=== PATIENT | female | born 1945 | race Caucasian/White ===

== ENCOUNTER 2016-07-14 06:44 | Inpatient (IN) ==
[2016-07-14] MEDS ORDERED: methylPREDNISolone 125 MG/2 ML VIAL IVP ONE (07:05)
[2016-07-14] MEDS ORDERED: Ipratropium/Albuterol Neb 3 ML IH ONE (07:05)
--- NOTE | 2016-07-14 07:09 | Emergency Department Note ---
Disposition Clinical Impression: COPD exacerbation, Non-ST elevation (NSTEMI) myocardial infarction Disposition: Admitted As Inpatient Condition: Fair General Adult HPI - General Stated complaint: brigitte Time Seen by Provider: 07/14/16 06:55 Source: patient, family, EMS Limitations: no limitations Nursing Notes Reviewed: Yes Vital Signs Reviewed: Yes - History of Present Illness HPI Narrative: Patient with a history of COPD and obesity brought in by for evaluation of shortness of breath. Patient has had worsening decline in overall status will last couple months. Not on home oxygen. Extensive smoking history. Patient became acutely short of breath with exertion this a.m. Patient complains of feeling shortness of breath and fatigue. Patient's was recently discharged from her [facility] provider secondary to lack of follow-up and noncompliance. Patient denies chest pain. Pain Scale: 0 - Related Data Home Medications Medication Instructions Recorded Confirmed Acetaminophen [Tylenol] 1,000 mg PO Q6HR PRN 07/14/16 07/14/16 Previous Rx's Medication Instructions Recorded Furosemide [Lasix] 40 mg PO TID 30 Days 02/16/15 Gabapentin [Neurontin] 300 mg PO TID capsule 02/16/15 Allergies Allergy/AdvReac Type Severity Reaction Status Date / Time No Known Allergies Allergy Verified 01/03/15 19:02 All systems ED: reviewed and negative except as stated. Constitutional: Denies: fever ENT ED: Reports: congestion Cardiovascular: Reports: dyspnea on exertion. Denies: chest pain Respiratory: Reports: cough, dyspnea, wheezes Gastrointestinal: Denies: abdominal pain, nausea, vomiting Genitourinary: Denies: urgency, dysuria Integumentary: Denies: rash Neurological: Denies: headache, weakness Endocrine: Reports: fatigue Past Medical History - Past Medical History Medical history: Reports: COPD, other Surgical history: Reports: appendectomy, Psychiatric history: Reports: no psych history - Social History Smoking Status: Current every day smoker Smokeless Tobacco Status: No Alcohol use: Reports: none Drug use: Reports: none Physical Exam General appearance: Pt obese, concern for not having been taken care of to greatest extent at home, conversant but limited insight into disease process Eyes: anicteric sclerae, moist conjunctivae; no lid-lag; PERRL; right periorbital area with slight swelling and erythema HENT: Atraumatic; oropharynx clear with moist mucous membranes and no mucosal ulcerations; normal hard and soft palate Neck: Trachea midline; FROM, supple, no thyromegaly or lymphadenopathy Lungs: diffuse wheezing with scattered rhonchi CV: RRR, no MRGs Abdomen: Soft, non-tender; obese with slight color change but no overt cellulitis. Extremities: +2 peripheral edema Skin: multiple areas of excoriation and mild erythema; chronic vascular changes of the lower extremitis. Psych: alert and oriented to person, place and time; flat affect; - General Limitations: no limitations General appearance: alert Course - Reevaluation(s) Reevaluation #1: Elevated BNP - lasix elevated troponin - aspirin and heparin continued wheezing - overall improved - continued smoking - concern for COPD exacerbation Reevaluation #2: Patient continues to be in no significant distress. Patient conversational and responding properly. We will discuss the hospitalist. - Consultations Consultation #1: Discussed with Hospitalist. Pt accepted for admission. Asks to discuss with cardiology regarding anticoagulation. Consultation #2: Discussed with Dr. Enamorado. Pt will be evaluated by their team. As long as no anti- coagulatin, start Heparin. Vital Signs Temperature 97.6 F 07/14/16 06:56 Pulse Rate 66 07/14/16 06:56 Respiratory Rate 24 07/14/16 06:56 Blood Pressure 144/87 07/14/16 06:56 O2 Sat by Pulse Oximetry 95 07/14/16 06:56 Temperature 97.0 F L 07/14/16 15:09 Pulse Rate 60 07/14/16 15:09 Respiratory Rate 22 07/14/16 15:09 Blood Pressure 129/73 07/14/16 15:09 O2 Sat by Pulse Oximetry 95 07/14/16 15:09 Oxygen Delivery Oxygen Delivery Simple Mask Medical Decision Making - Medical Records Medical records reviewed: Yes I reviewed the patient's medical records. - Lab Data Lab results reviewed: Yes I reviewed the patient's lab results. Result diagrams: 07/14/16 07:00 07/14/16 07:00 Lab Results 07/14/16 07/14/16 07/14/16 Range/Units 07:00 07:00 07:00 WBC 6.9 (4.3-11.1) K/mcL RBC 5.22 H (3.82-4.97) M/mcL Hgb 17.0 H (11.5-15.4) g/dL Hct 54.1 H (35.3-44.9) % MCV 103.6 H (83.0-100.0) fL MCH 32.6 (28.0-33.3) pg MCHC 31.4 L (31.6-35.5) g/dL RDW 17.4 H (11.5-14.5) % Plt Count 189 (140-400) K/mcL MPV 10.5 (9.4-12.4) fL Immature Gran % 1.2 (0-4) % Seg Neutrophils % 70.1 % Lymphocytes % 18.8 % Monocytes % 7.9 % Eosinophils % 1.6 % Basophils % 0.4 % Neutrophils # 4.9 (1.6-8.9) K/mcL Lymphocytes # 1.3 (0.6-4.6) K/mcL Monocytes # 0.6 (0.0-1.3) K/mcL Eosinophils # 0.1 (0.0-0.6) K/mcL Basophils # 0.0 (0.0-0.2) K/mcL Nucleated RBCs/100 WBC 0.7 H (0) /100 WBC PT (9.4-12.1) Seconds INR APTT (26.0-36.0) Seconds Sodium 141 (136-145) mEq/L Potassium 4.2 (3.5-4.5) mEq/L Chloride 98 (98-109) mEq/L Carbon Dioxide 34 H (19-29) mEq/L BUN 16 (7-20) mg/dL Creatinine 0.84 (0.57-1.11) mg/dL Est GFR ( Amer) > 60 (> 60) Est GFR (Non-Af Amer) > 60 (> 60) BUN/Creatinine Ratio 19 (6-26) Glucose 105 H (70-99) mg/dL Calculated Osmolality 294 (280-300) Calcium 9.1 (8.6-10.8) mg/dL Total Bilirubin 0.9 (0.2-1.2) mg/dL Direct Bilirubin 0.5 (0.0-0.5) mg/dL Indirect Bilirubin 0.4 (0.0-1.2) mg/dL AST 19 (5-34) Units/L ALT 15 (0-55) Units/L Alkaline Phosphatase 123 (38-126) Units/L Troponin I 0.60 H* (0-0.03) ng/mL B-Natriuretic Peptide (0-100) pg/mL Serum Total Protein 7.0 (6.0-8.3) g/dL Albumin 2.8 L (3.5-5.0) g/dL Globulin 4.2 H (2.4-3.5) g/dL Albumin/Globulin Ratio 0.7 L (1.1-2.2) Vitamin B12 (213-816) pg/mL Folate (7.0-31.4) ng/mL 07/14/16 07/14/16 07/14/16 Range/Units 07:00 08:06 10:28 WBC (4.3-11.1) K/mcL RBC (3.82-4.97) M/mcL Hgb (11.5-15.4) g/dL Hct (35.3-44.9) % MCV (83.0-100.0) fL MCH (28.0-33.3) pg MCHC (31.6-35.5) g/dL RDW (11.5-14.5) % Plt Count (140-400) K/mcL MPV (9.4-12.4) fL Immature Gran % (0-4) % Seg Neutrophils % % Lymphocytes % % Monocytes % % Eosinophils % % Basophils % % Neutrophils # (1.6-8.9) K/mcL Lymphocytes # (0.6-4.6) K/mcL Monocytes # (0.0-1.3) K/mcL Eosinophils # (0.0-0.6) K/mcL Basophils # (0.0-0.2) K/mcL Nucleated RBCs/100 WBC (0) /100 WBC PT 12.0 (9.4-12.1) Seconds INR 1.1 APTT 28.4 (26.0-36.0) Seconds Sodium (136-145) mEq/L Potassium (3.5-4.5) mEq/L Chloride (98-109) mEq/L Carbon Dioxide (19-29) mEq/L BUN (7-20) mg/dL Creatinine (0.57-1.11) mg/dL Est GFR ( Amer) (> 60) Est GFR (Non-Af Amer) (> 60) BUN/Creatinine Ratio (6-26) Glucose (70-99) mg/dL Calculated Osmolality (280-300) Calcium (8.6-10.8) mg/dL Total Bilirubin (0.2-1.2) mg/dL Direct Bilirubin (0.0-0.5) mg/dL Indirect Bilirubin (0.0-1.2) mg/dL AST (5-34) Units/L ALT (0-55) Units/L Alkaline Phosphatase (38-126) Units/L Troponin I 0.63 H* (0-0.03) ng/mL B-Natriuretic Peptide 861 H (0-100) pg/mL Serum Total Protein (6.0-8.3) g/dL Albumin (3.5-5.0) g/dL Globulin (2.4-3.5) g/dL Albumin/Globulin Ratio (1.1-2.2) Vitamin B12 (213-816) pg/mL Folate (7.0-31.4) ng/mL 07/14/16 Range/Units 10:28 WBC (4.3-11.1) K/mcL RBC (3.82-4.97) M/mcL Hgb (11.5-15.4) g/dL Hct (35.3-44.9) % MCV (83.0-100.0) fL MCH (28.0-33.3) pg MCHC (31.6-35.5) g/dL RDW (11.5-14.5) % Plt Count (140-400) K/mcL MPV (9.4-12.4) fL Immature Gran % (0-4) % Seg Neutrophils % % Lymphocytes % % Monocytes % % Eosinophils % % Basophils % % Neutrophils # (1.6-8.9) K/mcL Lymphocytes # (0.6-4.6) K/mcL Monocytes # (0.0-1.3) K/mcL Eosinophils # (0.0-0.6) K/mcL Basophils # (0.0-0.2) K/mcL Nucleated RBCs/100 WBC (0) /100 WBC PT (9.4-12.1) Seconds INR APTT (26.0-36.0) Seconds Sodium (136-145) mEq/L Potassium (3.5-4.5) mEq/L Chloride (98-109) mEq/L Carbon Dioxide (19-29) mEq/L BUN (7-20) mg/dL Creatinine (0.57-1.11) mg/dL Est GFR ( Amer) (> 60) Est GFR (Non-Af Amer) (> 60) BUN/Creatinine Ratio (6-26) Glucose (70-99) mg/dL Calculated Osmolality (280-300) Calcium (8.6-10.8) mg/dL Total Bilirubin (0.2-1.2) mg/dL Direct Bilirubin (0.0-0.5) mg/dL Indirect Bilirubin (0.0-1.2) mg/dL AST (5-34) Units/L ALT (0-55) Units/L Alkaline Phosphatase (38-126) Units/L Troponin I (0-0.03) ng/mL B-Natriuretic Peptide (0-100) pg/mL Serum Total Protein (6.0-8.3) g/dL Albumin (3.5-5.0) g/dL Globulin (2.4-3.5) g/dL Albumin/Globulin Ratio (1.1-2.2) Vitamin B12 740 (213-816) pg/mL Folate 8.2 (7.0-31.4) ng/mL - Radiology Data Radiology results reviewed: Yes I reviewed the patient's radiology results. - EKG Data EKG #1 EKG attestation: Yes I reviewed and interpreted this EKG. EKG results narrative: EKG shows sinus rhythm with ventricular rate of 66 bpm. DC interval 163. QRS 115. QTC 429. Patient has no significant ST elevations or depressions. Nonspecific T-wave changes. No previous EKG for comparison. Attestation Statement - Attestation Attestation: I examined this patient and my medical decision-making was reviewed with the Resident Physician. I agree with the documented findings, disposition and treatment plan as described except to the extent set forth below. Deconditioned patient who per her "just sits around and smokes" with gradual deterioration over the course of months, brought in today bc is going out of town and doesn't think she is well enough to stay at home alone. Pt unkepmpt, SOB, hypoxic, responsive to oxygen, improved further with nebs. Diminished BS b/l with audible wheezes and rhonchi throughout, minimal tachypnea , no respiratory distress. No fever, no chest pain. Worked up for cardiac disease while treating her COPD, BNP and troponin both elevated. EKG not acutely ischemic. Aspirin, anticoagulants ordered. Admitted to hospitalist with cardio consult.
[2016-07-14 07:17] LABS: Basophils % 0.4 %; Eosinophils # 0.1 K/mcL (0.0-0.6); Eosinophils % 1.6 %; Hematocrit 54.1 % (35.3-44.9); Immature Granulocytes % 1.2 % (0-4); Lymphocytes # 1.3 K/mcL (0.6-4.6); Lymphocytes % 18.8 %; Mean Corpuscular HGB Conc 31.4 g/dL (31.6-35.5); Mean Corpuscular Hemoglobin 32.6 pg (28.0-33.3); Mean Corpuscular Volume 103.6 fL (83.0-100.0); Mean Platelet Volume 10.5 fL (9.4-12.4); Monocytes # 0.6 K/mcL (0.0-1.3); Monocytes % 7.9 %; Neutrophils # 4.9 K/mcL (1.6-8.9); Nucleated Red Blood Cells 0.7 /100 WBC (0); Platelet Count 189 K/mcL (140-400); Red Blood Count 5.22 M/mcL (3.82-4.97); Red Cell Distribution Width 17.4 % (11.5-14.5); Segmented Neutrophils % 70.1 %
[2016-07-14 07:34] LABS: BUN/Creatinine Ratio 19 (6-26); Blood Urea Nitrogen 16 mg/dL (7-20); Calcium 9.1 mg/dL (8.6-10.8); Carbon Dioxide 34 mEq/L (19-29); Chloride 98 mEq/L (98-109); Glucose 105 mg/dL (70-99); Osmolality,Calculated 294 (280-300); Potassium 4.2 mEq/L (3.5-4.5); Sodium 141 mEq/L (136-145); eGFR For African Americans > 60 (> 60); eGFR For Non-African Americans > 60 (> 60)
[2016-07-14] MEDS ORDERED: Aspirin 81 MG TAB.CHEW PO STA (07:54)
[2016-07-14] MEDS ORDERED: *HR* Heparin 5,000 UNIT/ML VIAL IVP PRN ×2 (07:55)
[2016-07-14] MEDS ORDERED: *HR* Heparin 5,000 UNIT/ML VIAL IVP ONE (07:55)
[2016-07-14 08:17] LABS: INR 1.1
[2016-07-14 08:19] LABS: Activated Partial Thrombo Time 28.4 Seconds (26.0-36.0)
[2016-07-14] MEDS: Heparin 25,000 UNIT/500 ML D5W 25,000 UNIT/500 ML MLS IVC SCH (08:23)
[2016-07-14] MEDS ORDERED: Naloxone 0.4 MG/ML INJ IVP PRN ×2 (08:29→15:39)
[2016-07-14] MEDS ORDERED: Ondansetron 4 MG/2 ML VIAL IVP PRN (08:29)
[2016-07-14] MEDS ORDERED: Acetaminophen 325 MG TABLET PO PRN (08:29)
[2016-07-14] MEDS ORDERED: Nitroglycerin 1 INCH/GM PACKET TP ONE (08:41)
--- NOTE | 2016-07-14 09:17 | Internal Med History&Physical ---
Date of Encounter: 07/14/16 Time of Encounter: 09:15 Assessment and Plan (1) NSTEMI (non-ST elevated myocardial infarction) Current visit: Yes Status: Suspected Patient has an extensive history of tobacco abuse of one pack per day She has sudden onset shortness of breath that has been worsening over the past 2 weeks associated with orthopnea EKG with nonspecific ST-T wave changes Chest x-ray with cardiology and pulmonary vascular congestion findings Troponin elevation of 0.6 Patient will be admitted to the hospital due to suspected non-STEMI causing acute hypoxic respiratory failure likely due to pulmonary edema High risk due to risk of lethal arrhythmias Expect the patient to be hospitalized for at least 2 midnights Expected discharge disposition is to rehabilitation facility versus home with home health Cardiology consult-case discussed with cardiology by the ER physician. Will follow recommendations Echocardiogram will be obtained Cyclic cardiac enzymes Continue heparin drip. Aspirin, Plavix and statin. Hold beta raphael as the patient's heart rate is in the 60s. (2) Acute respiratory failure Current visit: Yes Status: Acute Patient's saturation was found to be 60% on room air when she arrived to the emergency department and is currently requiring a nonrebreather. Likely related to fluid overload due to CHF exacerbation that may be related to non-STEMI Patient has a history of being sedentary and bedbound for at least the last 2-3 months according to the . Although the patient does not have tachycardia, given her profound hypoxia, suspicion for pulmonary embolus. Will obtain CT angiogram to evaluate for PE Patient is on heparin drip for suspected non-STEMI. Will follow-up results of the CT angiogram Will obtain a blood gas to evaluate for hypercapnia Qualifiers: Respiratory failure complication: hypoxia Qualified Code(s): J96.01 - Acute respiratory failure with hypoxia (3) COPD exacerbation Current visit: Yes Status: Acute Patient has bilateral diffuse wheezing, worsening shortness of breath, sputum production and cough She has a history of extensive tobacco abuse We will place the patient on Solu-Medrol and breathing treatments (4) CHF (congestive heart failure) Current visit: Yes Status: Chronic Echocardiogram in January 2015 revealed diastolic dysfunction and concentric hypertrophy. Current presentation consistent with pulmonary edema causing acute hypercapnic respiratory failure Patient likely has acute on chronic CHF Will obtain echocardiogram Patient received a dose of Lasix in the emergency room. Hold further doses of Lasix until patient has CTA performed Will follow up cardiology recommendations. Strict input and output, daily weights. Schreiber catheter will be inserted. Qualifiers: Congestive heart failure type: diastolic Congestive heart failure chronicity: acute on chronic Qualified Code(s): I50.33 - Acute on chronic diastolic (congestive) heart failure (5) Cutaneous candidiasis Current visit: Yes Status: Acute Nystatin powder topically Suspicion for candidiasis causing cellulitis and possible superinfection with bacteria causing an abscess Will obtain CT abdomen/pelvis to evaluate for any abscess formation Wound care consult Depending on the results of the CT scan, may require surgery consult (6) Tobacco abuse Current visit: Yes Status: Chronic Counseled regarding cessation. Nicotine patch will not be ordered as the patient likely has non-STEMI (7) Morbid obesity with BMI of 50.0-59.9, adult Current visit: Yes Status: Chronic Internal Medicine - H&P: HPI Chief complaint: Weakness and shortness of breath Admitted From: Emergency Dept Plans for Post Hospital Care: Transfer Inp Rehab Fac History of present illness: Ms. Plata is a 71 year old female with a past medical history of COPD who continues to smoke at home was brought to the hospital by her due to worsening shortness of breath over the past 2 weeks. The patient is a poor historian and part of the history was obtained by review of medical records and from her . Her is an oral surgeon. He states that the patient is mostly sedentary at home and bed bound. She performs minimal activity. He states that she has been getting short of breath with minimal activity over the past 2 weeks that is probably just to shortness of breath even at rest. The patient endorses orthopnea. She also reports that she has noticed increased swelling in her legs. The patient does not check her weight and hence, no information is available regarding weight changes. The patient reports having a cough that is white in color. She denies any chest pain, palpitations. She does report lightheadedness over the past 2 weeks. She denies any fever, chills , abdominal pain, nausea, vomiting or urinary symptoms. The patient does not have any home health care. The patient was admitted to the hospital in January 2015 after a fall. After her discharge from that admission, she was in inpatient rehabilitation according to her . The states that the patient was doing well after she returned home from rehabilitation. However, over the past 8 months, her activity gradually reduced and she became bedbound again. As her symptoms have been getting worse over the past 2 weeks, the patient and her decided to present to the emergency department today. The patient had apparently seen a primary care physician about one year ago after her discharge from the hospital. However, the patient did not follow up with her primary care physician. According to the , the patient has been discharged by her primary care physician and she is in the process of finding a new primary care physician. The states that the patient takes care of herself mostly while lying in the bed and cleans herself up. When he returns from work in the evening, he states that he cleans her up in the evening. The states that he is going to be out of town starting 07/15/2016 and will not be back for a week. In the emergency department, her saturation was found to be 60% on room air and she was placed on a nonrebreather. Her troponin was found to be elevated. Cardiology was consulted. Patient has been started on a heparin drip in the emergency department. Past Med Surg Social Fam HX - Past Medical History Attestation: Yes The following information was validated with the patient. Source: patient, old records reviewed, obtained from family Medical history: CHF, COPD Psychiatric history: no psych history - Past Surgical History Surgical History: appendectomy, , other (wrist surgery) - Social History Smoking Status: Current every day smoker Smokeless Tobacco Status: No Alcohol use: none Drug use: none Current living situation: Home, With Family Activity Level: Bed bound, Mostly sedentary Recent Out of Country Travel Within the Last 8 Weeks: No Exposure or Possible Exposure to Illness During Travel: No - Additional Family History Additional family history: reviewed; Not pertinent Internal Medicine - H&P: Meds Furosemide [Lasix] 40 mg PO TID 30 Days 02/16/15 [Rx] Gabapentin [Neurontin] 300 mg PO TID capsule 02/16/15 [Rx] Acetaminophen [Tylenol] 1,000 mg PO Q6HR PRN 07/14/16 [History] Allergies No Known Allergies Allergy (Verified 01/03/15 19:02) All Systems PM: A 10-system review of systems was performed and is negative for pertinent findings except as documented above in the HPI. Review of systems: 10 systems have been reviewed and are negative except as mentioned in the history of present illness - Constitutional Vitals: Temp Pulse Resp BP Pulse Ox 97.6 F 65 18 137/78 96 07/14/16 06:56 07/14/16 09:00 07/14/16 09:00 07/14/16 09:00 07/14/16 09:00 Exam: Gen.: Lying in bed with head and of bed elevated. Moderate to severe distress. Eyes: Pupils equal, round and reactive to light. Extraocular muscles intact. No scleral icterus present. ENT: Dry mucous membranes. No oropharyngeal erythema or discharge. Chest: Bilateral diffuse wheezing present. CVS: First and second heart sounds present. No murmurs, rubs or gallops. Abdomen: Soft, obese, nontender. Bowel sounds present. Skin: Erythema present below bilateral breasts that is more on the right side. Induration on palpation of breasts bilaterally. LOSS CONTROL ENGINEER: Reduced power of 4/5 in all 4 extremities Psychiatric: Alert, awake and oriented to time Lymphatic system: No lymphadenopathy appreciated Internal Med - H&P Results - Labs CBC & Chem 7: 07/14/16 07:00 07/14/16 07:00 - EKG Data -: EKG Interpreted by Myself EKG shows normal: sinus rhythm, ST-T waves (Nonspecific ST-T changes) Rate: normal - EKG Data Prior EKG available for review: yes When compared to previous EKG: there are significant changes Interpretation IM: suggestive of ischemia - Diagnostic Studies Chest x-ray Status: image reviewed by me (Cardiomegaly. Mild pulmonary vascular congestion. ) Other Images Additional comments: Echocardiogram from January 2015 reveals an ejection fraction of 60-65% with concentric left ventricular hypertrophy and diastolic dysfunction. Dilated left atrium and right ventricle are seen.
[2016-07-14] MEDS ORDERED: Ipratropium/Albuterol Neb 3 ML IH SCH (10:00)
[2016-07-14 11:57] LABS: ABG Base Excess 4.7 mEq/L (-2.0 to 3.0); ABG HCO3 39.9 mEQ/L (21-27); ABG Oxygen Saturation 82 % (95-98); ABG PO2 60 mmHg (85-104); ABG TCO2 43.3 mEq/L (20-26)
[2016-07-14 12:02] LABS: ABG PCO2 112 mmHg (35-45); ABG PH 7.16 pH Units (7.32-7.45)
[2016-07-14] MEDS: Nystatin POWDER 30 GM BOTTLE TP SCH ×3 (12:14→20:27)
[2016-07-14 12:30] LABS: Alanine Aminotransferase 15 Units/L (0-55); Albumin 2.8 g/dL (3.5-5.0); Albumin/Globulin Ratio 0.7 (1.1-2.2); Alkaline Phosphatase 123 Units/L (38-126); Aspartate Amino Transferase 19 Units/L (5-34); Bilirubin,Direct 0.5 mg/dL (0.0-0.5); Bilirubin,Indirect 0.4 mg/dL (0.0-1.2); Bilirubin,Total 0.9 mg/dL (0.2-1.2); Globulin 4.2 g/dL (2.4-3.5)
[2016-07-14 13:10] LABS: Folate 8.2 ng/mL (7.0-31.4)
[2016-07-14] MEDS ORDERED: Perflutren Lipid Microsphere 1.3 ML in 0.9 % Sodium Chloride 8.7 ML IVP ONE (13:26)
--- NOTE | 2016-07-14 13:26 | Cardiology Consult Note ---
Date of Encounter: 07/14/16 Time of Encounter: 13:00 Assessment and Plan (1) Acute respiratory failure Current Visit: Yes Status: Acute Per cardiology: -Patient's saturation was found to be 60% on room air when she arrived to the emergency department and is currently requiring Bipap. -Ph 7.16, PCO2 112, pO2 60. -Pulmonary consulted. On nebs. -Management per primary and pulmonary services. Qualifiers: Respiratory failure complication: hypoxia and hypercapnia Qualified Code(s) : J96.01 - Acute respiratory failure with hypoxia; J96.02 - Acute respiratory failure with hypercapnia (2) Diastolic congestive heart failure, NYHA class 3 Current Visit: Yes Status: Acute Per cardiology: -Echo 2014 LVEF 60-65%, mild left ventricular diastolic dysfunction. -Chest x-ray with prominence of pulmonary vasculature. -BNP 861. -1+ bialteral lower extremity pitting edema. -Echo pending. -Will start lasix 40mg IV BID. -Will continue to monitor. (3) NSTEMI (non-ST elevated myocardial infarction) Current Visit: Yes Status: Suspected Per cardiology: -Suspected NSTEMI with troponin 0.6, 0.63. -No previous cardiac history. -ECG with no ischemic changes. -Denies chest pain. -On asa, plavix, heparin drip. -Echo pending. -Suspect NSTEMI. Patient is not a good candidate for LHC today due to respiratory status. Will plan for LHC once respiratory status improves. -Third troponin pending. Will not start beta raphael due to acute respiratory failure. Can consider addition of beta raphael once respiratory status improves. -Will add statin. -Will check lipids in am. (4) Cellulitis Current Visit: No Status: Acute Per cardiology: -Red rash noted to chest, abdomen, and bilateral lower extremities. -ON nystain and ATB. -Managemet per primary service. (5) Tobacco abuse Current Visit: Yes Status: Chronic Per cardiology: -Patient admits to smoking 1 pack per day for greater than 50 years. -I spent 3-5 minutes reviewing smoking cessation education with patient. -Patient states no desire to quit smoking. Discussion w patient/family: The assessment and plan as outlined above was discussed with the patient who expressed understanding and agreement. All questions were answered. Thank you for involving us in the care of your patient. Please call with any questions. Discussed and reviewed with . History of Present Illness Consult date: 07/14/16 Requesting physician: Deejay Ambrocio Consult reason: possible NSTEMI Chief complaint: Shortness of breath History of present illness: Ms. Plata is a 71 year old female with a relevant past medical history of COPD , smoking 1pack per day for greater than 50 years, HTN. Patient was brought in by family today due to shortness of breath. No family available at bedside, but per review of ER records, family state patient has been bed bound for the past several months. It appears that patient has been discharged by per PCP due to lack of compliance and follow up. Patient denies chest pain. Admits to shortness of breath. Patient admits to fatigue, however states it is about baseline. Past Med Surg Social Fam HX - Past Medical History Attestation: Yes The following information was validated with the patient. Source: patient, old records reviewed Medical history: CHF, COPD Psychiatric history: no psych history - Past Surgical History Surgical History: appendectomy, , other - Social History Smoking Status: Current every day smoker Packs per day: 1 Smokeless Tobacco Status: No Alcohol use: none Drug use: none - Family History Father Adopted: (PATIENT WAS UNABLE TO RECALL FAMILY HISTORY.) Medications and Allergies Furosemide [Lasix] 40 mg PO TID 30 Days 02/16/15 [Rx] Gabapentin [Neurontin] 300 mg PO TID capsule 02/16/15 [Rx] Acetaminophen [Tylenol] 1,000 mg PO Q6HR PRN 07/14/16 [History] Allergies No Known Allergies Allergy (Verified 01/03/15 19:02) All Systems Review: A 10-system review of systems was performed and is negative for pertinent findings except as documented above in the HPI. - Cardiovascular Cardiovascular: as per HPI, dyspnea on exertion Physical Examination Vital Signs, Last 4 Hours Vital Signs Temperature 97.6 F 07/14/16 06:56 Pulse Rate 66 07/14/16 06:56 Respiratory Rate 24 07/14/16 06:56 Blood Pressure 144/87 07/14/16 06:56 O2 Sat by Pulse Oximetry 95 07/14/16 06:56 Temperature 97.5 F L 07/14/16 10:10 Pulse Rate 58 07/14/16 12:30 Respiratory Rate 15 07/14/16 12:30 Blood Pressure 125/79 07/14/16 12:30 O2 Sat by Pulse Oximetry 96 07/14/16 12:30 Oxygen Delivery Oxygen Delivery Simple Mask General: Conversant (Conversational dyspnea noted. ) HEENT: Atraumatic, Normocephaly, Mucus Membranes Moist Neck: No JVD, Normal carotid pulses Cardiac: Reg Rate and Rhythm, Normal S1 and S2, No Murmur Lungs: Other (Lung sounds diminished throughout. On Bipap with FiO2 45%. ) Neuro: Alert and responsive, No focal deficits noted Abdomen: Soft, Non-Tender Skin: Other (Red rash noted to chest, abdomen, and legs. ) Musculoskeletal: No Chest Wall Tenderness Extremities: No Clubbing, No Cyanosis, Other (1+ bilateral lower extremity pitting edema. 1+ bilateral pedal pulses. ) Results 07/14/16 07:00 07/14/16 07:00 Impressions Chest X-Ray 07/14/16 07:05 IMPRESSION: Enlarged cardiac silhouette with minimal prominence of the pulmonary vasculature. D/ / Hung Navas MD / Hung Navas MD Interpreting Provider: Hung Navas MD Abdomen/Pelvis CT 07/14/16 09:09 IMPRESSION: No drainable abdominal wall abscess is identified. There does appear to be skin thickening indicating cellulitis. Large ventral hernia containing predominantly fat but also small portion of colon. No acute intra-abdominal or pelvic process. Chest demonstrates no acute pulmonary emboli, aortic dissection or aneurysm. There is moderate bibasilar atelectasis. D/ / Bubba Crawford MD / Bubba Crawford MD Interpreting Provider: Bubba Crawford MD Chest CTA 07/14/16 09:09 IMPRESSION: No drainable abdominal wall abscess is identified. There does appear to be skin thickening indicating cellulitis. Large ventral hernia containing predominantly fat but also small portion of colon. No acute intra-abdominal or pelvic process. Chest demonstrates no acute pulmonary emboli, aortic dissection or aneurysm. There is moderate bibasilar atelectasis. D/ / Bubba Crawford MD / Bubba Crawford MD Interpreting Provider: Bubba Crawford MD Active Medications Acetaminophen (Tylenol) 650 mg PO Q6HR PRN PRN Reason: Mild Pain (1-3) Stop: 01/13/17 08:30 Albuterol/Ipratropium (Duoneb) 3 ml IH [id number] DEON PRN Reason: Protocol Stop: 01/13/17 10:01 Last Admin: 07/14/16 11:45 Dose: 3 ml Aspirin (Aspirin Ec) 81 mg PO DAILY DEON Stop: 01/14/17 09:01 Clopidogrel Bisulfate (Plavix) 75 mg PO DAILY DEON Stop: 01/14/17 09:01 Heparin Sodium (Porcine) (Heparin) 4,000 unit IVP Q6HR PRN PRN Reason: SEE COMMENTS Stop: 01/13/17 07:56 Heparin Sodium (Porcine) (Heparin) 2,000 unit IVP Q6H PRN PRN Reason: SEE COMMENTS Stop: 01/13/17 07:56 Heparin Sodium/Dextrose (Heparin 25,000 Unit/500 Ml D5w) 25,000 unit in 500 mls @ 19.976 mls/hr IVC .Q24H DEON; 7.34 UNIT/KG/HR PRN Reason: Protocol Stop: 01/13/17 08:01 Last Admin: 07/14/16 08:23 Dose: 7.34 unit/kg/hr, 19.976 mls/hr Ceftriaxone Sodium 1,000 mg/ (Dextrose) 100 mls @ 200 mls/hr IVPB Q12H DEON Stop: 01/13/17 18:01 Methylprednisolone (Solu-Medrol) 40 mg IVP Q12HR DEON Stop: 01/13/17 18:01 Naloxone HCl (Narcan) 0.4 mg IVP Q2MIN PRN PRN Reason: Opioid Reversal Stop: 01/13/17 08:30 Nystatin (Nystop) 1 appl TP TID DEON Stop: 01/13/17 09:16 Last Admin: 07/14/16 12:14 Dose: 1 appl Ondansetron HCl (Zofran) 4 mg IVP Q6H PRN PRN Reason: Nausea And Vomiting Stop: 01/13/17 08:30 Laboratory Tests 07/14/16 07/14/16 07/14/16 07:00 07:00 07:00 Hgb 17.0 H ABG pH ABG pCO2 ABG pO2 ABG O2 Saturation Creatinine 0.84 Troponin I 0.60 H* B-Natriuretic Peptide 07/14/16 07/14/16 07/14/16 07:00 10:28 11:40 Hgb ABG pH 7.16 L* ABG pCO2 112 H* ABG pO2 60 L ABG O2 Saturation 82 L Creatinine Troponin I 0.63 H* B-Natriuretic Peptide 861 H - Imaging and Cardiology Chest Xray: report reviewed Echo: pending, report reviewed Other Results: CT abdomen/pelvis and chest reviewed - EKG Interpretation EKG results cardiology: personally reviewed (ECG with SInus rhythm, HR 66.), other (Telemetry reviewed with average HR 62. PVCs noted.) Consult Discharge Plan - Plan Referrals: Maddi Chong DO [Partnered Physician] - 09/13/16 10:30 am Blair Nichols DO [Partnered Physician] - (office makes their own appointments)
--- NOTE | 2016-07-14 13:33 | Pulmonology Consult Note ---
<Kyle Remy - Last Filed: 07/14/16 14:20> Date of Encounter: 07/14/16 Time of Encounter: 13:27 Assessment and Plan (1) Acute respiratory failure Current Visit: Yes Status: Acute patient came in with CC of difficulty in breathing, lower extremity edema. upon admission her saturations were found to be 60s etiology likely multifactorial in setting of CHF, morbid obesity, COPD exacerbation, NSTEMI. Patient is sedentary at home, bedbound. CTA chest (07/14) negative for PE but showed bibasilar atelectasis ABG showed acute on chronic respiratory acidosis, partially compensated - hypercapnia 112, baseline 58 patient appears to be chronically hypercapnic. patient denies having CLARA, or being on CPAP at home. There may be a component of CLARA, or possible OHS as well. Plan: continue BiPAP, monitor o2 sat if patient dencompensates, will do endotracheal intubation and transfer to ICU treat for COPD exacerbation as below Qualifiers: Respiratory failure complication: hypoxia and hypercapnia Qualified Code(s) : J96.01 - Acute respiratory failure with hypoxia; J96.02 - Acute respiratory failure with hypercapnia (2) Acute on chronic respiratory failure with hypoxia and hypercapnia Current Visit: Yes Status: Acute plan as above repeat ABG on BiPAP shows slight improvement - 7.18/105/58/39.2/82/5.5 - may require endotracheal intubation and admission to ICU (3) Acute exacerbation of chronic obstructive pulmonary disease (COPD) Current Visit: Yes Status: Chronic patient continues to smoke about 1PPD PLan: continue antibiotics, bronchodilators, steroids. (4) NSTEMI (non-ST elevated myocardial infarction) Current Visit: Yes Status: Suspected upon admission, patient denied any chest pain. troponins .6, .63 CHRISTINE score 3 cardiology on board Plan: cardiology on board. continue ASA, hold BB due to bradycardia heparin gtt echo pending trending troponin (5) CHF (congestive heart failure) Current Visit: Yes Status: Chronic last echo from 02/15/15 showed LVEF 60-65%, mild concentric LVH, mild left ventricular diastolic dysfunction. RV not well visuzlied, mildly dilated with normal systolic funciton. mildly dilated left atrium. CXR showed enlarged cardiac silhouette with pulmonary congestion. BNP 861 likely a contributing factor to her acute hypoxic respiratory failure with hypercapnia Qualifiers: Congestive heart failure type: diastolic Congestive heart failure chronicity: acute on chronic Qualified Code(s): I50.33 - Acute on chronic diastolic (congestive) heart failure (6) Cutaneous candidiasis Current Visit: Yes Status: Acute erythema and induration to inframammary folds CT abdomen/pelvis showed skin thickening, possible cellulitis. no abdominal wall abscess was identified. no acute process was identified continue with nystatin powder wound care consulted (7) Tobacco abuse Current Visit: Yes Status: Chronic smoking cessation advised. (8) Morbid obesity with BMI of 50.0-59.9, adult Current Visit: Yes Status: Chronic patient counseled on importance of weight loss and smoking cessation in order to decrease risks and co morbidities. (9) DVT prophylaxis Current Visit: Yes Status: Acute heparin gtt for NSTEMI History of Present Illness Consult date: 07/14/16 Requesting physician: Deejay Ambrocio Reason for consult: dyspnea, COPD Chief complaint: DARIAN History of present illness: 71-year-old female with past medical history COPD, chronic pack per day smoker, obesity, and heart failure with preserved EF (01/2015) admitted to [facility] for respiratory distress secondary to COPD exacerbation and heart failure. Patient presented to the ED for difficulty in breathing. She is a poor historian and her history of present illness was supplemented by medical records in the ED. She has been reportedly decompensated over the past several weeks. Brought in by her who is a physician. She has noticed increased swelling in her bilateral lower extremities. Reports increase in cough and sputum production. Denies any fevers, chills, chest pain, diaphoresis, nausea, or vomiting. Denies any history of cardiac ischemic disease, left heart catheterization, or stent placement. She is normally sedentary at home and bedbound. Denies any recent travel, surgeries, or blood clots. She takes aspirin at home and denies any additional antiplatelet or anticoagulant. Home medication includes Lasix. In the ED she presented hypoxic in the 60s requiring non-rebreather. Chest x- ray reveals pulmonary congestion. CT of the abdomen and pelvis revealed possible cellulitic changes to the abdomen. CTA of chest is negative for pulmonary embolism but showed moderate bibasilar atelectasis. EKG showed non- ischemic changes. Troponin was elevated 0.6. BNP 861. Pulmonology was consulted due to respiratory failure. She was place on BiPAP with ABG showing acute on chronic respiratory acidosis with hypoxemia and hypercapnia. Patients tolerated BiPAP with oxygen saturation 95% respirations 16 on 18 settings. Past Med Surg Social Fam HX - Past Medical History Attestation: Yes The following information was validated with the patient. Source: patient, old records reviewed Medical history: CHF, COPD Psychiatric history: no psych history - Past Surgical History Surgical History: appendectomy, , other - Social History Smoking Status: Current every day smoker Packs per day: 1 Smokeless Tobacco Status: No Alcohol use: none Drug use: none - Family History Father Adopted: (PATIENT WAS UNABLE TO RECALL FAMILY HISTORY.) Medications and Allergies Furosemide [Lasix] 40 mg PO TID 30 Days 02/16/15 [Rx] Gabapentin [Neurontin] 300 mg PO TID capsule 02/16/15 [Rx] Acetaminophen [Tylenol] 1,000 mg PO Q6HR PRN 07/14/16 [History] Allergies No Known Allergies Allergy (Verified 01/03/15 19:02) All Systems: A 10-system review of systems was performed and is negative for pertinent findings except as documented above in the HPI. Physical Examination Vital Signs: Vital Signs, Last 4 Hours Resp Pulse Ox 07/14/16 11:45 18 100 General appearance: no acute distress (currently on BiPAP, tolerating well), alert Eyes: nonicteric, other (mild right periorbital edema and erythema) Neck: supple Effort: very labored Auscultation: bilateral: diminished breath sounds, wheezes (expiratory wheezing) , other (coarse) Cardiovascular: regular rate and rhythm, other (distant heart sounds, very hard to hear ) Gastrointestinal: normoactive bowel sounds, soft, non-tender, other (obese abdomen with diffuse erythema and inudration inframammary) Integumentary: other (patient is unkempt. bilateral feet very dry skin, peeling. fingernails have dirt under them. chronic vascular changes of lower extremities. ) Extremities: no cyanosis, edema (+2 pitting edema up to mid thigh. ), other (no calf tenderness. ) Gait: other (patient is bedbound, morbidly obese. ) normal mental status, non-focal exam, motor strength normal and symmetric mood appropriate, anxious normal mental status, answers questions appropriately. Results - Laboratory Findings CBC and BMP: 07/14/16 07:00 07/14/16 07:00 ABG ABG pH 7.16 pH Units (7.32-7.45) L* 07/14/16 11:40 ABG pCO2 112 mmHg (35-45) H* 07/14/16 11:40 ABG pO2 60 mmHg (85-104) L 07/14/16 11:40 ABG O2 Saturation 82 % (95-98) L 07/14/16 11:40 PT/INR, D-dimer PT 12.0 Seconds (9.4-12.1) 07/14/16 08:06 Abnormal lab findings: Abnormal lab results RBC 5.22 M/mcL (3.82-4.97) H 07/14/16 07:00 Hgb 17.0 g/dL (11.5-15.4) H 07/14/16 07:00 Hct 54.1 % (35.3-44.9) H 07/14/16 07:00 MCV 103.6 fL (83.0-100.0) H 07/14/16 07:00 MCHC 31.4 g/dL (31.6-35.5) L 07/14/16 07:00 RDW 17.4 % (11.5-14.5) H 07/14/16 07:00 Nucleated RBCs/100 WBC 0.7 /100 WBC (0) H 07/14/16 07:00 ABG pH 7.16 pH Units (7.32-7.45) L* 07/14/16 11:40 ABG pCO2 112 mmHg (35-45) H* 07/14/16 11:40 ABG pO2 60 mmHg (85-104) L 07/14/16 11:40 ABG HCO3 39.9 mEQ/L (21-27) H 07/14/16 11:40 ABG Total CO2 43.3 mEq/L (20-26) H 07/14/16 11:40 ABG O2 Saturation 82 % (95-98) L 07/14/16 11:40 ABG Base Excess 4.7 mEq/L (-2.0 to 3.0) H 07/14/16 11:40 Carbon Dioxide 34 mEq/L (19-29) H 07/14/16 07:00 Glucose 105 mg/dL (70-99) H 07/14/16 07:00 Troponin I 0.63 ng/mL (0-0.03) H* 07/14/16 10:28 B-Natriuretic Peptide 861 pg/mL (0-100) H 07/14/16 07:00 Albumin 2.8 g/dL (3.5-5.0) L 07/14/16 07:00 Globulin 4.2 g/dL (2.4-3.5) H 07/14/16 07:00 Albumin/Globulin Ratio 0.7 (1.1-2.2) L 07/14/16 07:00 - Diagnostic Findings Chest x-ray: report reviewed, image reviewed Additional studies: Chest X-Ray 07/14/16 07:05 IMPRESSION: Enlarged cardiac silhouette with minimal prominence of the pulmonary vasculature. D/ / Hung Navas MD / Hung Navas MD Interpreting Provider: Hung Navas MD Abdomen/Pelvis CT 07/14/16 09:09 IMPRESSION: No drainable abdominal wall abscess is identified. There does appear to be skin thickening indicating cellulitis. Large ventral hernia containing predominantly fat but also small portion of colon. No acute intra-abdominal or pelvic process. Chest demonstrates no acute pulmonary emboli, aortic dissection or aneurysm. There is moderate bibasilar atelectasis. D/ / Bubba Crawford MD / Bubba Crawford MD Interpreting Provider: Bubba Crawford MD Chest CTA 07/14/16 09:09 IMPRESSION: No drainable abdominal wall abscess is identified. There does appear to be skin thickening indicating cellulitis. Large ventral hernia containing predominantly fat but also small portion of colon. No acute intra-abdominal or pelvic process. Chest demonstrates no acute pulmonary emboli, aortic dissection or aneurysm. There is moderate bibasilar atelectasis. D/ / Bubba Crawford MD / Bubba Crawford MD Interpreting Provider: Bubba Crawford MD Consult Discharge Plan - Plan Referrals: Maddi Chong DO [Partnered Physician] - 09/13/16 10:30 am Blair Nichols DO [Partnered Physician] - (office makes their own appointments) <BestJong W - Last Filed: 07/14/16 15:23> Date of Encounter: 07/14/16 All Systems: A 10-system review of systems was performed and is negative for pertinent findings except as documented above in the HPI. Physical Examination Vital Signs: Vital Signs, Last 4 Hours Pulse Resp BP Pulse Ox 07/14/16 12:30 58 15 125/79 96 07/14/16 12:10 15 135/72 95 07/14/16 11:45 18 100 Results - Laboratory Findings CBC and BMP: 07/14/16 07:00 07/14/16 07:00 ABG ABG pH 7.18 pH Units (7.32-7.45) L* 07/14/16 14:42 ABG pCO2 106 mmHg (35-45) H* 07/14/16 14:42 ABG pO2 55 mmHg (85-104) L 07/14/16 14:42 ABG O2 Saturation 79 % (95-98) L 07/14/16 14:42 PT/INR, D-dimer PT 12.0 Seconds (9.4-12.1) 07/14/16 08:06 Abnormal lab findings: Abnormal lab results RBC 5.22 M/mcL (3.82-4.97) H 07/14/16 07:00 Hgb 17.0 g/dL (11.5-15.4) H 07/14/16 07:00 Hct 54.1 % (35.3-44.9) H 07/14/16 07:00 MCV 103.6 fL (83.0-100.0) H 07/14/16 07:00 MCHC 31.4 g/dL (31.6-35.5) L 07/14/16 07:00 RDW 17.4 % (11.5-14.5) H 07/14/16 07:00 Nucleated RBCs/100 WBC 0.7 /100 WBC (0) H 07/14/16 07:00 APTT 44.5 Seconds (26.0-36.0) H D 07/14/16 14:29 ABG pH 7.18 pH Units (7.32-7.45) L* 07/14/16 14:42 ABG pCO2 106 mmHg (35-45) H* 07/14/16 14:42 ABG pO2 55 mmHg (85-104) L 07/14/16 14:42 ABG HCO3 39.6 mEQ/L (21-27) H 07/14/16 14:42 ABG Total CO2 42.9 mEq/L (20-26) H 07/14/16 14:42 ABG O2 Saturation 79 % (95-98) L 07/14/16 14:42 ABG Base Excess 5.8 mEq/L (-2.0 to 3.0) H 07/14/16 14:42 Carbon Dioxide 34 mEq/L (19-29) H 07/14/16 07:00 Glucose 105 mg/dL (70-99) H 07/14/16 07:00 Troponin I 0.63 ng/mL (0-0.03) H* 07/14/16 10:28 B-Natriuretic Peptide 861 pg/mL (0-100) H 07/14/16 07:00 Albumin 2.8 g/dL (3.5-5.0) L 07/14/16 07:00 Globulin 4.2 g/dL (2.4-3.5) H 07/14/16 07:00 Albumin/Globulin Ratio 0.7 (1.1-2.2) L 07/14/16 07:00 - Clinical Findings Intake & Output: Intake & Output 07/13/16 07/14/16 07/14/16 23:59 07:59 15:59 Intake Total 0 / 0 Balance 0 / 0 - Attending Attestation I examined this patient and my medical decision-making was reviewed with the ROOM WORKER/PA/Advanced Practice Nurse/Resident Physician. I agree with the documented findings, disposition and treatment plan as described except to the extent set forth below. I spent 35 of Critical Care time with this patient. It involved decision making of high complexity to assess, manipulate, and support vital organ system failure and/or to prevent further life threatening deterioration of the patient' s condition. The time involved in the performance of separately reportable procedures was not counted toward critical care time. Patient seen and examined at bedside Labs, radiology, chart personally reviewed. All lines examined without evidence of infection. Neuropsych: Altered mental status was likely secondary to CO2 narcosis. Avoid sedatives and STOREROOM KEEPER depressants Pulm: Acute on chronic hypoxic hypercarbic respiratory failure likely secondary to CHF exacerbation with underlying COPD and CLARA and obesity hypoventilation syndrome. Trial of noninvasive positive pressure ventilation patient more awake and alert now we will continue to adjust bilevel positive airway pressure support however if no improvement in next 1-2 hours will likely need intubation. CT performed was negative for acute filling defect she does have significant atelectasis but no clear evidence of pneumonia. We will also give patient IV steroid and bronchodilators for COPD Cards: ECG without STEMI troponin elevated questionable type II NE versus an STEMI cardiology following ACS protocol initiated BNP elevated I suspect she is significantly volume overloaded initiating diuresis FEN-GI: Nothing by mouth for now Renal: No AK I Schreiber catheter placed to monitor urine output twice a day chemistry while actively diuresing ID: Possible cellulitis on appropriate antimicrobial coverage de-escalate based upon cultures which have been obtained Heme/Onc: She is on therapeutic and coagulation for ACS protocol H&H stable no evidence of thrombocytopenia Endo: Glucose monitor Integ/MSK: Extensive skin breakdown we will consult wound care along with providing skin care per RN protocol to prevent skin ulcers CODE: Presumed Full code attempted to contact to confirm this patient is currently deemed not medically competent to make decisions because of altered mental status Additionally patient has evidence of deconditioning and overall poor health she lives at home and is taking care of by her she will need a social service consult for assessment of living condition
[2016-07-14 14:13] LABS: ABG Base Excess 5.5 mEq/L (-2.0 to 3.0); ABG HCO3 39.2 mEQ/L (21-27); ABG Oxygen Saturation 82 % (95-98); ABG PO2 58 mmHg (85-104); ABG TCO2 42.4 mEq/L (20-26)
[2016-07-14 14:15] LABS: Blood Gas FiO2 45 %
[2016-07-14 14:17] LABS: ABG PCO2 105 mmHg (35-45); ABG PH 7.18 pH Units (7.32-7.45)
[2016-07-14] MEDS ORDERED: Furosemide 40 MG/4 ML VIAL IVP ONE (14:29)
[2016-07-14 14:51] LABS: ABG Base Excess 5.8 mEq/L (-2.0 to 3.0); ABG HCO3 39.6 mEQ/L (21-27); ABG Oxygen Saturation 79 % (95-98); ABG PO2 55 mmHg (85-104); ABG TCO2 42.9 mEq/L (20-26)
[2016-07-14 15:02] LABS: Blood Gas FiO2 45 %
[2016-07-14 15:03] LABS: ABG PCO2 106 mmHg (35-45); ABG PH 7.18 pH Units (7.32-7.45)
[2016-07-14] MEDS ORDERED: Potassium Phosphate 44 MEQ in 0.9 % Sodium Chloride 250 ML IVPB PRN (15:47)
[2016-07-14] MEDS ORDERED: Calcium Gluconate 1,000 MG in D5% in Water 100 ML IVPB PRN (15:47)
[2016-07-14] MEDS ORDERED: Magnesium Sulfate 2 GM in D5% in Water 100 ML IVPB PRN (15:47)
[2016-07-14] MEDS: Ipratropium/Albuterol Neb 3 ML IH SCH ×3 (16:27→23:31)
[2016-07-14] MEDS: Miconazole 2% ointment 114 GM TUBE TP SCH (17:31)
[2016-07-14 17:43] LABS: ABG Base Excess 5.9 mEq/L (-2.0 to 3.0); ABG HCO3 38.3 mEQ/L (21-27); ABG Oxygen Saturation 96 % (95-98); ABG PO2 97 mmHg (85-104); ABG TCO2 41.3 mEq/L (20-26)
[2016-07-14 17:45] LABS: Blood Gas FiO2 60 %
[2016-07-14 17:47] LABS: ABG PCO2 98 mmHg (35-45)
--- NOTE | 2016-07-14 17:51 | Electrocardiograph Report ---
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
[2016-07-14] MEDS: MethylPREDNISolone 40 MG/ML VIAL IVP SCH (18:42)
[2016-07-14] MEDS ORDERED: Perflutren Lipid Microsphere 2 ML VIAL ONE (19:45)
[2016-07-14] MEDS: Furosemide 40 MG/4 ML VIAL IVP SCH (20:26)
[2016-07-14 21:00] LABS: BUN/Creatinine Ratio 18 (6-26); Blood Urea Nitrogen 15 mg/dL (7-20); Calcium 8.8 mg/dL (8.6-10.8); Carbon Dioxide 36 mEq/L (19-29); Chloride 96 mEq/L (98-109); Glucose 140 mg/dL (70-99); Osmolality,Calculated 295 (280-300); Potassium 4.4 mEq/L (3.5-4.5); Sodium 141 mEq/L (136-145); eGFR For African Americans > 60 (> 60); eGFR For Non-African Americans > 60 (> 60)
[2016-07-14 21:14] LABS: ABG Base Excess 8.8 mEq/L (-2.0 to 3.0); ABG HCO3 42.1 mEQ/L (21-27); ABG Oxygen Saturation 97 % (95-98); ABG PH 7.25 pH Units (7.32-7.45); ABG PO2 108 mmHg (85-104)
[2016-07-14 21:18] LABS: ABG PCO2 96 mmHg (35-45); Blood Gas FiO2 90 %; Blood Gas PEEP 8 cm H2O; Blood Gas Respiration Rate 15
[2016-07-15 01:20] LABS: ABG Base Excess 8.7 mEq/L (-2.0 to 3.0); ABG Oxygen Saturation 96 % (95-98); ABG PH 7.24 pH Units (7.32-7.45); ABG PO2 93 mmHg (85-104)
[2016-07-15 01:21] LABS: Blood Gas FiO2 60 %
[2016-07-15 01:24] LABS: ABG PCO2 98 mmHg (35-45)
[2016-07-15] MEDS: Ipratropium/Albuterol Neb 3 ML IH SCH ×6 (03:39→23:21)
[2016-07-15] MEDS ORDERED: Furosemide 40 MG/4 ML VIAL IVP ONE (03:49)
[2016-07-15 03:50] LABS: Basophils % 0.1 %; Hematocrit 52.5 % (35.3-44.9); Immature Granulocytes % 1.5 % (0-4); Lymphocytes # 0.6 K/mcL (0.6-4.6); Lymphocytes % 7.2 %; Mean Corpuscular HGB Conc 29.1 g/dL (31.6-35.5); Mean Corpuscular Hemoglobin 30.8 pg (28.0-33.3); Mean Corpuscular Volume 105.8 fL (83.0-100.0); Monocytes # 0.4 K/mcL (0.0-1.3); Monocytes % 4.1 %; Neutrophils # 7.8 K/mcL (1.6-8.9); Nucleated Red Blood Cells 0.4 /100 WBC (0); Platelet Count 150 K/mcL (140-400); Red Blood Count 4.96 M/mcL (3.82-4.97); Red Cell Distribution Width 16.5 % (11.5-14.5); Segmented Neutrophils % 87.1 %
[2016-07-15 03:51] LABS: Hemoglobin 15.3 g/dL (11.5-15.4)
[2016-07-15] MEDS ORDERED: Furosemide 40 MG/4 ML VIAL ONE (03:51)
[2016-07-15 03:52] LABS: Ionized Calcium 1.11 mmol/L (1.15-1.35)
[2016-07-15 03:56] LABS: ABG Base Excess 10.5 mEq/L (-2.0 to 3.0); ABG HCO3 45.7 mEQ/L (21-27); ABG Oxygen Saturation 91 % (95-98); ABG PO2 75 mmHg (85-104); ABG TCO2 49.3 mEq/L (20-26); Blood Gas FiO2 55 %
[2016-07-15 03:57] LABS: ABG PCO2 117 mmHg (35-45)
[2016-07-15 04:02] LABS: Alanine Aminotransferase 15 Units/L (0-55); Albumin 2.4 g/dL (3.5-5.0); Albumin/Globulin Ratio 0.6 (1.1-2.2); Alkaline Phosphatase 107 Units/L (38-126); Aspartate Amino Transferase 16 Units/L (5-34); BUN/Creatinine Ratio 17 (6-26); Bilirubin,Total 0.5 mg/dL (0.2-1.2); Blood Urea Nitrogen 14 mg/dL (7-20); Calcium 8.5 mg/dL (8.6-10.8); Carbon Dioxide 37 mEq/L (19-29); Chloride 97 mEq/L (98-109); Chol/HDL Ratio 2.7 (0-4.9); Cholesterol 102 mg/dL (< 200); Globulin 3.8 g/dL (2.4-3.5); Glucose 124 mg/dL (70-99); HDL Cholesterol 38 mg/dL (40-59); LDL Cholesterol,Calculated 47 mg/dL (0-99); Magnesium 1.9 mg/dL (1.6-2.6); Osmolality,Calculated 294 (280-300); Phosphorous 4.8 mg/dL (2.3-4.7); Potassium 4.4 mEq/L (3.5-4.5); Sodium 141 mEq/L (136-145); Total Protein 6.2 g/dL (6.0-8.3); Triglycerides 84 mg/dL (< 150); eGFR For African Americans > 60 (> 60); eGFR For Non-African Americans > 60 (> 60)
[2016-07-15] MEDS ORDERED: Lacri-Lube 3.5 GM TUBE BOTH EYES PRN (04:28)
[2016-07-15] MEDS: FentaNYL (PF) 1,000 MCG in 0.9 % Sodium Chloride 80 ML IVC SCH ×3 (04:44→19:02)
--- NOTE | 2016-07-15 04:45 | Procedure Note ---
Date of procedure: 07/15/16 Pre-op diagnosis: Heart failure Post-op diagnosis: same Procedure: The procedure was considered emergent. The patient was acutely confused and not responding to questions and he was deemed by myself and the nursing staff that the patient did not have the mental capacity to give explicit consent at this time. Patient was preoxygenated using a bag valve mask. The patient was anesthetized using 5 mg of Versed and 30 mg of etomidate. A size 4 Glidascope blade was inserted into the oropharynx. A moderate amount of clear mucus was encountered in the larynx and suctioned. The vocal cords were then visualized and a 7.5 ET tube was passed through the vocal cords under direct visualization. CO2 detector was placed and the patient had good color change. Breath sounds were present bilaterally but diminished. No gastric sounds were heard. The ET tube was secured at the 23 cm margret at the lips. The patient tolerated the procedure well, there are no immediate complications. No G-tube was placed and chest x-ray and KUB are pending. The attending physician, Dr. Wood, was present and supervised the entire procedure. Anesthesia: SUNA Surgeon: Brian Murdock Pathology: none sent Condition: critical Disposition: ICU
--- NOTE | 2016-07-15 04:59 | Event Note ---
Date of Encounter: 07/15/16 Time of Encounter: 04:00 I was paged by the nurse due to concern for altered mental status. I evaluated the patient earlier in the evening and at that time the patient was awake, alert , following commands, in answering questions appropriately. Upon reevaluation the patient would open her eyes to painful stimuli but would not follow commands. I removed her BiPAP mask and attempted to ask her questions however she was unable to state her name or respond to any questions appropriately. A stat ABG was ordered which revealed a pH of 7.2, PCO2 of 117, PaO2 75, bicarbonate of 45.7 which was worse compared to an ABG performed 3 hours earlier which showed a pH of 7.24 and a PCO2 of 98 that time. Given the patient 's altered mental status and worsening ventilation it was decided to emergently intubate the patient. Please see procedure note for details regarding intubation. The patient was placed on the ventilator with a respiratory rate of 20, tidal volume of 500, FiO2 60% and PEEP of 5. A repeat ABG will be obtained 30 minutes after intubation. Attempts to contact the patient's were unsuccessful. Chest x-ray obtained showed the ET tube in satisfactory position.
[2016-07-15] MEDS: MethylPREDNISolone 40 MG/ML VIAL IVP SCH ×2 (05:23→17:53)
[2016-07-15] MEDS: Heparin 25,000 UNIT/500 ML D5W 25,000 UNIT/500 ML MLS IVC SCH ×2 (05:29→20:09)
[2016-07-15 05:32] LABS: ABG Base Excess 11.9 mEq/L (-2.0 to 3.0); ABG HCO3 43.3 mEQ/L (21-27); ABG Oxygen Saturation 88 % (95-98); ABG PCO2 84 mmHg (35-45); ABG PH 7.32 pH Units (7.32-7.45); ABG PO2 59 mmHg (85-104); ABG TCO2 45.9 mEq/L (20-26); Blood Gas FiO2 60 %
--- NOTE | 2016-07-15 07:01 | Pulmonology Progress Note ---
<LaurijseusJong tena W - Last Filed: 07/15/16 09:29> Date of Encounter: 07/15/16 Objective PUL Vital signs: Last Vital Signs Temp 98 F 07/15/16 07:15 Pulse 72 07/15/16 07:32 Resp 18 07/15/16 07:32 BP 123/66 07/15/16 07:32 Pulse Ox 92 07/15/16 07:26 Ventilator Settings Ventilator Settings: Ventilator Settings, Last 8 Hours Ventilator Mode VC+ Ventilator Mode VC+ Ventilator Mode VC+ Ventilator Mode VC+ Ventilator Mode VC+ Ventilator Mode VC+ Ventilator Mode VC+ Ventilator Mode VC+ Ventilator Tidal Volume 450 Setting Ventilator Tidal Volume 500 Setting Ventilator Tidal Volume 500 Setting Ventilator Tidal Volume 500 Setting Ventilator Tidal Volume 500 Setting Ventilator Tidal Volume 500 Setting Ventilator Tidal Volume 500 Setting Ventilator Tidal Volume 500 Setting Ventilator Respiratory Rate 18 Setting Ventilator Respiratory Rate 18 Setting Ventilator Respiratory Rate 18 Setting Ventilator Respiratory Rate 16 Setting Ventilator Respiratory Rate 20 Setting Ventilator Respiratory Rate 20 Setting Ventilator Respiratory Rate 20 Setting Ventilator Respiratory Rate 20 Setting Actual Respiratory Rate 18 Actual Respiratory Rate 18 Actual Respiratory Rate 16 Actual Respiratory Rate 16 Actual Respiratory Rate 20 Actual Respiratory Rate 20 Actual Respiratory Rate 20 Positive End Expiratory 8 Pressure Positive End Expiratory 8 Pressure Positive End Expiratory 5 Pressure Positive End Expiratory 5 Pressure Positive End Expiratory 5 Pressure Positive End Expiratory 5 Pressure Positive End Expiratory 5 Pressure Positive End Expiratory 5 Pressure Peak Inspiratory Airway 30 Pressure Peak Inspiratory Airway 30 Pressure Peak Inspiratory Airway 40 Pressure Peak Inspiratory Airway 42 Pressure Peak Inspiratory Airway 34 Pressure Peak Inspiratory Airway 30 Pressure Peak Inspiratory Airway 25 Pressure Results - Laboratory Findings CBC and BMP: 07/15/16 03:25 07/15/16 03:25 ABG ABG pH 7.32 pH Units (7.32-7.45) D 07/15/16 05:25 ABG pCO2 84 mmHg (35-45) H* D 07/15/16 05:25 ABG pO2 59 mmHg (85-104) L 07/15/16 05:25 ABG O2 Saturation 88 % (95-98) L 07/15/16 05:25 PT/INR, D-dimer PT 12.0 Seconds (9.4-12.1) 07/14/16 08:06 Abnormal lab findings: Abnormal lab results Hct 52.5 % (35.3-44.9) H 07/15/16 03:25 MCV 105.8 fL (83.0-100.0) H 07/15/16 03:25 MCHC 29.1 g/dL (31.6-35.5) L 07/15/16 03:25 RDW 16.5 % (11.5-14.5) H 07/15/16 03:25 Nucleated RBCs/100 WBC 0.4 /100 WBC (0) H 07/15/16 03:25 APTT 60.3 Seconds (26.0-36.0) H 07/14/16 23:05 ABG pCO2 84 mmHg (35-45) H* D 07/15/16 05:25 ABG pO2 59 mmHg (85-104) L 07/15/16 05:25 ABG HCO3 43.3 mEQ/L (21-27) H 07/15/16 05:25 ABG Total CO2 45.9 mEq/L (20-26) H 07/15/16 05:25 ABG O2 Saturation 88 % (95-98) L 07/15/16 05:25 ABG Base Excess 11.9 mEq/L (-2.0 to 3.0) H 07/15/16 05:25 Chloride 97 mEq/L (98-109) L 07/15/16 03:25 Carbon Dioxide 37 mEq/L (19-29) H 07/15/16 03:25 Glucose 124 mg/dL (70-99) H 07/15/16 03:25 POC Glucose 118 (58-89) H 07/14/16 16:05 Calcium 8.5 mg/dL (8.6-10.8) L 07/15/16 03:25 Ionized Calcium 1.11 mmol/L (1.15-1.35) L 07/15/16 03:25 Phosphorus 4.8 mg/dL (2.3-4.7) H 07/15/16 03:25 Troponin I 0.59 ng/mL (0-0.03) H* 07/14/16 14:29 B-Natriuretic Peptide 861 pg/mL (0-100) H 07/14/16 07:00 Albumin 2.4 g/dL (3.5-5.0) L 07/15/16 03:25 Globulin 3.8 g/dL (2.4-3.5) H 07/15/16 03:25 Albumin/Globulin Ratio 0.6 (1.1-2.2) L 07/15/16 03:25 HDL Cholesterol 38 mg/dL (40-59) L 07/15/16 03:25 - Clinical Findings Intake & Output: Intake & Output 07/14/16 07/15/16 07/15/16 23:59 07:59 15:59 Intake Total 289 / 289 269 / 269 Output Total 1250 / 1250 825 / 825 Balance -961 / -961 -556 / -556 Weight 173.4 kg Consult Discharge Plan - Plan Referrals: Maddi Chong DO [Partnered Physician] - 09/13/16 10:30 am Blair Nichols DO [Partnered Physician] - (office makes their own appointments) - Attending Attestation I examined this patient and my medical decision-making was reviewed with the GUITAR REPAIRER/PA/Advanced Practice Nurse/Resident Physician. I agree with the documented findings, disposition and treatment plan as described except to the extent set forth below. Patient seen and examined at bedside Labs, radiology, chart personally reviewed. All lines examined without evidence of infection. Neuropsych: sedated on vent. cont narcotic infusion stop benzo trial precedex. Daily sedation holiday. 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 Failed trial of noninvasive positive pressure ventilation yesterday, intubated overnight. Acceptable oxygenation/ventilation on low tidal volume ventilatory strategy continue diuresis for pulmonary edema, not stable for her spontaneous breathing trial today. Continue IV steroid and bronchodilators for COPD Cards: ECG without STEMI troponin elevated questionable type II MS versus an STEMI cardiology following. BNP elevated I suspect she is significantly volume overloaded continue diuresis pending echocardiogram. Continue ACS protocol including aspirin heparin and beta raphael. Possible LHC on sunday. FEN-GI: GI prophylaxis given, starting trophic enteral nutrition appreciate nutrition recommendations Renal: No JUAN Ellis catheter placed to monitor urine output twice a day chemistry while actively diuresing ID: Cellulitis on appropriate antimicrobial coverage de-escalate based upon cultures Heme/Onc: cont therapeutic and coagulation for ACS protocol H&H stable no evidence of thrombocytopenia. Endo: Glucose monitored Integ/MSK: Extensive skin breakdown we will consult wound care along with providing skin care per RN protocol to prevent skin ulcers CODE: Full code; social service consult placed <Jose Francisco Mcgowan - Last Filed: 07/15/16 10:52> Date of Encounter: 07/15/16 Time of Encounter: 07:35 Assessment and Plan (1) Acute and chronic respiratory failure with hypercapnia Current Visit: Yes Status: Acute Multifactorial -COPD -Continued tobacco abuse - Mechanical issues ( OHS and possible mucous plugging) -CHF Continue bronchodialators, lasix, and steroids (2) Acute and chronic respiratory failure with hypoxia Current Visit: Yes Status: Acute as stated above (3) Cellulitis Current Visit: Yes Status: Acute continue Rocephin and vancomycin Qualifiers: Site of cellulitis: unspecified site Qualified Code(s): L03.90 - Cellulitis , unspecified (4) NSTEMI (non-ST elevated myocardial infarction) Current Visit: Yes Status: Acute on plavix and heparin gtt. We will add metoprolol. Cardiology following. Possible LHC on Sunday. (5) Congestive heart failure Current Visit: Yes Status: Acute echo pending. Continue lasix Qualifiers: Qualified Code(s): I50.9 - Heart failure, unspecified (6) Macrocytosis Current Visit: Yes Status: Acute elevated RDW. Normal B12 and Folate. check iron profile. MMA and Homocystein. Check TSH. (7) Poor hygiene Current Visit: Yes Status: Acute should consider psychiatry consult prior to discharge. (8) Morbid obesity with BMI of 60.0-69.9, adult Current Visit: Yes Status: Acute advise weight loss (9) DVT prophylaxis Current Visit: Yes Status: Acute Neuro/sedation: currently sedated with Versed and Fentanyl. Will consider switching from versed to precedex to avoid over sedation. HEENT: altered mental status is likley secondayr to her hypercapnea. Heart: NSTEMI. Currently on Heparin gtt and plavix. LHC on Sunday if more stable. Echo pending. continue diuresis. Pulmonary: Acute on chronic respiratory failure with both hypoxemia and hypercapnea. Etiology is multifactoria. Fluid overload from CHF. AECOPD with ongoing tobacco abuse. Mechanical issues with body habitus and possible mucus plugging. Likely has a component of obesity hypoventilation and CLARA. continue mechanical ventilation. Currently she is meeting Oxygenation and ventilation goals. May consider decreasing tidal volume given her ideal body weight. I will discuss with My attending. Continue LAsix, Albuterol, and Solumedrol. GI: No issues at this time. Renal: No issues at this time. MSK: deconditioning. PT/OT when more stable. Heme: Macrocytosis. Without anemia. Normal B12 and folate. check MMA and homocystein to confirm. Check TSH. Endocrine: continue to monitor blood glucose. Low volatage EKG ( although likely from habitus) and macrocytosis. Check TSH. Morbid obesity. Advise weight loss. Integument: Candidiasis and cellulitis. continue Rocephin and nystatin powder. If no improvement will add Vancomycin. ID: Cellulitis. Currently dose not meet SIRS criteria. Nutrition: Start TF as she will be on vent at least until Sunday. Electrolytes: Mild hypocalcemia. Replete. Acid Base: Acute on chronic respiratory acidosis with metabolic alkalosis. CO2 trending down. Psych: Very disheveled and unkept. Social service consult. May consider Psychiatry consult prior to discharge. Prophylaxis: on heparin gtt and Protonix: Continue routine skin care. Lines: 2 peripheral IVs, OG, ET, Ellis. Subjective Principal diagnosis: Respiratory failure Interval history: Patient became altered overnight. PCO2 trended up despite being on NIPPV. Patient was intubated overnight. Currently patient is sedated as well. Moving all limbs. Objective PUL Vital signs: Last Vital Signs Temp 98.7 F 07/15/16 03:35 Pulse 74 07/15/16 06:00 Resp 16 07/15/16 06:04 BP 120/60 07/15/16 06:00 Pulse Ox 94 07/15/16 06:04 Gen.: This is a very disheveled and poorly 71-year-old female. Morbidly obese with dirt on her hands feet and underneath her nails. She is currently requiring mechanical ventilation. She is sedated but is moving all 4 limbs. HEENT: Head is normocephalic and atraumatic, anicteric sclera. Pupils are small approximately 3 mm and equal. Reactive to light. There is a ET and OG tube in place. The neck is supple without mass or thyromegaly. Trachea midline. No supraclavicular lymphadenopathy. Heart: Regular rate and rhythm without murmurs rubs or gallops. I could not define the point of maximal impulse secondary to habitus. There is no heave or thrill with palpation of the chest wall. Lungs: Diminished throughout. Mild expiratory wheezes and rhonchi. Abdomen: The abdomen is obese with multiple streaky a present. She does have a pannus which has very erythematous skin. Bowel sounds are positive. No masses or organomegaly noted. Musculoskeletal: Grossly normal for age with no gross deformities noted. Extremities: There is no clubbing, cyanosis or edema. Breasts: Large pendulous with some skin changes that appear to be from edema. Additionally she has marked erythema bilaterally greater on the right and left. No masses noted however difficult to examine with skin changes. Integument: She has multiple areas of what appear to be cellulitis. She has this in the popliteal fossa of legs bilaterally. Additionally she has what appears to be cellulitis in and under the pannus. She also has area of cellulitis under the breasts bilaterally. Lines: She has 2 IVs in the right arm. She has a ET, OG, ellis. Ventilator Settings Ventilator Settings: Ventilator Settings, Last 8 Hours Ventilator Mode VC+ Ventilator Mode VC+ Ventilator Mode VC+ Ventilator Mode VC+ Ventilator Mode VC+ Ventilator Mode VC+ Ventilator Tidal Volume 500 Setting Ventilator Tidal Volume 500 Setting Ventilator Tidal Volume 500 Setting Ventilator Tidal Volume 500 Setting Ventilator Tidal Volume 500 Setting Ventilator Tidal Volume 500 Setting Ventilator Respiratory Rate 18 Setting Ventilator Respiratory Rate 16 Setting Ventilator Respiratory Rate 20 Setting Ventilator Respiratory Rate 20 Setting Ventilator Respiratory Rate 20 Setting Ventilator Respiratory Rate 20 Setting Actual Respiratory Rate 16 Actual Respiratory Rate 16 Actual Respiratory Rate 20 Actual Respiratory Rate 20 Actual Respiratory Rate 20 Positive End Expiratory 5 Pressure Positive End Expiratory 5 Pressure Positive End Expiratory 5 Pressure Positive End Expiratory 5 Pressure Positive End Expiratory 5 Pressure Positive End Expiratory 5 Pressure Peak Inspiratory Airway 40 Pressure Peak Inspiratory Airway 42 Pressure Peak Inspiratory Airway 34 Pressure Peak Inspiratory Airway 30 Pressure Peak Inspiratory Airway 25 Pressure Results - Laboratory Findings CBC and BMP: 07/15/16 03:25 07/15/16 03:25 ABG ABG pH 7.32 pH Units (7.32-7.45) D 07/15/16 05:25 ABG pCO2 84 mmHg (35-45) H* D 07/15/16 05:25 ABG pO2 59 mmHg (85-104) L 07/15/16 05:25 ABG O2 Saturation 88 % (95-98) L 07/15/16 05:25 PT/INR, D-dimer PT 12.0 Seconds (9.4-12.1) 07/14/16 08:06 Abnormal lab findings: Abnormal lab results Hct 52.5 % (35.3-44.9) H 07/15/16 03:25 MCV 105.8 fL (83.0-100.0) H 07/15/16 03:25 MCHC 29.1 g/dL (31.6-35.5) L 07/15/16 03:25 RDW 16.5 % (11.5-14.5) H 07/15/16 03:25 Nucleated RBCs/100 WBC 0.4 /100 WBC (0) H 07/15/16 03:25 APTT 60.3 Seconds (26.0-36.0) H 07/14/16 23:05 ABG pCO2 84 mmHg (35-45) H* D 07/15/16 05:25 ABG pO2 59 mmHg (85-104) L 07/15/16 05:25 ABG HCO3 43.3 mEQ/L (21-27) H 07/15/16 05:25 ABG Total CO2 45.9 mEq/L (20-26) H 07/15/16 05:25 ABG O2 Saturation 88 % (95-98) L 07/15/16 05:25 ABG Base Excess 11.9 mEq/L (-2.0 to 3.0) H 07/15/16 05:25 Chloride 97 mEq/L (98-109) L 07/15/16 03:25 Carbon Dioxide 37 mEq/L (19-29) H 07/15/16 03:25 Glucose 124 mg/dL (70-99) H 07/15/16 03:25 POC Glucose 118 (58-89) H 07/14/16 16:05 Calcium 8.5 mg/dL (8.6-10.8) L 07/15/16 03:25 Ionized Calcium 1.11 mmol/L (1.15-1.35) L 07/15/16 03:25 Phosphorus 4.8 mg/dL (2.3-4.7) H 07/15/16 03:25 Troponin I 0.59 ng/mL (0-0.03) H* 07/14/16 14:29 B-Natriuretic Peptide 861 pg/mL (0-100) H 07/14/16 07:00 Albumin 2.4 g/dL (3.5-5.0) L 07/15/16 03:25 Globulin 3.8 g/dL (2.4-3.5) H 07/15/16 03:25 Albumin/Globulin Ratio 0.6 (1.1-2.2) L 07/15/16 03:25 HDL Cholesterol 38 mg/dL (40-59) L 07/15/16 03:25 - Clinical Findings Intake & Output: Intake & Output 07/14/16 07/14/16 07/15/16 15:59 23:59 07:59 Intake Total 142 / 142 289 / 289 269 / 269 Output Total 450 / 450 1250 / 1250 300 / 300 Balance -308 / -308 -961 / -961 -31 / -31 Weight 173.4 kg
[2016-07-15 08:28] LABS: Thyroid Stimulating Hormone 1.717 mcIU/mL (0.350-4.840)
[2016-07-15] MEDS: Chlorhexidine Rinse 15 ML MOUTHWASH MM SCH ×2 (08:55→20:16)
[2016-07-15] MEDS: Pantoprazole 40 MG VIAL IVPB SCH (08:56)
[2016-07-15] MEDS: Aspirin Enteric Coated 81 MG Tablet PO SCH (08:56)
[2016-07-15] MEDS: Lacri-Lube 3.5 GM TUBE BOTH EYES SCH ×5 (08:59→23:12)
--- NOTE | 2016-07-15 09:15 | ECHO - Doppler Report ---
Echo with Imaging Enhancement Agent Name: Rosemarie Plata Date of Study: 07/14/2016 Date: 1945 Ht: 62.0 in Medical Record#: [id number] Age: 71 Wt: 300.0 lb Gender: Female BSA: 2.27 Order #: [id number] Location: [facility] Room #: ICU4 Reading Physician: Jermaine Enamorado MD, [facility] Mortgage Assistant: Sylvia Arriola, T Ordering Physician: Deejay Ambrocio MD Primary Physician: None Indications: Possible NonST Elevated Myocardial Infarction Impressions: LVEF 50-60% no diagnostic wall motion abnormality of visualized segments (lateral wall very poorly visualized) No severe valvular disease Left Ventricular Wall Motion: Rest Echo Findings All visualized wall segments showed normal motion. Findings: Aorta * Normally sized aortic root. Pericardium * The pericardium appears normal. ECG Findings * Normal sinus rhythm. Tricuspid Valve * Trace tricuspid regurgitation. * Estimated RVSP is 17 mmHg. * Tricuspid valve not well visualized. * No tricuspid stenosis. * No evidence of pulmonary hypertension. Pulmonic Valve * No pulmonic stenosis. * No pulmonic regurgitation. * Pulmonic valve is not well visualized. Study Quality * Technically sub-optimal due to clinical status. Left Atrium * Left atrium is not well visualized. * Normal left atrial size. Right Atrium * Right atrium is not well visualized. Interatrial Septum * Interatrial septum not well evaluated. Aortic Valve * No aortic regurgitation. * No aortic stenosis. * Aortic valve not well visualized. Mitral Valve * Mitral valve not well visualized. * No mitral regurgitation. * No mitral stenosis. IVC * The IVC is not well evaluated. Left Ventricle * LVEF 50-60%. * Indeterminate diastolic function. History History of Smoking Years 22 Packs 2 Congestive Heart Failure 01/2015 a Previous Echo was performed. Contrast: Definity 1.3 ml in 8.7 ml of saline 2 ml. Measurements: BP: 132/ 96 2D Normal Values IVSd: 1.10 cm 0.6 - 1.0 cm LVIDd: 4.70 cm 3.7 - 5.6 cm LVPWd: 1.10 cm 0.6 - 1.1 cm LVIDs: 3.40 cm 1.5 - 3.6 cm LA: 3.20 cm 2.0 - 4.0cm %FS: 27.70 cm >25 % LA volume: Mitral Valve Dec Time:299.00 msec Peak E:.85 m/sec Peak A:1.16 m/sec E/A Ratio:0.7 E/E' Lat Ratio:13.4 E/E' Med Ratio:15.8 Tricuspid Valve TV Regurg Peak Grad: 17.00mmHg TV Regurg Peak Avtar: 2.07m/sec Updated by Jermaine Enamorado MD, FACC on 07/15/2016 9:07:03 AM electronically signed on 07/15/2016 9:09:43 AM with status of Final Wall Motion Arora: 1=Normal, 2=Hypokinesis, 3=Akinesis, 4=Dyskinesis, 5=Aneurysmal, 6=Hyperkinetic, X=Not Visualized (Blank)=Missing
[2016-07-15] MEDS: Miconazole 2% ointment 114 GM TUBE TP SCH (09:21)
[2016-07-15] MEDS: Nystatin POWDER 30 GM BOTTLE TP SCH ×3 (09:57→20:17)
[2016-07-15] MEDS: Furosemide 40 MG/4 ML VIAL IVP SCH ×2 (09:57→17:52)
[2016-07-15 10:20] LABS: ABG Base Excess 14.6 mEq/L (-2.0 to 3.0); ABG HCO3 39.3 mEQ/L (21-27); ABG Oxygen Saturation 88 % (95-98); ABG PCO2 46 mmHg (35-45); ABG PH 7.54 pH Units (7.32-7.45); ABG TCO2 40.7 mEq/L (20-26)
[2016-07-15 10:21] LABS: Blood Gas FiO2 60 %
[2016-07-15 10:23] LABS: ABG PO2 47 mmHg (85-104)
[2016-07-15] MEDS: Vancomycin 2,000 MG in D5% in Water 500 ML IVPB SCH ×2 (11:11→23:12)
--- NOTE | 2016-07-15 11:44 | Cardiology Progress Note ---
Date of Encounter: 07/15/16 Time of Encounter: 11:42 Assessment and Plan Discussion w patient/family: The assessment and plan as outlined above was discussed with the patient and/or family members who expressed understanding and agreement. All questions were answered. Thank you for involving us in the care of your patient. Please call with any questions. agree , he resp failure is multi factorial . including CHF with diastolic dysfunction plan Cont with diuresis trend renal function trend troponins no indications for cath at present try and keep in a neg fluid balance check EKG in am Subjective Principal diagnosis: Respiratory failure Interval history: pt was intubated due to worsening hypoxia ? ards has diuresed fairly well. pt is sedated at present Objective Vital Signs, Last 4 Hours Pulse Resp BP Pulse Ox 07/15/16 11:28 16 117/61 91 07/15/16 10:37 16 121/64 92 07/15/16 10:30 64 16 121/64 92 07/15/16 09:30 64 18 123/64 90 07/15/16 08:30 72 19 123/63 90 General: Conversant, No Apparent Distress, Other (intubated ) Neck: No JVD (unable to assess ) Neuro: Alert and responsive (intubated, sedated ) Extremities: No Edema (3+ pitting edema ) Results 07/15/16 03:25 07/15/16 03:25 Lab Results 07/14/16 07/14/16 07/14/16 14:29 14:29 20:27 WBC Hgb Hct Plt Count APTT 44.5 H D Sodium 141 Potassium 4.4 Chloride 96 L Carbon Dioxide 36 H BUN 15 Creatinine 0.84 Glucose 140 H Calcium 8.8 Magnesium Total Bilirubin AST ALT Alkaline Phosphatase Troponin I 0.59 H* TSH 07/14/16 07/15/16 07/15/16 23:05 03:25 03:25 WBC 9.0 Hgb 15.3 D Hct 52.5 H Plt Count 150 APTT 60.3 H Sodium 141 Potassium 4.4 Chloride 97 L Carbon Dioxide 37 H BUN 14 Creatinine 0.83 Glucose 124 H Calcium 8.5 L Magnesium 1.9 Total Bilirubin 0.5 AST 16 ALT 15 Alkaline Phosphatase 107 Troponin I TSH 1.717 Consult Discharge Plan - Plan Referrals: Maddi Chong DO [Partnered Physician] - 09/13/16 10:30 am Simone,Blair M, DO [Partnered Physician] - (office makes their own appointments)
[2016-07-15] MEDS: Dexmedetomidine HCl 400 MCG/100 ML MLS IVC SCH ×2 (12:06→20:09)
[2016-07-15 12:42] LABS: ABG Base Excess 14.6 mEq/L (-2.0 to 3.0); ABG Oxygen Saturation 94 % (95-98); ABG PCO2 55 mmHg (35-45); ABG PH 7.48 pH Units (7.32-7.45); ABG PO2 67 mmHg (85-104); ABG TCO2 42.7 mEq/L (20-26)
[2016-07-15 12:44] LABS: Blood Gas FiO2 70 %
[2016-07-15 14:00] LABS: ABG Base Excess 15.3 mEq/L (-2.0 to 3.0); ABG HCO3 42.2 mEQ/L (21-27); ABG Oxygen Saturation 95 % (95-98); ABG PCO2 58 mmHg (35-45); ABG PH 7.47 pH Units (7.32-7.45); ABG PO2 69 mmHg (85-104); Blood Gas FiO2 60 %
[2016-07-15 23:01] LABS: Acinetobacter baumannii by PCR Not Detected (Not Detect); Candida albicans by PCR Not Detected (Not Detect); Candida glabrata by PCR Not Detected (Not Detect); Candida krusei by PCR Not Detected (Not Detect); Candida parapsilosis by PCR Not Detected (Not Detect); Candida tropicalis by PCR Not Detected (Not Detect); Enterococcus by PCR Not Detected (Not Detect); Escherichia coli by PCR Not Detected (Not Detect); Klebsiella oxytoca by PCR Not Detected (Not Detect); Klebsiella pneumoniae by PCR Not Detected (Not Detect); Pseudomonas aeruginosa by PCR Not Detected (Not Detect); Serratia marcescens by PCR Not Detected (Not Detect); Staphylococcus aureus by PCR Not Detected (Not Detect); Streptococcus agalactiae(B)PCR Not Detected (Not Detect); Streptococcus by PCR Not Detected (Not Detect); Streptococcus pneumoniae PCR Not Detected (Not Detect); Streptococcus pyogenes (A) PCR Not Detected (Not Detect); blaKPC Carbapenem-Resist Gene Not Detected (Not Detect); mecA Methicillin-Resist Gene Not Detected (Not Detect); vanA/B Vancomycin-Resist Genes Not Detected (Not Detect)
[2016-07-16] MEDS: Ipratropium/Albuterol Neb 3 ML IH SCH ×6 (03:26→23:23)
[2016-07-16] MEDS: FentaNYL (PF) 1,000 MCG in 0.9 % Sodium Chloride 80 ML IVC SCH ×2 (03:30→17:31)
[2016-07-16] MEDS: Lacri-Lube 3.5 GM TUBE BOTH EYES SCH ×6 (03:31→23:19)
[2016-07-16 04:25] LABS: ABG Base Excess 16.2 mEq/L (-2.0 to 3.0); ABG HCO3 44.1 mEQ/L (21-27); ABG Oxygen Saturation 92 % (95-98); ABG PCO2 62 mmHg (35-45); ABG PH 7.46 pH Units (7.32-7.45); ABG PO2 60 mmHg (85-104)
[2016-07-16 04:26] LABS: Blood Gas FiO2 50 %; Blood Gas PEEP 12 cm H2O; Blood Gas Respiration Rate 16; Blood Gas VT 400 cc
[2016-07-16] MEDS: Heparin 25,000 UNIT/500 ML D5W 25,000 UNIT/500 ML MLS IVC SCH (04:27)
[2016-07-16 05:30] LABS: Basophils % 0.2 %; Hematocrit 47.6 % (35.3-44.9); Immature Granulocytes % 1.1 % (0-4); Lymphocytes # 0.8 K/mcL (0.6-4.6); Lymphocytes % 7.2 %; Mean Corpuscular HGB Conc 31.5 g/dL (31.6-35.5); Mean Corpuscular Hemoglobin 31.3 pg (28.0-33.3); Mean Corpuscular Volume 99.4 fL (83.0-100.0); Mean Platelet Volume 10.5 fL (9.4-12.4); Monocytes # 0.6 K/mcL (0.0-1.3); Monocytes % 5.1 %; Nucleated Red Blood Cells 0.3 /100 WBC (0); Platelet Count 159 K/mcL (140-400); Red Blood Count 4.79 M/mcL (3.82-4.97); Red Cell Distribution Width 16.9 % (11.5-14.5); Segmented Neutrophils % 86.4 %
[2016-07-16 05:32] LABS: Ionized Calcium 1.08 mmol/L (1.15-1.35)
[2016-07-16] MEDS: MethylPREDNISolone 40 MG/ML VIAL IVP SCH ×2 (06:35→17:45)
--- NOTE | 2016-07-16 07:36 | Internal Med Progress Note ---
Date of Encounter: 07/16/16 Time of Encounter: 07:33 - Assessment and plan (1) Acute and chronic respiratory failure with hypercapnia Current Visit: Yes Status: Acute (2) Acute and chronic respiratory failure with hypoxia Current Visit: Yes Status: Acute (3) Cellulitis Current Visit: Yes Status: Acute Qualifiers: Site of cellulitis: unspecified site Qualified Code(s): L03.90 - Cellulitis , unspecified (4) NSTEMI (non-ST elevated myocardial infarction) Current Visit: Yes Status: Acute (5) Congestive heart failure Current Visit: Yes Status: Acute Qualifiers: Qualified Code(s): I50.9 - Heart failure, unspecified (6) Macrocytosis Current Visit: Yes Status: Acute (7) Poor hygiene Current Visit: Yes Status: Acute (8) Morbid obesity with BMI of 60.0-69.9, adult Current Visit: Yes Status: Acute (9) DVT prophylaxis Current Visit: Yes Status: Acute - Subjective Interval history: Patient developed some hypothermia overnight. Temperature in the room was low overnight and there were fans on as well. patient has developed some bradycardia as well ( 40s). Precedex has been off overnight per executive staff assistant. The patient remained hemodynamically stable. Otherwise no major events overnight. The patient remains intubated and sedated. - Constitutional Vitals: Temp Pulse Resp BP Pulse Ox 94.2 F L 45 16 97/51 91 07/16/16 04:00 07/16/16 06:00 07/16/16 06:00 07/16/16 06:00 07/16/16 06:00 Internal Medicine: Result - Labs CBC & Chem 7: 07/16/16 05:20 07/15/16 03:25 Labs: Short CBC 07/16/16 Range/Units 05:20 WBC 11.6 H (4.3-11.1) K/mcL Hgb 15.0 (11.5-15.4) g/dL Hct 47.6 H (35.3-44.9) % Plt Count 159 (140-400) K/mcL Neutrophils # 10.0 H (1.6-8.9) K/mcL - ABG Interpretation ABG results: ABG ABG pH 7.46 pH Units (7.32-7.45) H 07/16/16 04:13 ABG pCO2 62 mmHg (35-45) H 07/16/16 04:13 ABG pO2 60 mmHg (85-104) L 07/16/16 04:13 ABG O2 Saturation 92 % (95-98) L 07/16/16 04:13 PT/INR, D-dimer PT 12.0 Seconds (9.4-12.1) 07/14/16 08:06 Consult Discharge Plan - Plan Referrals: Maddi Chong DO [Partnered Physician] - 09/13/16 10:30 am Blair Nichols DO [Partnered Physician] - (office makes their own appointments)
--- NOTE | 2016-07-16 07:40 | Pulmonology Progress Note ---
<BestJong W - Last Filed: 07/16/16 09:47> Date of Encounter: 07/16/16 Objective PUL Vital signs: Last Vital Signs Temp 96.4 F L 07/16/16 07:40 Pulse 54 07/16/16 09:34 Resp 16 07/16/16 09:35 BP 112/63 07/16/16 09:35 Pulse Ox 91 07/16/16 09:35 Ventilator Settings Ventilator Settings: Ventilator Settings, Last 8 Hours Ventilator Mode VC+ Ventilator Mode VC+ Ventilator Mode VC+ Ventilator Mode VC+ Ventilator Mode VC+ Ventilator Mode VC+ Ventilator Mode VC+ Ventilator Mode VC+ Ventilator Mode VC+ Ventilator Mode VC+ Ventilator Mode VC+ Ventilator Mode VC+ Ventilator Tidal Volume 400 Setting Ventilator Tidal Volume 400 Setting Ventilator Tidal Volume 400 Setting Ventilator Tidal Volume 400 Setting Ventilator Tidal Volume 400 Setting Ventilator Tidal Volume 400 Setting Ventilator Tidal Volume 400 Setting Ventilator Tidal Volume 400 Setting Ventilator Tidal Volume 400 Setting Ventilator Tidal Volume 400 Setting Ventilator Tidal Volume 400 Setting Ventilator Tidal Volume 400 Setting Ventilator Respiratory Rate 16 Setting Ventilator Respiratory Rate 16 Setting Ventilator Respiratory Rate 16 Setting Ventilator Respiratory Rate 16 Setting Ventilator Respiratory Rate 16 Setting Ventilator Respiratory Rate 16 Setting Ventilator Respiratory Rate 16 Setting Ventilator Respiratory Rate 16 Setting Ventilator Respiratory Rate 16 Setting Ventilator Respiratory Rate 16 Setting Ventilator Respiratory Rate 16 Setting Ventilator Respiratory Rate 16 Setting Actual Respiratory Rate 16 Actual Respiratory Rate 16 Actual Respiratory Rate 16 Actual Respiratory Rate 16 Actual Respiratory Rate 16 Actual Respiratory Rate 16 Actual Respiratory Rate 16 Actual Respiratory Rate 16 Actual Respiratory Rate 16 Actual Respiratory Rate 18 Positive End Expiratory 12 Pressure Positive End Expiratory 12 Pressure Positive End Expiratory 12 Pressure Positive End Expiratory 12 Pressure Positive End Expiratory 12 Pressure Positive End Expiratory 12 Pressure Positive End Expiratory 12 Pressure Positive End Expiratory 12 Pressure Positive End Expiratory 12 Pressure Positive End Expiratory 12 Pressure Positive End Expiratory 12 Pressure Positive End Expiratory 12 Pressure Peak Inspiratory Airway 28 Pressure Peak Inspiratory Airway 28 Pressure Peak Inspiratory Airway 28 Pressure Peak Inspiratory Airway 29 Pressure Peak Inspiratory Airway 27 Pressure Peak Inspiratory Airway 28 Pressure Peak Inspiratory Airway 28 Pressure Peak Inspiratory Airway 28 Pressure Peak Inspiratory Airway 29 Pressure Peak Inspiratory Airway 28 Pressure Peak Inspiratory Airway 28 Pressure Peak Inspiratory Airway 28 Pressure Results - Laboratory Findings CBC and BMP: 07/16/16 05:20 07/16/16 05:20 ABG ABG pH 7.46 pH Units (7.32-7.45) H 07/16/16 04:13 ABG pCO2 62 mmHg (35-45) H 07/16/16 04:13 ABG pO2 60 mmHg (85-104) L 07/16/16 04:13 ABG O2 Saturation 92 % (95-98) L 07/16/16 04:13 PT/INR, D-dimer PT 12.0 Seconds (9.4-12.1) 07/14/16 08:06 Abnormal lab findings: Abnormal lab results WBC 11.6 K/mcL (4.3-11.1) H 07/16/16 05:20 Hct 47.6 % (35.3-44.9) H 07/16/16 05:20 MCHC 31.5 g/dL (31.6-35.5) L 07/16/16 05:20 RDW 16.9 % (11.5-14.5) H 07/16/16 05:20 Neutrophils # 10.0 K/mcL (1.6-8.9) H 07/16/16 05:20 Nucleated RBCs/100 WBC 0.3 /100 WBC (0) H 07/16/16 05:20 APTT 75.5 Seconds (26.0-36.0) H 07/15/16 23:13 ABG pH 7.46 pH Units (7.32-7.45) H 07/16/16 04:13 ABG pCO2 62 mmHg (35-45) H 07/16/16 04:13 ABG pO2 60 mmHg (85-104) L 07/16/16 04:13 ABG HCO3 44.1 mEQ/L (21-27) H 07/16/16 04:13 ABG Total CO2 46.0 mEq/L (20-26) H 07/16/16 04:13 ABG O2 Saturation 92 % (95-98) L 07/16/16 04:13 ABG Base Excess 16.2 mEq/L (-2.0 to 3.0) H 07/16/16 04:13 Chloride 92 mEq/L (98-109) L 07/16/16 05:20 Carbon Dioxide 33 mEq/L (19-29) H 07/16/16 05:20 Glucose 172 mg/dL (70-99) H 07/16/16 05:20 POC Glucose 118 (58-89) H 07/14/16 16:05 Calcium 8.5 mg/dL (8.6-10.8) L 07/16/16 05:20 Ionized Calcium 1.08 mmol/L (1.15-1.35) L 07/16/16 05:20 Phosphorus 4.8 mg/dL (2.3-4.7) H 07/15/16 03:25 Troponin I 0.59 ng/mL (0-0.03) H* 07/14/16 14:29 B-Natriuretic Peptide 861 pg/mL (0-100) H 07/14/16 07:00 Albumin 2.4 g/dL (3.5-5.0) L 07/15/16 03:25 Globulin 3.8 g/dL (2.4-3.5) H 07/15/16 03:25 Albumin/Globulin Ratio 0.6 (1.1-2.2) L 07/15/16 03:25 HDL Cholesterol 38 mg/dL (40-59) L 07/15/16 03:25 Vancomycin Trough 36.1 mcg/mL (10-20) H* 07/16/16 05:20 - Microbiology Findings Microbiology Findings: Microbiology, Last 48 Hours 07/14/16 14:29 Blood Culture - Preliminary Peripheral Venipuncture Gram Positive Cocci - Clinical Findings Intake & Output: Intake & Output 07/15/16 07/16/16 07/16/16 23:59 07:59 15:59 Intake Total 415 / 415 1300 / 1300 Output Total 500 / 500 225 / 225 Balance -85 / -85 1075 / 1075 Weight 164.4 kg Consult Discharge Plan - Plan Referrals: Maddi Chong DO [Partnered Physician] - 09/13/16 10:30 am Blair Nichols DO [Partnered Physician] - (office makes their own appointments) - Attending Attestation I examined this patient and my medical decision-making was reviewed with the PHARMACY LABORATORY TECHNICIAN/PA/Advanced Practice Nurse/Resident Physician. I agree with the documented findings, disposition and treatment plan as described except to the extent set forth below. Patient seen and examined at bedside Labs, radiology, chart personally reviewed. All lines examined without evidence of infection. Neuropsych: sedated on vent. cont narcotic infusion became bradycardic hypothermic with propofol we will hold intermittent doses of benzodiazepine as needed. 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 Currently not candidate for spontaneous breathing trial because of oxygen requirement. Acceptable oxygenation and ventilation on low tidal volume strategy of present continue diuresis for pulmonary edema continue steroids and bronchodilators for COPD Cards: NSTEMI on ACS protocol. Yesterday evaluation by cardiology and they did not feel that patient would benefit from left heart catheter at this time she is will have received 48 hours of heparin infusion later this afternoon at 1. we will stop continue aspirin and beta raphael and diuresis for pulmonary edema echocardiogram pending FEN-GI: GI prophylaxis given, continue trophic enteral nutrition appreciate nutrition recommendations Renal: No JUAN Schreiber catheter placed to monitor urine output twice a day chemistry while actively diuresing ID: Cellulitis on appropriate antimicrobial coverage de-escalate based upon cultures; blood cultures positive for GPC however this may be a contaminant repeat blood cultures today hiving trough. Continue ceftriaxone Heme/Onc: cont therapeutic and coagulation for ACS protocol H&H stable no evidence of thrombocytopenia. Endo: Glucose monitored Integ/MSK: Extensive skin breakdown wound care along with providing skin care per RN protocol to prevent skin ulcers CODE: Full code; <RoslynJose Francisco Edquintin - Last Filed: 07/16/16 10:11> Date of Encounter: 07/16/16 Time of Encounter: 07:41 Assessment and Plan (1) Acute and chronic respiratory failure with hypercapnia Current Visit: Yes Status: Acute Multifactorial -COPD -Continued tobacco abuse - Mechanical issues ( OHS and possible mucous plugging) -CHF Currently requiring mechanical ventilation Continue bronchodialators, lasix, and steroids. Will attempt to wean down PEEP and FiO2 if patient tolerates. (2) Acute and chronic respiratory failure with hypoxia Current Visit: Yes Status: Acute as stated above (3) Cellulitis Current Visit: Yes Status: Acute continue Rocephin and vancomycin clinically improving. Qualifiers: Site of cellulitis: unspecified site Qualified Code(s): L03.90 - Cellulitis , unspecified (4) NSTEMI (non-ST elevated myocardial infarction) Current Visit: Yes Status: Acute on plavix and heparin gtt. We will add metoprolol. Cardiology following. reviewed recomendations. No LHC at this time. Will consider DC'ng Heparin gtt if ok with caridology. (5) Congestive heart failure Current Visit: Yes Status: Acute diastolic echo pending. Continue lasix She is net negative 1137 mL over the past 24 hours. Qualifiers: Congestive heart failure type: diastolic Qualified Code(s): I50.30 - Unspecified diastolic (congestive) heart failure (6) Poor hygiene Current Visit: Yes Status: Acute should consider psychiatry consult prior to discharge. (7) Morbid obesity with BMI of 60.0-69.9, adult Current Visit: Yes Status: Acute advise weight loss (8) Hypothermia Current Visit: Yes Status: Acute warming blanket placed on patient this AM Qualifiers: Qualified Code(s): T68.XXXA - Hypothermia, initial encounter (9) QT prolongation Current Visit: Yes Status: Acute Likely from hypothermia. Propofol being held. Repeat EKG this afternoon. (10) Bacteremia Current Visit: Yes Status: Acute Blood cultures from 07/14/16 have grown GPC. repeat blood cultures were ordered. (11) DVT prophylaxis Current Visit: Yes Status: Acute Neuro/sedation: currently sedated with propofol and Fentanyl. Will consider weaning propofol and adding precedex if bradycardia improves with warming. Daily sedation vacations. HEENT: altered mental status is likley secondary to her hypercapnea. Unable t reasses this AM due to sedation. Heart: NSTEMI. Currently on Heparin gtt and plavix. Echo reveals EF of 60% without any WMA. REviewed cardiolgy notes. Not planning on a [facility] at this time. I think we should be able to DC Heparin gtt if OK with cardiology. Diastolic heart failure-continue diuresis. Pulmonary: Acute on chronic respiratory failure with both hypoxemia and hypercapnea. Etiology is multifactorial. Fluid overload from CHF. AECOPD with ongoing tobacco abuse. Mechanical issues with body habitus and possible mucus plugging. Likely has a component of obesity hypoventilation and CLARA. continue mechanical ventilation. WEan FiO2 and PEEP if possible today. Currently she is meeting Oxygenation and ventilation goals. I reviewed her CXR and no significant changes. Still has what appears to be some atelectasis in RLL. Continue LAsix, Albuterol, and Solumedrol. GI: No issues at this time. Renal: No issues at this time. Good urine output. Continue following renal function and electrolytes with Diuresis. MSK: deconditioning. PT/OT when more stable. Heme: Macrocytosis. resolved. Endocrine: TSH WNL. Morbid obesity. Advise weight loss. Integument: Candidiasis and cellulitis. continue Rocephin and vancomycin. Hold Vancomycin today with elevated trough. Pharmacy to dose. ID: Bacteremia: Source is likely from cellulitis. However would also consider contaminant. Currently afebrile and dose not have leukocytosis. Continue vancomycin and rocephin. Repeat cultures ordered for today. Nutrition: Tube feeds. Trickle feeds started yesterday. Advance per linoleum layer apprentice. Electrolytes: pending BMP. I will follow with results and correct if needed Acid Base: Acute on chronic respiratory acidosis with metabolic alkalosis. CO2 trending down. BMP pending. Psych: Very disheveled and unkept. Social service consult. May consider Psychiatry consult prior to discharge. Prophylaxis: on heparin gtt and Protonix: Continue routine skin care. If heparin gtt turned off will plan on adding TID heparin prophylaxis. Lines: 2 peripheral IVs, OG, ET, Schreiber. Subjective Principal diagnosis: Respiratory failure Interval history: Patient has developed some hypothermia overnight. Room temperature was low and fans were left on per staff electrical engineer. She has also developed some bradycardia as well ( 40s). She has remained hemodynamically stable. Otherwise no major events overnight. Patient remains intubated and sedated. Objective PUL Vital signs: I have reviewed the vitals from the past 24 hours. Notable for hypothermia and bradycardia. Last Vital Signs Temp 94.2 F L 07/16/16 04:00 Pulse 45 07/16/16 06:00 Resp 16 07/16/16 06:00 BP 97/51 07/16/16 06:00 Pulse Ox 91 07/16/16 06:00 Gen.: This is a well-developed well-nourished 71-year-old female. She is currently requiring mechanical ventilation and is on sedation with fentanyl and propofol. HEENT: Head is normocephalic atraumatic. There is an ET and OG in place, mucous membranes are moist. Trachea is midline. Pupils are equally round react to light. Heart: Bradycardic with regular rhythm. No murmurs rubs or gallops. Lungs: His a normal rise expense of the chest wall bilaterally with ventilation. Diminished breath sounds globally likely secondary to habitus. No wheezes or rhonchi or rales. Abdomen: Obese, soft to palpation, bowel sounds positive. Musculoskeletal: Grossly normal for age no gross deformity noted. Extremities: There is no clubbing or cyanosis. Mild pedal edema. Integument: She has areas of erythema and warmth under the breast pannus and popliteal fossa is bilaterally. The erythema and warmth do seem to be less today from yesterday. She has unequal mycosis of the feet. She has dirt under her toenails and fingernails. Ventilator Settings Ventilator Settings: Ventilator Settings, Last 8 Hours Ventilator Mode VC+ Ventilator Mode VC+ Ventilator Mode VC+ Ventilator Mode VC+ Ventilator Mode VC+ Ventilator Mode VC+ Ventilator Mode VC+ Ventilator Mode VC+ Ventilator Mode VC+ Ventilator Mode VC+ Ventilator Mode VC+ Ventilator Tidal Volume 400 Setting Ventilator Tidal Volume 400 Setting Ventilator Tidal Volume 400 Setting Ventilator Tidal Volume 400 Setting Ventilator Tidal Volume 400 Setting Ventilator Tidal Volume 400 Setting Ventilator Tidal Volume 400 Setting Ventilator Tidal Volume 400 Setting Ventilator Tidal Volume 400 Setting Ventilator Tidal Volume 400 Setting Ventilator Tidal Volume 400 Setting Ventilator Respiratory Rate 16 Setting Ventilator Respiratory Rate 16 Setting Ventilator Respiratory Rate 16 Setting Ventilator Respiratory Rate 16 Setting Ventilator Respiratory Rate 16 Setting Ventilator Respiratory Rate 16 Setting Ventilator Respiratory Rate 16 Setting Ventilator Respiratory Rate 16 Setting Ventilator Respiratory Rate 16 Setting Ventilator Respiratory Rate 16 Setting Ventilator Respiratory Rate 16 Setting Actual Respiratory Rate 16 Actual Respiratory Rate 16 Actual Respiratory Rate 16 Actual Respiratory Rate 16 Actual Respiratory Rate 16 Actual Respiratory Rate 16 Actual Respiratory Rate 18 Actual Respiratory Rate 18 Actual Respiratory Rate 18 Actual Respiratory Rate 18 Positive End Expiratory 12 Pressure Positive End Expiratory 12 Pressure Positive End Expiratory 12 Pressure Positive End Expiratory 12 Pressure Positive End Expiratory 12 Pressure Positive End Expiratory 12 Pressure Positive End Expiratory 12 Pressure Positive End Expiratory 12 Pressure Positive End Expiratory 12 Pressure Positive End Expiratory 12 Pressure Positive End Expiratory 12 Pressure Peak Inspiratory Airway 28 Pressure Peak Inspiratory Airway 28 Pressure Peak Inspiratory Airway 28 Pressure Peak Inspiratory Airway 29 Pressure Peak Inspiratory Airway 28 Pressure Peak Inspiratory Airway 28 Pressure Peak Inspiratory Airway 28 Pressure Peak Inspiratory Airway 28 Pressure Peak Inspiratory Airway 28 Pressure Peak Inspiratory Airway 26 Pressure Results - Laboratory Findings CBC and BMP: 07/16/16 05:20 07/16/16 05:20 ABG ABG pH 7.46 pH Units (7.32-7.45) H 07/16/16 04:13 ABG pCO2 62 mmHg (35-45) H 07/16/16 04:13 ABG pO2 60 mmHg (85-104) L 07/16/16 04:13 ABG O2 Saturation 92 % (95-98) L 07/16/16 04:13 PT/INR, D-dimer PT 12.0 Seconds (9.4-12.1) 07/14/16 08:06 Abnormal lab findings: Abnormal lab results WBC 11.6 K/mcL (4.3-11.1) H 07/16/16 05:20 Hct 47.6 % (35.3-44.9) H 07/16/16 05:20 MCHC 31.5 g/dL (31.6-35.5) L 07/16/16 05:20 RDW 16.9 % (11.5-14.5) H 07/16/16 05:20 Neutrophils # 10.0 K/mcL (1.6-8.9) H 07/16/16 05:20 Nucleated RBCs/100 WBC 0.3 /100 WBC (0) H 07/16/16 05:20 APTT 75.5 Seconds (26.0-36.0) H 07/15/16 23:13 ABG pH 7.46 pH Units (7.32-7.45) H 07/16/16 04:13 ABG pCO2 62 mmHg (35-45) H 07/16/16 04:13 ABG pO2 60 mmHg (85-104) L 07/16/16 04:13 ABG HCO3 44.1 mEQ/L (21-27) H 07/16/16 04:13 ABG Total CO2 46.0 mEq/L (20-26) H 07/16/16 04:13 ABG O2 Saturation 92 % (95-98) L 07/16/16 04:13 ABG Base Excess 16.2 mEq/L (-2.0 to 3.0) H 07/16/16 04:13 Chloride 97 mEq/L (98-109) L 07/15/16 03:25 Carbon Dioxide 37 mEq/L (19-29) H 07/15/16 03:25 Glucose 124 mg/dL (70-99) H 07/15/16 03:25 POC Glucose 118 (58-89) H 07/14/16 16:05 Calcium 8.5 mg/dL (8.6-10.8) L 07/15/16 03:25 Ionized Calcium 1.08 mmol/L (1.15-1.35) L 07/16/16 05:20 Phosphorus 4.8 mg/dL (2.3-4.7) H 07/15/16 03:25 Troponin I 0.59 ng/mL (0-0.03) H* 07/14/16 14:29 B-Natriuretic Peptide 861 pg/mL (0-100) H 07/14/16 07:00 Albumin 2.4 g/dL (3.5-5.0) L 07/15/16 03:25 Globulin 3.8 g/dL (2.4-3.5) H 07/15/16 03:25 Albumin/Globulin Ratio 0.6 (1.1-2.2) L 07/15/16 03:25 HDL Cholesterol 38 mg/dL (40-59) L 07/15/16 03:25 Vancomycin Trough 36.1 mcg/mL (10-20) H* 07/16/16 05:20 - Microbiology Findings Microbiology Findings: Microbiology, Last 48 Hours 07/14/16 14:29 Blood Culture - Preliminary Peripheral Venipuncture Gram Positive Cocci - Diagnostic Findings Chest x-ray: report reviewed, image reviewed - Clinical Findings Intake & Output: Intake & Output 07/15/16 07/15/16 07/16/16 15:59 23:59 07:59 Intake Total 904 / 904 415 / 415 1300 / 1300 Output Total 1400 / 1400 500 / 500 150 / 150 Balance -496 / -496 -85 / -85 1150 / 1150 Weight 164.4 kg 24 hour urine output to 2725 mL
[2016-07-16] MEDS ORDERED: Aminoglycoside Consult 1 EACH MC ONE (07:43)
[2016-07-16 08:11] LABS: BUN/Creatinine Ratio 23 (6-26); Blood Urea Nitrogen 19 mg/dL (7-20); Calcium 8.5 mg/dL (8.6-10.8); Carbon Dioxide 33 mEq/L (19-29); Chloride 92 mEq/L (98-109); Glucose 172 mg/dL (70-99); Osmolality,Calculated 290 (280-300); Potassium 3.5 mEq/L (3.5-4.5); Sodium 137 mEq/L (136-145); eGFR For African Americans > 60 (> 60); eGFR For Non-African Americans > 60 (> 60)
[2016-07-16] MEDS: Nystatin POWDER 30 GM BOTTLE TP SCH ×3 (09:00→20:22)
[2016-07-16] MEDS: Furosemide 40 MG/4 ML VIAL IVP SCH ×2 (09:11→17:45)
[2016-07-16] MEDS: Pantoprazole 40 MG VIAL IVPB SCH (09:11)
[2016-07-16] MEDS: Chlorhexidine Rinse 15 ML MOUTHWASH MM SCH ×2 (09:11→20:19)
[2016-07-16] MEDS: Aspirin Enteric Coated 81 MG Tablet PO SCH (09:12)
[2016-07-16] MEDS: Miconazole 2% ointment 114 GM TUBE TP SCH (09:12)
[2016-07-16] MEDS ORDERED: *HR* Midazolam HCl 2 MG/2 ML VIAL IV ONE (09:36)
[2016-07-16] MEDS ORDERED: *HR* Etomidate 40 MG/20 ML VIAL IVP ONE (09:36)
[2016-07-16] MEDS ORDERED: *HR* Midazolam HCl 5 MG/5 ML VIAL IVP ONE (09:36)
--- NOTE | 2016-07-16 10:24 | Cardiology Progress Note ---
Date of Encounter: 07/16/16 Time of Encounter: 10:21 Assessment and Plan Discussion w patient/family: The assessment and plan as outlined above was discussed with the patient and/or family members who expressed understanding and agreement. All questions were answered. Thank you for involving us in the care of your patient. Please call with any questions. agree , he resp failure is multi factorial . including CHF with diastolic dysfunction plan Cont with diuresis trend renal function trend troponins no indications for cath at present try and keep in a neg fluid balance check EKG in am clinically no change cont present rx consider lasix drip to enhance diuresis consider [place] Matt catheter Subjective Principal diagnosis: Respiratory failure Interval history: pt was intubated due to worsening hypoxia ? ards has diuresed fairly well. pt is sedated at present Objective Vital Signs, Last 4 Hours Temp Pulse Resp BP Pulse Ox 07/16/16 09:35 16 112/63 91 07/16/16 09:34 54 16 112/63 91 07/16/16 08:30 53 16 117/56 91 07/16/16 07:42 16 116/83 92 07/16/16 07:40 96.4 F L 07/16/16 07:29 47 16 116/63 92 General: Conversant (morbid obese ) Extremities: No Edema (1+ pitting edema ) Results 07/16/16 05:20 07/16/16 05:20 Lab Results 07/15/16 07/16/16 07/16/16 23:13 05:20 05:20 WBC 11.6 H Hgb 15.0 Hct 47.6 H Plt Count 159 APTT 75.5 H Sodium 137 Potassium 3.5 Chloride 92 L Carbon Dioxide 33 H BUN 19 Creatinine 0.84 Glucose 172 H Calcium 8.5 L Magnesium 2.0 Consult Discharge Plan - Plan Referrals: Maddi Chong DO [Partnered Physician] - 09/13/16 10:30 am Blair Nichols DO [Partnered Physician] - (office makes their own appointments)
[2016-07-16] MEDS: *HR* Heparin 5,000 UNIT/ML VIAL SQ SCH ×2 (20:19→23:19)
[2016-07-16] MEDS: Dexmedetomidine HCl 400 MCG/100 ML MLS IVC SCH (20:20)
[2016-07-17] MEDS: Ipratropium/Albuterol Neb 3 ML IH SCH ×5 (03:43→19:48)
[2016-07-17 03:44] LABS: Basophils % 0.1 %; Hematocrit 44.9 % (35.3-44.9); Hemoglobin 14.3 g/dL (11.5-15.4); Immature Granulocytes % 0.7 % (0-4); Lymphocytes # 0.6 K/mcL (0.6-4.6); Lymphocytes % 5.4 %; Mean Corpuscular HGB Conc 31.8 g/dL (31.6-35.5); Mean Corpuscular Volume 97.4 fL (83.0-100.0); Mean Platelet Volume 10.9 fL (9.4-12.4); Monocytes # 0.6 K/mcL (0.0-1.3); Monocytes % 5.4 %; Nucleated Red Blood Cells 0.2 /100 WBC (0); Platelet Count 155 K/mcL (140-400); Red Blood Count 4.61 M/mcL (3.82-4.97); Red Cell Distribution Width 16.9 % (11.5-14.5); Segmented Neutrophils % 88.4 %
[2016-07-17] MEDS: Lacri-Lube 3.5 GM TUBE BOTH EYES SCH ×5 (03:46→19:14)
[2016-07-17] MEDS: FentaNYL (PF) 1,000 MCG in 0.9 % Sodium Chloride 80 ML IVC SCH ×3 (03:46→19:47)
[2016-07-17 03:59] LABS: BUN/Creatinine Ratio 29 (6-26); Blood Urea Nitrogen 22 mg/dL (7-20); Calcium 8.6 mg/dL (8.6-10.8); Carbon Dioxide 38 mEq/L (19-29); Chloride 92 mEq/L (98-109); Glucose 141 mg/dL (70-99); Osmolality,Calculated 290 (280-300); Potassium 3.7 mEq/L (3.5-4.5); Sodium 137 mEq/L (136-145); eGFR For African Americans > 60 (> 60); eGFR For Non-African Americans > 60 (> 60)
[2016-07-17 04:03] LABS: Ionized Calcium 1.12 mmol/L (1.15-1.35)
[2016-07-17 04:53] LABS: ABG Base Excess 18.5 mEq/L (-2.0 to 3.0); ABG HCO3 46.6 mEQ/L (21-27); ABG Oxygen Saturation 96 % (95-98); ABG PCO2 64 mmHg (35-45); ABG PH 7.47 pH Units (7.32-7.45); ABG PO2 75 mmHg (85-104); ABG TCO2 48.6 mEq/L (20-26)
[2016-07-17 04:54] LABS: Blood Gas FiO2 50 %
[2016-07-17] MEDS: *HR* Heparin 5,000 UNIT/ML VIAL SQ SCH ×2 (05:24→13:05)
[2016-07-17] MEDS: MethylPREDNISolone 40 MG/ML VIAL IVP SCH ×2 (05:25→17:15)
[2016-07-17] MEDS: Chlorhexidine Rinse 15 ML MOUTHWASH MM SCH ×2 (08:39→19:14)
[2016-07-17] MEDS: Furosemide 40 MG/4 ML VIAL IVP SCH ×2 (08:41→17:15)
[2016-07-17] MEDS: Aspirin Enteric Coated 81 MG Tablet PO SCH (08:42)
[2016-07-17] MEDS: Pantoprazole 40 MG VIAL IVPB SCH (08:42)
--- NOTE | 2016-07-17 08:51 | Pulmonology Progress Note ---
Date of Encounter: 07/17/16 Time of Encounter: 08:30 Assessment and Plan (1) Acute on chronic respiratory failure with hypoxia and hypercapnia Current Visit: Yes Status: Acute patient came in with SOB, ABG showed acidosis which minimally improved with BiPAP patient was admitted to ICU shortly afterwards and intubated. etiology likely multifactorial in setting of acute CHF, COPD, possible obesity hypoventilation syndrome. Plan: continue with mechanical ventilation. D/C propofol. only use fentanyl pushes as needed Increased lasix to 60mg IV BID one additional dose of 20mg IV lasix given today. keep patient net negative. (2) Cellulitis Current Visit: No Status: Acute continue Rocephin Qualifiers: Site of cellulitis: trunk Site of cellulitis of trunk: groin Qualified Code(s): L03.314 - Cellulitis of groin (3) NSTEMI (non-ST elevated myocardial infarction) Current Visit: Yes Status: Suspected peak troponin .63, treded down patient was initially on heparin gtt, which has been discontinued. no acute EKG ishcemic changes. likely elevated troponins in setting of acute on chronic respiratory failure with hypoxia and hypercapnia. Plan: cardio on board, they recommend medical management at this time. outpatient ischemic evaluation recommended by cardiology, appointment set up. (4) CHF (congestive heart failure) Current Visit: Yes Status: Chronic last echo from 07/14/16 showed LVEF 50-60% no diagnostic wall motion abnormality vsualized in segments, no significant valvular disease. Plan: increased lasix to 60mg IV BID Qualifiers: Congestive heart failure type: diastolic Congestive heart failure chronicity: acute on chronic Qualified Code(s): I50.33 - Acute on chronic diastolic (congestive) heart failure (5) Poor hygiene Current Visit: Yes Status: Acute consult to social group worker. (6) Hypothermia Current Visit: Yes Status: Acute continue with warming blanket. Qualifiers: Qualified Code(s): T68.XXXA - Hypothermia, initial encounter (7) QT prolongation Current Visit: Yes Status: Resolved likely secondary to hypothermia. repeat ekg showed resolution. (8) Bacteremia Current Visit: Yes Status: Acute blood cultures grew gram positive cocci. repeat blood cultures are pending. continue with antibiotics. (9) Morbid obesity with BMI of 50.0-59.9, adult Current Visit: Yes Status: Chronic weight loss, diet, exercise advised. (10) DVT prophylaxis Current Visit: Yes Status: Acute heparin SQ protonix for GI prophylaxis. Subjective Principal diagnosis: Respiratory failure Interval history: 71 year old female evaluated at bedside. There were no overnight events. Patient is intubated and sedated on propofol and fentanyl. Patient is alert and able to follow commands. Her FIO2 was 50%, PEEP 12, tidal volume 400. Objective PUL Vital signs: Last Vital Signs Temp 99.1 F 07/17/16 03:23 Pulse 76 07/17/16 08:21 Resp 16 07/17/16 08:00 BP 115/58 07/17/16 08:00 Pulse Ox 92 07/17/16 08:00 General appearance: no acute distress, alert Eyes: nonicteric ENT: oropharynx dry Effort: other (intubated. ) Auscultation: bilateral: diminished breath sounds Cardiovascular: regular rate and rhythm Gastrointestinal: hypoactive bowel sounds, soft, non-tender Integumentary: normal Extremities: no cyanosis, edema (+3 pitting edema on lower extremities bilaterally. ), other (poor hygiene, dirt under fingernails. skin on feet very dry. ) unable to assess due to mental status anxious Ventilator Settings Ventilator Settings: Ventilator Settings, Last 8 Hours Ventilator Mode VC+ Ventilator Mode VC+ Ventilator Mode VC+ Ventilator Mode VC+ Ventilator Mode VC+ Ventilator Mode VC+ Ventilator Mode VC+ Ventilator Mode VC+ Ventilator Mode VC+ Ventilator Mode VC+ Ventilator Mode VC+ Ventilator Mode VC+ Ventilator Tidal Volume 400 Setting Ventilator Tidal Volume 400 Setting Ventilator Tidal Volume 400 Setting Ventilator Tidal Volume 400 Setting Ventilator Tidal Volume 400 Setting Ventilator Tidal Volume 400 Setting Ventilator Tidal Volume 400 Setting Ventilator Tidal Volume 400 Setting Ventilator Tidal Volume 400 Setting Ventilator Tidal Volume 400 Setting Ventilator Tidal Volume 400 Setting Ventilator Tidal Volume 400 Setting Ventilator Respiratory Rate 16 Setting Ventilator Respiratory Rate 16 Setting Ventilator Respiratory Rate 16 Setting Ventilator Respiratory Rate 16 Setting Ventilator Respiratory Rate 16 Setting Ventilator Respiratory Rate 16 Setting Ventilator Respiratory Rate 16 Setting Ventilator Respiratory Rate 16 Setting Ventilator Respiratory Rate 16 Setting Ventilator Respiratory Rate 16 Setting Ventilator Respiratory Rate 16 Setting Ventilator Respiratory Rate 16 Setting Actual Respiratory Rate 16 Actual Respiratory Rate 16 Actual Respiratory Rate 16 Actual Respiratory Rate 16 Actual Respiratory Rate 16 Actual Respiratory Rate 16 Actual Respiratory Rate 16 Actual Respiratory Rate 16 Actual Respiratory Rate 16 Actual Respiratory Rate 16 Actual Respiratory Rate 16 Positive End Expiratory 12 Pressure Positive End Expiratory 12 Pressure Positive End Expiratory 12 Pressure Positive End Expiratory 12 Pressure Positive End Expiratory 12 Pressure Positive End Expiratory 12 Pressure Positive End Expiratory 12 Pressure Positive End Expiratory 12 Pressure Positive End Expiratory 12 Pressure Positive End Expiratory 12 Pressure Positive End Expiratory 12 Pressure Positive End Expiratory 12 Pressure Peak Inspiratory Airway 36 Pressure Peak Inspiratory Airway 36 Pressure Peak Inspiratory Airway 27 Pressure Peak Inspiratory Airway 26 Pressure Peak Inspiratory Airway 27 Pressure Peak Inspiratory Airway 28 Pressure Peak Inspiratory Airway 26 Pressure Peak Inspiratory Airway 27 Pressure Peak Inspiratory Airway 28 Pressure Peak Inspiratory Airway 27 Pressure Peak Inspiratory Airway 28 Pressure Results - Laboratory Findings CBC and BMP: 07/17/16 03:35 07/17/16 03:35 ABG ABG pH 7.47 pH Units (7.32-7.45) H 07/17/16 04:45 ABG pCO2 64 mmHg (35-45) H 07/17/16 04:45 ABG pO2 75 mmHg (85-104) L 07/17/16 04:45 ABG O2 Saturation 96 % (95-98) 07/17/16 04:45 PT/INR, D-dimer PT 12.0 Seconds (9.4-12.1) 07/14/16 08:06 Abnormal lab findings: Abnormal lab results WBC 11.3 K/mcL (4.3-11.1) H 07/17/16 03:35 RDW 16.9 % (11.5-14.5) H 07/17/16 03:35 Neutrophils # 10.0 K/mcL (1.6-8.9) H 07/17/16 03:35 Nucleated RBCs/100 WBC 0.2 /100 WBC (0) H 07/17/16 03:35 APTT 75.5 Seconds (26.0-36.0) H 07/15/16 23:13 ABG pH 7.47 pH Units (7.32-7.45) H 07/17/16 04:45 ABG pCO2 64 mmHg (35-45) H 07/17/16 04:45 ABG pO2 75 mmHg (85-104) L 07/17/16 04:45 ABG HCO3 46.6 mEQ/L (21-27) H 07/17/16 04:45 ABG Total CO2 48.6 mEq/L (20-26) H 07/17/16 04:45 ABG Base Excess 18.5 mEq/L (-2.0 to 3.0) H 07/17/16 04:45 Chloride 92 mEq/L (98-109) L 07/17/16 03:35 Carbon Dioxide 38 mEq/L (19-29) H 07/17/16 03:35 BUN 22 mg/dL (7-20) H 07/17/16 03:35 BUN/Creatinine Ratio 29 (6-26) H 07/17/16 03:35 Glucose 141 mg/dL (70-99) H 07/17/16 03:35 POC Glucose 118 (58-89) H 07/14/16 16:05 Ionized Calcium 1.12 mmol/L (1.15-1.35) L 07/17/16 03:35 Phosphorus 4.8 mg/dL (2.3-4.7) H 07/15/16 03:25 Troponin I 0.59 ng/mL (0-0.03) H* 07/14/16 14:29 B-Natriuretic Peptide 861 pg/mL (0-100) H 07/14/16 07:00 Albumin 2.4 g/dL (3.5-5.0) L 07/15/16 03:25 Globulin 3.8 g/dL (2.4-3.5) H 07/15/16 03:25 Albumin/Globulin Ratio 0.6 (1.1-2.2) L 07/15/16 03:25 HDL Cholesterol 38 mg/dL (40-59) L 07/15/16 03:25 Vancomycin Trough 36.1 mcg/mL (10-20) H* 07/16/16 05:20 - Microbiology Findings Microbiology Findings: Microbiology, Last 48 Hours 07/14/16 14:29 Blood Culture - Preliminary Peripheral Venipuncture Gram Positive Cocci 07/16/16 20:20 Sputum Culture - Preliminary Sputum - Clinical Findings Intake & Output: Intake & Output 07/16/16 07/17/16 07/17/16 23:59 07:59 15:59 Intake Total 619 / 619 574 / 574 100 / 100 Output Total 875 / 875 100 / 100 Balance -256 / -256 474 / 474 100 / 100 Weight 166 kg Consult Discharge Plan - Plan Referrals: Maddi Chong DO [Partnered Physician] - 09/13/16 10:30 am Blair Nichols DO [Partnered Physician] - (office makes their own appointments)
--- NOTE | 2016-07-17 09:47 | Cardiology Progress Note ---
Date of Encounter: 07/17/16 Time of Encounter: 09:30 Assessment and Plan (1) NSTEMI (non-ST elevated myocardial infarction) Current Visit: Yes Status: Suspected NSTEMI type I vs. NSTEMI type II in the setting of severe respiratory failure. Peak troponin 0.63, EF preserved with normal wall motion per TTE. No acute ischemic ECG changes. Consider ischemic evaluation when respiratory status improves--inpatient vs. outpatient. Recommend supportive care and medical management for now; continue asa, statin, and betablocker. Heparin gtt infused x48 hours. Discussed with Dr. Enamorado; given preserved LVEF with normal wall motion, recommend medical management. Can further determine if ischemic evaluation is warranted in the outpatient setting, will arrange for follow-up. (2) Acute on chronic respiratory failure with hypoxia and hypercapnia Current Visit: Yes Status: Acute Admit on 07/14/16 with worsening dyspnea; initially responded to BiPap, respiratory failure continued to worsen requiring intubation. PH 7.16, Co2, 112, O2 60 per ABG upon presentation. SPo2 in the 60's upon presentation to ED. Further mgmt per Pulmonology. (3) Diastolic congestive heart failure, NYHA class 3 Current Visit: Yes Status: Acute Dypsnea/edema likely multifactoral. Suspect CLARA and diastolic CHF. Appears to be volume overload upon exam, suspect chronic LE edema. Cumulative I&O: -575 mL. On IV 40 mg BID, consider increasing to 80 mg BID, kidney function stable. Continue betablocker; consider ACEi upon discharge if BP will tolerate. Strict I&Os, daily weights, Na/fluid restriction diet. (4) QT prolongation Current Visit: Yes Status: Acute In the setting of hypothermia, now resolved. EKG 07/16/16: HR 58 (SR), QT/QTc 449,445 Discussion w patient/family: The assessment and plan as outlined above was discussed with the patient and/or family members who expressed understanding and agreement. All questions were answered. Thank you for involving us in the care of your patient. Please call with any questions. The patient will be discussed and reviewed with Dr. Enamorado; changes to be made accordingly. Subjective Principal diagnosis: Respiratory failure Interval history: Seen and examined. Initially admitted on 07/14/16 with acute respiratory (hypoxic , hypercapnia) failure. Per bedside RN, patient is primary bedbound, requires 24 hour care at home. Remains intubuated/sedated. YANEZ x4, unable to follow simple commands during exam. Objective Vital Signs, Last 4 Hours Pulse Resp BP Pulse Ox 07/17/16 09:30 16 115/58 91 07/17/16 09:00 63 16 115/58 91 07/17/16 08:21 76 07/17/16 08:00 76 16 115/58 92 07/17/16 07:36 16 106/49 92 07/17/16 06:00 61 16 106/49 93 07/17/16 05:52 16 104/49 93 General: Other (morbidly obese, intubated/sedated) HEENT: Atraumatic, Normocephaly Cardiac: Reg Rate and Rhythm, Normal S1 and S2 Lungs: Other (coarse breath sounds (anterior only)) Neuro: Other (moves all extremities x4. ) Abdomen: Soft Skin: Other (Right lower leg redness) Extremities: Other (+2-3 pitting edema to BLE. ) Results 07/17/16 03:35 07/17/16 03:35 Lab Results 07/17/16 07/17/16 03:35 03:35 WBC 11.3 H Hgb 14.3 Hct 44.9 Plt Count 155 Sodium 137 Potassium 3.7 Chloride 92 L Carbon Dioxide 38 H BUN 22 H Creatinine 0.77 Glucose 141 H Calcium 8.6 Magnesium 2.0 Active Medications Acetaminophen (Tylenol) 650 mg PO Q6HR PRN PRN Reason: Mild Pain (1-3) Stop: 01/13/17 08:30 Albuterol/Ipratropium (Duoneb) 3 ml IH [id number] DEON PRN Reason: Protocol Stop: 01/13/17 16:01 Last Admin: 07/17/16 07:33 Dose: 3 ml Artificial Tears (Lacri-Lube) 1 appl BOTH EYES Q4HR DEON PRN Reason: Protocol Stop: 01/14/17 08:01 Last Admin: 07/17/16 03:46 Dose: 1 appl Artificial Tears (Lacri-Lube) 1 appl BOTH EYES Q2HR PRN; Protocol PRN Reason: Dry Eyes Stop: 01/14/17 04:29 Aspirin (Aspirin Ec) 81 mg PO DAILY [facility] Stop: 01/14/17 09:01 Last Admin: 07/17/16 08:42 Dose: Not Given Atorvastatin Calcium (Lipitor) 40 mg PO HS DEON Stop: 01/13/17 21:01 Last Admin: 07/16/16 20:21 Dose: 40 mg Chlorhexidine Gluconate (Chlorhexidine Rinse) 15 ml MM BID DEON Stop: 01/14/17 09:01 Last Admin: 07/17/16 08:39 Dose: 15 ml Clopidogrel Bisulfate (Plavix) 75 mg PO DAILY DEON Stop: 01/14/17 09:01 Last Admin: 07/17/16 08:41 Dose: 75 mg Furosemide (Lasix) 40 mg IVP BIDDIURETIC DEON Stop: 01/13/17 21:01 Last Admin: 07/17/16 08:41 Dose: 40 mg Heparin Sodium (Porcine) (Heparin) 5,000 unit SQ Q8HCO DEON Stop: 01/15/17 20:01 Last Admin: 07/17/16 05:24 Dose: 5,000 unit Ceftriaxone Sodium 1,000 mg/ (Dextrose) 100 mls @ 200 mls/hr IVPB Q12H DEON Stop: 01/13/17 18:01 Last Infusion: 07/17/16 07:56 Dose: Infused Calcium Gluconate 1,000 mg/ (Dextrose) 110 mls @ 50 mls/hr IVPB Q6HR PRN PRN Reason: Hypocalcemia Stop: 01/13/17 15:48 Magnesium Sulfate 2 gm/ (Dextrose) 104 mls @ 50 mls/hr IVPB Q6H PRN PRN Reason: Hypomagnesemia Stop: 01/13/17 15:48 Last Infusion: 07/15/16 08:35 Dose: Infused Potassium Chloride (Potassium Chloride 10 Meq/100ml) 10 meq in 100 mls @ 100 mls/hr IVPB Q1H PRN PRN Reason: Potassium less than 4 Stop: 01/13/17 15:48 Last Admin: 07/17/16 08:38 Dose: 100 mls/hr Potassium Phosphate 44 meq/ (Sodium Chloride) 260 mls @ 40 mls/hr IVPB Q10H PRN PRN Reason: Phosphate less than 3 Stop: 01/13/17 15:48 Fentanyl Citrate 1,000 mcg/ (Sodium Chloride) 100 mls @ 5 mls/hr IVC CONT DEON; 50 MCG/HR PRN Reason: Protocol Stop: 01/14/17 04:31 Last Admin: 07/17/16 03:46 Dose: 100 mcg/hr, 10 mls/hr Dexmedetomidine HCl (Precedex) 400 mcg in 100 mls @ 8.67 mls/hr IVC .[id number] DEON; 0.2 MCG/KG/HR PRN Reason: Protocol Stop: 01/14/17 08:31 Last Admin: 07/16/16 20:20 Dose: Not Given Propofol (Diprivan) 1,000 mg in 100 mls @ 5.202 mls/hr IVC .[id number] DEON; 5 MCG/ KG/MIN PRN Reason: Protocol Stop: 01/14/17 08:31 Last Admin: 07/17/16 09:40 Dose: 20 mcg/kg/min, 20.808 mls/hr Methylprednisolone (Solu-Medrol) 40 mg IVP Q12HR [facility] Stop: 01/13/17 18:01 Last Admin: 07/17/16 05:25 Dose: 40 mg Metoprolol Tartrate (Lopressor) 12.5 mg PO BID [facility] Stop: 01/14/17 09:16 Last Admin: 07/17/16 08:41 Dose: 12.5 mg Miconazole (Aloe [place] Antifungal Ointment) 1 appl TP DAILY [facility] Stop: 01/13/17 16:01 Last Admin: 07/16/16 09:12 Dose: 1 appl Naloxone HCl (Narcan) 0.4 mg IVP Q2MIN PRN PRN Reason: Opioid Reversal Stop: 01/13/17 08:30 Naloxone HCl (Narcan) 0.4 mg IVP Q2MIN PRN PRN Reason: Opioid Reversal Stop: 01/13/17 15:40 Nystatin (Nystop) 1 appl TP TID [facility] Stop: 01/13/17 09:16 Last Admin: 07/16/16 20:22 Dose: Not Given Ondansetron HCl (Zofran) 4 mg IVP Q6H PRN PRN Reason: Nausea And Vomiting Stop: 01/13/17 08:30 Pantoprazole Sodium (Protonix) 40 mg IVPB DAILY [facility] Stop: 01/14/17 09:01 Last Admin: 07/17/16 08:42 Dose: 40 mg Potassium Chloride (Potassium Chloride) 40 meq PO DAILY PRN PRN Reason: Hypokalemia Stop: 01/16/17 08:46 Potassium Phos/Sodium Phos (Neutra-Phos) 2 each PO DAILY PRN; Protocol PRN Reason: Hypophosphatemia Stop: 01/16/17 08:46 - Imaging and Cardiology Echo: report reviewed Other Results: 12 hour tele: avg HR=64 SR. No significant pause/event. Min=56 SB. - EKG Interpretation EKG results cardiology: personally reviewed Consult Discharge Plan - Plan Referrals: Maddi Chong DO [Partnered Physician] - 09/13/16 10:30 am Blair Nichols DO [Partnered Physician] - (office makes their own appointments)
[2016-07-17] MEDS: Dexmedetomidine HCl 400 MCG/100 ML MLS IVC SCH ×2 (10:24→19:15)
[2016-07-17] MEDS ORDERED: Furosemide 20 MG/2 ML VIAL IVP ONE (11:15)
[2016-07-17] MEDS: Miconazole 2% ointment 114 GM TUBE TP SCH (11:22)
[2016-07-17] MEDS: Nystatin POWDER 30 GM BOTTLE TP SCH ×3 (11:24→19:33)
--- NOTE | 2016-07-17 11:29 | Electrocardiograph Report ---
[address] [place], [place] [address] Test Date: 2016-07-16 Pat Name: Rosemarie Plata Department: 109 Room: [facility] Gender: F Wrist Liner: : 1945 Requested By: Jose Francisco Mcgowan Order Number: [id number] Reading MD: Jermaine Enamorado MD Measurements Intervals [place] Rate: 46 P: 49 CA: 177 QRS: -2 QRSD: 136 T: 3 QT: 531 QTc: 490 Interpretive Statements SINUS BRADYCARDIA WITH OCCASIONAL SUPRAVENTRICULAR PREMATURE COMPLEXES Electronically Signed On 07-17-2016 11:27:51 EDT by Jermaine Enamorado MD
[2016-07-17 16:17] LABS: Basophils % 0.1 %; Hematocrit 45.9 % (35.3-44.9); Hemoglobin 14.6 g/dL (11.5-15.4); Immature Granulocytes % 0.8 % (0-4); Lymphocytes # 0.7 K/mcL (0.6-4.6); Lymphocytes % 7.4 %; Mean Corpuscular HGB Conc 31.8 g/dL (31.6-35.5); Mean Corpuscular Hemoglobin 30.7 pg (28.0-33.3); Mean Corpuscular Volume 96.6 fL (83.0-100.0); Mean Platelet Volume 10.5 fL (9.4-12.4); Monocytes # 0.8 K/mcL (0.0-1.3); Monocytes % 7.7 %; Neutrophils # 8.3 K/mcL (1.6-8.9); Platelet Count 151 K/mcL (140-400); Red Blood Count 4.75 M/mcL (3.82-4.97); Red Cell Distribution Width 16.4 % (11.5-14.5)
[2016-07-17 18:14] LABS: BUN/Creatinine Ratio 29 (6-26); Blood Urea Nitrogen 23 mg/dL (7-20); Calcium 8.4 mg/dL (8.6-10.8); Carbon Dioxide 35 mEq/L (19-29); Chloride 93 mEq/L (98-109); Glucose 130 mg/dL (70-99); Osmolality,Calculated 287 (280-300); Potassium 3.8 mEq/L (3.5-4.5); Sodium 136 mEq/L (136-145); eGFR For African Americans > 60 (> 60); eGFR For Non-African Americans > 60 (> 60)
[2016-07-18] MEDS: Ipratropium/Albuterol Neb 3 ML IH SCH ×7 (00:03→23:33)
[2016-07-18] MEDS: *HR* Heparin 5,000 UNIT/ML VIAL SQ SCH ×4 (00:25→23:59)
[2016-07-18] MEDS: Lacri-Lube 3.5 GM TUBE BOTH EYES SCH ×7 (00:25→23:53)
[2016-07-18] MEDS: FentaNYL (PF) 3,000 MCG in 0.9 % Sodium Chloride 240 ML IVC SCH ×2 (02:51→23:53)
[2016-07-18] MEDS: Dexmedetomidine HCl 400 MCG/100 ML MLS IVC SCH ×2 (04:13→17:56)
[2016-07-18 04:39] LABS: ABG Base Excess 14.5 mEq/L (-2.0 to 3.0); ABG HCO3 42.5 mEQ/L (21-27); ABG Oxygen Saturation 96 % (95-98); ABG PCO2 64 mmHg (35-45); ABG PH 7.43 pH Units (7.32-7.45); ABG PO2 77 mmHg (85-104); ABG TCO2 44.5 mEq/L (20-26); Blood Gas FiO2 40 %
[2016-07-18 04:44] LABS: Ionized Calcium 1.04 mmol/L (1.15-1.35)
[2016-07-18 04:50] LABS: Phosphorous 3.4 mg/dL (2.3-4.7)
[2016-07-18 04:51] LABS: BUN/Creatinine Ratio 37 (6-26); Blood Urea Nitrogen 26 mg/dL (7-20); Calcium 8.8 mg/dL (8.6-10.8); Carbon Dioxide 36 mEq/L (19-29); Chloride 92 mEq/L (98-109); Glucose 129 mg/dL (70-99); Osmolality,Calculated 288 (280-300); Potassium 3.9 mEq/L (3.5-4.5); Sodium 136 mEq/L (136-145); eGFR For African Americans > 60 (> 60); eGFR For Non-African Americans > 60 (> 60)
[2016-07-18] MEDS: MethylPREDNISolone 40 MG/ML VIAL IVP SCH (06:09)
--- NOTE | 2016-07-18 06:43 | Pulmonology Progress Note ---
Date of Encounter: 07/18/16 Time of Encounter: 08:52 Assessment and Plan (1) Acute on chronic respiratory failure with hypoxia and hypercapnia Current Visit: Yes Status: Acute patient came in with SOB, ABG showed acidosis which minimally improved with BiPAP patient was admitted to ICU shortly afterwards and intubated. etiology likely multifactorial in setting of acute CHF, COPD, possible obesity hypoventilation syndrome. Plan: continue with mechanical ventilation. current settings: FIO2: 40%, PEEP: 10, Tv: 40- will attempt weaning and CPAP trial when PEEP about 8 continue with fentanyl drip continue lasix 60mg IV BID-keep net negative. updated patient's , spoke with him on phone. informed him of her poor prognosis and high risk of possibly having tracheostomy in the future. Also discussed options of possible correction care. he says he is open to whatever option is recommended by director social welfare. Currently, they are looking into signature correction as an option. (2) COPD exacerbation Current Visit: Yes Status: Acute likely a contributing factor for acute on chronic respiratory failure. continue bronchodilators, antibiotics, steroids. methylprednisolone changed to prednisone. (3) Cellulitis Current Visit: No Status: Acute improving, continue Rocephin day 5 Qualifiers: Site of cellulitis: trunk Site of cellulitis of trunk: groin Qualified Code(s): L03.314 - Cellulitis of groin (4) NSTEMI (non-ST elevated myocardial infarction) Current Visit: Yes Status: Suspected peak troponin .63, treded down patient was initially on heparin gtt, which has been discontinued. no acute EKG ishcemic changes. likely elevated troponins in setting of acute on chronic respiratory failure with hypoxia and hypercapnia. Plan: per cardiology, recommend medical management at this time. outpatient ischemic evaluation recommended by cardiology, appointment set up. (5) CHF (congestive heart failure) Current Visit: Yes Status: Chronic last echo from 07/14/16 showed LVEF 50-60% no diagnostic wall motion abnormality vsualized in segments, no significant valvular disease. Plan: increased lasix to 60mg IV BID continue with diuresis and keep patient net negative. Qualifiers: Congestive heart failure type: diastolic Congestive heart failure chronicity: acute on chronic Qualified Code(s): I50.33 - Acute on chronic diastolic (congestive) heart failure (6) Poor hygiene Current Visit: Yes Status: Acute consult to director social welfare. (7) Hypothermia Current Visit: Yes Status: Acute continue with warming blanket. Qualifiers: Encounter type: initial encounter Qualified Code(s): T68.XXXA - Hypothermia , initial encounter (8) QT prolongation Current Visit: Yes Status: Resolved likely secondary to hypothermia. repeat ekg showed resolution. (9) Bacteremia Current Visit: Yes Status: Acute blood cultures grew coag negative staph repeat blood cultures are pending. sputum culture grew yeast species, likely contaminant. continue with antibiotics. (10) Morbid obesity with BMI of 50.0-59.9, adult Current Visit: Yes Status: Chronic weight loss, diet, exercise advised. (11) DVT prophylaxis Current Visit: Yes Status: Acute heparin SQ protonix for GI prophylaxis. Subjective Principal diagnosis: Respiratory failure Interval history: 71 year old female evaluated at bedside. There were no overnight events. Patient is intubated and sedated on fentanyl drip. Patient is alert and able to follow commands. Her FIO2 was 40%, PEEP 10, tidal volume 400. patient appears to be in no acute distress. Objective PUL Vital signs: Last Vital Signs Temp 98.6 F 07/18/16 04:00 Pulse 65 07/18/16 06:00 Resp 18 07/18/16 06:00 BP 113/60 07/18/16 06:00 Pulse Ox 92 07/18/16 06:00 General appearance: no acute distress, alert Eyes: nonicteric ENT: oropharynx moist Effort: other (on ventilator) Auscultation: bilateral: diminished breath sounds Cardiovascular: regular rate and rhythm Gastrointestinal: normoactive bowel sounds, soft, tender (mild tenderness to palpaiton on right lower quadrant. ) Integumentary: cellulitis (cellulitis under breast folds and abdominal area. appears to be resolving. ) Extremities: no cyanosis, edema (+2 bilateral pitting edema, appears improved since yesterday. ) Musculoskeletal: no deformities Ventilator Settings Ventilator Settings: Ventilator Settings, Last 8 Hours Ventilator Mode VC+ Ventilator Mode VC+ Ventilator Mode VC+ Ventilator Mode VC+ Ventilator Mode VC+ Ventilator Mode VC+ Ventilator Mode VC+ Ventilator Mode VC+ Ventilator Mode VC+ Ventilator Mode VC+ Ventilator Mode VC+ Ventilator Mode VC+ Ventilator Mode VC+ Ventilator Tidal Volume 400 Setting Ventilator Tidal Volume 400 Setting Ventilator Tidal Volume 400 Setting Ventilator Tidal Volume 400 Setting Ventilator Tidal Volume 400 Setting Ventilator Tidal Volume 400 Setting Ventilator Tidal Volume 400 Setting Ventilator Tidal Volume 400 Setting Ventilator Tidal Volume 400 Setting Ventilator Tidal Volume 400 Setting Ventilator Tidal Volume 400 Setting Ventilator Tidal Volume 400 Setting Ventilator Tidal Volume 400 Setting Ventilator Respiratory Rate 16 Setting Ventilator Respiratory Rate 16 Setting Ventilator Respiratory Rate 16 Setting Ventilator Respiratory Rate 16 Setting Ventilator Respiratory Rate 16 Setting Ventilator Respiratory Rate 16 Setting Ventilator Respiratory Rate 16 Setting Ventilator Respiratory Rate 16 Setting Ventilator Respiratory Rate 16 Setting Ventilator Respiratory Rate 16 Setting Ventilator Respiratory Rate 16 Setting Ventilator Respiratory Rate 16 Setting Ventilator Respiratory Rate 16 Setting Actual Respiratory Rate 18 Actual Respiratory Rate 16 Actual Respiratory Rate 17 Actual Respiratory Rate 16 Actual Respiratory Rate 17 Actual Respiratory Rate 16 Actual Respiratory Rate 16 Actual Respiratory Rate 16 Actual Respiratory Rate 16 Actual Respiratory Rate 16 Actual Respiratory Rate 17 Actual Respiratory Rate 16 Positive End Expiratory 12 Pressure Positive End Expiratory 12 Pressure Positive End Expiratory 12 Pressure Positive End Expiratory 12 Pressure Positive End Expiratory 12 Pressure Positive End Expiratory 12 Pressure Positive End Expiratory 12 Pressure Positive End Expiratory 12 Pressure Positive End Expiratory 12 Pressure Positive End Expiratory 12 Pressure Positive End Expiratory 12 Pressure Positive End Expiratory 12 Pressure Positive End Expiratory 12 Pressure Peak Inspiratory Airway 27 Pressure Peak Inspiratory Airway 27 Pressure Peak Inspiratory Airway 31 Pressure Peak Inspiratory Airway 27 Pressure Peak Inspiratory Airway 27 Pressure Peak Inspiratory Airway 30 Pressure Peak Inspiratory Airway 30 Pressure Peak Inspiratory Airway 30 Pressure Peak Inspiratory Airway 25 Pressure Peak Inspiratory Airway 25 Pressure Peak Inspiratory Airway 25 Pressure Peak Inspiratory Airway 25 Pressure Results - Laboratory Findings CBC and BMP: 07/17/16 16:00 07/18/16 04:30 ABG ABG pH 7.43 pH Units (7.32-7.45) 07/18/16 04:27 ABG pCO2 64 mmHg (35-45) H 07/18/16 04:27 ABG pO2 77 mmHg (85-104) L 07/18/16 04:27 ABG O2 Saturation 96 % (95-98) 07/18/16 04:27 PT/INR, D-dimer PT 12.0 Seconds (9.4-12.1) 07/14/16 08:06 Abnormal lab findings: Abnormal lab results Hct 45.9 % (35.3-44.9) H 07/17/16 16:00 RDW 16.4 % (11.5-14.5) H 07/17/16 16:00 Nucleated RBCs/100 WBC 0.2 /100 WBC (0) H 07/17/16 03:35 APTT 75.5 Seconds (26.0-36.0) H 07/15/16 23:13 ABG pCO2 64 mmHg (35-45) H 07/18/16 04:27 ABG pO2 77 mmHg (85-104) L 07/18/16 04:27 ABG HCO3 42.5 mEQ/L (21-27) H 07/18/16 04:27 ABG Total CO2 44.5 mEq/L (20-26) H 07/18/16 04:27 ABG Base Excess 14.5 mEq/L (-2.0 to 3.0) H 07/18/16 04:27 Chloride 92 mEq/L (98-109) L 07/18/16 04:30 Carbon Dioxide 36 mEq/L (19-29) H 07/18/16 04:30 BUN 26 mg/dL (7-20) H 07/18/16 04:30 BUN/Creatinine Ratio 37 (6-26) H 07/18/16 04:30 Glucose 129 mg/dL (70-99) H 07/18/16 04:30 POC Glucose 118 (58-89) H 07/14/16 16:05 Ionized Calcium 1.04 mmol/L (1.15-1.35) L 07/18/16 04:30 Troponin I 0.59 ng/mL (0-0.03) H* 07/14/16 14:29 B-Natriuretic Peptide 861 pg/mL (0-100) H 07/14/16 07:00 Albumin 2.4 g/dL (3.5-5.0) L 07/15/16 03:25 Globulin 3.8 g/dL (2.4-3.5) H 07/15/16 03:25 Albumin/Globulin Ratio 0.6 (1.1-2.2) L 07/15/16 03:25 HDL Cholesterol 38 mg/dL (40-59) L 07/15/16 03:25 Vancomycin Trough 36.1 mcg/mL (10-20) H* 07/16/16 05:20 - Microbiology Findings Microbiology Findings: Microbiology, Last 48 Hours 07/14/16 14:29 Blood Culture - Preliminary Peripheral Venipuncture Coagulase Negative Staphylococcus 07/16/16 20:20 Sputum Culture - Preliminary Sputum Yeast Species - Clinical Findings Intake & Output: Intake & Output 07/17/16 07/17/16 07/18/16 15:59 23:59 07:59 Intake Total 400 / 400 674 / 674 345 / 345 Output Total 1500 / 1500 800 / 800 700 / 700 Balance -1100 / -1100 -126 / -126 -355 / -355 Weight 163.838 kg Consult Discharge Plan - Plan Referrals: Maddi Chong DO [Partnered Physician] - 09/13/16 10:30 am Blair Nichols DO [Partnered Physician] - (office makes their own appointments)
[2016-07-18] MEDS: Chlorhexidine Rinse 15 ML MOUTHWASH MM SCH ×2 (08:55→19:47)
[2016-07-18] MEDS: Furosemide 40 MG/4 ML VIAL IVP SCH ×2 (08:55→15:42)
[2016-07-18] MEDS: Pantoprazole 40 MG VIAL IVPB SCH (08:55)
[2016-07-18] MEDS: Nystatin POWDER 30 GM BOTTLE TP SCH ×3 (08:56→19:48)
[2016-07-18] MEDS: Miconazole 2% ointment 114 GM TUBE TP SCH (08:57)
[2016-07-18] MEDS: Aspirin 81 MG TAB.CHEW PO SCH (08:58)
[2016-07-18 16:40] LABS: Potassium 4.2 mEq/L (3.5-4.5)
--- NOTE | 2016-07-18 16:40 | Electrocardiograph Report ---
[address] [place], [place] [address] Test Date: 2016-07-16 Pat Name: Rosemarie Plata Department: 109 Room: [facility] Gender: F Manager Budget: MARLON : 1945 Requested By: Jong Jewell Order Number: [id number] Reading MD: Chelsea Momin Measurements Intervals [place] Rate: 58 P: 62 [place]: 157 QRS: 0 QRSD: 112 T: 16 QT: 449 QTc: 445 Interpretive Statements SINUS BRADYCARDIA MODERATE INTRAVENTRICULAR CONDUCTION DELAY MODERATE T-WAVE ABNORMALITY, CONSIDER ANTERIOR ISCHEMIA Electronically Signed On 07-18-2016 16:39:22 EDT by Chelsea Momin
[2016-07-18 16:41] LABS: Ionized Calcium 1.02 mmol/L (1.15-1.35)
[2016-07-18] MEDS ORDERED: 0.9 % Sodium Chloride 1,000 ML IVC SCH (20:00)
[2016-07-18] MEDS ORDERED: 0.9 % Sodium Chloride 500 ML IVC ONE (20:14)
[2016-07-19] MEDS: Dexmedetomidine HCl 400 MCG/100 ML MLS IVC SCH ×4 (04:05→19:58)
[2016-07-19] MEDS: Lacri-Lube 3.5 GM TUBE BOTH EYES SCH ×5 (04:06→20:00)
[2016-07-19] MEDS: Ipratropium/Albuterol Neb 3 ML IH SCH ×6 (04:11→23:50)
[2016-07-19 04:41] LABS: Basophils % 0.2 %; Eosinophils % 0.4 %; Hematocrit 47.1 % (35.3-44.9); Hemoglobin 15.1 g/dL (11.5-15.4); Immature Granulocytes % 0.9 % (0-4); Lymphocytes # 1.2 K/mcL (0.6-4.6); Lymphocytes % 12.6 %; Mean Corpuscular HGB Conc 32.1 g/dL (31.6-35.5); Mean Corpuscular Hemoglobin 31.9 pg (28.0-33.3); Mean Corpuscular Volume 99.6 fL (83.0-100.0); Monocytes # 1.2 K/mcL (0.0-1.3); Monocytes % 12.2 %; Neutrophils # 6.9 K/mcL (1.6-8.9); Platelet Count 122 K/mcL (140-400); Red Blood Count 4.73 M/mcL (3.82-4.97); Red Cell Distribution Width 16.9 % (11.5-14.5); Segmented Neutrophils % 73.7 %
[2016-07-19] MEDS: *HR* Heparin 5,000 UNIT/ML VIAL SQ SCH ×3 (05:02→20:01)
[2016-07-19 05:07] LABS: ABG Base Excess 13.6 mEq/L (-2.0 to 3.0); ABG HCO3 40.5 mEQ/L (21-27); ABG Oxygen Saturation 94 % (95-98); ABG PCO2 57 mmHg (35-45); ABG PH 7.46 pH Units (7.32-7.45); ABG PO2 65 mmHg (85-104); ABG TCO2 42.2 mEq/L (20-26); Blood Gas FiO2 40 %
[2016-07-19 05:08] LABS: Blood Gas PEEP 10 cm H2O; Blood Gas Respiration Rate 16; Blood Gas VT 400 cc
[2016-07-19 05:27] LABS: Ionized Calcium 1.11 mmol/L (1.15-1.35)
[2016-07-19 05:45] LABS: BUN/Creatinine Ratio 41 (6-26); Blood Urea Nitrogen 28 mg/dL (7-20); Carbon Dioxide 38 mEq/L (19-29); Chloride 93 mEq/L (98-109); Glucose 98 mg/dL (70-99); Potassium 3.9 mEq/L (3.5-4.5); Sodium 137 mEq/L (136-145); eGFR For African Americans > 60 (> 60); eGFR For Non-African Americans > 60 (> 60)
[2016-07-19 05:46] LABS: Calcium 8.8 mg/dL (8.6-10.8); Magnesium 1.9 mg/dL (1.6-2.6); Osmolality,Calculated 289 (280-300); Phosphorous 3.2 mg/dL (2.3-4.7)
--- NOTE | 2016-07-19 08:14 | Pulmonology Progress Note ---
Date of Encounter: 07/19/16 Time of Encounter: 08:12 Assessment and Plan (1) Acute on chronic respiratory failure with hypoxia and hypercapnia Current Visit: Yes Status: Acute patient came in with SOB, ABG showed acidosis which minimally improved with BiPAP patient was admitted to ICU shortly afterwards and intubated. etiology likely multifactorial in setting of acute CHF, COPD, possible obesity hypoventilation syndrome. updated patient's , spoke with him on phone. informed him of her poor prognosis and high risk of possibly having tracheostomy in the future. Also discussed options of possible retirement care. he says he is open to whatever option is recommended by professor of social work. Currently, they are looking into signature retirement as an option. Plan: continue with mechanical ventilation. current settings: FIO2: 40%, PEEP: 10, Tv: 40- will attempt weaning and CPAP trial when PEEP about 8, likely tomorrow continue with fentanyl drip patient in sinus tach, received 500cc bolus overnight with no response. will decrease lasix to 40BID increased BB to 25 BID with holding parameters. (2) COPD exacerbation Current Visit: Yes Status: Acute likely a contributing factor for acute on chronic respiratory failure. continue bronchodilators, antibiotics, steroids. continue prednisone. (3) Cellulitis Current Visit: No Status: Acute improving, continue Rocephin day 6 Qualifiers: Site of cellulitis: trunk Site of cellulitis of trunk: groin Qualified Code(s): L03.314 - Cellulitis of groin (4) NSTEMI (non-ST elevated myocardial infarction) Current Visit: Yes Status: Suspected peak troponin .63, treded down patient was initially on heparin gtt, which has been discontinued. no acute EKG ishcemic changes. likely elevated troponins in setting of acute on chronic respiratory failure with hypoxia and hypercapnia. Plan: per cardiology, recommend medical management at this time. outpatient ischemic evaluation recommended by cardiology, appointment set up. (5) CHF (congestive heart failure) Current Visit: Yes Status: Chronic last echo from 07/14/16 showed LVEF 50-60% no diagnostic wall motion abnormality vsualized in segments, no significant valvular disease. Plan: lasix 40mg IV BID continue with diuresis and keep patient net negative. Qualifiers: Congestive heart failure type: diastolic Congestive heart failure chronicity: acute on chronic Qualified Code(s): I50.33 - Acute on chronic diastolic (congestive) heart failure (6) Poor hygiene Current Visit: Yes Status: Acute consult to professor of social work. (7) Hypothermia Current Visit: Yes Status: Acute continue with warming blanket. Qualifiers: Encounter type: initial encounter Qualified Code(s): T68.XXXA - Hypothermia , initial encounter (8) QT prolongation Current Visit: Yes Status: Resolved likely secondary to hypothermia. repeat ekg showed resolution. (9) Bacteremia Current Visit: Yes Status: Acute blood cultures grew coag negative staph repeat blood cultures are pending. sputum culture grew yeast species, likely contaminant. continue with antibiotics. (10) Morbid obesity with BMI of 50.0-59.9, adult Current Visit: Yes Status: Chronic weight loss, diet, exercise advised. (11) DVT prophylaxis Current Visit: Yes Status: Acute heparin SQ protonix for GI prophylaxis. Subjective Principal diagnosis: Respiratory failure Interval history: 71 year old female evaluated at bedside. overnight she was tachycardic with max rate in 130s. Besides this, there were no other overnight events. EKG was obtained. patient was lying in bed and comfortable. SHe denies any complaints today. she remains sedated on fentanyl drip. Objective PUL Vital signs: Last Vital Signs Temp 98.3 F 07/19/16 07:15 Pulse 124 07/19/16 06:00 Resp 16 07/19/16 07:35 BP 103/68 07/19/16 07:35 Pulse Ox 89 07/19/16 07:35 General appearance: no acute distress, alert Eyes: nonicteric ENT: oropharynx dry Neck: supple, no lymphadenopathy Effort: other (intubated) Auscultation: bilateral: wheezes Cardiovascular: other (tachycardia) Gastrointestinal: hypoactive bowel sounds, soft, tender Integumentary: other (cellullitis on upper abdominal area, underneath breasts, improvoing. ) Extremities: no cyanosis, edema (+2 pitting edema on both lower extremities up to knee, improving. ) non-focal exam, motor strength normal and symmetric mood appropriate Ventilator Settings Ventilator Settings: Ventilator Settings, Last 8 Hours Ventilator Mode VC+ Ventilator Mode VC+ Ventilator Mode VC+ Ventilator Mode VC+ Ventilator Mode VC+ Ventilator Mode VC+ Ventilator Mode VC+ Ventilator Mode VC+ Ventilator Mode VC+ Ventilator Mode VC+ Ventilator Mode VC+ Ventilator Tidal Volume 400 Setting Ventilator Tidal Volume 400 Setting Ventilator Tidal Volume 400 Setting Ventilator Tidal Volume 400 Setting Ventilator Tidal Volume 400 Setting Ventilator Tidal Volume 400 Setting Ventilator Tidal Volume 400 Setting Ventilator Tidal Volume 400 Setting Ventilator Tidal Volume 400 Setting Ventilator Tidal Volume 400 Setting Ventilator Tidal Volume 400 Setting Ventilator Respiratory Rate 16 Setting Ventilator Respiratory Rate 16 Setting Ventilator Respiratory Rate 16 Setting Ventilator Respiratory Rate 16 Setting Ventilator Respiratory Rate 16 Setting Ventilator Respiratory Rate 16 Setting Ventilator Respiratory Rate 16 Setting Ventilator Respiratory Rate 16 Setting Ventilator Respiratory Rate 16 Setting Ventilator Respiratory Rate 16 Setting Ventilator Respiratory Rate 16 Setting Actual Respiratory Rate 16 Actual Respiratory Rate 16 Actual Respiratory Rate 16 Actual Respiratory Rate 21 Actual Respiratory Rate 21 Actual Respiratory Rate 16 Actual Respiratory Rate 16 Actual Respiratory Rate 16 Actual Respiratory Rate 16 Actual Respiratory Rate 16 Positive End Expiratory 10 Pressure Positive End Expiratory 10 Pressure Positive End Expiratory 10 Pressure Positive End Expiratory 10 Pressure Positive End Expiratory 10 Pressure Positive End Expiratory 10 Pressure Positive End Expiratory 10 Pressure Positive End Expiratory 10 Pressure Positive End Expiratory 10 Pressure Positive End Expiratory 10 Pressure Positive End Expiratory 10 Pressure Peak Inspiratory Airway 30 Pressure Peak Inspiratory Airway 25 Pressure Peak Inspiratory Airway 25 Pressure Peak Inspiratory Airway 25 Pressure Peak Inspiratory Airway 25 Pressure Peak Inspiratory Airway 25 Pressure Peak Inspiratory Airway 25 Pressure Peak Inspiratory Airway 26 Pressure Peak Inspiratory Airway 26 Pressure Peak Inspiratory Airway 26 Pressure Results - Laboratory Findings CBC and BMP: 07/19/16 04:00 07/19/16 05:00 ABG ABG pH 7.46 pH Units (7.32-7.45) H 07/19/16 04:50 ABG pCO2 57 mmHg (35-45) H 07/19/16 04:50 ABG pO2 65 mmHg (85-104) L 07/19/16 04:50 ABG O2 Saturation 94 % (95-98) L 07/19/16 04:50 PT/INR, D-dimer PT 12.0 Seconds (9.4-12.1) 07/14/16 08:06 Abnormal lab findings: Abnormal lab results Hct 47.1 % (35.3-44.9) H 07/19/16 04:00 RDW 16.9 % (11.5-14.5) H 07/19/16 04:00 Plt Count 122 K/mcL (140-400) L 07/19/16 04:00 Nucleated RBCs/100 WBC 0.2 /100 WBC (0) H 07/17/16 03:35 APTT 75.5 Seconds (26.0-36.0) H 07/15/16 23:13 ABG pH 7.46 pH Units (7.32-7.45) H 07/19/16 04:50 ABG pCO2 57 mmHg (35-45) H 07/19/16 04:50 ABG pO2 65 mmHg (85-104) L 07/19/16 04:50 ABG HCO3 40.5 mEQ/L (21-27) H 07/19/16 04:50 ABG Total CO2 42.2 mEq/L (20-26) H 07/19/16 04:50 ABG O2 Saturation 94 % (95-98) L 07/19/16 04:50 ABG Base Excess 13.6 mEq/L (-2.0 to 3.0) H 07/19/16 04:50 Chloride 93 mEq/L (98-109) L 07/19/16 05:00 Carbon Dioxide 38 mEq/L (19-29) H 07/19/16 05:00 BUN 28 mg/dL (7-20) H 07/19/16 05:00 BUN/Creatinine Ratio 41 (6-26) H 07/19/16 05:00 POC Glucose 102 (58-89) H 07/18/16 23:41 Ionized Calcium 1.11 mmol/L (1.15-1.35) L 07/19/16 05:00 Troponin I 0.59 ng/mL (0-0.03) H* 07/14/16 14:29 B-Natriuretic Peptide 861 pg/mL (0-100) H 07/14/16 07:00 Albumin 2.4 g/dL (3.5-5.0) L 07/15/16 03:25 Globulin 3.8 g/dL (2.4-3.5) H 07/15/16 03:25 Albumin/Globulin Ratio 0.6 (1.1-2.2) L 07/15/16 03:25 HDL Cholesterol 38 mg/dL (40-59) L 07/15/16 03:25 Vancomycin Trough 36.1 mcg/mL (10-20) H* 07/16/16 05:20 - Microbiology Findings Microbiology Findings: Microbiology, Last 48 Hours 07/14/16 14:29 Blood Culture - Final Peripheral Venipuncture Staphylococcus hominis 07/16/16 17:49 Blood Culture - Preliminary Peripheral Venipuncture No growth. 07/16/16 08:18 Blood Culture - Preliminary Peripheral Venipuncture No growth. 07/16/16 20:20 Sputum Culture - Preliminary Sputum Yeast Species - Clinical Findings Intake & Output: Intake & Output 07/18/16 07/19/16 07/19/16 23:59 07:59 15:59 Intake Total 1174 / 1174 162 / 162 Output Total 1300 / 1300 450 / 450 Balance -126 / -126 -288 / -288 Weight 161.479 kg Consult Discharge Plan - Plan Referrals: Maddi Chong DO [Partnered Physician] - 09/13/16 10:30 am Blair Nichols DO [Partnered Physician] - (office makes their own appointments)
[2016-07-19] MEDS: Chlorhexidine Rinse 15 ML MOUTHWASH MM SCH ×2 (08:19→19:59)
[2016-07-19] MEDS: Nystatin POWDER 30 GM BOTTLE TP SCH ×3 (08:19→20:00)
[2016-07-19] MEDS: Miconazole 2% ointment 114 GM TUBE TP SCH (08:19)
[2016-07-19] MEDS: Aspirin 81 MG TAB.CHEW PO SCH (08:20)
[2016-07-19] MEDS: predniSONE 20 MG TABLET PO SCH (08:20)
[2016-07-19] MEDS: Pantoprazole 40 MG VIAL IVPB SCH (08:20)
[2016-07-19] MEDS: Furosemide 40 MG/4 ML VIAL IVP SCH ×2 (08:21→16:32)
[2016-07-19] MEDS ORDERED: *HR* Metoprolol 5 MG/5 ML VIAL IVP ONE (10:10)
--- NOTE | 2016-07-19 16:42 | Electrocardiograph Report ---
[address] [address] Test Date: 2016-07-19 Pat Name: Rosemarie Plata Department: 109 Room: [facility] Gender: F [employer]: LUANNE : 1945 Requested By: Jose Francisco Mcgowan Order Number: [id number] Reading MD: Chelsea Momin Measurements Intervals [place] Rate: 124 P: [place]: 0 QRS: -42 QRSD: 108 T: 10 QT: 290 QTc: 363 Interpretive Statements ATRIAL FLUTTER/TACHYCARDIA WITH RAPID VENTRICULAR RESPONSE MARKED LEFT AXIS DEVIATION MODERATE ST DEPRESSION Electronically Signed On 07-19-2016 16:40:33 EDT by Chelsea Momin
[2016-07-20] MEDS: Dexmedetomidine HCl 400 MCG/100 ML MLS IVC SCH ×3 (02:47→21:02)
[2016-07-20] MEDS: FentaNYL (PF) 3,000 MCG in 0.9 % Sodium Chloride 240 ML IVC SCH (02:49)
[2016-07-20] MEDS: Lacri-Lube 3.5 GM TUBE BOTH EYES SCH ×2 (03:28)
[2016-07-20] MEDS: Ipratropium/Albuterol Neb 3 ML IH SCH ×4 (03:29→15:31)
[2016-07-20 04:38] LABS: ABG Base Excess 17.7 mEq/L (-2.0 to 3.0); ABG HCO3 47.4 mEQ/L (21-27); ABG Oxygen Saturation 89 % (95-98); ABG PH 7.42 pH Units (7.32-7.45); ABG PO2 56 mmHg (85-104); ABG TCO2 49.6 mEq/L (20-26)
[2016-07-20 04:39] LABS: Blood Gas FiO2 40 %
[2016-07-20 04:40] LABS: ABG PCO2 73 mmHg (35-45)
[2016-07-20 04:46] LABS: Basophils % 0.1 %; Eosinophils # 0.1 K/mcL (0.0-0.6); Eosinophils % 0.9 %; Hematocrit 49.2 % (35.3-44.9); Hemoglobin 15.2 g/dL (11.5-15.4); Lymphocytes # 0.9 K/mcL (0.6-4.6); Mean Corpuscular HGB Conc 30.9 g/dL (31.6-35.5); Mean Corpuscular Hemoglobin 30.3 pg (28.0-33.3); Mean Corpuscular Volume 98.2 fL (83.0-100.0); Mean Platelet Volume 10.8 fL (9.4-12.4); Monocytes % 12.5 %; Neutrophils # 5.9 K/mcL (1.6-8.9); Platelet Count 118 K/mcL (140-400); Red Blood Count 5.01 M/mcL (3.82-4.97); Red Cell Distribution Width 16.3 % (11.5-14.5); Segmented Neutrophils % 74.5 %
[2016-07-20 04:52] LABS: Ionized Calcium 1.15 mmol/L (1.15-1.35)
[2016-07-20 05:03] LABS: BUN/Creatinine Ratio 56 (6-26); Calcium 8.8 mg/dL (8.6-10.8); Carbon Dioxide 37 mEq/L (19-29); Chloride 93 mEq/L (98-109); Glucose 115 mg/dL (70-99); Magnesium 2.2 mg/dL (1.6-2.6); Osmolality,Calculated 297 (280-300); Phosphorous 3.7 mg/dL (2.3-4.7); Potassium 4.2 mEq/L (3.5-4.5); Sodium 138 mEq/L (136-145); eGFR For African Americans > 60 (> 60); eGFR For Non-African Americans > 60 (> 60)
[2016-07-20 05:05] LABS: Blood Urea Nitrogen 40 mg/dL (7-20)
[2016-07-20] MEDS: *HR* Heparin 5,000 UNIT/ML VIAL SQ SCH (05:12)
--- NOTE | 2016-07-20 06:44 | Pulmonology Progress Note ---
<Kyle Remy - Last Filed: 07/20/16 13:18> Date of Encounter: 07/20/16 Time of Encounter: 06:44 Assessment and Plan (1) Acute on chronic respiratory failure with hypoxia and hypercapnia Current Visit: Yes Status: Acute patient initially admitted for SOB, ABG showed acidosis which minimally improved with BiPAP admitted to ICU and intubated 07/14 etiology likely multifactorial in setting of acute CHF, COPD, possible obesity hypoventilation syndrome PEEP decreased to 8 yesterday and remained all night plan to CPAP trial today - tolerating well this morning - anticipate extubation to BiPAP ABG 7.41/66/52/41.8/87/13.5 (2) Acute respiratory failure Current Visit: Yes Status: Acute admitted to ICU and intubated 07/14 Qualifiers: Respiratory failure complication: hypoxia and hypercapnia Qualified Code(s) : J96.01 - Acute respiratory failure with hypoxia; J96.02 - Acute respiratory failure with hypercapnia (3) Acute exacerbation of chronic obstructive pulmonary disease (COPD) Current Visit: Yes Status: Chronic likely a contributing factor for acute on chronic respiratory failure continues to have bilateral inspiratory/expiratory wheezing continue bronchodilators, antibiotics, steroids continue prednisone (4) Atrial flutter by electrocardiography Current Visit: Yes Status: Acute continue to rate control Lopressor 25mg BID will add Lopressor 5 mg IV PRN [id number] score 3 for age, sex, and CHF cardio consulted to discuss AC (5) Cutaneous candidiasis Current Visit: Yes Status: Acute continue with antifungal Miconazole appears to be improving (6) Cellulitis Current Visit: No Status: Acute improving, continue Rocephin day 7 goal to treat total of 10 days Qualifiers: Site of cellulitis: trunk Site of cellulitis of trunk: groin Qualified Code(s): L03.314 - Cellulitis of groin (7) NSTEMI (non-ST elevated myocardial infarction) Current Visit: Yes Status: Suspected peak troponin 0.63, trended down patient was initially on heparin gtt, which has been discontinued no acute EKG ishcemic changes likely elevated troponins in setting of acute on chronic respiratory failure with hypoxia and hypercapnia per cardiology, recommend medical management at this time outpatient ischemic evaluation recommended by cardiology, appointment set up (8) CHF (congestive heart failure) Current Visit: Yes Status: Chronic ECHO 07/14/16 showed LVEF 50-60%, no diagnostic wall motion abnormality vsualized in segments, no significant valvular disease. continue with diuresis and keep patient net negative lasix 40mg IV BID Qualifiers: Congestive heart failure type: diastolic Congestive heart failure chronicity: acute on chronic Qualified Code(s): I50.33 - Acute on chronic diastolic (congestive) heart failure (9) Morbid obesity with BMI of 50.0-59.9, adult Current Visit: Yes Status: Chronic weight loss, diet, exercise advised (10) Bacteremia Current Visit: Yes Status: Acute 07/14 blood cultures grew coag negative staph - transiently placed on Vancomycin but this was thought to be a contaminant 07/16 repeat blood cultures NGTD, prelimminary 07/16 sputum culture grew yeast species, likely contaminant remains afebrile WBC stable 7.9 (9.4) (11) Tobacco abuse Current Visit: Yes Status: Chronic (12) Poor hygiene Current Visit: Yes Status: Acute social group worker consulted away on trip, has been updated on patient condition and poor prognosis will discuss again regarding possible traheostomy in the future currently looking into [facility] as an option for alf care goals (13) DVT prophylaxis Current Visit: Yes Status: Acute heparin SQ protonix for GI prophylaxis Subjective Principal diagnosis: Respiratory failure Interval history: No major events overnight. Patient seen and examined at bedside. She continues to be intubated and lightly sedated on Precedex and Fentanyl. She opens her eyes to voice and follow simple commands. She moves all 4 extremities. She denies any chest pain or abdominal pain by shaking her head no. Objective PUL Vital signs: Last Vital Signs Temp 98.7 F 07/20/16 05:09 Pulse 81 07/20/16 06:00 Resp 16 07/20/16 06:00 BP 95/59 07/20/16 06:00 Pulse Ox 91 07/20/16 06:00 General appearance: no acute distress, alert, other (morbidly obese) Eyes: nonicteric, other (PERRL) ENT: oropharynx dry, other (endotracheal intubation) Neck: supple Effort: other (mechanically ventilated) Auscultation: bilateral: wheezes (inspiratory and expiratory) Cardiovascular: irregular rhythm (appears Atrial Flutter on monitor) Gastrointestinal: hypoactive bowel sounds, soft (obese abdomen), non-tender, non -distended Integumentary: cellulitis (on upper abdominal area and inframmamary) Extremities: edema (+2 pitting bilateral LE) Musculoskeletal: no deformities non-focal exam, pupils equal and round, unable to assess due to mental status Ventilator Settings Ventilator Settings: Ventilator Settings, Last 8 Hours Ventilator Mode VC+ Ventilator Mode VC+ Ventilator Mode VC+ Ventilator Mode VC+ Ventilator Mode VC+ Ventilator Mode VC+ Ventilator Mode VC+ Ventilator Mode VC+ Ventilator Mode VC+ Ventilator Mode VC+ Ventilator Mode VC+ Ventilator Mode VC+ Ventilator Mode VC+ Ventilator Tidal Volume 400 Setting Ventilator Tidal Volume 400 Setting Ventilator Tidal Volume 400 Setting Ventilator Tidal Volume 400 Setting Ventilator Tidal Volume 400 Setting Ventilator Tidal Volume 400 Setting Ventilator Tidal Volume 400 Setting Ventilator Tidal Volume 400 Setting Ventilator Tidal Volume 400 Setting Ventilator Tidal Volume 400 Setting Ventilator Tidal Volume 400 Setting Ventilator Tidal Volume 400 Setting Ventilator Tidal Volume 400 Setting Ventilator Respiratory Rate 16 Setting Ventilator Respiratory Rate 16 Setting Ventilator Respiratory Rate 16 Setting Ventilator Respiratory Rate 16 Setting Ventilator Respiratory Rate 16 Setting Ventilator Respiratory Rate 16 Setting Ventilator Respiratory Rate 16 Setting Ventilator Respiratory Rate 16 Setting Ventilator Respiratory Rate 16 Setting Ventilator Respiratory Rate 16 Setting Ventilator Respiratory Rate 16 Setting Ventilator Respiratory Rate 16 Setting Ventilator Respiratory Rate 16 Setting Actual Respiratory Rate 16 Actual Respiratory Rate 17 Actual Respiratory Rate 16 Actual Respiratory Rate 16 Actual Respiratory Rate 16 Actual Respiratory Rate 17 Actual Respiratory Rate 18 Actual Respiratory Rate 17 Actual Respiratory Rate 16 Actual Respiratory Rate 16 Actual Respiratory Rate 17 Actual Respiratory Rate 18 Positive End Expiratory 8 Pressure Positive End Expiratory 8 Pressure Positive End Expiratory 8 Pressure Positive End Expiratory 8 Pressure Positive End Expiratory 8 Pressure Positive End Expiratory 8 Pressure Positive End Expiratory 8 Pressure Positive End Expiratory 8 Pressure Positive End Expiratory 8 Pressure Positive End Expiratory 8 Pressure Positive End Expiratory 8 Pressure Positive End Expiratory 8 Pressure Positive End Expiratory 8 Pressure Peak Inspiratory Airway 25 Pressure Peak Inspiratory Airway 25 Pressure Peak Inspiratory Airway 24 Pressure Peak Inspiratory Airway 23 Pressure Peak Inspiratory Airway 24 Pressure Peak Inspiratory Airway 25 Pressure Peak Inspiratory Airway 22 Pressure Peak Inspiratory Airway 23 Pressure Peak Inspiratory Airway 23 Pressure Peak Inspiratory Airway 23 Pressure Peak Inspiratory Airway 24 Pressure Peak Inspiratory Airway 24 Pressure Results - Laboratory Findings CBC and BMP: 07/20/16 04:30 07/20/16 04:30 ABG ABG pH 7.42 pH Units (7.32-7.45) 07/20/16 04:29 ABG pCO2 73 mmHg (35-45) H* 07/20/16 04:29 ABG pO2 56 mmHg (85-104) L 07/20/16 04:29 ABG O2 Saturation 89 % (95-98) L 07/20/16 04:29 PT/INR, D-dimer PT 12.0 Seconds (9.4-12.1) 07/14/16 08:06 Abnormal lab findings: Abnormal lab results RBC 5.01 M/mcL (3.82-4.97) H 07/20/16 04:30 Hct 49.2 % (35.3-44.9) H 07/20/16 04:30 MCHC 30.9 g/dL (31.6-35.5) L 07/20/16 04:30 RDW 16.3 % (11.5-14.5) H 07/20/16 04:30 Plt Count 118 K/mcL (140-400) L 07/20/16 04:30 Nucleated RBCs/100 WBC 0.2 /100 WBC (0) H 07/17/16 03:35 APTT 75.5 Seconds (26.0-36.0) H 07/15/16 23:13 ABG pCO2 73 mmHg (35-45) H* 07/20/16 04:29 ABG pO2 56 mmHg (85-104) L 07/20/16 04:29 ABG HCO3 47.4 mEQ/L (21-27) H 07/20/16 04:29 ABG Total CO2 49.6 mEq/L (20-26) H 07/20/16 04:29 ABG O2 Saturation 89 % (95-98) L 07/20/16 04:29 ABG Base Excess 17.7 mEq/L (-2.0 to 3.0) H 07/20/16 04:29 Chloride 93 mEq/L (98-109) L 07/20/16 04:30 Carbon Dioxide 37 mEq/L (19-29) H 07/20/16 04:30 BUN 40 mg/dL (7-20) H D 07/20/16 04:30 BUN/Creatinine Ratio 56 (6-26) H 07/20/16 04:30 Glucose 115 mg/dL (70-99) H 07/20/16 04:30 POC Glucose 111 (58-89) H 07/20/16 05:36 Troponin I 0.59 ng/mL (0-0.03) H* 07/14/16 14:29 B-Natriuretic Peptide 861 pg/mL (0-100) H 07/14/16 07:00 Albumin 2.4 g/dL (3.5-5.0) L 07/15/16 03:25 Globulin 3.8 g/dL (2.4-3.5) H 07/15/16 03:25 Albumin/Globulin Ratio 0.6 (1.1-2.2) L 07/15/16 03:25 HDL Cholesterol 38 mg/dL (40-59) L 07/15/16 03:25 Vancomycin Trough 36.1 mcg/mL (10-20) H* 07/16/16 05:20 - Microbiology Findings Microbiology Findings: Microbiology, Last 48 Hours 07/16/16 20:20 Sputum Culture - Final Sputum Lula tropicalis 07/14/16 14:29 Blood Culture - Final Peripheral Venipuncture Staphylococcus hominis 07/16/16 17:49 Blood Culture - Preliminary Peripheral Venipuncture No growth. 07/16/16 08:18 Blood Culture - Preliminary Peripheral Venipuncture No growth. - Clinical Findings Intake & Output: Intake & Output 07/19/16 07/19/16 07/20/16 15:59 23:59 07:59 Intake Total 405 / 405 592 / 592 692 / 692 Output Total 100 / 100 1500 / 1500 750 / 750 Balance 305 / 305 -908 / -908 -58 / -58 Weight 159.9 kg Consult Discharge Plan - Plan Referrals: Maddi Chong DO [Partnered Physician] - 09/13/16 10:30 am Blair Nichols DO [Partnered Physician] - (office makes their own appointments) <Walt Martinez - Last Filed: 07/20/16 14:02> Date of Encounter: 07/20/16 Objective PUL Vital signs: Last Vital Signs Temp 99.1 F 07/20/16 11:47 Pulse 129 07/20/16 13:00 Resp 24 07/20/16 13:00 BP 87/63 07/20/16 13:00 Pulse Ox 90 07/20/16 13:00 Ventilator Settings Ventilator Settings: Ventilator Settings, Last 8 Hours Ventilator Mode CPAP Ventilator Mode CPAP Ventilator Mode CPAP Ventilator Mode CPAP Ventilator Mode CPAP Ventilator Mode CPAP Ventilator Mode CPAP Ventilator Mode VC+ Ventilator Mode CPAP Ventilator Mode VC+ Ventilator Tidal Volume 400 Setting Ventilator Tidal Volume 400 Setting Ventilator Tidal Volume 400 Setting Ventilator Tidal Volume 400 Setting Ventilator Respiratory Rate 18 Setting Ventilator Respiratory Rate 18 Setting Actual Respiratory Rate 11 Actual Respiratory Rate 11 Actual Respiratory Rate 11 Actual Respiratory Rate 14 Actual Respiratory Rate 14 Actual Respiratory Rate 14 Actual Respiratory Rate 13 Actual Respiratory Rate 18 Actual Respiratory Rate 9 Actual Respiratory Rate 18 Positive End Expiratory 8 Pressure Positive End Expiratory 8 Pressure Positive End Expiratory 8 Pressure Positive End Expiratory 8 Pressure Positive End Expiratory 8 Pressure Positive End Expiratory 8 Pressure Positive End Expiratory 8 Pressure Positive End Expiratory 8 Pressure Positive End Expiratory 5 Pressure Positive End Expiratory 8 Pressure Peak Inspiratory Airway 19 Pressure Peak Inspiratory Airway 19 Pressure Peak Inspiratory Airway 19 Pressure Peak Inspiratory Airway 19 Pressure Peak Inspiratory Airway 19 Pressure Peak Inspiratory Airway 19 Pressure Peak Inspiratory Airway 27 Pressure Peak Inspiratory Airway 27 Pressure Peak Inspiratory Airway 27 Pressure Peak Inspiratory Airway 27 Pressure Results - Laboratory Findings CBC and BMP: 07/20/16 04:30 07/20/16 04:30 ABG ABG pH 7.41 pH Units (7.32-7.45) 07/20/16 07:55 ABG pCO2 66 mmHg (35-45) H 07/20/16 07:55 ABG pO2 52 mmHg (85-104) L 07/20/16 07:55 ABG O2 Saturation 87 % (95-98) L 07/20/16 07:55 PT/INR, D-dimer PT 12.0 Seconds (9.4-12.1) 07/14/16 08:06 Abnormal lab findings: Abnormal lab results RBC 5.01 M/mcL (3.82-4.97) H 07/20/16 04:30 Hct 49.2 % (35.3-44.9) H 07/20/16 04:30 MCHC 30.9 g/dL (31.6-35.5) L 07/20/16 04:30 RDW 16.3 % (11.5-14.5) H 07/20/16 04:30 Plt Count 118 K/mcL (140-400) L 07/20/16 04:30 Nucleated RBCs/100 WBC 0.2 /100 WBC (0) H 07/17/16 03:35 APTT 75.5 Seconds (26.0-36.0) H 07/15/16 23:13 ABG pCO2 66 mmHg (35-45) H 07/20/16 07:55 ABG pO2 52 mmHg (85-104) L 07/20/16 07:55 ABG HCO3 41.8 mEQ/L (21-27) H 07/20/16 07:55 ABG Total CO2 43.8 mEq/L (20-26) H 07/20/16 07:55 ABG O2 Saturation 87 % (95-98) L 07/20/16 07:55 ABG Base Excess 13.5 mEq/L (-2.0 to 3.0) H 07/20/16 07:55 Chloride 93 mEq/L (98-109) L 07/20/16 04:30 Carbon Dioxide 37 mEq/L (19-29) H 07/20/16 04:30 BUN 40 mg/dL (7-20) H D 07/20/16 04:30 BUN/Creatinine Ratio 56 (6-26) H 07/20/16 04:30 Glucose 115 mg/dL (70-99) H 07/20/16 04:30 POC Glucose 122 (58-89) H 07/20/16 11:13 Troponin I 0.59 ng/mL (0-0.03) H* 07/14/16 14:29 B-Natriuretic Peptide 861 pg/mL (0-100) H 07/14/16 07:00 Albumin 2.4 g/dL (3.5-5.0) L 07/15/16 03:25 Globulin 3.8 g/dL (2.4-3.5) H 07/15/16 03:25 Albumin/Globulin Ratio 0.6 (1.1-2.2) L 07/15/16 03:25 HDL Cholesterol 38 mg/dL (40-59) L 07/15/16 03:25 Vancomycin Trough 36.1 mcg/mL (10-20) H* 07/16/16 05:20 - Microbiology Findings Microbiology Findings: Microbiology, Last 48 Hours 07/16/16 20:20 Sputum Culture - Final Sputum Lula tropicalis 07/14/16 14:29 Blood Culture - Final Peripheral Venipuncture Staphylococcus hominis - Clinical Findings Intake & Output: Intake & Output 07/19/16 07/20/16 07/20/16 23:59 07:59 15:59 Intake Total 592 / 592 692 / 692 433 / 433 Output Total 1500 / 1500 750 / 750 1200 / 1200 Balance -908 / -908 -58 / -58 -767 / -767 Weight 159.9 kg
[2016-07-20 08:07] LABS: ABG Base Excess 13.5 mEq/L (-2.0 to 3.0); ABG HCO3 41.8 mEQ/L (21-27); ABG Oxygen Saturation 87 % (95-98); ABG PCO2 66 mmHg (35-45); ABG PH 7.41 pH Units (7.32-7.45); ABG PO2 52 mmHg (85-104); ABG TCO2 43.8 mEq/L (20-26)
[2016-07-20 08:08] LABS: Blood Gas FiO2 40 %
[2016-07-20] MEDS: Aspirin 81 MG TAB.CHEW PO SCH (09:06)
[2016-07-20] MEDS: Chlorhexidine Rinse 15 ML MOUTHWASH MM SCH ×2 (09:06→21:11)
[2016-07-20] MEDS: Pantoprazole 40 MG VIAL IVPB SCH (09:06)
[2016-07-20] MEDS: Furosemide 40 MG/4 ML VIAL IVP SCH ×2 (09:06→17:08)
[2016-07-20] MEDS: predniSONE 20 MG TABLET PO SCH (09:06)
[2016-07-20] MEDS: Nystatin POWDER 30 GM BOTTLE TP SCH ×3 (09:07→21:04)
[2016-07-20] MEDS: Miconazole 2% ointment 114 GM TUBE TP SCH (09:07)
[2016-07-20] MEDS: *HR* Metoprolol 5 MG/5 ML VIAL IVP PRN (11:36)
[2016-07-20] MEDS ORDERED: Amiodarone Premix 150 MG/100 ML BAG IVPB ONE (13:21)
[2016-07-20] MEDS ORDERED: *HR* Heparin 5,000 UNIT/ML VIAL IVP PRN ×3 (13:25→13:27)
--- NOTE | 2016-07-20 13:29 | Cardiology Progress Note ---
Date of Encounter: 07/20/16 Time of Encounter: 13:00 Assessment and Plan (1) Atrial flutter with rapid ventricular response Current Visit: Yes Status: Acute Per cardiology: -ECG 07/19/16 with atrial flutter with RVR. ECG and telemetry strips reviewed with . -Patient hypotensive. BPs 80s systolic. -CUrrent HR 120-130s. -No bleeding or blood loss. -[id number] score 4 (age, HTN, DM). Recommend detention anticoagulation. Of note , patient has been non-compliant. However, per review of records it appears the plan is for patient to go to [facility]. Will start heparin drip. -On beta raphael and has IV lopressor PRN ordered. -Per discussion with , will start amiodarone and heparin drips. -Will continue to monitor. -Further discussion regarding [facility] ex[employer]ator anticoagulation once patient is alert and oriented and agreeable. (2) Acute respiratory failure Current Visit: Yes Status: Acute Per cardiology: -Acute respiratory failure requiring intubation. -Management per primary and pulmonary services. Qualifiers: Respiratory failure complication: hypoxia and hypercapnia Qualified Code(s) : J96.01 - Acute respiratory failure with hypoxia; J96.02 - Acute respiratory failure with hypercapnia (3) Diastolic congestive heart failure, NYHA class 3 Current Visit: Yes Status: Acute Per cardiology: -Echo 07/14/16 with LVEF 50-60%, all wall segments show normal motion, no severe valvular disease. -ON lasix IV. -Net negative 6198ml this admission. -CUrrently requireing mechanical ventilation. -Will continue to monitor. (4) NSTEMI (non-ST elevated myocardial infarction) Current Visit: Yes Status: Suspected Per cardiology: -Previously was recommended for medical management due to respiratory status. -On asa, plavix, beta raphael, and statin. -Will continue to monitor. PLan for ischemic evaluation in outpatient setting. (5) Cellulitis Current Visit: No Status: Acute Per cardiology: -Cellulitis to lower extremity. -On ATB. -Management per primary service. Qualifiers: Site of cellulitis: trunk Site of cellulitis of trunk: groin Qualified Code(s): L03.314 - Cellulitis of groin (6) Tobacco abuse Current Visit: Yes Status: Chronic Per cardiology: -KNown tobacco abuse. -Patient currently intubated. -Will re-inforce smoking cessation once extubated. Discussion w patient/family: The assessment and plan as outlined above was discussed with the patient who expressed understanding and agreement. All questions were answered. Thank you for involving us in the care of your patient. Please call with any questions. Discussed and reviewed with . Subjective Principal diagnosis: Respiratory failure Interval history: Patient was admitted for acute respiratory failure, CHF exacerbation. Patient required intubated and mechanical ventilation. Cardiology had been previously concsulted for CHF and NSTEMI. Medical management was recommended in the setting of respiratory status. Cardiology has been asked to re-evaluate due to atrial flutter. NO known history of atrial flutter. At time of exam, patient remains intubated. Patient not sedated. Awakens to verbal stimuli. Patient's HR currently 120-130s, atrial flutter. Objective Vital Signs, Last 4 Hours Temp Pulse Resp BP Pulse Ox 07/20/16 11:47 99.1 F 128 14 94/66 92 07/20/16 11:45 99.1 F 07/20/16 11:14 14 100/87 92 07/20/16 11:00 116 11 100/87 94 07/20/16 10:00 116 11 113/65 94 07/20/16 09:38 19 113/82 94 General: Other (Intubated) HEENT: Atraumatic, Normocephaly, Mucus Membranes Moist Neck: No JVD, Normal carotid pulses Cardiac: Other (Irregularly irregular, tachycardic. ) Lungs: Other (Lung sounds diminished throughout) Neuro: Other (Intubated. ) Abdomen: Soft Skin: Other (Reddened rash noted to skin. ) Musculoskeletal: No Chest Wall Tenderness (No grimacing noted to palpation of chest wall. ) Extremities: No Clubbing, No Cyanosis, Normal Pulses, Other (Moderate bilateral lower extremity non-pitting edema. ) Results 07/20/16 04:30 07/20/16 04:30 Lab Results Active Medications Acetaminophen (Tylenol) 650 mg PO Q6HR PRN PRN Reason: Mild Pain (1-3) Stop: 01/13/17 08:30 Albuterol/Ipratropium (Duoneb) 3 ml IH [id number] DEON PRN Reason: Protocol Stop: 01/13/17 16:01 Last Admin: 05/25/17 11:14 Dose: 3 ml Artificial Tears (Lacri-Lube) 1 appl BOTH EYES Q2HR PRN; Protocol PRN Reason: Dry Eyes Stop: 01/14/17 04:29 Aspirin (Aspirin) 81 mg PO DAILY DEON Stop: 01/14/17 09:01 Last Admin: 07/20/16 09:06 Dose: 81 mg Atorvastatin Calcium (Lipitor) 40 mg PO HS DEON Stop: 01/13/17 21:01 Last Admin: 07/19/16 20:03 Dose: 40 mg Chlorhexidine Gluconate (Chlorhexidine Rinse) 15 ml MM BID DEON Stop: 01/14/17 09:01 Last Admin: 07/20/16 09:06 Dose: 15 ml Clopidogrel Bisulfate (Plavix) 75 mg PO DAILY DEON Stop: 01/14/17 09:01 Last Admin: 07/20/16 09:06 Dose: 75 mg Furosemide (Lasix) 40 mg IVP BIDDIURETIC DEON Stop: 01/18/17 10:12 Last Admin: 07/20/16 09:06 Dose: 40 mg Heparin Sodium (Porcine) (Heparin) 4,500 unit IVP Q6HR PRN PRN Reason: SEE COMMENTS Stop: 01/19/17 13:26 Heparin Sodium (Porcine) (Heparin) 9,000 unit IVP Q6HR PRN PRN Reason: SEE COMMENTS Stop: 01/19/17 13:28 Calcium Gluconate 1,000 mg/ (Dextrose) 110 mls @ 50 mls/hr IVPB Q6HR PRN PRN Reason: Hypocalcemia Stop: 01/13/17 15:48 Last Infusion: 07/18/16 17:58 Dose: Infused Magnesium Sulfate 2 gm/ (Dextrose) 104 mls @ 50 mls/hr IVPB Q6H PRN PRN Reason: Hypomagnesemia Stop: 01/13/17 15:48 Last Infusion: 07/15/16 08:35 Dose: Infused Potassium Chloride (Potassium Chloride 10 Meq/100ml) 10 meq in 100 mls @ 100 mls/hr IVPB Q1H PRN PRN Reason: Potassium less than 4 Stop: 01/13/17 15:48 Last Infusion: 07/17/16 13:12 Dose: Infused Potassium Phosphate 44 meq/ (Sodium Chloride) 260 mls @ 40 mls/hr IVPB Q10H PRN PRN Reason: Phosphate less than 3 Stop: 01/13/17 15:48 Dexmedetomidine HCl (Precedex) 400 mcg in 100 mls @ 8.67 mls/hr IVC .[id number] DEON; 0.2 MCG/KG/HR PRN Reason: Protocol Stop: 01/14/17 08:31 Last Titration: 07/20/16 11:45 Dose: 0 mcg/kg/hr, 0 mls/hr Fentanyl Citrate 3,000 mcg/ (Sodium Chloride) 300 mls @ 5 mls/hr IVC CONT DEON; 50 MCG/HR PRN Reason: Protocol Stop: 01/17/17 01:16 Last Titration: 07/20/16 11:46 Dose: 0 mcg/hr, 0 mls/hr Ceftriaxone Sodium 2,000 mg/ (Dextrose) 100 mls @ 200 mls/hr IVPB Q24H DEON Stop: 01/17/17 08:01 Last Admin: 07/20/16 09:09 Dose: 200 mls/hr Amiodarone HCl/Dextrose (Amiodarone Drip Premix 360mg/200ml) 360 mg in 200 mls @ 33.333 mls/hr IVC ONCE ONE PRN Reason: 1 MG/MIN Stop: 07/20/16 19:20 Amiodarone HCl/Dextrose (Amiodarone Drip Premix 360mg/200ml) 360 mg in 200 mls @ 16.667 mls/hr IVC CONT DEON PRN Reason: 0.5 MG/MIN Stop: 01/19/17 19:01 Heparin Sodium/Dextrose (Heparin 25,000 Unit/500 Ml D5w) 25,000 unit in 500 mls @ 44.772 mls/hr IVC .[id number] DEON; 14 UNIT/KG/HR PRN Reason: Protocol Stop: 01/19/17 13:31 Metoprolol Tartrate (Lopressor) 25 mg PO BID [facility] Stop: 01/18/17 10:10 Last Admin: 07/20/16 09:06 Dose: 25 mg Metoprolol Tartrate (Lopressor) 5 mg IVP Q6HR PRN PRN Reason: TACHYCARDIA Stop: 01/19/17 11:10 Last Admin: 07/20/16 11:36 Dose: 5 mg Miconazole (Aloe [place] Antifungal Ointment) 1 appl TP DAILY DEON Stop: 01/13/17 16:01 Last Admin: 07/20/16 09:07 Dose: 1 appl Naloxone HCl (Narcan) 0.4 mg IVP Q2MIN PRN PRN Reason: Opioid Reversal Stop: 01/13/17 15:40 Nystatin (Nystop) 1 appl TP TID DEON Stop: 01/13/17 09:16 Last Admin: 07/20/16 09:07 Dose: 1 appl Ondansetron HCl (Zofran) 4 mg IVP Q6H PRN PRN Reason: Nausea And Vomiting Stop: 01/13/17 08:30 Pantoprazole Sodium (Protonix) 40 mg IVPB DAILY DEON Stop: 01/14/17 09:01 Last Admin: 07/20/16 09:06 Dose: 40 mg Potassium Chloride (Potassium Chloride) 40 meq PO DAILY PRN PRN Reason: Hypokalemia Stop: 01/16/17 08:46 Last Admin: 07/18/16 06:09 Dose: 40 meq Potassium Phos/Sodium Phos (Neutra-Phos) 2 each PO DAILY PRN; Protocol PRN Reason: Hypophosphatemia Stop: 01/16/17 08:46 Prednisone (Prednisone) 40 mg PO DAILY DEON Stop: 01/18/17 09:01 Last Admin: 07/20/16 09:06 Dose: 40 mg Laboratory Tests 07/14/16 07/14/16 07/14/16 07:00 10:28 14:29 Hgb ABG pH ABG pCO2 ABG pO2 Potassium Creatinine Magnesium Troponin I 0.60 H* 0.63 H* 0.59 H* 07/20/16 07/20/16 07/20/16 04:29 04:30 04:30 Hgb 15.2 ABG pH 7.42 ABG pCO2 73 H* ABG pO2 56 L Potassium 4.2 Creatinine 0.71 Magnesium 2.2 Troponin I - Imaging and Cardiology Chest Xray: report reviewed Echo: report reviewed - EKG Interpretation EKG results cardiology: personally reviewed (ECG 07/19/16 with atrial flutter, HR 124.), other (Telemetry reviewed with average HR previous 12 hours noted to be 93, atrial flutter. Longest pause 1.7 seconds. PVCs noted.) Consult Discharge Plan - Plan Referrals: Maddi Chong, DO [Partnered Physician] - 09/13/16 10:30 am Blair Nichols, [Partnered Physician] - (office makes their own appointments)
[2016-07-20] MEDS ORDERED: Heparin 25,000 UNIT/500 ML D5W 25,000 UNIT/500 ML MLS IVC SCH (13:30)
[2016-07-20] MEDS: Heparin 25,000 UNIT/500 ML D5W 25,000 UNIT/500 ML MLS IVC SCH (13:42)
[2016-07-20] MEDS: Amiodarone Premix 360 MG/200 ML BAG IVC ONE ×2 (13:52→18:23)
[2016-07-20 14:12] LABS: Hematocrit 47.9 % (35.3-44.9); Mean Corpuscular HGB Conc 31.3 g/dL (31.6-35.5); Mean Corpuscular Hemoglobin 30.9 pg (28.0-33.3); Mean Corpuscular Volume 98.6 fL (83.0-100.0); Mean Platelet Volume 11.8 fL (9.4-12.4); Platelet Count 121 K/mcL (140-400); Red Blood Count 4.86 M/mcL (3.82-4.97); Red Cell Distribution Width 16.2 % (11.5-14.5)
[2016-07-20 14:13] LABS: INR 1.1; Prothrombin Time 12.2 Seconds (9.4-12.1)
[2016-07-20 14:18] LABS: Activated Partial Thrombo Time 23.6 Seconds (26.0-36.0)
[2016-07-20] MEDS: Amiodarone Premix 360 MG/200 ML BAG IVC SCH (19:30)
[2016-07-20 22:56] LABS: Activated Partial Thrombo Time > 360.0 Seconds (26.0-36.0)
[2016-07-20 23:12] LABS: Heparin anti-factor XA UFH 2.35 IU/mL (0.30-0.70)
[2016-07-21] MEDS: FentaNYL (PF) 3,000 MCG in 0.9 % Sodium Chloride 240 ML IVC SCH (00:54)
[2016-07-21] MEDS: Dexmedetomidine HCl 400 MCG/100 ML MLS IVC SCH ×2 (00:54→16:20)
[2016-07-21] MEDS: Heparin 25,000 UNIT/500 ML D5W 25,000 UNIT/500 ML MLS IVC SCH ×2 (05:19→12:11)
[2016-07-21] MEDS: Amiodarone Premix 360 MG/200 ML BAG IVC SCH (06:39)
--- NOTE | 2016-07-21 06:45 | Pulmonology Progress Note ---
Date of Encounter: 07/21/16 Time of Encounter: 06:45 Assessment and Plan (1) Acute on chronic respiratory failure with hypoxia and hypercapnia Current Visit: Yes Status: Acute patient initially admitted for SOB, ABG showed acidosis which minimally improved with BiPAP admitted to ICU and intubated 07/14 etiology likely multifactorial in setting of acute CHF, COPD, possible obesity hypoventilation syndrome extubated 07/20 BiPAP dependent overnight switched to hi-flow nasal cannula continue to monitor PT/OT consulted recommend up as tolerated remain in the ICU as she is high risk for reintubation (2) Acute respiratory failure Current Visit: Yes Status: Acute admitted to ICU and intubated 07/14 extubated 07/20 Qualifiers: Respiratory failure complication: hypoxia and hypercapnia Qualified Code(s) : J96.01 - Acute respiratory failure with hypoxia; J96.02 - Acute respiratory failure with hypercapnia (3) Acute exacerbation of chronic obstructive pulmonary disease (COPD) Current Visit: Yes Status: Chronic likely a contributing factor for acute on chronic respiratory failure wheezing improved continue bronchodilators, antibiotics, steroids will discontinue prednisone, total 8 days (4) Sepsis Current Visit: Yes Status: Acute meets SIRS criteria for tachycardia, fever, and leukocytosis possible source is cellulitis clinically does not appear septic extubated 07/20 currently day 8 Ceftriaxone for cellulitis, treat for total 10 days 07/14 blood cultures grew coag negative staph - transiently placed on Vancomycin but this was thought to be a contaminant 07/16 repeat blood cultures NGTD, prelimminary 07/16 sputum culture grew yeast species, likely contaminant will continue to monitor, if clinically worsens will repeat blood, urine, and sputum cultures Qualifiers: Sepsis type: sepsis due to unspecified organism Qualified Code(s): A41.9 - Sepsis, unspecified organism (5) Atrial flutter by electrocardiography Current Visit: Yes Status: Acute continue to rate control currently sinus tachycardia, HR 120s Lopressor 25mg BID Lopressor 5 mg IV PRN but did not give due to hypotension SBP 80s [id number] score 4 for age, sex, DM, and CHF cardio consulted - 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 - amiodarone bolus and drip started (6) Tachycardia Current Visit: Yes Status: Acute remains tachycardic HR 120s on BB and IV lopressor PRN concern secondary to volume depletion, net -7L since admission change back to home dose Lasix 40mg po TID (7) Constipation Current Visit: Yes Status: Acute no BM since 07/15 add senna plus for bowel regimen Qualifiers: Constipation type: unspecified constipation type Qualified Code(s): K59.00 - Constipation, unspecified (8) Cutaneous candidiasis Current Visit: Yes Status: Acute continue with antifungal Miconazole appears to be improving (9) Cellulitis Current Visit: No Status: Acute improving, continue Rocephin day 7 goal to treat total of 10 days Qualifiers: Site of cellulitis: trunk Site of cellulitis of trunk: groin Qualified Code(s): L03.314 - Cellulitis of groin (10) NSTEMI (non-ST elevated myocardial infarction) Current Visit: Yes Status: Suspected peak troponin 0.63, trended down patient was initially on heparin gtt, which has been discontinued no acute EKG ishcemic changes likely elevated troponins in setting of acute on chronic respiratory failure with hypoxia and hypercapnia per cardiology, recommend medical management at this time outpatient ischemic evaluation recommended by cardiology, appointment set up (11) CHF (congestive heart failure) Current Visit: Yes Status: Chronic ECHO 07/14/16 showed LVEF 50-60%, no diagnostic wall motion abnormality vsualized in segments, no significant valvular disease. continue with diuresis and keep patient net negative lasix 40mg IV BID Qualifiers: Congestive heart failure type: diastolic Congestive heart failure chronicity: acute on chronic Qualified Code(s): I50.33 - Acute on chronic diastolic (congestive) heart failure (12) Morbid obesity with BMI of 50.0-59.9, adult Current Visit: Yes Status: Chronic weight loss, diet, exercise advised (13) Bacteremia Current Visit: Yes Status: Acute 07/14 blood cultures grew coag negative staph - transiently placed on Vancomycin but this was thought to be a contaminant 07/16 repeat blood cultures NGTD, prelimminary 07/16 sputum culture grew yeast species, likely contaminant Tmax 100.4 07/20 leukocytosis 16.1 will continue to monitor (14) Poor hygiene Current Visit: Yes Status: Acute social insurance analyst consulted away on trip, has been updated on patient condition and poor prognosis will discuss again regarding possible traheostomy in the future currently looking into [facility] as an option for senior care care goals (15) Tobacco abuse Current Visit: Yes Status: Chronic (16) DVT prophylaxis Current Visit: Yes Status: Acute heparin SQ protonix for GI prophylaxis Subjective Principal diagnosis: Respiratory failure Interval history: Heart rate remains in the 120s. She was given her scheduled Lopressor but no additional doses IV due to systolic blood pressure in the 90s. When the BiPAP was removed she would desaturate into the 80s. Patient seen and examined at bedside. Appears in no acute distress. She denies any chest pain, shortness of breath, cough, nausea or vomiting. Objective PUL Vital signs: Last Vital Signs Temp 99.7 F H 07/20/16 23:30 Pulse 124 07/21/16 06:00 Resp 18 07/21/16 06:00 BP 95/57 07/21/16 06:00 Pulse Ox 94 07/21/16 06:00 General appearance: no acute distress, alert, other (Morbidly obese) Eyes: nonicteric, other (PERRL) ENT: oropharynx moist Neck: supple Effort: normal Auscultation: bilateral: wheezes (Expiratory) Cardiovascular: regular rate and rhythm Gastrointestinal: normoactive bowel sounds, soft (Obese abdomen), non-tender, non-distended, other (Cellulitis to lower abdomen and pannus, no crepitus) Integumentary: cellulitis (inframammary and abdomen/groin, no crepitus is noted) Extremities: edema (+2 pitting to bilateral LE to knees) normal mental status, non-focal exam, pupils equal and round Results - Laboratory Findings CBC and BMP: 07/21/16 06:29 07/21/16 06:29 ABG ABG pH 7.41 pH Units (7.32-7.45) 07/20/16 07:55 ABG pCO2 66 mmHg (35-45) H 07/20/16 07:55 ABG pO2 52 mmHg (85-104) L 07/20/16 07:55 ABG O2 Saturation 87 % (95-98) L 07/20/16 07:55 PT/INR, D-dimer PT 12.2 Seconds (9.4-12.1) H 07/20/16 13:50 Abnormal lab findings: Abnormal lab results WBC 11.7 K/mcL (4.3-11.1) H 07/20/16 13:50 Hct 47.9 % (35.3-44.9) H 07/20/16 13:50 MCHC 31.3 g/dL (31.6-35.5) L 07/20/16 13:50 RDW 16.2 % (11.5-14.5) H 07/20/16 13:50 Plt Count 121 K/mcL (140-400) L 07/20/16 13:50 Nucleated RBCs/100 WBC 0.2 /100 WBC (0) H 07/17/16 03:35 PT 12.2 Seconds (9.4-12.1) H 07/20/16 13:50 APTT > 360.0 Seconds (26.0-36.0) H* D 07/20/16 22:20 Heparin Anti-Xa, Unfract 2.35 IU/mL (0.30-0.70) H* 07/20/16 22:20 ABG pCO2 66 mmHg (35-45) H 07/20/16 07:55 ABG pO2 52 mmHg (85-104) L 07/20/16 07:55 ABG HCO3 41.8 mEQ/L (21-27) H 07/20/16 07:55 ABG Total CO2 43.8 mEq/L (20-26) H 07/20/16 07:55 ABG O2 Saturation 87 % (95-98) L 07/20/16 07:55 ABG Base Excess 13.5 mEq/L (-2.0 to 3.0) H 07/20/16 07:55 Chloride 93 mEq/L (98-109) L 07/20/16 04:30 Carbon Dioxide 37 mEq/L (19-29) H 07/20/16 04:30 BUN 40 mg/dL (7-20) H D 07/20/16 04:30 BUN/Creatinine Ratio 56 (6-26) H 07/20/16 04:30 Glucose 115 mg/dL (70-99) H 07/20/16 04:30 POC Glucose 106 (58-89) H 07/20/16 23:28 Troponin I 0.59 ng/mL (0-0.03) H* 07/14/16 14:29 B-Natriuretic Peptide 861 pg/mL (0-100) H 07/14/16 07:00 Albumin 2.4 g/dL (3.5-5.0) L 07/15/16 03:25 Globulin 3.8 g/dL (2.4-3.5) H 07/15/16 03:25 Albumin/Globulin Ratio 0.6 (1.1-2.2) L 07/15/16 03:25 HDL Cholesterol 38 mg/dL (40-59) L 07/15/16 03:25 Vancomycin Trough 36.1 mcg/mL (10-20) H* 07/16/16 05:20 - Microbiology Findings Microbiology Findings: Microbiology, Last 48 Hours 07/16/16 20:20 Sputum Culture - Final Sputum Lula tropicalis 07/14/16 14:29 Blood Culture - Final Peripheral Venipuncture Staphylococcus hominis - Clinical Findings Intake & Output: Intake & Output 07/20/16 07/20/16 07/21/16 15:59 23:59 07:59 Intake Total 433 / 433 677 / 677 200 / 200 Output Total 1200 / 1200 1825 / 1825 200 / 200 Balance -767 / -767 -1148 / -1148 0 / 0 Consult Discharge Plan - Plan Referrals: Maddi Chong DO [Partnered Physician] - 09/13/16 10:30 am Blair Nichols DO [Partnered Physician] - (office makes their own appointments)
[2016-07-21 06:57] LABS: BUN/Creatinine Ratio 79 (6-26); Carbon Dioxide 37 mEq/L (19-29); Chloride 97 mEq/L (98-109); Sodium 139 mEq/L (136-145); eGFR For African Americans > 60 (> 60)
[2016-07-21 06:58] LABS: Calcium 8.5 mg/dL (8.6-10.8); Glucose 111 mg/dL (70-99); Magnesium 2.2 mg/dL (1.6-2.6); Osmolality,Calculated 307 (280-300); Phosphorous 3.8 mg/dL (2.3-4.7); eGFR For Non-African Americans > 60 (> 60)
[2016-07-21 06:59] LABS: Blood Urea Nitrogen 64 mg/dL (7-20)
[2016-07-21 07:16] LABS: Basophils % 0.2 %; Eosinophils # 0.1 K/mcL (0.0-0.6); Eosinophils % 0.4 %; Hematocrit 40.3 % (35.3-44.9); Immature Granulocytes % 1.4 % (0-4); Lymphocytes # 0.9 K/mcL (0.6-4.6); Lymphocytes % 5.6 %; Mean Corpuscular HGB Conc 30.8 g/dL (31.6-35.5); Mean Corpuscular Hemoglobin 31.2 pg (28.0-33.3); Mean Corpuscular Volume 101.3 fL (83.0-100.0); Mean Platelet Volume 11.9 fL (9.4-12.4); Monocytes # 1.7 K/mcL (0.0-1.3); Monocytes % 10.4 %; Neutrophils # 13.2 K/mcL (1.6-8.9); Platelet Count 122 K/mcL (140-400); Red Blood Count 3.98 M/mcL (3.82-4.97); Red Cell Distribution Width 15.9 % (11.5-14.5)
[2016-07-21 07:19] LABS: Hemoglobin 12.4 g/dL (11.5-15.4)
[2016-07-21 07:20] LABS: Activated Partial Thrombo Time 130.7 Seconds (26.0-36.0)
[2016-07-21 07:48] LABS: Heparin anti-factor XA UFH 1.3 IU/mL (0.30-0.70)
[2016-07-21] MEDS: Chlorhexidine Rinse 15 ML MOUTHWASH MM SCH (08:02)
[2016-07-21] MEDS: Aspirin 81 MG TAB.CHEW PO SCH (08:04)
[2016-07-21] MEDS: Furosemide 40 MG/4 ML VIAL IVP SCH (08:04)
[2016-07-21] MEDS: Miconazole 2% ointment 114 GM TUBE TP SCH (08:05)
[2016-07-21] MEDS: Nystatin POWDER 30 GM BOTTLE TP SCH ×3 (08:06→23:21)
[2016-07-21] MEDS: predniSONE 20 MG TABLET PO SCH (08:09)
[2016-07-21] MEDS: Pantoprazole 40 MG VIAL IVPB SCH (08:09)
--- NOTE | 2016-07-21 10:26 | Cardiology Progress Note ---
Date of Encounter: 07/21/16 Time of Encounter: 09:00 Assessment and Plan (1) Atrial flutter with rapid ventricular response Current Visit: Yes Status: Acute Per cardiology: -ECG 07/19/16 with atrial flutter with RVR. ECG and telemetry strips reviewed with . -Patient hypotensive. BPs 80-90s systolic. -CUrrent HR 120s. Patient is now sinus tachycardia. -No bleeding or blood loss. -[id number] score 4 (age, HTN, DM). Recommend valuation manager anticoagulation. Of note , patient has been non-compliant. However, per review of records it appears the plan is for patient to go to [facility]. Will start heparin drip. -On beta raphael and has IV lopressor PRN ordered, has not been given due to hypotension. -ON amiodarone and heparin drip. -BUN climing, patient may be volume depleted. Of Note net negative 7L this admission. May be contributing to tachycardia. -Recommend giving beta raphael once BP can tolerate. -Further discussion regarding [facility] anticoagulation once patient is alert and oriented and agreeable. (2) Acute respiratory failure Current Visit: Yes Status: Acute Per cardiology: -Acute respiratory failure requiring intubation. -Now extubated and on high flow O2. -Management per primary and pulmonary services. Qualifiers: Respiratory failure complication: hypoxia and hypercapnia Qualified Code(s) : J96.01 - Acute respiratory failure with hypoxia; J96.02 - Acute respiratory failure with hypercapnia (3) Diastolic congestive heart failure, NYHA class 3 Current Visit: Yes Status: Acute Per cardiology: -Echo 07/14/16 with LVEF 50-60%, all wall segments show normal motion, no severe valvular disease. -ON lasix po now. Was IV. -Net negative 7128ml this admission. -Appears patient is now down 14kg since 07/14. May be volume depleted now due to diuresis. -Agree with changing IV lasix to PO as ordered by primary service. -Will continue to monitor. Can consider careful addition of fluids. (4) NSTEMI (non-ST elevated myocardial infarction) Current Visit: Yes Status: Suspected Per cardiology: -Previously was recommended for medical management due to respiratory status. -On asa, plavix, beta raphael, and statin. -Will continue to monitor. PLan for ischemic evaluation in outpatient setting. (5) Cellulitis Current Visit: No Status: Acute Per cardiology: -Cellulitis to lower extremity. -On ATB. -Management per primary service. (6) Tobacco abuse Current Visit: Yes Status: Chronic Per cardiology: -Known tobacco abuse. -Smoking cessation education given. Discussion w patient/family: The assessment and plan as outlined above was discussed with the patient who expressed understanding and agreement. All questions were answered. Thank you for involving us in the care of your patient. Please call with any questions. Discussed and reviewed with . Changes will be made accordingly. Subjective Principal diagnosis: Respiratory failure Interval history: Patient was admitted for acute respiratory failure, CHF exacerbation. Patient required intubated and mechanical ventilation. Cardiology had been previously consulted for CHF and NSTEMI. Medical management was recommended in the setting of respiratory status. Cardiology has been asked to re-evaluate due to atrial flutter. NO known history of atrial flutter. Patient extubated today, wearing high flow O2. Patient nods head yea/no no answer questions. Patient currently sinus rhythm , however remains tachycardic and BP marginal. Remains on heparin drip. Objective Vital Signs, Last 4 Hours Temp Pulse Resp BP Pulse Ox 07/21/16 09:00 121 18 99/50 92 07/21/16 08:00 122 18 89/52 94 07/21/16 07:00 98.6 F 124 20 91/53 95 General: No Apparent Distress (Nods head yes/no to answer questions. ) HEENT: Atraumatic, Normocephaly, Mucus Membranes Moist Neck: No JVD, Normal carotid pulses Cardiac: Reg Rate and Rhythm (Tachycardic. ), Normal S1 and S2, No Murmur Lungs: Other (Lung sounds diminished throughout) Neuro: Alert and responsive Abdomen: Soft, Non-Tender Skin: No rashes noted on visualized skin Musculoskeletal: No Chest Wall Tenderness Extremities: No Clubbing, No Cyanosis, Normal Pulses, Other (Mild bilateral lower extremity, non-pitting edema. ) Results 07/21/16 06:29 07/21/16 06:29 Lab Results Active Medications Acetaminophen (Tylenol) 650 mg PO Q6HR PRN PRN Reason: Mild Pain (1-3) Stop: 01/13/17 08:30 Artificial Tears (Lacri-Lube) 1 appl BOTH EYES Q2HR PRN; Protocol PRN Reason: Dry Eyes Stop: 01/14/17 04:29 Aspirin (Aspirin) 81 mg PO DAILY DEON Stop: 01/14/17 09:01 Last Admin: 07/21/16 08:04 Dose: 81 mg Atorvastatin Calcium (Lipitor) 40 mg PO HS DEON Stop: 01/13/17 21:01 Last Admin: 07/20/16 21:13 Dose: 40 mg Clopidogrel Bisulfate (Plavix) 75 mg PO DAILY DEON Stop: 01/14/17 09:01 Last Admin: 07/21/16 08:05 Dose: 75 mg Docusate Sodium (Colace) 100 mg PO DAILY DEON PRN Reason: Protocol Stop: 01/20/17 09:01 Last Admin: 07/21/16 08:05 Dose: 100 mg Furosemide (Lasix) 40 mg PO TIDDIURETIC DEON Stop: 01/20/17 15:01 Heparin Sodium (Porcine) (Heparin) 4,500 unit IVP Q6HR PRN PRN Reason: SEE COMMENTS Stop: 01/19/17 13:26 Heparin Sodium (Porcine) (Heparin) 9,000 unit IVP Q6HR PRN PRN Reason: SEE COMMENTS Stop: 01/19/17 13:28 Last Admin: 07/20/16 17:31 Dose: 9,000 unit Calcium Gluconate 1,000 mg/ (Dextrose) 110 mls @ 50 mls/hr IVPB Q6HR PRN PRN Reason: Hypocalcemia Stop: 01/13/17 15:48 Last Infusion: 07/18/16 17:58 Dose: Infused Magnesium Sulfate 2 gm/ (Dextrose) 104 mls @ 50 mls/hr IVPB Q6H PRN PRN Reason: Hypomagnesemia Stop: 01/13/17 15:48 Last Infusion: 07/15/16 08:35 Dose: Infused Potassium Chloride (Potassium Chloride 10 Meq/100ml) 10 meq in 100 mls @ 100 mls/hr IVPB Q1H PRN PRN Reason: Potassium less than 4 Stop: 01/13/17 15:48 Last Infusion: 07/17/16 13:12 Dose: Infused Potassium Phosphate 44 meq/ (Sodium Chloride) 260 mls @ 40 mls/hr IVPB Q10H PRN PRN Reason: Phosphate less than 3 Stop: 01/13/17 15:48 Dexmedetomidine HCl (Precedex) 400 mcg in 100 mls @ 8.67 mls/hr IVC .[id number] DEON; 0.2 MCG/KG/HR PRN Reason: Protocol Stop: 01/14/17 08:31 Last Admin: 07/21/16 00:54 Dose: Not Given Ceftriaxone Sodium 2,000 mg/ (Dextrose) 100 mls @ 200 mls/hr IVPB Q24H DEON Stop: 01/17/17 08:01 Last Admin: 07/21/16 08:02 Dose: 200 mls/hr Amiodarone HCl/Dextrose (Amiodarone Drip Premix 360mg/200ml) 360 mg in 200 mls @ 16.667 mls/hr IVC CONT DEON PRN Reason: 0.5 MG/MIN Stop: 01/19/17 19:01 Last Admin: 07/21/16 06:39 Dose: 0.5 mg/min, 16.667 mls/hr Heparin Sodium/Dextrose (Heparin 25,000 Unit/500 Ml D5w) 25,000 unit in 500 mls @ 44.772 mls/hr IVC .[id number] DEON; 14 UNIT/KG/HR PRN Reason: Protocol Stop: 01/19/17 13:31 Last Titration: 07/21/16 09:27 Dose: 5.28 unit/kg/hr, 16.9 mls/hr Metoprolol Tartrate (Lopressor) 25 mg PO BID [facility] Stop: 01/18/17 10:10 Last Admin: 07/21/16 08:06 Dose: Not Given Metoprolol Tartrate (Lopressor) 5 mg IVP Q6HR PRN PRN Reason: TACHYCARDIA Stop: 01/19/17 11:10 Last Admin: 07/20/16 11:36 Dose: 5 mg Miconazole (Aloe [place] Antifungal Ointment) 1 appl TP DAILY [facility] Stop: 01/13/17 16:01 Last Admin: 07/21/16 08:05 Dose: 1 appl Naloxone HCl (Narcan) 0.4 mg IVP Q2MIN PRN PRN Reason: Opioid Reversal Stop: 01/13/17 15:40 Nystatin (Nystop) 1 appl TP TID [facility] Stop: 01/13/17 09:16 Last Admin: 07/21/16 08:06 Dose: 1 appl Ondansetron HCl (Zofran) 4 mg IVP Q6H PRN PRN Reason: Nausea And Vomiting Stop: 01/13/17 08:30 Pantoprazole Sodium (Protonix) 40 mg IVPB DAILY DEON Stop: 01/14/17 09:01 Last Admin: 07/21/16 08:09 Dose: 40 mg Potassium Chloride (Potassium Chloride) 40 meq PO DAILY PRN PRN Reason: Hypokalemia Stop: 01/16/17 08:46 Last Admin: 07/18/16 06:09 Dose: 40 meq Potassium Phos/Sodium Phos (Neutra-Phos) 2 each PO DAILY PRN; Protocol PRN Reason: Hypophosphatemia Stop: 01/16/17 08:46 Prednisone (Prednisone) 40 mg PO DAILY DEON Stop: 01/18/17 09:01 Last Admin: 07/21/16 08:09 Dose: 40 mg Laboratory Tests 07/19/16 07/20/16 07/21/16 04:00 04:30 06:29 WBC 7.9 16.1 H Hgb 12.4 D Plt Count 122 L 118 L 122 L Potassium BUN Creatinine Magnesium 07/21/16 06:29 WBC Hgb Plt Count Potassium 4.0 BUN 64 H D Creatinine 0.81 Magnesium 2.2 - Imaging and Cardiology Chest Xray: report reviewed Echo: report reviewed - EKG Interpretation EKG results cardiology: other (Telemetry reviewed with average HR previous 12 hours noted to be 123, sinus tachycardia. PVCs noted.) Consult Discharge Plan - Plan Referrals: Maddi Chong DO [Partnered Physician] - 09/13/16 10:30 am Blair Nichols DO [Partnered Physician] - (office makes their own appointments)
[2016-07-21] MEDS: Sennosides/Docusate Sodium TABLET PO SCH ×2 (12:23→23:20)
[2016-07-21] MEDS: Furosemide 40 MG TABLET PO SCH (16:21)
[2016-07-21] MEDS: *HR* Amiodarone 200 MG TABLET PO SCH (23:21)
[2016-07-22] MEDS: *HR* Metoprolol 5 MG/5 ML VIAL IVP PRN (00:33)
[2016-07-22 05:46] LABS: Basophils # 0.1 K/mcL (0.0-0.2); Basophils % 0.3 %; Eosinophils # 0.2 K/mcL (0.0-0.6); Hematocrit 32.1 % (35.3-44.9); Immature Granulocytes % 2.1 % (0-4); Lymphocytes # 1.6 K/mcL (0.6-4.6); Lymphocytes % 9.1 %; Mean Corpuscular HGB Conc 30.8 g/dL (31.6-35.5); Mean Corpuscular Hemoglobin 31.3 pg (28.0-33.3); Mean Corpuscular Volume 101.6 fL (83.0-100.0); Mean Platelet Volume 12.2 fL (9.4-12.4); Monocytes # 2.1 K/mcL (0.0-1.3); Monocytes % 11.8 %; Neutrophils # 13.4 K/mcL (1.6-8.9); Platelet Count 156 K/mcL (140-400); Red Blood Count 3.16 M/mcL (3.82-4.97); Red Cell Distribution Width 15.8 % (11.5-14.5); Segmented Neutrophils % 75.7 %
[2016-07-22 05:55] LABS: Hemoglobin 9.9 g/dL (11.5-15.4)
[2016-07-22 05:56] LABS: BUN/Creatinine Ratio 96 (6-26); Blood Urea Nitrogen 71 mg/dL (7-20); Calcium 8.6 mg/dL (8.6-10.8); Carbon Dioxide 37 mEq/L (19-29); Chloride 99 mEq/L (98-109); Glucose 105 mg/dL (70-99); Magnesium 2.3 mg/dL (1.6-2.6); Osmolality,Calculated 313 (280-300); Phosphorous 3.2 mg/dL (2.3-4.7); Potassium 3.8 mEq/L (3.5-4.5); Sodium 141 mEq/L (136-145); eGFR For African Americans > 60 (> 60); eGFR For Non-African Americans > 60 (> 60)
--- NOTE | 2016-07-22 06:31 | Pulmonology Progress Note ---
Date of Encounter: 07/22/16 Time of Encounter: 06:31 Assessment and Plan (1) Acute on chronic respiratory failure with hypoxia and hypercapnia Current Visit: Yes Status: Acute patient initially admitted for SOB, ABG showed acidosis which minimally improved with BiPAP admitted to ICU and intubated 07/14 etiology likely multifactorial in setting of acute CHF, COPD, possible obesity hypoventilation syndrome extubated 07/20 BiPAP dependent overnight good oxygenation and ventilation on hi-flow nasal cannula continue to monitor PT/OT consulted - recommend SNF for continue therapy and increase mobility d/t generalized weakness recommend up as tolerated (2) Acute respiratory failure Current Visit: Yes Status: Resolved admitted to ICU and intubated 07/14 extubated 07/20 Qualifiers: Respiratory failure complication: hypoxia and hypercapnia Qualified Code(s) : J96.01 - Acute respiratory failure with hypoxia; J96.02 - Acute respiratory failure with hypercapnia (3) Acute exacerbation of chronic obstructive pulmonary disease (COPD) Current Visit: Yes Status: Chronic improving likely a contributing factor for acute on chronic respiratory failure continue bronchodilators, antibiotics, steroids prednisone discontinued 07/21 (received total 8 days) (4) Anemia Current Visit: Yes Status: Acute hemoglobin downtrending 9.9 today, last 12.4 suspect secondary to heparin - will discontinue heparin no active bleeding, pulled ellis out yesterday with bright red blood, ellis catheter replaced and draining clear urine no BM since 07/15 obese abdomen but is not firm or distended will obtain fecal hemoccult continue to monitor H/H BUN elevated suspected overdiuresis but in setting of anemia concerning for bleed if continues to downtrend will get CT abd/pelvis 07/14 VitB12 and Folate within normal limits Qualifiers: Anemia type: unspecified type Qualified Code(s): D64.9 - Anemia, unspecified (5) Sepsis Current Visit: Yes Status: Acute meets SIRS criteria for tachycardia, fever, and leukocytosis possible source is cellulitis clinically does not appear septic extubated 07/20 currently day 9 Ceftriaxone for cellulitis, treat for total 10 days 07/14 blood cultures grew coag negative staph - transiently placed on Vancomycin but this was thought to be a contaminant 07/16 repeat blood cultures NGTD, prelimminary 07/16 sputum culture grew yeast species, likely contaminant will continue to monitor, if clinically worsens will repeat blood, urine, and sputum cultures Qualifiers: Sepsis type: sepsis due to unspecified organism Qualified Code(s): A41.9 - Sepsis, unspecified organism (6) Leukocytosis Current Visit: Yes Status: Acute worsening leukocytosis 17.7 (16.1) afebrile Qualifiers: Leukocytosis type: unspecified Qualified Code(s): D72.829 - Elevated white blood cell count, unspecified (7) Atrial flutter by electrocardiography Current Visit: Yes Status: Acute continue to rate control on beta raphael and amiodarone currently sinus tachycardia, HR 120s [id number] score 4 for age, sex, DM, and CHF in setting of anemia, heparin stopped (8) Tachycardia Current Visit: Yes Status: Acute remains tachycardic HR 120s on BB and IV lopressor PRN concern secondary to volume depletion, net -7L since admission change back to home dose Lasix 40mg po TID (9) Constipation Current Visit: Yes Status: Acute no BM since 07/15 add senna plus for bowel regimen Qualifiers: Constipation type: unspecified constipation type Qualified Code(s): K59.00 - Constipation, unspecified (10) Cutaneous candidiasis Current Visit: Yes Status: Acute continue with antifungal Miconazole appears to be improving (11) Cellulitis Current Visit: No Status: Acute improving, continue Rocephin day 7 goal to treat total of 10 days Qualifiers: Site of cellulitis: trunk Site of cellulitis of trunk: groin Qualified Code(s): L03.314 - Cellulitis of groin (12) NSTEMI (non-ST elevated myocardial infarction) Current Visit: Yes Status: Suspected peak troponin 0.63, trended down patient was initially on heparin gtt, which has been discontinued no acute EKG ishcemic changes likely elevated troponins in setting of acute on chronic respiratory failure with hypoxia and hypercapnia per cardiology, recommend medical management at this time outpatient ischemic evaluation recommended by cardiology, appointment set up (13) CHF (congestive heart failure) Current Visit: Yes Status: Chronic ECHO 07/14/16 showed LVEF 50-60%, no diagnostic wall motion abnormality vsualized in segments, no significant valvular disease. continue with diuresis and keep patient net negative lasix 40mg IV BID Qualifiers: Congestive heart failure type: diastolic Congestive heart failure chronicity: acute on chronic Qualified Code(s): I50.33 - Acute on chronic diastolic (congestive) heart failure (14) Morbid obesity with BMI of 50.0-59.9, adult Current Visit: Yes Status: Chronic weight loss, diet, exercise advised (15) Bacteremia Current Visit: Yes Status: Acute 07/14 blood cultures grew coag negative staph - transiently placed on Vancomycin but this was thought to be a contaminant 07/16 repeat blood cultures NGTD, prelimminary 07/16 sputum culture grew yeast species, likely contaminant Tmax 100.4 07/20 leukocytosis 16.1 will continue to monitor (16) Poor hygiene Current Visit: Yes Status: Acute social studies teacher consulted away on trip, has been updated on patient condition and poor prognosis will discuss again regarding possible traheostomy in the future currently looking into [facility] [place] [facility] as an option for extermination inspector care goals (17) Tobacco abuse Current Visit: Yes Status: Chronic (18) DVT prophylaxis Current Visit: Yes Status: Acute heparin SQ protonix for GI prophylaxis Subjective Principal diagnosis: Respiratory failure Interval history: No major events overnight. Patient seen and examined at bedside. She tolerated BiPAP all-night and is currently on 10 L high flow oxygen. She maintains good oxygenation and ventilation. Reports abdominal tenderness. No bowel movement last night. She appears in no acute distress. Denies any headache, chest pain, shortness of breath, nausea or vomiting. Objective PUL Vital signs: Last Vital Signs Temp 99.6 F 07/22/16 05:09 Pulse 130 07/22/16 06:00 Resp 30 07/22/16 06:00 BP 118/79 07/22/16 06:00 Pulse Ox 100 07/22/16 06:00 General appearance: no acute distress, alert, other (Morbidly obese) Eyes: nonicteric, other (PERRL) ENT: oropharynx moist Neck: supple Effort: normal Auscultation: bilateral: wheezes (Expiratory) Cardiovascular: regular rate and rhythm Gastrointestinal: normoactive bowel sounds, soft (Obese abdomen), tender ( Diffuse), non-distended, other (Cellulitis to the lower abdomen and pannus, no crepitus) Integumentary: cellulitis (Inframammary and abdomen/groin, no crepitus is noted) Extremities: edema (+2 pitting to bilateral LE up to the knees, no calf tenderness) normal mental status, non-focal exam, pupils equal and round other (flat affect) Results - Laboratory Findings CBC and BMP: 07/22/16 05:40 07/22/16 05:40 ABG ABG pH 7.41 pH Units (7.32-7.45) 07/20/16 07:55 ABG pCO2 66 mmHg (35-45) H 07/20/16 07:55 ABG pO2 52 mmHg (85-104) L 07/20/16 07:55 ABG O2 Saturation 87 % (95-98) L 07/20/16 07:55 PT/INR, D-dimer PT 12.2 Seconds (9.4-12.1) H 07/20/16 13:50 Abnormal lab findings: Abnormal lab results WBC 17.7 K/mcL (4.3-11.1) H 07/22/16 05:40 RBC 3.16 M/mcL (3.82-4.97) L 07/22/16 05:40 Hgb 9.9 g/dL (11.5-15.4) L D 07/22/16 05:40 Hct 32.1 % (35.3-44.9) L 07/22/16 05:40 MCV 101.6 fL (83.0-100.0) H 07/22/16 05:40 MCHC 30.8 g/dL (31.6-35.5) L 07/22/16 05:40 RDW 15.8 % (11.5-14.5) H 07/22/16 05:40 Neutrophils # 13.4 K/mcL (1.6-8.9) H 07/22/16 05:40 Monocytes # 2.1 K/mcL (0.0-1.3) H 07/22/16 05:40 Nucleated RBCs/100 WBC 0.2 /100 WBC (0) H 07/17/16 03:35 PT 12.2 Seconds (9.4-12.1) H 07/20/16 13:50 APTT 59.6 Seconds (26.0-36.0) H 07/22/16 05:40 Heparin Anti-Xa, Unfract 1.30 IU/mL (0.30-0.70) H* 07/21/16 06:29 ABG pCO2 66 mmHg (35-45) H 07/20/16 07:55 ABG pO2 52 mmHg (85-104) L 07/20/16 07:55 ABG HCO3 41.8 mEQ/L (21-27) H 07/20/16 07:55 ABG Total CO2 43.8 mEq/L (20-26) H 07/20/16 07:55 ABG O2 Saturation 87 % (95-98) L 07/20/16 07:55 ABG Base Excess 13.5 mEq/L (-2.0 to 3.0) H 07/20/16 07:55 Carbon Dioxide 37 mEq/L (19-29) H 07/22/16 05:40 BUN 71 mg/dL (7-20) H 07/22/16 05:40 BUN/Creatinine Ratio 96 (6-26) H 07/22/16 05:40 Glucose 105 mg/dL (70-99) H 07/22/16 05:40 POC Glucose 117 (58-89) H 07/21/16 23:58 Calculated Osmolality 313 (280-300) H 07/22/16 05:40 Troponin I 0.59 ng/mL (0-0.03) H* 07/14/16 14:29 B-Natriuretic Peptide 861 pg/mL (0-100) H 07/14/16 07:00 Albumin 2.4 g/dL (3.5-5.0) L 07/15/16 03:25 Globulin 3.8 g/dL (2.4-3.5) H 07/15/16 03:25 Albumin/Globulin Ratio 0.6 (1.1-2.2) L 07/15/16 03:25 HDL Cholesterol 38 mg/dL (40-59) L 07/15/16 03:25 Vancomycin Trough 36.1 mcg/mL (10-20) H* 07/16/16 05:20 - Microbiology Findings Microbiology Findings: Microbiology, Last 48 Hours 07/16/16 17:49 Blood Culture - Final Peripheral Venipuncture No growth. 07/16/16 08:18 Blood Culture - Final Peripheral Venipuncture No growth. 07/16/16 20:20 Sputum Culture - Final Sputum Lula tropicalis - Clinical Findings Intake & Output: Intake & Output 07/21/16 07/21/16 07/22/16 15:59 23:59 07:59 Intake Total 30 / 30 392 / 392 311 / 311 Output Total 1000 / 1000 1350 / 1350 950 / 950 Balance -970 / -970 -958 / -958 -639 / -639 Weight 154.7 kg Consult Discharge Plan - Plan Referrals: Maddi Chong DO [Partnered Physician] - 09/13/16 10:30 am Blair Nichols DO [Partnered Physician] - (office makes their own appointments)
[2016-07-22] MEDS: Amiodarone Premix 360 MG/200 ML BAG IVC SCH ×2 (06:39→16:51)
[2016-07-22] MEDS: Heparin 25,000 UNIT/500 ML D5W 25,000 UNIT/500 ML MLS IVC SCH (06:39)
[2016-07-22] MEDS: Dexmedetomidine HCl 400 MCG/100 ML MLS IVC SCH ×2 (06:40→11:43)
[2016-07-22] MEDS: Lacri-Lube 3.5 GM TUBE BOTH EYES SCH (06:41)
[2016-07-22] MEDS: Sennosides/Docusate Sodium TABLET PO SCH ×2 (08:08→22:21)
[2016-07-22] MEDS: Aspirin 81 MG TAB.CHEW PO SCH (08:09)
[2016-07-22] MEDS: *HR* Amiodarone 200 MG TABLET PO SCH ×2 (08:09→22:21)
[2016-07-22] MEDS: Furosemide 40 MG TABLET PO SCH ×2 (08:09→11:09)
[2016-07-22] MEDS: Pantoprazole 40 MG VIAL IVP SCH ×2 (09:13→16:51)
[2016-07-22] MEDS: Miconazole 2% ointment 114 GM TUBE TP SCH (09:14)
[2016-07-22] MEDS: Nystatin POWDER 30 GM BOTTLE TP SCH ×3 (09:15→22:21)
[2016-07-22] MEDS ORDERED: 0.9 % Sodium Chloride 1,000 ML IVC ONE ×2 (10:07→14:00)
[2016-07-22] MEDS ORDERED: Ringers Solution, Lactated 1,000 ML IVC ONE ×2 (10:11→11:18)
--- NOTE | 2016-07-22 12:31 | General Surgery Consult Note ---
<Priscilla Cabrera - Last Filed: 07/22/16 16:29> Date of Encounter: 07/22/16 Time of Encounter: 12:28 Assessment and Plan (1) GI (gastrointestinal bleed) Current Visit: Yes Status: Acute Patient had episode today of stool that was dark black/melena with hints of blood. Concern for acute GI bleed due to anemia heparin was discontinued and patient was started on Protonix. The patient's hemoglobin dropped significantly from 15 g/dL on 07/20/16 29.9 g/ dL on 07/22/16. Anticoagulation and antiplatelet therapy were discontinued. However, PO plavix and ASA given this am. Patient had a bowel movement with melena concerning for GI bleed and subsequently surgery was consulted. Will plan for upper endoscopy for investigation into GI bleeding this afternoon. Patient has a large panniculus with cellulitis and ecchymosis of the right lower dependent portion of the panniculus. Patient nodded that she did not have any abdominal pain on questioning however, on palpation patient winced and withdrew and had a blood pressure spike indicating pain in the right lower abdomen. Hypotension: blood pressure 88/59, 78/48, 79/50 this morning. 2 IVF boluses given 1000 ml with response 113/57. Currently not requiring presser support. Plan: Nothing by mouth Continue supportive care and pain control per ICU team PPI therapy daily Hold heparin Upper endoscopy this afternoon at bedside Risks, benefits, alternatives, expected outcomes reviewed with the patient family has agreement to proceed with bedside upper endoscopy with Dr. Tran this afternoon On examination, the patient nods yes and no but does not verbally communicate. Consent was done verbally, for upper endoscopy for investigation into GI bleeding, over the phone and two nurses signatures are present on the form per policy. The assessment and plan as outlined above was discussed with the patient and/or family members who expressed understanding and agreement. All questions were answered. Qualifiers: GI bleed type/associated pathology: unspecified gastrointestinal hemorrhage type Qualified Code(s): K92.2 - Gastrointestinal hemorrhage, unspecified History of Present Illness Reason for consult: endoscopy Requesting physician: Walt Martinez History of present illness: Ms. Plata is a 71-year-old female with a past medical history of super morbid obesity, diastolic congestive heart failure with last Echo 2014 LVEF 60-65%, COPD, peripheral artery disease, history of tobacco abuse, recurrent cellulitis , poor hygiene, atrial flutter, constipation, who presented to the ED on and was treated for acute on chronic hypercapnic hypoxic respiratory failure subsequently requiring intubation, NSTEMI initially treated with statin, Plavix , aspirin and beta raphael and acute CHF exacerbation who has been in the care of ICU and cardiology teams since hospital admission. Her course has been complicated by atrial fibrillation/flutter with rapid ventricular response and patient was started on amiodarone and systemic anticoagulation, as well as morbid obesity hypoventilation syndrome with underlying COPD and congestive heart failure contributing to her respiratory status. The patient's hemoglobin dropped significantly from 15 g/dL on 07/20/16 29.9 g/ dL on 07/22/16. Anticoagulation and antiplatelet therapy were discontinued. Patient had a bowel movement with melena concerning for GI bleed and subsequently surgery was consulted. Will plan for upper endoscopy for investigation into GI bleeding this afternoon. On examination, the patient nods yes and no but does not verbally communicate. Consent was done verbally, for upper endoscopy for investigation into GI bleeding, over the phone and two nurses signatures are present on the form per policy. Past Med Surg Social Fam HX - Past Medical History Medical history: COPD, other Psychiatric history: no psych history - Past Surgical History Surgical History: appendectomy, - Social History Smoking Status: Current every day smoker Packs per day: 1 Smokeless Tobacco Status: No Alcohol use: none Drug use: none - Family History Father Adopted: (PATIENT WAS UNABLE TO RECALL FAMILY HISTORY.) Medications and Allergies Furosemide [Lasix] 40 mg PO TID 30 Days 02/16/15 [Rx] Gabapentin [Neurontin] 300 mg PO TID capsule 02/16/15 [Rx] Acetaminophen [Tylenol] 1,000 mg PO Q6HR PRN 07/14/16 [History] Allergies No Known Allergies Allergy (Verified 01/03/15 19:02) Review of Systems ROS unobtainable: other (Patient only communicating by nodding no verbal responses) All systems PM: A 10-system review of systems was performed and is negative for pertinent findings except as documented above in the HPI. - Constitutional fatigue, no headache(s) - EENT Nose, mouth and throat: no dysphagia, no neck pain - Breasts skin changes - Cardiovascular no chest pain - Respiratory cough, dyspnea, hemoptysis, wheezing - Gastrointestinal melena, no abdominal pain, no hematemesis, no nausea, no vomiting - Genitourinary Genitourinary: no hematuria - Integumentary unusual bruising, other - Endocrine palpitations - Allergic/Immunologic GI upset with certain foods General Surgery Exam Initial Vital Signs Temp Pulse Resp BP Pulse Ox 97.6 F 66 24 144/87 95 07/14/16 06:56 07/14/16 06:56 07/14/16 06:56 07/14/16 06:56 07/14/16 06:56 - General physical appearance no distress, chronically ill, obese (Morbid) - Eyes PERRL, normal ocular movement - ENT normal nares, dry mucosa, atraumatic, normocephalic, CN 2-12 grossly intact - Neck trachea midline, no venous distension - Respiratory other (Diffuse wheezes throughout) - Cardiovascular Cardiovascular exam: Present: irregular rhythm (Patient with atrial flutter controlled with amiodarone). Absent: JVD - Abdomen Abdomen general surgery: Present: bowel sounds present, soft, tender (On palpation patient's right upper quadrant and right lower quadrant exhibit tenderness to palpation with patient wincing withdrawing and blood pressure spike.) Abdominal Tenderness: Present: RUQ, RLQ - Integumentary Integumentary general surgery: Present: warm and dry, rash (Cutaneous candidiasis bilateral under breasts), other (Morbidly obese with large panniculus/cellulitis to lower abdomen demonstrating a large area of ecchymosis on the right lower quadrant/dependent, no crepitus. Bilateral 2+ pitting edema lower extremities. ). Absent: no abnormal pigmentation - Neurologic Present: confused, other (Patient is not verbalizing but is nodding head) - Musculoskeletal Present: normal posture - Psychiatric Psychiatric general surgery: Present: other (Patient is alert A&O1) Exam Initial Vital Signs Temp Pulse Resp BP Pulse Ox 97.6 F 66 24 144/87 95 07/14/16 06:56 07/14/16 06:56 07/14/16 06:56 07/14/16 06:56 07/14/16 06:56 Results - Labs 07/22/16 15:35 07/22/16 05:40 Abnormal lab results WBC 17.7 K/mcL (4.3-11.1) H 07/22/16 05:40 RBC 3.16 M/mcL (3.82-4.97) L 07/22/16 05:40 Hgb 9.9 g/dL (11.5-15.4) L D 07/22/16 05:40 Hct 32.1 % (35.3-44.9) L 07/22/16 05:40 MCV 101.6 fL (83.0-100.0) H 07/22/16 05:40 MCHC 30.8 g/dL (31.6-35.5) L 07/22/16 05:40 RDW 15.8 % (11.5-14.5) H 07/22/16 05:40 Neutrophils # 13.4 K/mcL (1.6-8.9) H 07/22/16 05:40 Monocytes # 2.1 K/mcL (0.0-1.3) H 07/22/16 05:40 Nucleated RBCs/100 WBC 0.2 /100 WBC (0) H 07/17/16 03:35 PT 12.2 Seconds (9.4-12.1) H 07/20/16 13:50 APTT 59.6 Seconds (26.0-36.0) H 07/22/16 05:40 Heparin Anti-Xa, Unfract 1.30 IU/mL (0.30-0.70) H* 07/21/16 06:29 ABG pCO2 66 mmHg (35-45) H 07/20/16 07:55 ABG pO2 52 mmHg (85-104) L 07/20/16 07:55 ABG HCO3 41.8 mEQ/L (21-27) H 07/20/16 07:55 ABG Total CO2 43.8 mEq/L (20-26) H 07/20/16 07:55 ABG O2 Saturation 87 % (95-98) L 07/20/16 07:55 ABG Base Excess 13.5 mEq/L (-2.0 to 3.0) H 07/20/16 07:55 Carbon Dioxide 37 mEq/L (19-29) H 07/22/16 05:40 BUN 71 mg/dL (7-20) H 07/22/16 05:40 BUN/Creatinine Ratio 96 (6-26) H 07/22/16 05:40 Glucose 105 mg/dL (70-99) H 07/22/16 05:40 POC Glucose 117 (58-89) H 07/21/16 23:58 Calculated Osmolality 313 (280-300) H 07/22/16 05:40 Troponin I 0.59 ng/mL (0-0.03) H* 07/14/16 14:29 B-Natriuretic Peptide 861 pg/mL (0-100) H 07/14/16 07:00 Albumin 2.4 g/dL (3.5-5.0) L 07/15/16 03:25 Globulin 3.8 g/dL (2.4-3.5) H 07/15/16 03:25 Albumin/Globulin Ratio 0.6 (1.1-2.2) L 07/15/16 03:25 HDL Cholesterol 38 mg/dL (40-59) L 07/15/16 03:25 Stool Occult Blood Positive (Negative) A 07/22/16 08:40 Vancomycin Trough 36.1 mcg/mL (10-20) H* 07/16/16 05:20 Diabetes panel 07/22/16 Range/Units 05:40 Sodium 141 (136-145) mEq/L Potassium 3.8 (3.5-4.5) mEq/L Chloride 99 (98-109) mEq/L Carbon Dioxide 37 H (19-29) mEq/L BUN 71 H (7-20) mg/dL Creatinine 0.74 (0.57-1.11) mg/dL Glucose 105 H (70-99) mg/dL Calcium 8.6 (8.6-10.8) mg/dL Calcium panel 07/22/16 Range/Units 05:40 Calcium 8.6 (8.6-10.8) mg/dL Phosphorus 3.2 (2.3-4.7) mg/dL Pituitary panel 07/22/16 Range/Units 05:40 Sodium 141 (136-145) mEq/L Potassium 3.8 (3.5-4.5) mEq/L Chloride 99 (98-109) mEq/L Carbon Dioxide 37 H (19-29) mEq/L BUN 71 H (7-20) mg/dL Creatinine 0.74 (0.57-1.11) mg/dL Glucose 105 H (70-99) mg/dL Calcium 8.6 (8.6-10.8) mg/dL Adrenal panel 07/22/16 Range/Units 05:40 Sodium 141 (136-145) mEq/L Potassium 3.8 (3.5-4.5) mEq/L Chloride 99 (98-109) mEq/L Carbon Dioxide 37 H (19-29) mEq/L BUN 71 H (7-20) mg/dL Creatinine 0.74 (0.57-1.11) mg/dL Glucose 105 H (70-99) mg/dL Calcium 8.6 (8.6-10.8) mg/dL All other labs normal. Consult Discharge Plan - Plan Referrals: Maddi Chong DO [Partnered Physician] - 09/13/16 10:30 am Blair Nichols DO [Partnered Physician] - (office makes their own appointments) <Yohan Tran - Last Filed: 07/22/16 19:48> Date of Encounter: 07/22/16 Review of Systems All systems PM: A 10-system review of systems was performed and is negative for pertinent findings except as documented above in the HPI. General Surgery Exam Initial Vital Signs Temp Pulse Resp BP Pulse Ox 97.6 F 66 24 144/87 95 07/14/16 06:56 07/14/16 06:56 07/14/16 06:56 07/14/16 06:56 07/14/16 06:56 Exam Initial Vital Signs Temp Pulse Resp BP Pulse Ox 97.6 F 66 24 144/87 95 07/14/16 06:56 07/14/16 06:56 07/14/16 06:56 07/14/16 06:56 07/14/16 06:56 Results - Labs 07/22/16 15:35 07/22/16 05:40 Abnormal lab results WBC 21.2 K/mcL (4.3-11.1) H 07/22/16 15:35 RBC 2.79 M/mcL (3.82-4.97) L 07/22/16 15:35 Hgb 8.8 g/dL (11.5-15.4) L 07/22/16 15:35 Hct 28.8 % (35.3-44.9) L 07/22/16 15:35 MCV 103.2 fL (83.0-100.0) H 07/22/16 15:35 MCHC 30.6 g/dL (31.6-35.5) L 07/22/16 15:35 RDW 15.9 % (11.5-14.5) H 07/22/16 15:35 Neutrophils # 14.0 K/mcL (1.6-8.9) H 07/22/16 15:35 Monocytes # 2.8 K/mcL (0.0-1.3) H 07/22/16 15:35 Nucleated RBCs/100 WBC 0.1 /100 WBC (0) H 07/22/16 15:35 PT 12.2 Seconds (9.4-12.1) H 07/20/16 13:50 APTT 59.6 Seconds (26.0-36.0) H 07/22/16 05:40 Heparin Anti-Xa, Unfract 1.30 IU/mL (0.30-0.70) H* 07/21/16 06:29 ABG pCO2 66 mmHg (35-45) H 07/20/16 07:55 ABG pO2 52 mmHg (85-104) L 07/20/16 07:55 ABG HCO3 41.8 mEQ/L (21-27) H 07/20/16 07:55 ABG Total CO2 43.8 mEq/L (20-26) H 07/20/16 07:55 ABG O2 Saturation 87 % (95-98) L 07/20/16 07:55 ABG Base Excess 13.5 mEq/L (-2.0 to 3.0) H 07/20/16 07:55 Carbon Dioxide 37 mEq/L (19-29) H 07/22/16 05:40 BUN 71 mg/dL (7-20) H 07/22/16 05:40 BUN/Creatinine Ratio 96 (6-26) H 07/22/16 05:40 Glucose 105 mg/dL (70-99) H 07/22/16 05:40 POC Glucose 117 (58-89) H 07/21/16 23:58 Calculated Osmolality 313 (280-300) H 07/22/16 05:40 Troponin I 0.59 ng/mL (0-0.03) H* 07/14/16 14:29 B-Natriuretic Peptide 861 pg/mL (0-100) H 07/14/16 07:00 Albumin 2.4 g/dL (3.5-5.0) L 07/15/16 03:25 Globulin 3.8 g/dL (2.4-3.5) H 07/15/16 03:25 Albumin/Globulin Ratio 0.6 (1.1-2.2) L 07/15/16 03:25 HDL Cholesterol 38 mg/dL (40-59) L 07/15/16 03:25 Stool Occult Blood Positive (Negative) A 07/22/16 08:40 Vancomycin Trough 36.1 mcg/mL (10-20) H* 07/16/16 05:20 Diabetes panel 07/22/16 Range/Units 05:40 Sodium 141 (136-145) mEq/L Potassium 3.8 (3.5-4.5) mEq/L Chloride 99 (98-109) mEq/L Carbon Dioxide 37 H (19-29) mEq/L BUN 71 H (7-20) mg/dL Creatinine 0.74 (0.57-1.11) mg/dL Glucose 105 H (70-99) mg/dL Calcium 8.6 (8.6-10.8) mg/dL Calcium panel 07/22/16 Range/Units 05:40 Calcium 8.6 (8.6-10.8) mg/dL Phosphorus 3.2 (2.3-4.7) mg/dL Pituitary panel 07/22/16 Range/Units 05:40 Sodium 141 (136-145) mEq/L Potassium 3.8 (3.5-4.5) mEq/L Chloride 99 (98-109) mEq/L Carbon Dioxide 37 H (19-29) mEq/L BUN 71 H (7-20) mg/dL Creatinine 0.74 (0.57-1.11) mg/dL Glucose 105 H (70-99) mg/dL Calcium 8.6 (8.6-10.8) mg/dL Adrenal panel 07/22/16 Range/Units 05:40 Sodium 141 (136-145) mEq/L Potassium 3.8 (3.5-4.5) mEq/L Chloride 99 (98-109) mEq/L Carbon Dioxide 37 H (19-29) mEq/L BUN 71 H (7-20) mg/dL Creatinine 0.74 (0.57-1.11) mg/dL Glucose 105 H (70-99) mg/dL Calcium 8.6 (8.6-10.8) mg/dL All other labs normal. - Attending Attestation I examined this patient and my medical decision-making was reviewed with the HAND MARKER/PA/Advanced Practice Nurse/Resident Physician. I agree with the documented findings, disposition and treatment plan as described except to the extent set forth below. The patient is seen and evaluated in consultation in the intensive care unit. Clinically she appears to have upper GI bleed. We will proceed with emergent upper endoscopy and possible therapeutic intervention later today. Yohan Tran MD FACS
[2016-07-22] MEDS ORDERED: *HR* FentaNYL (PF) 100 MCG/2 ML VIAL IVP ONE (14:03)
[2016-07-22] MEDS ORDERED: *HR* Midazolam HCl 5 MG/5 ML VIAL IVP ONE (14:04)
--- NOTE | 2016-07-22 14:10 | Cardiology Progress Note ---
Date of Encounter: 07/22/16 Time of Encounter: 14:08 Assessment and Plan (1) Diastolic heart failure Current Visit: Yes Status: Acute Presumed HFpEF diuresed well but now with rising BUN, hypotension and bleeding. Hydration has been recommended. Received Lactated Ringers this morning (per report, shortage of NS). Consider giving normal saline to support hemodynamics in this setting. Diurese as needed. Qualifiers: Heart failure chronicity: chronic Qualified Code(s): I50.32 - Chronic diastolic (congestive) heart failure (2) Atrial flutter with rapid ventricular response Current Visit: Yes Status: Acute At the bedside, telemetry demonstrates sinus tachycardia, HR 130's possibly due to intravascular depletion and active bleeding. She received 1L LR this morning. Consider giving normal saline (net negative 7L and rising BUN). May also need to consider pressor agents to support hemodynamics and/or blood products. There are periods of AFL/AFIB. She is on PO amiodarone. Unfortunately, cannot be anticoagulated now presently due to active bleeding. Heparin drip was discontinued. She is at risk for CVA (CHADSVASC 4). Blood thinning therapy will have to be readdressed once bleeding has been evaluated and treated. (3) Elevated troponin Current Visit: Yes Status: Acute Elevated troponin on admission possibly due to demand ischemia. May warrant outpatient ischemic evaluation. ASA/Plavix have been stopped secondary to active bleeding. Consider restarting low dose aspirin when safe to do so. Continue statin. Discussion w patient/family: The assessment and plan as outlined above was discussed with the patient and nurse at bedside. Family not present. All questions were answered. Thank you for involving us in the care of your patient. Please call with any questions. Subjective Principal diagnosis: Respiratory failure Interval history: Patient discovered to have dark stool and hematemesis. Awaiting endoscopy. Patient has no particular complaints today. She is not completely oriented. Objective Vital Signs, Last 4 Hours Pulse Resp BP Pulse Ox 07/22/16 14:00 132 22 73/57 100 07/22/16 13:00 128 18 113/57 100 07/22/16 12:00 129 14 97/74 100 07/22/16 11:00 115 12 79/50 100 General: Conversant, No Apparent Distress HEENT: Other (mucus membranes dry) Cardiac: No Murmur, Other (tachycardic, regular rhythm) Lungs: No Wheeze, Rales, Rhonchi, Other (Normal breath sounds anteriorly) Neuro: Alert and responsive, No focal deficits noted Abdomen: Soft, Non-Tender, Other (bowel sounds present) Extremities: Other (bilateral pitting edema) Results 07/22/16 05:40 07/22/16 05:40 Lab Results 07/21/16 07/21/16 07/22/16 15:20 23:35 05:40 WBC 17.7 H Hgb 9.9 L D Hct 32.1 L Plt Count 156 APTT 48.0 H D 61.3 H Sodium Potassium Chloride Carbon Dioxide BUN Creatinine Glucose Calcium Magnesium 07/22/16 07/22/16 05:40 05:40 WBC Hgb Hct Plt Count APTT 59.6 H Sodium 141 Potassium 3.8 Chloride 99 Carbon Dioxide 37 H BUN 71 H Creatinine 0.74 Glucose 105 H Calcium 8.6 Magnesium 2.3 - Imaging and Cardiology Echo: report reviewed - EKG Interpretation EKG results cardiology: other (Sinus tachycardia on bedside monitor with periods of AFL/FIB, HR 130s) Consult Discharge Plan - Plan Referrals: Maddi Chong DO [Partnered Physician] - 09/13/16 10:30 am Blair Nichols DO [Partnered Physician] - (office makes their own appointments)
[2016-07-22] MEDS ORDERED: Tetracaine/Benzocaine/Butamben 200MG/SPRAY (100SPY/BOT) MM ONE (14:23)
[2016-07-22] MEDS ORDERED: *HR* Midazolam HCl 5 MG/5 ML VIAL IVP PRN (14:23)
[2016-07-22] MEDS ORDERED: Simethicone 40 MG/0.6 ML MLS IR ONE (14:23)
[2016-07-22] MEDS ORDERED: *HR* FentaNYL (PF) 100 MCG/2 ML VIAL IVP PRN (14:23)
--- NOTE | 2016-07-22 14:25 | Pre-Sedation Evaluation ---
Pre-sedation evaluation - Pre-sedation checklist Date of procedure: 07/15/16 Procedure: EGD Recent Vitals: Last Vital Signs Temp 98.2 F 07/22/16 07:27 Pulse 132 07/22/16 14:00 Resp 22 07/22/16 14:00 BP 73/57 07/22/16 14:00 Pulse Ox 100 07/22/16 14:00 H&P (including ROS) documented in medical record: Yes Previous reaction to sedatives/anesthetics: No Dietary Status: NPO after Midnight Airway Assessment: Patient can open mouth completely, TMJ function normal Dentition: No loose teeth or bridges Possible difficult airway: No ASA Classification *see protocol: CLASS III-Severe systemic disease Plan of Care: Pt appropriate candidate for procedure/moderate/conscious sedation , Risks/benefits of procedure/sedation discussed w/ patient/family
[2016-07-22 15:47] LABS: Basophils # 0.1 K/mcL (0.0-0.2); Basophils % 0.2 %; Eosinophils # 0.6 K/mcL (0.0-0.6); Eosinophils % 2.6 %; Hematocrit 28.8 % (35.3-44.9); Hemoglobin 8.8 g/dL (11.5-15.4); Lymphocytes # 3.4 K/mcL (0.6-4.6); Lymphocytes % 15.9 %; Mean Corpuscular HGB Conc 30.6 g/dL (31.6-35.5); Mean Corpuscular Hemoglobin 31.5 pg (28.0-33.3); Mean Corpuscular Volume 103.2 fL (83.0-100.0); Mean Platelet Volume 11.7 fL (9.4-12.4); Monocytes # 2.8 K/mcL (0.0-1.3); Monocytes % 13.2 %; Nucleated Red Blood Cells 0.1 /100 WBC (0); Platelet Count 181 K/mcL (140-400); Red Blood Count 2.79 M/mcL (3.82-4.97); Red Cell Distribution Width 15.9 % (11.5-14.5); Segmented Neutrophils % 66.1 %
--- NOTE | 2016-07-22 16:10 | Event Note ---
Date of Encounter: 07/22/16 Time of Encounter: 16:09 Earlier today, I had discussed with the patient her goals of care. The patient clearly stated that she would not want reintubated nor would she ever wants CPR or defibrillation. However, she has had waxing and waning mental status and her competence to make medical decisions is questionable. I did call her Crow to further discuss goals of care. The patient's thinks that her stated wishes are likely accurate, and he is requesting DNR CCA DNI status. A changing CODE STATUS order has been placed.
[2016-07-22] MEDS ORDERED: Potassium Chloride Elixir 20 MEQ/15 ML UDC PO SCH (16:16)
[2016-07-22] MEDS ORDERED: *HR* EPINEPHrine 1 MG/10 ML SYRINGE INTRATRACH PRN (16:22)
[2016-07-22] MEDS ORDERED: 0.9 % Sodium Chloride 250 ML ONE (18:38)
[2016-07-23 04:20] LABS: Basophils # 0.1 K/mcL (0.0-0.2); Basophils % 0.3 %; Eosinophils # 0.7 K/mcL (0.0-0.6); Eosinophils % 3.5 %; Hematocrit 29.8 % (35.3-44.9); Hemoglobin 9.3 g/dL (11.5-15.4); Immature Granulocytes % 2.1 % (0-4); Lymphocytes # 2.1 K/mcL (0.6-4.6); Lymphocytes % 11.2 %; Mean Corpuscular HGB Conc 31.2 g/dL (31.6-35.5); Mean Corpuscular Hemoglobin 30.6 pg (28.0-33.3); Mean Platelet Volume 12.2 fL (9.4-12.4); Monocytes # 2.7 K/mcL (0.0-1.3); Monocytes % 14.4 %; Neutrophils # 12.7 K/mcL (1.6-8.9); Nucleated Red Blood Cells 0.1 /100 WBC (0); Platelet Count 154 K/mcL (140-400); Red Blood Count 3.04 M/mcL (3.82-4.97); Red Cell Distribution Width 17.4 % (11.5-14.5); Segmented Neutrophils % 68.5 %
[2016-07-23 04:33] LABS: BUN/Creatinine Ratio 76 (6-26); Calcium 8.4 mg/dL (8.6-10.8); Carbon Dioxide 29 mEq/L (19-29); Chloride 104 mEq/L (98-109); Glucose 80 mg/dL (70-99); Magnesium 2.5 mg/dL (1.6-2.6); Osmolality,Calculated 307 (280-300); Phosphorous 2.9 mg/dL (2.3-4.7); Potassium 4.5 mEq/L (3.5-4.5); Sodium 142 mEq/L (136-145); eGFR For African Americans > 60 (> 60); eGFR For Non-African Americans > 60 (> 60)
[2016-07-23 04:34] LABS: Blood Urea Nitrogen 53 mg/dL (7-20)
[2016-07-23] MEDS: Dexmedetomidine HCl 400 MCG/100 ML MLS IVC SCH (07:41)
[2016-07-23] MEDS: Pantoprazole 40 MG VIAL IVP SCH ×2 (07:58→16:49)
[2016-07-23] MEDS: *HR* Amiodarone 200 MG TABLET PO SCH (08:02)
[2016-07-23] MEDS: Nystatin POWDER 30 GM BOTTLE TP SCH ×3 (08:03→19:40)
[2016-07-23] MEDS: Miconazole 2% ointment 114 GM TUBE TP SCH (08:03)
[2016-07-23] MEDS: Sennosides/Docusate Sodium TABLET PO SCH ×2 (08:03→19:31)
--- NOTE | 2016-07-23 09:19 | Pulmonology Progress Note ---
Date of Encounter: 07/23/16 Time of Encounter: 09:16 Assessment and Plan (1) Morbid obesity with alveolar hypoventilation Current Visit: Yes Status: Acute (2) Acute blood loss anemia Current Visit: Yes Status: Acute (3) Acute on chronic respiratory failure with hypoxia and hypercapnia Current Visit: Yes Status: Acute (4) Cellulitis Current Visit: Yes Status: Acute Qualifiers: Site of cellulitis: unspecified site Qualified Code(s): L03.90 - Cellulitis , unspecified (5) NSTEMI (non-ST elevated myocardial infarction) Current Visit: Yes Status: Acute Subjective Principal diagnosis: Respiratory failure Interval history: No acute overnight events. Patient tolerated BiPAP overnight. No additional melena noted. Unable to obtain review of systems secondary to BiPAP and mild confusion. Objective PUL Vital signs: Last Vital Signs Temp 98.4 F 07/23/16 07:40 Pulse 111 07/23/16 09:00 Resp 14 07/23/16 09:00 BP 73/48 07/23/16 09:00 Pulse Ox 96 07/23/16 09:00 General: no acute distress, morbidly obese, lying in bed on BiPAP Eyes: nonicteric ENT: oropharynx dry Neck: supple, no lymphadenopathy Lungs: Coarse bilateral breath sounds Cardiovascular: Irregular rhythm, tachycardic Gastrointestinal: normoactive bowel sounds, soft, non-tender, non-distended Integumentary: normal Extremities: no cyanosis, LE edema Musculoskeletal: no deformities Neuro: Intermittently confused Psych: odd affect Results - Laboratory Findings CBC and BMP: 07/23/16 03:58 07/23/16 03:58 ABG ABG pH 7.41 pH Units (7.32-7.45) 07/20/16 07:55 ABG pCO2 66 mmHg (35-45) H 07/20/16 07:55 ABG pO2 52 mmHg (85-104) L 07/20/16 07:55 ABG O2 Saturation 87 % (95-98) L 07/20/16 07:55 PT/INR, D-dimer PT 12.2 Seconds (9.4-12.1) H 07/20/16 13:50 Abnormal lab findings: Abnormal lab results WBC 18.5 K/mcL (4.3-11.1) H 07/23/16 03:58 RBC 3.04 M/mcL (3.82-4.97) L 07/23/16 03:58 Hgb 9.3 g/dL (11.5-15.4) L 07/23/16 03:58 Hct 29.8 % (35.3-44.9) L 07/23/16 03:58 MCHC 31.2 g/dL (31.6-35.5) L 07/23/16 03:58 RDW 17.4 % (11.5-14.5) H 07/23/16 03:58 Neutrophils # 12.7 K/mcL (1.6-8.9) H 07/23/16 03:58 Monocytes # 2.7 K/mcL (0.0-1.3) H 07/23/16 03:58 Eosinophils # 0.7 K/mcL (0.0-0.6) H 07/23/16 03:58 Nucleated RBCs/100 WBC 0.1 /100 WBC (0) H 07/23/16 03:58 PT 12.2 Seconds (9.4-12.1) H 07/20/16 13:50 APTT 59.6 Seconds (26.0-36.0) H 07/22/16 05:40 Heparin Anti-Xa, Unfract 1.30 IU/mL (0.30-0.70) H* 07/21/16 06:29 ABG pCO2 66 mmHg (35-45) H 07/20/16 07:55 ABG pO2 52 mmHg (85-104) L 07/20/16 07:55 ABG HCO3 41.8 mEQ/L (21-27) H 07/20/16 07:55 ABG Total CO2 43.8 mEq/L (20-26) H 07/20/16 07:55 ABG O2 Saturation 87 % (95-98) L 07/20/16 07:55 ABG Base Excess 13.5 mEq/L (-2.0 to 3.0) H 07/20/16 07:55 BUN 53 mg/dL (7-20) H D 07/23/16 03:58 BUN/Creatinine Ratio 76 (6-26) H 07/23/16 03:58 POC Glucose 100 (58-89) H 07/23/16 05:32 Calculated Osmolality 307 (280-300) H 07/23/16 03:58 Calcium 8.4 mg/dL (8.6-10.8) L 07/23/16 03:58 Troponin I 0.59 ng/mL (0-0.03) H* 07/14/16 14:29 B-Natriuretic Peptide 861 pg/mL (0-100) H 07/14/16 07:00 Albumin 2.4 g/dL (3.5-5.0) L 07/15/16 03:25 Globulin 3.8 g/dL (2.4-3.5) H 07/15/16 03:25 Albumin/Globulin Ratio 0.6 (1.1-2.2) L 07/15/16 03:25 HDL Cholesterol 38 mg/dL (40-59) L 07/15/16 03:25 Stool Occult Blood Positive (Negative) A 07/22/16 08:40 Vancomycin Trough 36.1 mcg/mL (10-20) H* 07/16/16 05:20 - Microbiology Findings Microbiology Findings: Microbiology, Last 48 Hours 07/16/16 17:49 Blood Culture - Final Peripheral Venipuncture No growth. 07/16/16 08:18 Blood Culture - Final Peripheral Venipuncture No growth. - Clinical Findings Intake & Output: Intake & Output 07/22/16 07/23/16 07/23/16 23:59 07:59 15:59 Intake Total 1600 / 1600 100 / 100 Output Total 825 / 825 550 / 550 Balance 775 / 775 -550 / -550 100 / 100 Weight 157.1 kg Consult Discharge Plan - Plan Referrals: Maddi Chong DO [Partnered Physician] - 09/13/16 10:30 am Blair Nichols DO [Partnered Physician] - (office makes their own appointments)
--- NOTE | 2016-07-23 10:47 | Cardiology Progress Note ---
Date of Encounter: 07/23/16 Time of Encounter: 10:44 Assessment and Plan (1) Diastolic heart failure Current Visit: Yes Status: Acute Presumed HFpEF diuresed well initially but had rising BUN which has improved with fluids. However, there is concern that the patient is again becoming volume overloaded and possibly third spacing as she demonstrates a fair amount of pitting edema. Her blood pressure will not allow diuresis. May need to consider pressor support. Qualifiers: Heart failure chronicity: chronic Qualified Code(s): I50.32 - Chronic diastolic (congestive) heart failure (2) Atrial flutter with rapid ventricular response Current Visit: Yes Status: Acute At the bedside, telemetry demonstrates sinus tachycardia and now with periods of wenckebach. Recommend stopping metoprolol. Will decrease amiodarone to 100mg daily. There are short periods of AFL/AFIB. Unfortunately, cannot be anticoagulated presently due to recent active bleeding. She is at risk for CVA (CHADSVASC 4). Recommend a trial of low dose aspirin when ok from a GI perspective. (3) Elevated troponin Current Visit: Yes Status: Acute Elevated troponin on admission possibly due to demand ischemia. May warrant outpatient ischemic evaluation. ASA/Plavix have been stopped secondary to active bleeding. Consider restarting low dose aspirin when safe to do so. Continue statin. Discussion w patient/family: The assessment and plan as outlined above was discussed with the patient and nurse at bedside. Family not present. All questions were answered. Thank you for involving us in the care of your patient. Please call with any questions. Subjective Principal diagnosis: Respiratory failure Interval history: Underwent endoscopy yesterday demonstrating oozing ulcers that were treated. She's received PRBCs. Patient has no particular complaints today. Objective Vital Signs, Last 4 Hours Temp Pulse Resp BP Pulse Ox 07/23/16 10:00 102 14 61/50 91 07/23/16 09:00 111 14 73/48 96 07/23/16 08:00 130 12 81/55 94 07/23/16 07:40 98.4 F 07/23/16 07:00 129 12 74/47 98 General: Conversant, No Apparent Distress HEENT: Mucus Membranes Moist Cardiac: Other (irregular rhythm, rate tachycardic) Lungs: Other (breath sounds diminished anteriorly) Neuro: Alert and responsive, No focal deficits noted, Other (Oriented to person and place but not time) Extremities: Other (2+ bilateral pitting edema) Results 07/23/16 03:58 07/23/16 03:58 Lab Results 07/22/16 07/23/16 07/23/16 15:35 03:58 03:58 WBC 21.2 H 18.5 H Hgb 8.8 L 9.3 L Hct 28.8 L 29.8 L Plt Count 181 154 Sodium 142 Potassium 4.5 Chloride 104 Carbon Dioxide 29 BUN 53 H D Creatinine 0.70 Glucose 80 Calcium 8.4 L Magnesium 2.5 - Imaging and Cardiology Chest Xray: report reviewed (mild interstitial pulmonary edema) - EKG Interpretation EKG results cardiology: other (Overnight telemetry demonstrates avg HR 128 bpm, primarily sinus tachycardia; on monitor this morning she has sinus tachycardia and periods of wenckebach) Consult Discharge Plan - Plan Referrals: Maddi Chong DO [Partnered Physician] - 09/13/16 10:30 am Blair Nichols DO [Partnered Physician] - (office makes their own appointments)
[2016-07-23] MEDS: *HR* Heparin 5,000 UNIT/ML VIAL SQ SCH (13:12)
--- NOTE | 2016-07-23 14:21 | General Surgery Progress Note ---
Date of Encounter: 07/23/16 Time of Encounter: 07:35 - Assessment and Plan (1) GI (gastrointestinal bleed) Current Visit: Yes Status: Acute Postoperative day 1 for esophagogastroduodenoscopy, flexible, transoral with control of bleeding performed by Dr. Tran on 07/22/16. Impression: -Large hiatal hernia -Red blood in the gastric antrum -1 oozing duodenal ulcer with adherent clot. Injected with epinephrine for hemostasis. Clips placed. -No specimens collected The patient's hemoglobin dropped significantly from 15 g/dL on 07/20/16 29.9 g/ dL on 07/22/16. Anticoagulation and antiplatelet therapy were discontinued. Patient had a bowel movement with melena and was hypotensive concerning for GI bleed and subsequently surgery was consulted. Upper endoscopy for investigation into GI bleeding was performed on 07/22/16. On examination: Patient has a large panniculus with cellulitis and ecchymosis of the right lower dependent portion of the panniculus. Patient verbalized that she was feeling much better today. Patient is alert and smiling and talkative on exam today however she is intermittently confused throughout the day per nurse report. She is still tachycardic. No acute events overnight or further episodes of melena. Patient remains hypotensive and may again require pressor support. Patient has received 2 units of pack red blood cells 07/22/16. Hemoglobin 9.3> 8.8, hematocrit 29.8>28.8. Plan: Clear fluids today Continue supportive care and pain control per ICU team PPI therapy daily Follow daily trends of hemoglobin and hematocrit and monitor for further bleeding. We will continue to follow patient The assessment and plan as outlined above was discussed with the patient and/or family members who expressed understanding and agreement. All questions were answered. Qualifiers: GI bleed type/associated pathology: duodenal ulcer Qualified Code(s): K26.4 - Chronic or unspecified duodenal ulcer with hemorrhage Subjective Patient reports: feels better, pain is less, flatus, bowel movement Narrative: The patient was seen and examined. Patient verbalized that she was feeling much better today. Patient is alert and smiling and talkative on exam today however she is intermittently confused throughout the day per nurse report. She is still tachycardic. No acute events overnight or further episodes of melena. Objective Vital Signs - Last 8 Hours Temp Pulse Resp BP Pulse Ox 07/23/16 14:00 124 18 76/34 100 07/23/16 13:00 124 18 97/56 100 07/23/16 12:00 110 16 78/47 93 07/23/16 11:39 98.6 F 07/23/16 11:00 124 18 83/47 100 07/23/16 10:00 102 14 61/50 91 07/23/16 09:00 111 14 73/48 96 07/23/16 08:00 130 12 81/55 94 07/23/16 07:50 19 90/50 98 07/23/16 07:40 98.4 F 07/23/16 07:00 129 12 74/47 98 Intake and Output 07/22/16 07/23/16 07/23/16 23:59 07:59 15:59 Intake Total 1600 / 1600 460 / 460 Output Total 825 / 825 550 / 550 300 / 300 Balance 775 / 775 -550 / -550 160 / 160 Intake: IV Fluids 1000 / 1000 100 / 100 0.9 % Sodium Chloride 1, 1000 / 1000 000 ML @ 100 mls/hr IVC . Q10H [facility] Rx#:[id number] Rocephin 2,000 MG In 100 / 100 Dextrose 5% (Minibag+) 100 ML 100 ML @ 200 mls/ hr IVPB Q24H [facility] Rx#: [id number] Oral 360 / 360 Blood Product 600 / 600 Rbcs Leuko Poor As-1 300 / 300 Unit [id number] Rbcs Leuko Poor As-1 300 / 300 Unit [id number] Output: Catheter 825 / 825 550 / 550 300 / 300 Other: Stool Size Copious Stool Consistency loose liquid Stool Color Black # Bowel Movements 1 Weight 157.1 kg Blood Glucose* 102 100 - General physical appearance no distress, chronically ill, obese (Severe morbid) - Eyes PERRL, normal ocular movement - ENT normal pinna, normal nares, dry mucosa, atraumatic, normocephalic, CN 2-12 grossly intact - Neck Neck exam: trachea midline - Respiratory wheezing: bilateral - Cardiovascular Cardiovascular exam: Present: tachycardia, irregular rhythm, distant heart sounds - Abdomen Abdomen: Present: bowel sounds present, soft, tender Abdominal Tenderness: diffusely (minimal ) - Integumentary other (warm and dry, rash (Cutaneous candidiasis bilateral under breasts), other (Morbidly obese with large panniculus/cellulitis to lower abdomen demonstrating a large area of ecchymosis on the right lower quadrant/dependent, no crepitus. Bilateral 3+ pitting edema lower extremities. )) - Neurologic CN 2-12 grossly intact, confused (wax/wane episodes ) - Musculoskeletal other - Psychiatric oriented to person - Labs 07/24/16 21:38 07/24/16 04:54 Diabetes panel 07/23/16 Range/Units 03:58 Sodium 142 (136-145) mEq/L Potassium 4.5 (3.5-4.5) mEq/L Chloride 104 (98-109) mEq/L Carbon Dioxide 29 (19-29) mEq/L BUN 53 H D (7-20) mg/dL Creatinine 0.70 (0.57-1.11) mg/dL Glucose 80 (70-99) mg/dL Calcium 8.4 L (8.6-10.8) mg/dL Calcium panel 07/23/16 Range/Units 03:58 Calcium 8.4 L (8.6-10.8) mg/dL Phosphorus 2.9 (2.3-4.7) mg/dL Pituitary panel 07/23/16 Range/Units 03:58 Sodium 142 (136-145) mEq/L Potassium 4.5 (3.5-4.5) mEq/L Chloride 104 (98-109) mEq/L Carbon Dioxide 29 (19-29) mEq/L BUN 53 H D (7-20) mg/dL Creatinine 0.70 (0.57-1.11) mg/dL Glucose 80 (70-99) mg/dL Calcium 8.4 L (8.6-10.8) mg/dL Adrenal panel 07/23/16 Range/Units 03:58 Sodium 142 (136-145) mEq/L Potassium 4.5 (3.5-4.5) mEq/L Chloride 104 (98-109) mEq/L Carbon Dioxide 29 (19-29) mEq/L BUN 53 H D (7-20) mg/dL Creatinine 0.70 (0.57-1.11) mg/dL Glucose 80 (70-99) mg/dL Calcium 8.4 L (8.6-10.8) mg/dL Consult Discharge Plan - Plan Referrals: Maddi Chong DO [Partnered Physician] - 09/13/16 10:30 am Blair Nichols DO [Partnered Physician] - (office makes their own appointments) - Attending Attestation I examined this patient and my medical decision-making was reviewed with the MARKET DEVELOPMENT MANAGER/PA/Advanced Practice Nurse/Resident Physician. I agree with the documented findings, disposition and treatment plan as described except to the extent set forth below. Hemoglobin and hematocrit appear to be stable. We will continue close observation for any further signs of bleeding. Yohan Tran MD FACS
[2016-07-24] MEDS: *HR* Heparin 5,000 UNIT/ML VIAL SQ SCH ×2 (01:26→05:31)
[2016-07-24 05:01] LABS: Basophils % 0.2 %; Eosinophils # 0.8 K/mcL (0.0-0.6); Eosinophils % 4.5 %; Hematocrit 26.3 % (35.3-44.9); Hemoglobin 8.3 g/dL (11.5-15.4); Lymphocytes # 1.9 K/mcL (0.6-4.6); Lymphocytes % 11.1 %; Mean Corpuscular HGB Conc 31.6 g/dL (31.6-35.5); Mean Corpuscular Hemoglobin 31.4 pg (28.0-33.3); Mean Corpuscular Volume 99.6 fL (83.0-100.0); Mean Platelet Volume 11.7 fL (9.4-12.4); Monocytes # 2.9 K/mcL (0.0-1.3); Monocytes % 16.7 %; Neutrophils # 11.1 K/mcL (1.6-8.9); Nucleated Red Blood Cells 0.4 /100 WBC (0); Platelet Count 171 K/mcL (140-400); Red Blood Count 2.64 M/mcL (3.82-4.97); Red Cell Distribution Width 17.2 % (11.5-14.5); Segmented Neutrophils % 64.5 %
[2016-07-24 05:20] LABS: BUN/Creatinine Ratio 55 (6-26); Calcium 8.2 mg/dL (8.6-10.8); Carbon Dioxide 35 mEq/L (19-29); Chloride 104 mEq/L (98-109); Glucose 82 mg/dL (70-99); Osmolality,Calculated 305 (280-300); Potassium 3.8 mEq/L (3.5-4.5); Sodium 144 mEq/L (136-145); eGFR For African Americans > 60 (> 60); eGFR For Non-African Americans > 60 (> 60)
[2016-07-24 05:28] LABS: Blood Urea Nitrogen 36 mg/dL (7-20)
[2016-07-24] MEDS: Pantoprazole 40 MG VIAL IVP SCH ×2 (06:07→16:21)
--- NOTE | 2016-07-24 06:47 | Pulmonology Progress Note ---
<Kyle Remy - Last Filed: 07/24/16 09:13> Date of Encounter: 07/24/16 Time of Encounter: 06:47 Assessment and Plan (1) Acute blood loss anemia Current Visit: Yes Status: Acute hemoglobin stable 8.3 (9.3) surgery consulted for suspected GI bleed - s/p 2 units pRBC 07/22 for bleeding duodenal ulcer seen on EGD - surgery signed off, consult appreciated fecal hemoccult positive IV PPI twice daily continue to monitor H/H transfuse for hemoglobin <7 ok for clear liquid diet no active bleeding at this time (2) Goals of care, counseling/discussion Current Visit: Yes Status: Acute patient is alert and oriented to person, place, and occasionally confused to time intermittent confusion with questionable decision-making capacity is POA, on 07/22 code status was changed to DNR-CCA DNI (3) Acute on chronic respiratory failure with hypoxia and hypercapnia Current Visit: Yes Status: Acute patient initially admitted for SOB, ABG showed acidosis which minimally improved with BiPAP admitted to ICU and intubated 07/14 etiology likely multifactorial in setting of acute CHF, COPD, possible obesity hypoventilation syndrome extubated 07/20 BiPAP dependent overnight good oxygenation and ventilation on hi-flow nasal cannula continue to monitor PT/OT consulted - recommend SNF for continue therapy and increase mobility d/t generalized weakness recommend up as tolerated (4) Acute respiratory failure Current Visit: Yes Status: Resolved admitted to ICU and intubated 07/14 extubated 07/20 Qualifiers: Respiratory failure complication: hypoxia and hypercapnia Qualified Code(s) : J96.01 - Acute respiratory failure with hypoxia; J96.02 - Acute respiratory failure with hypercapnia (5) Acute exacerbation of chronic obstructive pulmonary disease (COPD) Current Visit: Yes Status: Chronic improving likely a contributing factor for acute on chronic respiratory failure continue bronchodilators, antibiotics, steroids prednisone discontinued 07/21 (received total 8 days) (6) Sepsis Current Visit: Yes Status: Acute meets SIRS criteria for tachycardia, fever, and leukocytosis possible source is cellulitis clinically does not appear septic extubated 07/20 currently day 9 Ceftriaxone for cellulitis, treat for total 10 days 07/14 blood cultures grew coag negative staph - transiently placed on Vancomycin but this was thought to be a contaminant 07/16 repeat blood cultures NGTD, prelimminary 5/21 sputum culture grew yeast species, likely contaminant will continue to monitor, if clinically worsens will repeat blood, urine, and sputum cultures Qualifiers: Sepsis type: sepsis due to unspecified organism Qualified Code(s): A41.9 - Sepsis, unspecified organism (7) Leukocytosis Current Visit: Yes Status: Acute improving leukocytosis 17.2 (18.5) afebrile plan as above Qualifiers: Leukocytosis type: unspecified Qualified Code(s): D72.829 - Elevated white blood cell count, unspecified (8) Atrial flutter by electrocardiography Current Visit: Yes Status: Acute continue to rate control on beta raphael and amiodarone currently sinus tachycardia, HR 120s [id number] score 4 for age, sex, DM, and CHF in setting of anemia, heparin stopped will continue to follow cardiology recommendations, appreciated (9) Constipation Current Visit: Yes Status: Acute no BM since 07/15 add senna plus for bowel regimen black melanic stool Qualifiers: Constipation type: unspecified constipation type Qualified Code(s): K59.00 - Constipation, unspecified (10) Cutaneous candidiasis Current Visit: Yes Status: Acute continue with antifungal Miconazole appears to be improving (11) Cellulitis Current Visit: No Status: Acute improving, continue Rocephin day 9 goal to treat total of 10 days Qualifiers: Site of cellulitis: trunk Site of cellulitis of trunk: groin Qualified Code(s): L03.314 - Cellulitis of groin (12) NSTEMI (non-ST elevated myocardial infarction) Current Visit: Yes Status: Suspected peak troponin 0.63, trended down likely elevated troponins in setting of acute on chronic respiratory failure with hypoxia and hypercapnia per cardiology, recommend medical management at this time - ASA and plavix on hold due to recent GI bleed, follow cardiology recommendations to restart patient was initially on heparin gtt, which has been discontinued no acute EKG ishcemic changes outpatient ischemic evaluation recommended by cardiology, appointment set up (13) CHF (congestive heart failure) Current Visit: Yes Status: Chronic ECHO 07/14/16 showed LVEF 50-60%, no diagnostic wall motion abnormality vsualized in segments, no significant valvular disease. continue with diuresis and keep patient net negative lasix 40mg IV BID Qualifiers: Congestive heart failure type: diastolic Congestive heart failure chronicity: acute on chronic Qualified Code(s): I50.33 - Acute on chronic diastolic (congestive) heart failure (14) Morbid obesity with BMI of 50.0-59.9, adult Current Visit: Yes Status: Chronic weight loss, diet, exercise advised (15) Poor hygiene Current Visit: Yes Status: Acute social contact worker consulted away on trip, has been updated on patient condition and poor prognosis will discuss again regarding possible traheostomy in the future currently looking into [facility] custodial as an option for senior living care goals (16) Tobacco abuse Current Visit: Yes Status: Chronic (17) DVT prophylaxis Current Visit: Yes Status: Acute heparin SQ protonix BID for GI prophylaxis Neuro: awake and alert, occasional confusion, is POA code status is DNR- CCA DNI Pulm: BiPAP at night, currently on hi flow nasal oxygen with good oxygenation/ ventilation, mild wheezing, recommend incentive spirometry and up as tolerated Cardio: remains tachycardic with occasional atrial flutter, beta raphael and amiodarone for rate. Discontinued heparin due to GI bleed, stopped ASA and plavix, will await cardio recommendations to restart ASA. Off pressors with good MAP >60 FEN-GI: PPI twice daily for prophylaxis, clear liquid diet ADAT Renal: continue to monitor urine output, good renal function ID: Ceftriaxone for improving cellulitis, treat for total of 10 days, currently day 9 Heme/Onc: 07/22 2 units pRBC transfused, hemoglobin 8.3, continue to monitor and transfuse if <7, no active bleeding at this time Endocrine: stable Skin: continue wound care Dispo: stable to transfer to [facility] bed Subjective Principal diagnosis: Respiratory failure Interval history: No major events overnight. Patient seen and examined at bedside. She tolerated BiPAP all-night and is currently on high flow oxygen. She maintains good oxygenation and ventilation. No complaints. States she feels much better. Denies any chest pain, shortness breath, abdominal pain, nausea or vomiting. Objective PUL Vital signs: Last Vital Signs Temp 98.7 F 07/24/16 04:00 Pulse 124 07/24/16 06:00 Resp 25 07/24/16 06:00 BP 109/70 07/24/16 06:00 Pulse Ox 99 07/24/16 06:00 General appearance: no acute distress, alert, other (Morbidly obese) Eyes: nonicteric, other (PERRL) ENT: oropharynx moist Neck: supple Auscultation: bilateral: wheezes (expiratory) Cardiovascular: regular rate and rhythm (tachycardic) Gastrointestinal: normoactive bowel sounds, soft (cellulitis to lower abdomen, appears improved), non-tender, non-distended, other (cellulitis to lower abdomen ) Integumentary: cellulitis (abdomen/groin and inframammary) Extremities: edema (+2 pitting edema to bilateral LE) Musculoskeletal: no deformities, ROM normal normal mental status, non-focal exam, pupils equal and round Results - Laboratory Findings CBC and BMP: 07/24/16 04:54 07/24/16 04:54 ABG ABG pH 7.41 pH Units (7.32-7.45) 07/20/16 07:55 ABG pCO2 66 mmHg (35-45) H 07/20/16 07:55 ABG pO2 52 mmHg (85-104) L 07/20/16 07:55 ABG O2 Saturation 87 % (95-98) L 07/20/16 07:55 PT/INR, D-dimer PT 12.2 Seconds (9.4-12.1) H 07/20/16 13:50 Abnormal lab findings: Abnormal lab results WBC 17.2 K/mcL (4.3-11.1) H 07/24/16 04:54 RBC 2.64 M/mcL (3.82-4.97) L 07/24/16 04:54 Hgb 8.3 g/dL (11.5-15.4) L 07/24/16 04:54 Hct 26.3 % (35.3-44.9) L 07/24/16 04:54 RDW 17.2 % (11.5-14.5) H 07/24/16 04:54 Neutrophils # 11.1 K/mcL (1.6-8.9) H 07/24/16 04:54 Monocytes # 2.9 K/mcL (0.0-1.3) H 07/24/16 04:54 Eosinophils # 0.8 K/mcL (0.0-0.6) H 07/24/16 04:54 Nucleated RBCs/100 WBC 0.4 /100 WBC (0) H 07/24/16 04:54 PT 12.2 Seconds (9.4-12.1) H 07/20/16 13:50 APTT 59.6 Seconds (26.0-36.0) H 07/22/16 05:40 Heparin Anti-Xa, Unfract 1.30 IU/mL (0.30-0.70) H* 07/21/16 06:29 ABG pCO2 66 mmHg (35-45) H 07/20/16 07:55 ABG pO2 52 mmHg (85-104) L 07/20/16 07:55 ABG HCO3 41.8 mEQ/L (21-27) H 07/20/16 07:55 ABG Total CO2 43.8 mEq/L (20-26) H 07/20/16 07:55 ABG O2 Saturation 87 % (95-98) L 07/20/16 07:55 ABG Base Excess 13.5 mEq/L (-2.0 to 3.0) H 07/20/16 07:55 Carbon Dioxide 35 mEq/L (19-29) H 07/24/16 04:54 BUN 36 mg/dL (7-20) H D 07/24/16 04:54 BUN/Creatinine Ratio 55 (6-26) H 07/24/16 04:54 POC Glucose 100 (58-89) H 07/23/16 05:32 Calculated Osmolality 305 (280-300) H 07/24/16 04:54 Calcium 8.2 mg/dL (8.6-10.8) L 07/24/16 04:54 Troponin I 0.59 ng/mL (0-0.03) H* 07/14/16 14:29 B-Natriuretic Peptide 861 pg/mL (0-100) H 07/14/16 07:00 Albumin 2.4 g/dL (3.5-5.0) L 07/15/16 03:25 Globulin 3.8 g/dL (2.4-3.5) H 07/15/16 03:25 Albumin/Globulin Ratio 0.6 (1.1-2.2) L 07/15/16 03:25 HDL Cholesterol 38 mg/dL (40-59) L 07/15/16 03:25 Stool Occult Blood Positive (Negative) A 07/22/16 08:40 Vancomycin Trough 36.1 mcg/mL (10-20) H* 07/16/16 05:20 - Microbiology Findings Microbiology Findings: Microbiology, Last 48 Hours 07/16/16 17:49 Blood Culture - Final Peripheral Venipuncture No growth. 07/16/16 08:18 Blood Culture - Final Peripheral Venipuncture No growth. - Clinical Findings Intake & Output: Intake & Output 07/23/16 07/23/16 07/24/16 15:59 23:59 07:59 Intake Total 1380 / 1380 120 / 120 240 / 240 Output Total 600 / 600 200 / 200 250 / 250 Balance 780 / 780 -80 / -80 -10 / -10 Weight 155.8 kg Consult Discharge Plan - Plan Referrals: Maddi Chong DO [Partnered Physician] - 09/13/16 10:30 am Blair Nichols DO [Partnered Physician] - (office makes their own appointments) <Trevor Davey - Last Filed: 07/24/16 10:17> Date of Encounter: 07/24/16 Objective PUL Vital signs: Last Vital Signs Temp 98.6 F 07/24/16 08:00 Pulse 123 07/24/16 08:20 Resp 20 07/24/16 08:20 BP 103/60 07/24/16 08:20 Pulse Ox 98 07/24/16 08:20 Results - Laboratory Findings CBC and BMP: 07/24/16 04:54 07/24/16 04:54 ABG ABG pH 7.41 pH Units (7.32-7.45) 07/20/16 07:55 ABG pCO2 66 mmHg (35-45) H 07/20/16 07:55 ABG pO2 52 mmHg (85-104) L 07/20/16 07:55 ABG O2 Saturation 87 % (95-98) L 07/20/16 07:55 PT/INR, D-dimer PT 12.2 Seconds (9.4-12.1) H 07/20/16 13:50 Abnormal lab findings: Abnormal lab results WBC 17.2 K/mcL (4.3-11.1) H 07/24/16 04:54 RBC 2.64 M/mcL (3.82-4.97) L 07/24/16 04:54 Hgb 8.3 g/dL (11.5-15.4) L 07/24/16 04:54 Hct 26.3 % (35.3-44.9) L 07/24/16 04:54 RDW 17.2 % (11.5-14.5) H 07/24/16 04:54 Neutrophils # 11.1 K/mcL (1.6-8.9) H 07/24/16 04:54 Monocytes # 2.9 K/mcL (0.0-1.3) H 07/24/16 04:54 Eosinophils # 0.8 K/mcL (0.0-0.6) H 07/24/16 04:54 Nucleated RBCs/100 WBC 0.4 /100 WBC (0) H 07/24/16 04:54 PT 12.2 Seconds (9.4-12.1) H 07/20/16 13:50 APTT 59.6 Seconds (26.0-36.0) H 07/22/16 05:40 Heparin Anti-Xa, Unfract 1.30 IU/mL (0.30-0.70) H* 07/21/16 06:29 ABG pCO2 66 mmHg (35-45) H 07/20/16 07:55 ABG pO2 52 mmHg (85-104) L 07/20/16 07:55 ABG HCO3 41.8 mEQ/L (21-27) H 07/20/16 07:55 ABG Total CO2 43.8 mEq/L (20-26) H 07/20/16 07:55 ABG O2 Saturation 87 % (95-98) L 07/20/16 07:55 ABG Base Excess 13.5 mEq/L (-2.0 to 3.0) H 07/20/16 07:55 Carbon Dioxide 35 mEq/L (19-29) H 07/24/16 04:54 BUN 36 mg/dL (7-20) H D 07/24/16 04:54 BUN/Creatinine Ratio 55 (6-26) H 07/24/16 04:54 POC Glucose 100 (58-89) H 07/23/16 05:32 Calculated Osmolality 305 (280-300) H 07/24/16 04:54 Calcium 8.2 mg/dL (8.6-10.8) L 07/24/16 04:54 Troponin I 0.59 ng/mL (0-0.03) H* 07/14/16 14:29 B-Natriuretic Peptide 861 pg/mL (0-100) H 07/14/16 07:00 Albumin 2.4 g/dL (3.5-5.0) L 07/15/16 03:25 Globulin 3.8 g/dL (2.4-3.5) H 07/15/16 03:25 Albumin/Globulin Ratio 0.6 (1.1-2.2) L 07/15/16 03:25 HDL Cholesterol 38 mg/dL (40-59) L 07/15/16 03:25 Stool Occult Blood Positive (Negative) A 07/22/16 08:40 Vancomycin Trough 36.1 mcg/mL (10-20) H* 07/16/16 05:20 - Microbiology Findings Microbiology Findings: Microbiology, Last 48 Hours 07/16/16 17:49 Blood Culture - Final Peripheral Venipuncture No growth. 07/16/16 08:18 Blood Culture - Final Peripheral Venipuncture No growth. - Clinical Findings Intake & Output: Intake & Output 07/23/16 07/24/16 07/24/16 23:59 07:59 15:59 Intake Total 120 / 120 240 / 240 Output Total 200 / 200 250 / 250 200 / 200 Balance -80 / -80 -10 / -10 -200 / -200 Weight 155.8 kg - Attending Attestation I examined this patient and my medical decision-making was reviewed with the [employer] EXPANDER/PA/Advanced Practice Nurse/Resident Physician. I agree with the documented findings, disposition and treatment plan as described except to the extent set forth below. Patient seen and examined. Labs, radiology, chart personally reviewed. 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 BiPAP when necessary Cardiovascular: stable GI: Nutrition per dietary and GI prophylaxis per routine Heme: DVT prophylaxis per routine ID: Continue antibiotics and plan to de-escalation Renal; urine out put and renal funtion reviewed. Patient is weak and PT/OT evaluation and possible removal of Schreiber catheter Endorcine: blood glucose is monitored Lines: all lines checked and no evidence of infections. Remove unnecessary peripheral lines Skin: skin care to prevent pressure ulcers per nursing routine care Patient was transferred to the floor
--- NOTE | 2016-07-24 08:24 | General Surgery Progress Note ---
Date of Encounter: 07/24/16 Time of Encounter: 06:30 - Assessment and Plan (1) GI (gastrointestinal bleed) Current Visit: Yes Status: Acute Postoperative day 2 for esophagogastroduodenoscopy, flexible, transoral with control of bleeding performed by Dr. Tran on 07/22/16. Impression: -Large hiatal hernia -Red blood in the gastric antrum -1 oozing duodenal ulcer with adherent clot. Injected with epinephrine for hemostasis. Clips placed. -No specimens collected The patient's hemoglobin dropped significantly from 15 g/dL on 07/20/16 29.9 g/ dL on 07/22/16. Anticoagulation and antiplatelet therapy were discontinued. Patient had a bowel movement with melena and was hypotensive concerning for GI bleed and subsequently surgery was consulted. Upper endoscopy for investigation into GI bleeding was performed on 07/22/16. On examination: Patient has a large panniculus with cellulitis and ecchymosis of the right lower dependent portion of the panniculus. Patient verbalized that she was feeling much better today. Patient is alert and smiling and talkative on exam she is responding appropriately. No acute events overnight. Patient had one episode of melana s/p procedure. Blood pressure remains stable per pt baseline. Patient was transferred from ICU to hospital floor stay for improving status. Patient has received 2 units of pack red blood cells 07/22/16. Hemoglobin 8.3 from 9.3, hematocrit 26.3 from 29.8. Will continue to follow. Plan: Advance diet as pt tolerates Continue supportive care and pain control per hospital team PPI therapy daily Encourage activity as tolerated. Patient will need jail as she has not walked in more than 2 weeks. Will continue to follow/monitor for potential bleeding. The assessment and plan as outlined above was discussed with the patient and/or family members who expressed understanding and agreement. All questions were answered. Qualifiers: GI bleed type/associated pathology: duodenal ulcer Qualified Code(s): K26.4 - Chronic or unspecified duodenal ulcer with hemorrhage Subjective Patient reports: no new complaints, feels better, pain is less, flatus, bowel movement, afebrile Narrative: The patient was seen and examined. Patient stated she is feeling better today than yesterday decreased abdominal pain. Patient is alert throughout our conversation and answering appropriately. No acute events overnight. Nurses report one small episode of melana status post EGD for control of bleeding. Hemoglobin has remained stable after procedure and 2 U PRBC. No further blood product given. Stable blood pressures for patients baseline. Objective Vital Signs - Last 8 Hours Temp Pulse Resp BP Pulse Ox 07/24/16 08:00 98.6 F 07/24/16 06:00 124 25 109/70 99 07/24/16 05:00 126 22 102/64 97 07/24/16 04:00 98.7 F 125 22 111/68 96 07/24/16 03:00 125 19 109/73 97 07/24/16 02:00 129 19 110/49 100 07/24/16 01:00 110 19 95/58 100 07/24/16 00:27 97.5 F L Intake and Output 07/23/16 07/24/16 07/24/16 23:59 07:59 15:59 Intake Total 120 / 120 240 / 240 Output Total 200 / 200 250 / 250 200 / 200 Balance -80 / -80 -10 / -10 -200 / -200 Intake: Oral 120 / 120 240 / 240 Output: Catheter 200 / 200 250 / 250 200 / 200 Other: Stool Size Smear Stool Consistency liquid Stool Characteristics Tarry Stool Color Black # Voids 1 # Bowel Movements 1 Weight 155.8 kg Patient Weight 07/24/16 23:59 Weight 155.8 kg - Labs 07/24/16 04:54 07/24/16 04:54 Diabetes panel 07/24/16 Range/Units 04:54 Sodium 144 (136-145) mEq/L Potassium 3.8 (3.5-4.5) mEq/L Chloride 104 (98-109) mEq/L Carbon Dioxide 35 H (19-29) mEq/L BUN 36 H D (7-20) mg/dL Creatinine 0.65 (0.57-1.11) mg/dL Glucose 82 (70-99) mg/dL Calcium 8.2 L (8.6-10.8) mg/dL Calcium panel 07/24/16 Range/Units 04:54 Calcium 8.2 L (8.6-10.8) mg/dL Pituitary panel 07/24/16 Range/Units 04:54 Sodium 144 (136-145) mEq/L Potassium 3.8 (3.5-4.5) mEq/L Chloride 104 (98-109) mEq/L Carbon Dioxide 35 H (19-29) mEq/L BUN 36 H D (7-20) mg/dL Creatinine 0.65 (0.57-1.11) mg/dL Glucose 82 (70-99) mg/dL Calcium 8.2 L (8.6-10.8) mg/dL Adrenal panel 07/24/16 Range/Units 04:54 Sodium 144 (136-145) mEq/L Potassium 3.8 (3.5-4.5) mEq/L Chloride 104 (98-109) mEq/L Carbon Dioxide 35 H (19-29) mEq/L BUN 36 H D (7-20) mg/dL Creatinine 0.65 (0.57-1.11) mg/dL Glucose 82 (70-99) mg/dL Calcium 8.2 L (8.6-10.8) mg/dL Consult Discharge Plan - Plan Referrals: Maddi Chong DO [Partnered Physician] - 09/13/16 10:30 am Blair Nichols DO [Partnered Physician] - (office makes their own appointments)
[2016-07-24] MEDS: Sennosides/Docusate Sodium TABLET PO SCH ×2 (08:27→20:49)
[2016-07-24] MEDS: Nystatin POWDER 30 GM BOTTLE TP SCH ×3 (08:28→20:49)
[2016-07-24] MEDS: Miconazole 2% ointment 114 GM TUBE TP SCH (08:28)
[2016-07-24] MEDS ORDERED: *HR* Amiodarone 200 MG TABLET PO SCH (09:00)
[2016-07-24] MEDS ORDERED: Naloxone 0.4 MG/ML INJ IVP PRN (09:51)
[2016-07-24] MEDS ORDERED: Acetaminophen 325 MG TABLET PO PRN (09:51)
[2016-07-24] MEDS ORDERED: *HR* Metoprolol 5 MG/5 ML VIAL IVP PRN (09:51)
[2016-07-24] MEDS ORDERED: Ondansetron 4 MG/2 ML VIAL IVP PRN (09:51)
--- NOTE | 2016-07-24 13:20 | Cardiology Progress Note ---
Date of Encounter: 07/24/16 Time of Encounter: 10:30 Assessment and Plan (1) Diastolic heart failure Current Visit: Yes Status: Acute Presumed HFpEF diuresed well initially but had rising BUN which had improved with fluids/PRBCs. However, there is concern that the patient is again becoming volume overloaded. She has pitting edema and possibly third spacing with low albumin. Renal function now improved. May consider prn IV diuretic. Qualifiers: Heart failure chronicity: chronic Qualified Code(s): I50.32 - Chronic diastolic (congestive) heart failure (2) Atrial flutter with rapid ventricular response Current Visit: Yes Status: Acute Patient has mainly been having sinus tachycardia presumably due to recent acute blood loss with periods of AF/AFL. Her Hgb dropped from 9.3 to 8.3 overnight and will need to be closely monitored. Vicky was also seen on the monitor while in the ICU. Amiodarone was decreased to 100mg daily for maintenance. Metoprolol has been restarted by primary team. Unfortunately, cannot be anticoagulated presently due to recent active bleeding. She is at risk for CVA (CHADSVASC 4). Recommend a trial of low dose aspirin when ok from a GI perspective. (3) Elevated troponin Current Visit: Yes Status: Acute Elevated troponin on admission possibly due to demand ischemia. ASA/Plavix have been stopped secondary to active bleeding. Consider restarting low dose aspirin when safe to do so. Continue statin. Discussion w patient/family: The assessment and plan as outlined above was discussed with the patient and nurse at bedside. Family not present. All questions were answered. Thank you for involving us in the care of your patient. Please call with any questions. Subjective Principal diagnosis: Respiratory failure Interval history: No acute overnight events. Patient was transferred to floor today. She has no particular concerns or new complaints this morning. Objective Vital Signs, Last 4 Hours Temp Pulse Resp BP Pulse Ox 07/24/16 11:04 97.7 F 97 18 111/64 93 General: No Apparent Distress HEENT: Atraumatic, Normocephaly, Mucus Membranes Moist Neck: Other (JVP difficult to appreciate) Cardiac: No Murmur, Other (tachycardic, regular) Lungs: Other (breath sounds normal anteriorly) Abdomen: Soft, Non-Tender, Other (bowel sounds are present) Extremities: Other (2+ LE edema) Results 07/24/16 04:54 07/24/16 04:54 Lab Results 07/24/16 07/24/16 04:54 04:54 WBC 17.2 H Hgb 8.3 L Hct 26.3 L Plt Count 171 Sodium 144 Potassium 3.8 Chloride 104 Carbon Dioxide 35 H BUN 36 H D Creatinine 0.65 Glucose 82 Calcium 8.2 L - EKG Interpretation EKG results cardiology: other (Telemetry reviewed; average heart rate 110 bpm with sinus tach and periods of AF/AFL) Consult Discharge Plan - Plan Referrals: Maddi Chong DO [Partnered Physician] - 09/13/16 10:30 am Blair Nichols DO [Partnered Physician] - (office makes their own appointments)
[2016-07-24] MEDS ORDERED: *HR* Heparin 5,000 UNIT/ML VIAL SQ SCH (14:00)
[2016-07-24 16:17] LABS: Hematocrit 29.4 % (35.3-44.9); Hemoglobin 8.9 g/dL (11.5-15.4)
[2016-07-24] MEDS ORDERED: 0.9 % Sodium Chloride 500 ML IVC ONE (16:18)
[2016-07-24] MEDS ORDERED: 0.9 % Sodium Chloride 500 ML ONE (16:20)
--- NOTE | 2016-07-24 17:16 | Event Note ---
Date of Encounter: 07/24/16 Time of Encounter: 17:15 1. Hypotension possibly secondary to hypovolemia/acute blood loss anemia either from upper GI bleed or possible acute abdominal wall hematoma Systolic blood pressure in the 70s and heart rate in the 120s Order 1 unit of blood, may order another one after checking CBC and INR Given a bolus of IV fluids and sent for stat CT scan of the abdomen and pelvis Informe surgery (resident aware) Consider sending back to the ICU, consider the use of pressors Postoperative day 2 for esophagogastroduodenoscopy, flexible, transoral with control of bleeding performed by Dr. Tran on 07/22/16. -Large hiatal hernia -Red blood in the gastric antrum -1 oozing duodenal ulcer with adherent clot. Injected with epinephrine for hemostasis. Clips placed. 2. History of A. fib with RVR, followed by cardiology 3. Diastolic CHF 4. Elevated troponins likely secondary to demand ischemia, not able to administer any anticoagulation
[2016-07-24 17:18] LABS: INR 1.7; Prothrombin Time 18.3 Seconds (9.4-12.1)
[2016-07-24 21:53] LABS: Hematocrit 28.2 % (35.3-44.9); Hemoglobin 8.6 g/dL (11.5-15.4)
[2016-07-25] MEDS: Pantoprazole 40 MG VIAL IVP SCH ×2 (06:11→17:04)
[2016-07-25] MEDS ORDERED: 0.9 % Sodium Chloride 1,000 ML IVC ONE (08:11)
[2016-07-25] MEDS: Nystatin POWDER 30 GM BOTTLE TP SCH ×3 (08:20→20:49)
[2016-07-25] MEDS: Sennosides/Docusate Sodium TABLET PO SCH ×2 (08:20→20:36)
[2016-07-25] MEDS: *HR* Amiodarone 200 MG TABLET PO SCH (08:22)
[2016-07-25] MEDS: Miconazole 2% ointment 114 GM TUBE TP SCH (08:23)
[2016-07-25 08:39] LABS: Basophils # 0.1 K/mcL (0.0-0.2); Basophils % 0.3 %; Eosinophils # 0.8 K/mcL (0.0-0.6); Hemoglobin 8.7 g/dL (11.5-15.4); Immature Granulocytes % 5.2 % (0-4); Lymphocytes # 2.3 K/mcL (0.6-4.6); Lymphocytes % 14.5 %; Mean Corpuscular Hemoglobin 31.1 pg (28.0-33.3); Mean Corpuscular Volume 103.6 fL (83.0-100.0); Mean Platelet Volume 11.6 fL (9.4-12.4); Monocytes # 2.2 K/mcL (0.0-1.3); Monocytes % 13.5 %; Neutrophils # 9.9 K/mcL (1.6-8.9); Nucleated Red Blood Cells 1.5 /100 WBC (0); Platelet Count 261 K/mcL (140-400); Red Cell Distribution Width 17.1 % (11.5-14.5); Segmented Neutrophils % 61.5 %
[2016-07-25 08:52] LABS: BUN/Creatinine Ratio 41 (6-26); Blood Urea Nitrogen 28 mg/dL (7-20); Calcium 8.5 mg/dL (8.6-10.8); Carbon Dioxide 33 mEq/L (19-29); Chloride 102 mEq/L (98-109); Glucose 115 mg/dL (70-99); Osmolality,Calculated 300 (280-300); Potassium 3.4 mEq/L (3.5-4.5); Sodium 142 mEq/L (136-145); eGFR For African Americans > 60 (> 60); eGFR For Non-African Americans > 60 (> 60)
[2016-07-25 09:11] LABS: Anisocytosis 1+ (Not Present); Macrocytosis Present (Not Present); Platelet Estimate Normal (Normal); Polychromasia 2+ (Not Present)
--- NOTE | 2016-07-25 09:37 | General Surgery Progress Note ---
Date of Encounter: 07/25/16 Time of Encounter: 09:00 - Assessment and Plan (1) Duodenal ulcer Current Visit: Yes Status: Acute s/p EGD with Dr. Tran 07/23/16- injected and 2 clips placed No further evidence of ongoing bleeding noted Hgb stable 8.9>8.6>8.7 Continue PPI therapy BID Supportive care Continue soft diet and avoid citrus/tomato based foods and drinks Surgery will sign off. Thank you for allowing us to participate in the care of this patient. Please call with any further questions/concerns. (2) GI (gastrointestinal bleed) Current Visit: Yes Status: Acute s/p EGD with Dr. Tran 07/23/16- injected and 2 clips placed No further evidence of ongoing bleeding noted Hgb stable 8.9>8.6>8.7 Continue PPI therapy BID Supportive care Continue soft diet and avoid citrus/tomato based foods and drinks Qualifiers: GI bleed type/associated pathology: duodenal ulcer Qualified Code(s): K26.4 - Chronic or unspecified duodenal ulcer with hemorrhage (3) Acute blood loss anemia Current Visit: Yes Status: Acute Stable Hgb- 8.9>8.6>8.7 Subjective Patient reports: no new complaints, feels better, tolerating a regular diet ( soft diet), flatus, no bowel movement (no further melena noted), afebrile Objective Vital Signs - Last 8 Hours Temp Pulse Resp BP Pulse Ox 07/25/16 06:33 98.6 F 128 18 79/54 95 Intake and Output 07/24/16 07/25/16 07/25/16 23:59 07:59 15:59 Intake Total 0 / 0 120 / 120 Output Total 300 / 300 450 / 450 Balance -300 / -300 -330 / -330 Intake: Oral 0 / 0 120 / 120 Output: Urine 0 / 0 Straight Cath 450 / 450 Catheter 300 / 300 Other: Meal Breakfast Percent of Meal Consumed 100% # Bowel Movements 0 - General physical appearance well developed, well nourished, no distress, chronically ill, obese - Eyes normal ocular movement - ENT normal mucosa, atraumatic, normocephalic - Neck Neck exam: trachea midline - Respiratory normal respiratory effort - Cardiovascular Cardiovascular exam: Present: tachycardia - Abdomen Abdomen: Present: bowel sounds present, soft, non tender - Neurologic CN 2-12 grossly intact - Psychiatric oriented to person, oriented to place, speech is normal - Labs 07/26/16 03:37 07/26/16 03:37 Diabetes panel 07/25/16 Range/Units 08:33 Sodium 142 (136-145) mEq/L Potassium 3.4 L (3.5-4.5) mEq/L Chloride 102 (98-109) mEq/L Carbon Dioxide 33 H (19-29) mEq/L BUN 28 H (7-20) mg/dL Creatinine 0.68 (0.57-1.11) mg/dL Glucose 115 H (70-99) mg/dL Calcium 8.5 L (8.6-10.8) mg/dL Calcium panel 07/25/16 Range/Units 08:33 Calcium 8.5 L (8.6-10.8) mg/dL Pituitary panel 07/25/16 Range/Units 08:33 Sodium 142 (136-145) mEq/L Potassium 3.4 L (3.5-4.5) mEq/L Chloride 102 (98-109) mEq/L Carbon Dioxide 33 H (19-29) mEq/L BUN 28 H (7-20) mg/dL Creatinine 0.68 (0.57-1.11) mg/dL Glucose 115 H (70-99) mg/dL Calcium 8.5 L (8.6-10.8) mg/dL Adrenal panel 07/25/16 Range/Units 08:33 Sodium 142 (136-145) mEq/L Potassium 3.4 L (3.5-4.5) mEq/L Chloride 102 (98-109) mEq/L Carbon Dioxide 33 H (19-29) mEq/L BUN 28 H (7-20) mg/dL Creatinine 0.68 (0.57-1.11) mg/dL Glucose 115 H (70-99) mg/dL Calcium 8.5 L (8.6-10.8) mg/dL Consult Discharge Plan - Plan Referrals: Maddi Chong DO [Partnered Physician] - 09/13/16 10:30 am (Office will call you if an appointment becomes open at a earlier date) Blair Nichols DO [Partnered Physician] - (office makes their own appointments) - Attending Attestation I examined this patient and my medical decision-making was reviewed with the RETURNED MATERIALS INSPECTOR/PA/Advanced Practice Nurse/Resident Physician. I agree with the documented findings, disposition and treatment plan as described except to the extent set forth below. The patient is seen and evaluated. Her hematocrit are stable. Please reconsult for any signs of clinical hemorrhage Yohan Tran MD FACS
--- NOTE | 2016-07-25 09:54 | Internal Med Progress Note ---
Date of Encounter: 07/25/16 Time of Encounter: 09:54 - Assessment and plan (1) Sepsis Current Visit: Yes Status: Acute Assessment and plan: Secondary to abdominal wall cellulitis Abd CT scan with no evidence of abscesses or collections, Initial blood cuture with S. hominis Repeat Blood culture NTD Patient continues to have tachycardia, borderline BP and leukocytosis She has had >10 days of ceftriaxone, will discontinue Will change to doxycycline based on first blood culture Continue to monitor hemodynamic status Patient with complicated hospital stay and many active problems Qualifiers: Sepsis type: sepsis due to unspecified organism Qualified Code(s): A41.9 - Sepsis, unspecified organism (2) Cellulitis Current Visit: Yes Status: Acute Assessment and plan: as above Qualifiers: Site of cellulitis: trunk Site of cellulitis of trunk: abdominal wall Qualified Code(s): L03.311 - Cellulitis of abdominal wall (3) Acute exacerbation of chronic obstructive pulmonary disease (COPD) Current Visit: Yes Status: Resolved (4) Tobacco abuse Current Visit: Yes Status: Chronic Assessment and plan: Chronic, counselling done (5) Acute on chronic respiratory failure with hypoxia and hypercapnia Current Visit: Yes Status: Acute Assessment and plan: s/p intubation , extubated 5.25 Stable on room air, continue to monitor (6) NSTEMI (non-ST elevated myocardial infarction) Current Visit: Yes Status: Acute (7) Atrial flutter with rapid ventricular response Current Visit: Yes Status: Acute Assessment and plan: Uncontrolled HR Borderline BP precludes and limits medication choices Increase BB today and monitor closely CHADS scre 4 but not ideal candidate for AC due to GIB May start ASA at a later date Cardiology input appreciated, will reconsult prn (8) GI (gastrointestinal bleed) Current Visit: Yes Status: Acute Assessment and plan: Continue PPI Follow biopsy Hb stable at ~8.5-8.8 Qualifiers: GI bleed type/associated pathology: duodenal ulcer Qualified Code(s): K26.4 - Chronic or unspecified duodenal ulcer with hemorrhage (9) Diastolic heart failure Current Visit: Yes Status: Acute Assessment and plan: Echo 07/14/16 with LVEF 50-60%, all wall segments show normal motion, no severe valvular disease. I/O negative ~8L Now getting iVF for low BP, not on diuresis Continue to monitor Qualifiers: Heart failure chronicity: acute on chronic Qualified Code(s): I50.33 - Acute on chronic diastolic (congestive) heart failure (10) Elevated troponin Current Visit: Yes Status: Acute Assessment and plan: From demand ischemia, no intervention per cardiology (11) Morbid obesity with alveolar hypoventilation Current Visit: Yes Status: Acute Assessment and plan: O2 prn (12) Acute blood loss anemia Current Visit: Yes Status: Acute Assessment and plan: Stable Hb (13) Duodenal ulcer Current Visit: Yes Status: Acute Assessment and plan: Continue PPI bid for life (14) Morbid obesity with BMI of 60.0-69.9, adult Current Visit: Yes Status: Chronic - Subjective Interval history: Seen and evaluated at bedside 71 F, Morbidy Obese, complicated hospital stay Being managed for acute hypoxic and hyercapneic respiratory failure secondary to acute on chronic CHF, COPDE, Obesity hypoventilation syndrome (extubated 07/20 ), acute CHF, NSTEMI, hospital stay complicated by acute blood loss anemia secondary to GIB from bleeding duodenal ulcer , sepsis secondary to anterior abdominal wall panniculitis/cellulitis, Atrial fibrillation, Hypotension At time of review, resting comfortably in bed, denies new complains 1L bolus given for hypotension with some improvement, monitor resp status - Constitutional Vitals: Temp Pulse Resp BP Pulse Ox 98.6 F 128 18 79/54 95 07/25/16 06:33 07/25/16 06:33 07/25/16 06:33 07/25/16 06:33 07/25/16 06:33 VS: Tachycardic, HR 110, BP 105/50 at time of review Morbidly obese, flat affect Neuro: Alert, awake, oriented, moves all limbs equally HEENT: Moist oral mucosa, no cuanosis, no scleral icterus, Chest: Anterior auscultation only, clear to auscultation bilaterally. Heart S1-S2 tachycardia irregular. Abdomen morbidly obese, right lower quadrant cellulitis with evidence of ecchymoses and bruising, tender, and positive differential warmth. Extremities 2+ bilateral pitting pedal edema Skin multiple bruising from blood draws and IV accesses. Internal Medicine: Result - Labs CBC & Chem 7: 07/25/16 04:43 07/25/16 08:33 Labs: Short CBC 07/24/16 07/24/16 07/25/16 Range/Units 16:05 21:38 04:43 WBC 16.1 H (4.3-11.1) K/mcL Hgb 8.9 L 8.6 L 8.7 L (11.5-15.4) g/dL Hct 29.4 L 28.2 L 29.0 L (35.3-44.9) % Plt Count 261 D (140-400) K/mcL Neutrophils # 9.9 H (1.6-8.9) K/mcL BMP 07/25/16 08:33 Sodium 142 Potassium 3.4 L Chloride 102 Carbon Dioxide 33 H BUN 28 H Creatinine 0.68 Glucose 115 H Calcium 8.5 L - ABG Interpretation ABG results: ABG ABG pH 7.41 pH Units (7.32-7.45) 07/20/16 07:55 ABG pCO2 66 mmHg (35-45) H 07/20/16 07:55 ABG pO2 52 mmHg (85-104) L 07/20/16 07:55 ABG O2 Saturation 87 % (95-98) L 07/20/16 07:55 PT/INR, D-dimer PT 18.3 Seconds (9.4-12.1) H 07/24/16 16:57 - Impressions Impressions Abdomen/Pelvis CT 07/24/16 16:28 IMPRESSION: 1. No acute abnormality in the abdomen or pelvis. 2. Redemonstration of a large ventral abdominal wall hernia containing fat and a short-segment nonobstructed loop of transverse colon. 3. Anterior abdominal wall subcutaneous fat stranding and skin thickening compatible cellulitis. No drainable fluid collection. 4. Trace bilateral pleural effusions and bibasilar consolidative opacities right greater than left compatible atelectasis versus pneumonia. 5. Cholelithiasis and gallbladder sludge. No CT evidence of acute cholecystitis. 6. Colonic diverticulosis without evidence of acute diverticulitis. D/ / Blair Person MD / Blair Person MD Interpreting Provider: Blair Person MD Chest X-Ray 07/25/16 06:00 IMPRESSION: Stable chest. Cardiomegaly and mild pulmonary edema. D/ / 07/25/2016 07:49:01 Brina Leigh MD / Sowmya Hernandez Interpreting Provider: Brina Leigh MD Consult Discharge Plan - Plan Referrals: Maddi Chong DO [Partnered Physician] - 09/13/16 10:30 am (Office will call you if an appointment becomes open at a earlier date) Blair Nichols DO [Partnered Physician] - (office makes their own appointments)
--- NOTE | 2016-07-25 11:10 | Cardiology Progress Note ---
Date of Encounter: 07/25/16 Time of Encounter: 08:30 Assessment and Plan (1) Atrial flutter with rapid ventricular response Current Visit: Yes Status: Acute Per cardiology: -Patient has mainly been having sinus tachycardia presumably due to recent acute blood loss with periods of AF/AFL. Suspect tachycardia will imrpove once hemoglobin improves. -Vicky was also seen on the monitor while in the ICU. Amiodarone was decreased to 100mg daily for maintenance. -Metoprolol has been restarted by primary team. -Unfortunately, cannot be anticoagulated presently due to recent active bleeding. -She is at risk for CVA (CHADSVASC 4). -Recommend a trial of low dose aspirin when ok from a GI perspective. -Cardiology will sign off and will follow in outpatient setting. Follow up set. (2) Acute respiratory failure Current Visit: Yes Status: Resolved Per cardiology: -Acute respiratory failure requiring intubation. -Now extubated and on high flow O2 at 5LPM. Patient states breathing much better today. -Management per primary and pulmonary services. Qualifiers: Respiratory failure complication: hypoxia and hypercapnia Qualified Code(s) : J96.01 - Acute respiratory failure with hypoxia; J96.02 - Acute respiratory failure with hypercapnia (3) Diastolic congestive heart failure, NYHA class 3 Current Visit: Yes Status: Acute Per cardiology: -Echo 07/14/16 with LVEF 50-60%, all wall segments show normal motion, no severe valvular disease. -Net negative 8208ml this admission. -Appears patient is now down 14kg since 07/14. -Cardilogy will sign off and will follow in outpatient setting. (4) NSTEMI (non-ST elevated myocardial infarction) Current Visit: Yes Status: Suspected Per cardiology: -Previously was recommended for medical management due to respiratory status. -On statin. Unable to give asa and plavix due to GI bleeding. -ON beta raphael, however being held due to hypotension. -Echo as above. -Denies chest pain. -ECG with no ischemic changes. -Will follow in outpatient setting. -Recommend asa once cleared by GI. (5) Cellulitis Current Visit: No Status: Acute Per cardiology: -Cellulitis to lower extremity. -On ATB. -Management per primary service. (6) Tobacco abuse Current Visit: Yes Status: Chronic Per cardiology: -Known tobacco abuse. -Smoking cessation education given. -I spent 3-5 minutes reviewing smoking cessation education with patient. Discussion w patient/family: The assessment and plan as outlined above was discussed with the patient who expressed understanding and agreement. All questions were answered. Thank you for involving us in the care of your patient. Please call with any questions. Discussed and reviewed with . Subjective Principal diagnosis: Respiratory failure Interval history: Patient was admitted for acute respiratory failure, CHF exacerbation. Patient required intubated and mechanical ventilation.Has been extubated for several days. Patient devloped atrial flutter with RVR. Patient was started on amiodarone drip due to hypotension and heparin drip. Patient developed GI bleed and EGD wa performed. Patient required epinephrine injection at site of bleeding and clips. Patient as required several blood transfusions. Patient more awake today. Patient answering questions appropriately. Patient states she feels much better today. Patient states breathing is better. Objective Vital Signs Temperature 97.6 F 07/14/16 06:56 Pulse Rate 66 07/14/16 06:56 Respiratory Rate 24 07/14/16 06:56 Blood Pressure 144/87 07/14/16 06:56 O2 Sat by Pulse Oximetry 95 07/14/16 06:56 Temperature 98.6 F 07/25/16 06:33 Pulse Rate 128 07/25/16 06:33 Respiratory Rate 18 07/25/16 06:33 Blood Pressure 79/54 07/25/16 06:33 O2 Sat by Pulse Oximetry 95 07/25/16 06:33 Oxygen Delivery Oxygen Delivery [1505] High Flow Nasal Cannula Oxygen Delivery [1500] High Flow Nasal Cannula Oxygen Delivery [1456] High Flow Nasal Cannula Oxygen Delivery [1453] High Flow Nasal Cannula Oxygen Delivery Simple Mask General: Conversant, No Apparent Distress HEENT: Atraumatic, Normocephaly, Mucus Membranes Moist Neck: No JVD, Normal carotid pulses Cardiac: Reg Rate and Rhythm (Tachycardic. ), Normal S1 and S2, No Murmur Lungs: Other (Lung sounds diminished throughout) Neuro: Alert and responsive, No focal deficits noted Abdomen: Soft, Non-Tender Skin: No rashes noted on visualized skin Musculoskeletal: No Chest Wall Tenderness Extremities: No Clubbing, No Cyanosis, Normal Pulses, Other (1+ bilateral lower extremity pitting edema. ) Results 07/25/16 04:43 07/25/16 08:33 Lab Results Impressions Abdomen/Pelvis CT 07/24/16 16:28 IMPRESSION: 1. No acute abnormality in the abdomen or pelvis. 2. Redemonstration of a large ventral abdominal wall hernia containing fat and a short-segment nonobstructed loop of transverse colon. 3. Anterior abdominal wall subcutaneous fat stranding and skin thickening compatible cellulitis. No drainable fluid collection. 4. Trace bilateral pleural effusions and bibasilar consolidative opacities right greater than left compatible atelectasis versus pneumonia. 5. Cholelithiasis and gallbladder sludge. No CT evidence of acute cholecystitis. 6. Colonic diverticulosis without evidence of acute diverticulitis. D/ / Blair Person MD / Blair Person MD Interpreting Provider: Blair Persno MD Chest X-Ray 07/25/16 06:00 IMPRESSION: Stable chest. Cardiomegaly and mild pulmonary edema. D/ / 07/25/2016 07:49:01 Brina Leigh MD / Sowmya Hernandez Interpreting Provider: Brina Leigh MD Active Medications Acetaminophen (Tylenol) 650 mg PO Q6HR PRN PRN Reason: Mild Pain (1-3) Stop: 01/13/17 08:30 Amiodarone HCl (Cordarone) 100 mg PO DAILY [facility] Stop: 01/23/17 09:01 Last Admin: 07/25/16 08:22 Dose: 100 mg Atorvastatin Calcium (Lipitor) 40 mg PO HS [facility] Stop: 01/13/17 21:01 Last Admin: 07/24/16 20:48 Dose: 40 mg Ceftriaxone Sodium 2,000 mg/ (Dextrose) 100 mls @ 200 mls/hr IVPB Q24H [facility] Stop: 07/25/16 23:59 Last Admin: 07/25/16 08:20 Dose: 200 mls/hr Metoprolol Tartrate (Lopressor) 5 mg IVP Q6HR PRN PRN Reason: TACHYCARDIA Stop: 01/19/17 11:10 Metoprolol Tartrate (Lopressor) 25 mg PO BID [facility] Stop: 01/18/17 10:10 Last Admin: 07/25/16 08:23 Dose: Not Given Miconazole (Aloe [place] Antifungal Ointment) 1 appl TP DAILY [facility] Stop: 01/13/17 16:01 Last Admin: 07/25/16 08:23 Dose: 1 appl Naloxone HCl (Narcan) 0.4 mg IVP Q2MIN PRN PRN Reason: Opioid Reversal Stop: 01/13/17 15:40 Nystatin (Nystop) 1 appl TP TID [facility] Stop: 01/13/17 09:16 Last Admin: 07/25/16 08:20 Dose: 1 appl Ondansetron HCl (Zofran) 4 mg IVP Q6H PRN PRN Reason: Nausea And Vomiting Stop: 01/13/17 08:30 Pantoprazole Sodium (Protonix) 40 mg IVP Q12HR [facility] Stop: 01/21/17 08:49 Last Admin: 07/25/16 06:11 Dose: 40 mg Senna/Docusate Sodium (Senna Plus) 2 each PO BID [facility]ON PRN Reason: Protocol Stop: 01/20/17 11:31 Last Admin: 07/25/16 08:20 Dose: 2 each Laboratory Tests 07/22/16 07/25/16 07/25/16 05:40 04:43 04:43 WBC 17.7 H 16.1 H Hgb 8.7 L Potassium Creatinine B-Natriuretic Peptide 718 H 07/25/16 08:33 WBC Hgb Potassium 3.4 L Creatinine 0.68 B-Natriuretic Peptide - Imaging and Cardiology Chest Xray: report reviewed - EKG Interpretation EKG results cardiology: other (Telemetry reviewed with average HR 120, sinus tachycardia. PVCs noted.) Consult Discharge Plan - Plan Referrals: Maddi Chong DO [Partnered Physician] - 09/13/16 10:30 am (Office will call you if an appointment becomes open at a earlier date) Blair Nichols DO [Partnered Physician] - (office makes their own appointments)
[2016-07-25] MEDS: Doxycycline 100 MG CAPSULE PO SCH (20:36)
[2016-07-26] MEDS ORDERED: *HR* Digoxin 0.5 MG/2 ML AMPUL IVP ONE (01:06)
[2016-07-26] MEDS ORDERED: Nitroglycerin 0.4 MG TAB.SUBL SL PRN (02:44)
[2016-07-26 03:52] LABS: Basophils % 0.3 %; Eosinophils # 0.8 K/mcL (0.0-0.6); Eosinophils % 5.2 %; Hematocrit 27.7 % (35.3-44.9); Hemoglobin 8.4 g/dL (11.5-15.4); Lymphocytes # 1.9 K/mcL (0.6-4.6); Mean Corpuscular HGB Conc 30.3 g/dL (31.6-35.5); Mean Corpuscular Hemoglobin 30.9 pg (28.0-33.3); Mean Corpuscular Volume 101.8 fL (83.0-100.0); Mean Platelet Volume 10.9 fL (9.4-12.4); Monocytes # 1.8 K/mcL (0.0-1.3); Monocytes % 12.7 %; Nucleated Red Blood Cells 1.3 /100 WBC (0); Platelet Count 272 K/mcL (140-400); Red Blood Count 2.72 M/mcL (3.82-4.97); Red Cell Distribution Width 17.6 % (11.5-14.5); Segmented Neutrophils % 62.8 %
[2016-07-26 04:02] LABS: BUN/Creatinine Ratio 35 (6-26); Blood Urea Nitrogen 24 mg/dL (7-20); Calcium 8.3 mg/dL (8.6-10.8); Carbon Dioxide 37 mEq/L (19-29); Chloride 102 mEq/L (98-109); Glucose 86 mg/dL (70-99); Magnesium 2.1 mg/dL (1.6-2.6); Osmolality,Calculated 301 (280-300); Potassium 3.5 mEq/L (3.5-4.5); Sodium 144 mEq/L (136-145); eGFR For African Americans > 60 (> 60); eGFR For Non-African Americans > 60 (> 60)
[2016-07-26 04:28] LABS: Platelet Estimate Normal (Normal); Polychromasia 1+ (Not Present)
[2016-07-26 04:29] LABS: Anisocytosis 1+ (Not Present); Hypochromasia Present (Not Present)
[2016-07-26] MEDS: Pantoprazole 40 MG VIAL IVP SCH (05:51)
[2016-07-26 06:10] LABS: Bilirubin,Urine Small (Negative); Blood,Urine Large (Negative); Clarity,Urine Cloudy (Clear); Color,Urine Dark Yellow (Yellow); Glucose,Urine (UA) Normal (Normal); Ketones,Urine Trace mg/dL (Negative); Leukocyte Esterase,Urine Small (Negative); Nitrite,Urine Negative (Negative); Protein,Urine 30 mg/dL (Neg-Trace); Specific Gravity,Urine 1.024 (1.010-1.025); Urobilinogen,Urine Normal (Normal)
[2016-07-26 06:32] LABS: RBC,Urine 50-100 per hpf (0-3)
[2016-07-26 06:33] LABS: Bacteria,Urine Moderate per hpf (None-Few); Squamous Epithelial Cell,Urine Few per lpf (None-Few); WBC,Urine 0-3 per hpf (0-3); White Blood Cell Casts,Urine Few per lpf (None Seen)
[2016-07-26] MEDS: Nystatin POWDER 30 GM BOTTLE TP SCH ×3 (08:13→21:30)
[2016-07-26] MEDS: Miconazole 2% ointment 114 GM TUBE TP SCH (08:13)
[2016-07-26] MEDS: Sennosides/Docusate Sodium TABLET PO SCH ×2 (08:14→21:30)
[2016-07-26] MEDS: *HR* Amiodarone 200 MG TABLET PO SCH (08:14)
[2016-07-26] MEDS: Doxycycline 100 MG CAPSULE PO SCH ×2 (08:14→21:29)
--- NOTE | 2016-07-26 10:11 | Internal Med Progress Note ---
Date of Encounter: 07/26/16 Time of Encounter: 10:11 - Assessment and plan (1) Sepsis Current Visit: Yes Status: Acute Assessment and plan: Secondary to abdominal wall cellulitis Abd CT scan with no evidence of abscesses or collections, Initial blood cuture with S. hominis Repeat Blood culture NTD She has had >10 days of ceftriaxone, discontinued 05/25 Started on doxycycline based on first blood culture HR and leukocytosis improving, BP WNL Continue to monitor hemodynamic status Patient with complicated hospital stay and many active problems Qualifiers: Sepsis type: sepsis due to unspecified organism Qualified Code(s): A41.9 - Sepsis, unspecified organism (2) Cellulitis Current Visit: Yes Status: Acute Assessment and plan: as above Qualifiers: Site of cellulitis: trunk Site of cellulitis of trunk: abdominal wall Qualified Code(s): L03.311 - Cellulitis of abdominal wall (3) Acute exacerbation of chronic obstructive pulmonary disease (COPD) Current Visit: Yes Status: Resolved (4) Tobacco abuse Current Visit: Yes Status: Chronic Assessment and plan: Chronic, counselling done (5) Acute on chronic respiratory failure with hypoxia and hypercapnia Current Visit: Yes Status: Acute Assessment and plan: s/p intubation , extubated 5.25 Stable on room air, needs O2 intermittently, continue same continue to monitor (6) NSTEMI (non-ST elevated myocardial infarction) Current Visit: Yes Status: Ruled-out Assessment and plan: Suspected, ruled out per cardiology, no intervention. Elevated troponins possibly from demand ischemia (7) Atrial flutter with rapid ventricular response Current Visit: Yes Status: Acute Assessment and plan: HR control improving CHADS scre 4 but not ideal candidate for AC due to GIB Continue LOpressor Hb stable May start ASA at a later date Cardiology input appreciated, will re-consult prn (8) GI (gastrointestinal bleed) Current Visit: Yes Status: Acute Assessment and plan: Continue PPI, change to po Follow biopsy Hb stable at ~8.5-8.8 Qualifiers: GI bleed type/associated pathology: duodenal ulcer Qualified Code(s): K26.4 - Chronic or unspecified duodenal ulcer with hemorrhage (9) Diastolic heart failure Current Visit: Yes Status: Acute Assessment and plan: Echo 07/14/16 with LVEF 50-60%, all wall segments show normal motion, no severe valvular disease. I/O negative ~8L BP stable Not on diuresis for now due to low BP Continue to monitor Qualifiers: Heart failure chronicity: acute on chronic Qualified Code(s): I50.33 - Acute on chronic diastolic (congestive) heart failure (10) Elevated troponin Current Visit: Yes Status: Acute Assessment and plan: From demand ischemia, no intervention per cardiology (11) Morbid obesity with alveolar hypoventilation Current Visit: Yes Status: Chronic Assessment and plan: O2 prn (12) Acute blood loss anemia Current Visit: Yes Status: Acute Assessment and plan: Stable Hb (13) Duodenal ulcer Current Visit: Yes Status: Acute Assessment and plan: Continue PPI bid for life (14) Morbid obesity with BMI of 60.0-69.9, adult Current Visit: Yes Status: Chronic - Subjective Interval history: Seen and evaluated at bedside 71 F, Morbidy Obese, complicated hospital stay Being managed for acute hypoxic and hyercapneic respiratory failure secondary to acute on chronic CHF, COPDE, Obesity hypoventilation syndrome (extubated 07/20 ), acute CHF, NSTEMI, hospital stay complicated by acute blood loss anemia secondary to GIB from bleeding duodenal ulcer , sepsis secondary to anterior abdominal wall panniculitis/cellulitis, Atrial fibrillation, Hypotension [place] new complains Significant improvement in symptoms and numbers Leukocytosis improving, HR and BP improved - Constitutional Vitals: Temp Pulse Resp BP Pulse Ox 97.7 F 66 14 96/63 98 07/26/16 06:38 07/26/16 06:38 07/26/16 06:38 07/26/16 06:38 07/26/16 06:38 VS: HR 66, BP 106/51, MAP 72 at time of review Morbidly obese, flat affect Neuro: Alert, awake, oriented, moves all limbs equally HEENT: Moist oral mucosa, no cuanosis, no scleral icterus, Chest: Anterior auscultation only, clear to auscultation bilaterally. Heart S1-S2 irregular. Abdomen morbidly obese, right lower quadrant cellulitis with evidence of ecchymoses and bruising, tender, and positive differential warmth. Extremities 2+ bilateral pitting pedal edema Skin multiple bruising from blood draws and IV accesses. Internal Medicine: Result - Labs CBC & Chem 7: 07/26/16 03:37 07/26/16 03:37 Labs: Short CBC 07/26/16 Range/Units 03:37 WBC 14.4 H (4.3-11.1) K/mcL Hgb 8.4 L (11.5-15.4) g/dL Hct 27.7 L (35.3-44.9) % Plt Count 272 (140-400) K/mcL Neutrophils # 9.0 H (1.6-8.9) K/mcL BMP 07/26/16 03:37 Sodium 144 Potassium 3.5 Chloride 102 Carbon Dioxide 37 H BUN 24 H Creatinine 0.69 Glucose 86 Calcium 8.3 L Cardiac Enzymes 07/26/16 07/26/16 Range/Units 03:37 09:01 Troponin I 0.11 H* 0.11 H* (0-0.03) ng/mL Urine 07/26/16 Range/Units 05:59 Urine Color Dark Yellow (Yellow) Urine Clarity Cloudy A (Clear) Urine pH 6.0 (5.0-8.0) pH Units Ur Specific [place] 1.024 (1.010-1.025) Urine Protein 30 H (Neg-Trace) mg/dL Urine Glucose (UA) Normal (Normal) mg/dL - ABG Interpretation ABG results: ABG ABG pH 7.41 pH Units (7.32-7.45) 07/20/16 07:55 ABG pCO2 66 mmHg (35-45) H 07/20/16 07:55 ABG pO2 52 mmHg (85-104) L 07/20/16 07:55 ABG O2 Saturation 87 % (95-98) L 07/20/16 07:55 PT/INR, D-dimer PT 18.3 Seconds (9.4-12.1) H 07/24/16 16:57 - Impressions Impressions Chest X-Ray 07/25/16 06:00 IMPRESSION: Stable chest. Cardiomegaly and mild pulmonary edema. D/ / 07/25/2016 07:49:01 Brina Leigh MD / Sowmya Hernandez Interpreting Provider: Brina Leigh MD Consult Discharge Plan - Plan Referrals: Maddi Chong DO [Partnered Physician] - 09/13/16 10:30 am (Office will call you if an appointment becomes open at a earlier date) Blair Nichols, DO [Partnered Physician] - (office makes their own appointments)
--- NOTE | 2016-07-26 15:52 | Electrocardiograph Report ---
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
--- NOTE | 2016-07-26 15:54 | Electrocardiograph Report ---
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
[2016-07-27 03:42] LABS: Hematocrit 26.8 % (35.3-44.9); Hemoglobin 7.9 g/dL (11.5-15.4); Mean Corpuscular HGB Conc 29.5 g/dL (31.6-35.5); Mean Corpuscular Hemoglobin 30.6 pg (28.0-33.3); Mean Corpuscular Volume 103.9 fL (83.0-100.0); Mean Platelet Volume 10.5 fL (9.4-12.4); Nucleated Red Blood Cells 2.4 /100 WBC (0); Platelet Count 278 K/mcL (140-400); Red Blood Count 2.58 M/mcL (3.82-4.97); Red Cell Distribution Width 17.9 % (11.5-14.5)
[2016-07-27 04:34] LABS: Basophils # 0.6 K/mcL (0.0-0.2); Eosinophils # 0.6 K/mcL (0.0-0.6); Lymphocytes # 2.2 K/mcL (0.6-4.6); Monocytes # 0.3 K/mcL (0.0-1.3); Neutrophils # 12.2 K/mcL (1.6-8.9); Platelet Estimate Normal (Normal); Polychromasia 1+ (Not Present)
[2016-07-27 04:35] LABS: Anisocytosis 1+ (Not Present)
[2016-07-27 04:36] LABS: Macrocytosis Present (Not Present)
[2016-07-27] MEDS: Doxycycline 100 MG CAPSULE PO SCH ×2 (08:30→20:23)
[2016-07-27] MEDS: *HR* Amiodarone 200 MG TABLET PO SCH (08:30)
[2016-07-27] MEDS: Sennosides/Docusate Sodium TABLET PO SCH ×2 (08:30→20:24)
[2016-07-27] MEDS: Miconazole 2% ointment 114 GM TUBE TP SCH (08:31)
[2016-07-27] MEDS: Nystatin POWDER 30 GM BOTTLE TP SCH ×3 (08:31→21:50)
[2016-07-27] MEDS ORDERED: Furosemide 20 MG/2 ML VIAL IVP ONE ×2 (09:19→16:24)
--- NOTE | 2016-07-27 09:21 | Internal Med Progress Note ---
Date of Encounter: 07/27/16 Time of Encounter: 09:17 - Assessment and plan (1) Sepsis Current Visit: Yes Status: Acute Assessment and plan: Secondary to abdominal wall cellulitis Abd CT scan with no evidence of abscesses or collections, Initial blood cuture with S. hominis Repeat Blood culture NTD She has had >10 days of ceftriaxone, discontinued 07/25 Started on doxycycline based on first blood culture HR and leukocytosis improving, BP WNL Continue to monitor hemodynamic status Patient with complicated hospital stay and many active problems Qualifiers: Sepsis type: sepsis due to unspecified organism Qualified Code(s): A41.9 - Sepsis, unspecified organism (2) Cellulitis Current Visit: Yes Status: Acute Assessment and plan: as above Qualifiers: Site of cellulitis: trunk Site of cellulitis of trunk: abdominal wall Qualified Code(s): L03.311 - Cellulitis of abdominal wall (3) Acute exacerbation of chronic obstructive pulmonary disease (COPD) Current Visit: Yes Status: Resolved (4) Tobacco abuse Current Visit: Yes Status: Chronic Assessment and plan: Chronic, counselling done (5) Acute on chronic respiratory failure with hypoxia and hypercapnia Current Visit: Yes Status: Acute Assessment and plan: s/p intubation , extubated 5.25 Was Stable on room air, needed O2 overnight, CXR with stale pulmonary edema and new R pleural effusion, no infiltrates, continue O2, restart diuresis (6) NSTEMI (non-ST elevated myocardial infarction) Current Visit: Yes Status: Ruled-out Assessment and plan: Suspected, ruled out per cardiology, no intervention. Elevated troponins possibly from demand ischemia (7) Atrial flutter with rapid ventricular response Current Visit: Yes Status: Acute Assessment and plan: HR controlled now CHADS scre 4 but not ideal candidate for AC due to GIB Continue LOpressor Hb stable May start ASA at a later date Cardiology input appreciated, will re-consult prn (8) GI (gastrointestinal bleed) Current Visit: Yes Status: Acute Assessment and plan: Continue PPI, change to po Follow biopsy Hb slightly decreased to 7.9 this a.m, continue to monitor Transfuse for HB <7 Qualifiers: GI bleed type/associated pathology: duodenal ulcer Qualified Code(s): K26.4 - Chronic or unspecified duodenal ulcer with hemorrhage (9) Diastolic heart failure Current Visit: Yes Status: Acute Assessment and plan: Echo 07/14/16 with LVEF 50-60%, all wall segments show normal motion, no severe valvular disease. I/O negative ~8L BP stable REinitiated diuresis this a.m Qualifiers: Heart failure chronicity: acute on chronic Qualified Code(s): I50.33 - Acute on chronic diastolic (congestive) heart failure (10) Elevated troponin Current Visit: Yes Status: Acute (11) Morbid obesity with alveolar hypoventilation Current Visit: Yes Status: Chronic (12) Acute blood loss anemia Current Visit: Yes Status: Acute (13) Duodenal ulcer Current Visit: Yes Status: Acute (14) Morbid obesity with BMI of 60.0-69.9, adult Current Visit: Yes Status: Chronic - Subjective Interval history: Seen and evaluated at bedside 71 F, Morbidy Obese, complicated hospital stay Being managed for acute hypoxic and hypercapneic respiratory failure secondary to acute on chronic CHF, COPDE, Obesity hypoventilation syndrome (extubated 07/20 ), acute CHF, NSTEMI, hospital stay complicated by acute blood loss anemia secondary to GIB from bleeding duodenal ulcer , sepsis secondary to anterior abdominal wall panniculitis/cellulitis, Atrial fibrillation, Hypotension Denied new complains Patient noted to have required increasing O2 overnight STAT CXR reveals pulmonary edema, unchanged from before, new R pleural effusion , no infiltrates Leukocytosis persists, slight decrease in Hb 7.9 Will start patient on low dose lasix IV daily , decrease metoprolol , continue other treatment - Constitutional Vitals: Temp Pulse Resp BP Pulse Ox 97.9 F 68 16 97/87 85 07/27/16 07:35 07/27/16 07:35 07/27/16 07:35 07/27/16 07:35 07/27/16 07:35 VSS Morbidly obese, flat affect Neuro: Alert, awake, oriented, moves all limbs equally HEENT: Moist oral mucosa, no cuanosis, no scleral icterus, Chest: Anterior auscultation only, clear to auscultation bilaterally. Heart S1-S2 irregular. Abdomen morbidly obese, right lower quadrant cellulitis with evidence of ecchymoses and bruising, tender, and positive differential warmth. Extremities 2+ bilateral pitting pedal edema Skin multiple bruising from blood draws and IV accesses. Internal Medicine: Result - Labs CBC & Chem 7: 07/27/16 03:09 07/26/16 03:37 Labs: Short CBC 07/27/16 Range/Units 03:09 WBC 16.0 H (4.3-11.1) K/mcL Hgb 7.9 L (11.5-15.4) g/dL Hct 26.8 L (35.3-44.9) % Plt Count 278 (140-400) K/mcL Neutrophils # 12.2 H (1.6-8.9) K/mcL Cardiac Enzymes 07/26/16 07/26/16 Range/Units 09:01 15:13 Troponin I 0.11 H* 0.12 H* (0-0.03) ng/mL - ABG Interpretation ABG results: ABG ABG pH 7.41 pH Units (7.32-7.45) 07/20/16 07:55 ABG pCO2 66 mmHg (35-45) H 07/20/16 07:55 ABG pO2 52 mmHg (85-104) L 07/20/16 07:55 ABG O2 Saturation 87 % (95-98) L 07/20/16 07:55 PT/INR, D-dimer PT 18.3 Seconds (9.4-12.1) H 07/24/16 16:57 - Impressions Impressions Chest X-Ray 07/27/16 07:44 IMPRESSION: Cardiomegaly and pulmonary edema may reflect congestive heart failure. New, small right pleural effusion. D/ : / 07/27/2016 08:49:16 Sada Santiago MD / tonie Interpreting Provider: Sada Santiago MD Consult Discharge Plan - Plan Referrals: Maddi Chong DO [Partnered Physician] - 09/13/16 10:30 am (Office will call you if an appointment becomes open at a earlier date) Blair Nichols DO [Partnered Physician] - (office makes their own appointments)
[2016-07-28 04:03] LABS: Hemoglobin 7.6 g/dL (11.5-15.4); Mean Corpuscular HGB Conc 30.4 g/dL (31.6-35.5); Mean Corpuscular Hemoglobin 31.3 pg (28.0-33.3); Mean Corpuscular Volume 102.9 fL (83.0-100.0); Mean Platelet Volume 10.6 fL (9.4-12.4); Nucleated Red Blood Cells 2.2 /100 WBC (0); Platelet Count 270 K/mcL (140-400); Red Blood Count 2.43 M/mcL (3.82-4.97); Red Cell Distribution Width 17.9 % (11.5-14.5)
[2016-07-28 04:15] LABS: BUN/Creatinine Ratio 32 (6-26); Blood Urea Nitrogen 24 mg/dL (7-20); Calcium 7.9 mg/dL (8.6-10.8); Carbon Dioxide 35 mEq/L (19-29); Chloride 99 mEq/L (98-109); Glucose 83 mg/dL (70-99); Osmolality,Calculated 293 (280-300); Potassium 3.5 mEq/L (3.5-4.5); Sodium 140 mEq/L (136-145); eGFR For African Americans > 60 (> 60); eGFR For Non-African Americans > 60 (> 60)
[2016-07-28 04:27] LABS: Eosinophils # 0.3 K/mcL (0.0-0.6); Lymphocytes # 1.4 K/mcL (0.6-4.6); Monocytes # 0.8 K/mcL (0.0-1.3); Neutrophils # 11.2 K/mcL (1.6-8.9)
[2016-07-28 04:28] LABS: Macrocytosis Present (Not Present); Platelet Estimate Normal (Normal); Polychromasia 1+ (Not Present)
[2016-07-28] MEDS ORDERED: Furosemide 20 MG/2 ML VIAL IVP SCH (09:00)
[2016-07-28] MEDS: *HR* Amiodarone 200 MG TABLET PO SCH (09:02)
[2016-07-28] MEDS: Miconazole 2% ointment 114 GM TUBE TP SCH (09:02)
[2016-07-28] MEDS: Furosemide 20 MG/2 ML VIAL IVP SCH (09:02)
[2016-07-28] MEDS: Doxycycline 100 MG CAPSULE PO SCH ×2 (09:02→21:40)
[2016-07-28] MEDS: Sennosides/Docusate Sodium TABLET PO SCH ×3 (09:02→21:40)
[2016-07-28] MEDS: Nystatin POWDER 30 GM BOTTLE TP SCH ×3 (09:03→21:40)
--- NOTE | 2016-07-28 10:44 | Internal Med Progress Note ---
Date of Encounter: 07/28/16 Time of Encounter: 10:39 - Assessment and plan (1) Sepsis Current Visit: Yes Status: Acute Assessment and plan: Secondary to abdominal wall cellulitis Abd CT scan with no evidence of abscesses or collections, Initial blood cuture with S. hominis Repeat Blood culture NTD She has had >10 days of ceftriaxone, discontinued 07/25 Started on doxycycline-Day 4 HR and leukocytosis improving, BP WNL Continue to monitor hemodynamic status Patient with complicated hospital stay and many active problems Qualifiers: Sepsis type: sepsis due to unspecified organism Qualified Code(s): A41.9 - Sepsis, unspecified organism (2) Cellulitis Current Visit: Yes Status: Acute Assessment and plan: Improving as above Qualifiers: Site of cellulitis: trunk Site of cellulitis of trunk: abdominal wall Qualified Code(s): L03.311 - Cellulitis of abdominal wall (3) Acute exacerbation of chronic obstructive pulmonary disease (COPD) Current Visit: Yes Status: Resolved Assessment and plan: Resolved (4) Tobacco abuse Current Visit: Yes Status: Chronic Assessment and plan: Chronic, counselling done (5) Acute on chronic respiratory failure with hypoxia and hypercapnia Current Visit: Yes Status: Acute (6) NSTEMI (non-ST elevated myocardial infarction) Current Visit: Yes Status: Ruled-out (7) Atrial flutter with rapid ventricular response Current Visit: Yes Status: Acute (8) GI (gastrointestinal bleed) Current Visit: Yes Status: Acute Qualifiers: GI bleed type/associated pathology: duodenal ulcer Qualified Code(s): K26.4 - Chronic or unspecified duodenal ulcer with hemorrhage (9) Diastolic heart failure Current Visit: Yes Status: Acute Qualifiers: Heart failure chronicity: acute on chronic Qualified Code(s): I50.33 - Acute on chronic diastolic (congestive) heart failure (10) Elevated troponin Current Visit: Yes Status: Acute (11) Morbid obesity with alveolar hypoventilation Current Visit: Yes Status: Chronic (12) Acute blood loss anemia Current Visit: Yes Status: Acute (13) Duodenal ulcer Current Visit: Yes Status: Acute (14) Morbid obesity with BMI of 60.0-69.9, adult Current Visit: Yes Status: Chronic - Subjective Interval history: Seen and evaluated at bedside 71 F, Morbidly Obese, complicated hospital stay Being managed for acute hypoxic and hypercapneic respiratory failure secondary to acute on chronic CHF, COPDE, Obesity hypoventilation syndrome (extubated 07/20 ), acute CHF, NSTEMI, hospital stay complicated by acute blood loss anemia secondary to GIB from bleeding duodenal ulcer , sepsis secondary to anterior abdominal wall panniculitis/cellulitis, Atrial fibrillation, Hypotension Denied new complains Patient is having adequate diuresis from IV lsix, I/O negative 9.2L Her WBC has stabilized but HB continues to slowly decrease Her HR and BP have improved 7.6 today from 7.9 07/27 She is having ~1 BM daily, said to be brown per patient, patient may need review of GIB if HB continues to trend down Plan for discharge is to SNF Her HB on admission was 15 - Constitutional Vitals: Temp Pulse Resp BP Pulse Ox 98.4 F 69 16 110/51 92 07/28/16 07:56 07/28/16 03:05 07/28/16 07:56 07/28/16 07:56 07/28/16 07:56 VSS, on 7L O2 by NC, O2 sat 91% Morbidly obese, flat affect-patient continues to deny depression everyday Neuro: Alert, awake, oriented, moves all limbs equally HEENT: Moist oral mucosa, no cyanosis, no scleral icterus, Chest: Anterior auscultation only, clear to auscultation bilaterally. Heart S1-S2 irregular. Abdomen morbidly obese, right lower quadrant cellulitis with evidence of ecchymoses and bruising, no tenderness, improved clinically Extremities 2+ bilateral pitting pedal edema Skin multiple bruising from blood draws and IV accesses. Internal Medicine: Result - Labs CBC & Chem 7: 07/28/16 03:36 07/28/16 03:36 Labs: Short CBC 07/28/16 Range/Units 03:36 WBC 14.0 H (4.3-11.1) K/mcL Hgb 7.6 L (11.5-15.4) g/dL Hct 25.0 L (35.3-44.9) % Plt Count 270 (140-400) K/mcL Neutrophils # 11.2 H (1.6-8.9) K/mcL BMP 07/28/16 03:36 Sodium 140 Potassium 3.5 Chloride 99 Carbon Dioxide 35 H BUN 24 H Creatinine 0.74 Glucose 83 Calcium 7.9 L - ABG Interpretation ABG results: ABG ABG pH 7.41 pH Units (7.32-7.45) 07/20/16 07:55 ABG pCO2 66 mmHg (35-45) H 07/20/16 07:55 ABG pO2 52 mmHg (85-104) L 07/20/16 07:55 ABG O2 Saturation 87 % (95-98) L 07/20/16 07:55 PT/INR, D-dimer PT 18.3 Seconds (9.4-12.1) H 07/24/16 16:57 - Impressions Impressions Chest X-Ray 07/27/16 07:44 IMPRESSION: Cardiomegaly and pulmonary edema may reflect congestive heart failure. New, small right pleural effusion. D/ / 07/27/2016 08:49:16 Sada Santiago MD / tonie Interpreting Provider: Sada Santiago MD Consult Discharge Plan - Plan Referrals: Maddi Chong DO [Partnered Physician] - 09/13/16 10:30 am (Office will call you if an appointment becomes open at a earlier date) Blair Nichols DO [Partnered Physician] - (office makes their own appointments)
[2016-07-29 06:22] LABS: Hematocrit 27.3 % (35.3-44.9); Hemoglobin 8.2 g/dL (11.5-15.4); Mean Corpuscular Hemoglobin 30.6 pg (28.0-33.3); Mean Corpuscular Volume 101.9 fL (83.0-100.0); Platelet Count 268 K/mcL (140-400); Red Blood Count 2.68 M/mcL (3.82-4.97); Red Cell Distribution Width 17.9 % (11.5-14.5)
[2016-07-29 06:35] LABS: BUN/Creatinine Ratio 30 (6-26); Blood Urea Nitrogen 21 mg/dL (7-20); Calcium 7.9 mg/dL (8.6-10.8); Carbon Dioxide 34 mEq/L (19-29); Chloride 99 mEq/L (98-109); Glucose 85 mg/dL (70-99); Osmolality,Calculated 288 (280-300); Potassium 3.5 mEq/L (3.5-4.5); Sodium 138 mEq/L (136-145); eGFR For African Americans > 60 (> 60); eGFR For Non-African Americans > 60 (> 60)
[2016-07-29 08:18] LABS: Anisocytosis 1+ (Not Present); Eosinophils # 0.4 K/mcL (0.0-0.6); Lymphocytes # 2.8 K/mcL (0.6-4.6); Monocytes # 0.6 K/mcL (0.0-1.3); Neutrophils # 6.9 K/mcL (1.6-8.9)
[2016-07-29 08:19] LABS: Polychromasia 1+ (Not Present)
[2016-07-29 08:20] LABS: Hypochromasia Present (Not Present); Platelet Estimate Normal (Normal)
[2016-07-29] MEDS: Sennosides/Docusate Sodium TABLET PO SCH ×2 (09:00→20:07)
[2016-07-29] MEDS: Furosemide 20 MG/2 ML VIAL IVP SCH (09:00)
[2016-07-29] MEDS: Doxycycline 100 MG CAPSULE PO SCH ×2 (09:00→20:08)
[2016-07-29] MEDS: *HR* Amiodarone 200 MG TABLET PO SCH (09:00)
[2016-07-29] MEDS: Miconazole 2% ointment 114 GM TUBE TP SCH (09:01)
[2016-07-29] MEDS: Nystatin POWDER 30 GM BOTTLE TP SCH ×3 (09:01→20:09)
--- NOTE | 2016-07-29 11:02 | Discharge Summary ---
Date of Encounter: 07/29/16 Time of Encounter: 11:02 - Discharge Diagnosis (1) Sepsis Status: Resolved Qualifiers: Sepsis type: sepsis due to unspecified organism Qualified Code(s): A41.9 - Sepsis, unspecified organism (2) Cellulitis Status: Acute Qualifiers: Site of cellulitis: trunk Site of cellulitis of trunk: abdominal wall Qualified Code(s): L03.311 - Cellulitis of abdominal wall (3) Acute exacerbation of chronic obstructive pulmonary disease (COPD) Status: Resolved (4) Tobacco abuse Status: Chronic (5) Acute on chronic respiratory failure with hypoxia and hypercapnia Status: Acute (6) NSTEMI (non-ST elevated myocardial infarction) Status: Ruled-out (7) Atrial flutter with rapid ventricular response Status: Acute (8) GI (gastrointestinal bleed) Status: Acute Qualifiers: GI bleed type/associated pathology: duodenal ulcer Qualified Code(s): K26.4 - Chronic or unspecified duodenal ulcer with hemorrhage (9) Diastolic heart failure Status: Acute Qualifiers: Heart failure chronicity: acute on chronic Qualified Code(s): I50.33 - Acute on chronic diastolic (congestive) heart failure (10) Elevated troponin Status: Acute (11) Morbid obesity with alveolar hypoventilation Status: Chronic (12) Acute blood loss anemia Status: Acute (13) Duodenal ulcer Status: Acute (14) Morbid obesity with BMI of 60.0-69.9, adult Status: Chronic - Discharge Medications Home Medications: Furosemide [Lasix] 40 mg PO TID 30 Days 02/16/15 [Rx] Gabapentin [Neurontin] 300 mg PO TID capsule 02/16/15 [Rx] Acetaminophen [Tylenol] 1,000 mg PO Q6HR PRN 07/14/16 [History] Allergies/Adverse Reactions: Allergies No Known Allergies Allergy (Verified 01/03/15 19:02) Date of admission: 07/14/16 11:08 Primary care physician: PCP NO Consults: 07/14/16 11:31 Consult to Public Health Technician [CONS] Routine Reason for SW Consult: HOME WITH SPOUSE. 07/14/16 12:34 Consult to Critical Care [CONS] Routine Consulting Provider: [facility] [place] Reason for Consult: Respiratory failure Call Completed: Yes 07/14/16 14:17 Consult to Cardiac Rehabilitation-Phase1 [CONS] Routine Comment: Reason for Consult: NSTEMI Call Completed: No 07/15/16 09:06 Consult to Nutrition [CONS] Routine Comment: Consulting Provider: NUTRITION Reason for Dietary Consult: TF Start and Manage 07/21/16 11:16 Consult to Occupational Therapy [CONS] Stat Comment: Evaluate, develop and implement POC Reason for Consult: POC Consult to Physical Therapy [CONS] Stat Comment: Evaluate, develop and implement POC Reason for Consult: POC 07/21/16 14:20 Consult to Speech Therapy [CONS] Stat Comment: Evaluate, develop and implement POC Reason for Consult: POC Call Completed: No 07/22/16 08:48 Consult to Gastroenterology [CONS] Routine Consulting Provider: Yohan Tran Reason for Consult: gi bleed, spoke with Dr. Tran Time Notified: 08:56 Call Completed: Yes - Patient Status Condition: Fair - Discharge Instructions Follow Up With: Maddi Chong DO [Partnered Physician] - 09/13/16 10:30 am (Office will call you if an appointment becomes open at a earlier date) Blair Nichols DO [Partnered Physician] - (office makes their own appointments) Forms: ED Satisfaction Letter Hospital course: Ms. Plata is a 71 year old female - Time Spent with Patient Total time spent providing and/or coordinating discharge services: - Constitutional Vitals: Temp Pulse Resp BP Pulse Ox 97.8 F 80 20 117/54 89 07/29/16 08:11 07/29/16 08:11 07/29/16 08:11 07/29/16 08:11 07/29/16 08:11
--- NOTE | 2016-07-29 11:02 | Physician Discharge Referral ---
[facility] Referral Info Transfer To: [facility] Provider in Charge: Dr. Brown Provider in Charge after Transfer: PCP Institutional Level of Care: Skilled - Diagnosis (1) Sepsis Priority: Primary Status: Resolved (2) Cellulitis Priority: Primary Status: Acute (3) Acute exacerbation of chronic obstructive pulmonary disease (COPD) Priority: Primary Status: Resolved (4) Tobacco abuse Priority: Secondary Status: Chronic (5) Acute on chronic respiratory failure with hypoxia and hypercapnia Priority: Primary Status: Acute (6) NSTEMI (non-ST elevated myocardial infarction) Priority: Secondary Status: Ruled-out (7) Atrial flutter with rapid ventricular response Priority: Primary Status: Acute (8) GI (gastrointestinal bleed) Priority: Primary Status: Acute (9) Diastolic heart failure Priority: Primary Status: Acute (10) Elevated troponin Priority: Primary Status: Acute (11) Morbid obesity with alveolar hypoventilation Priority: Secondary Status: Chronic (12) Acute blood loss anemia Priority: Primary Status: Acute (13) Duodenal ulcer Priority: Primary Status: Acute (14) Morbid obesity with BMI of 60.0-69.9, adult Priority: Secondary Status: Chronic Prognosis: Fair Aware of Diagnosis: Patient Aware of Prognosis: Patient - Transfer Medications Home Medications: Furosemide [Lasix] 40 mg PO TID 30 Days 02/16/15 [Rx] Gabapentin [Neurontin] 300 mg PO TID capsule 02/16/15 [Rx] Acetaminophen [Tylenol] 1,000 mg PO Q6HR PRN 07/14/16 [History] Allergies/Adverse Reactions: Allergies No Known Allergies Allergy (Verified 01/03/15 19:02) - Respiratory Orders Smoking Cessation: Smoking cessation has been advised. For more information, call the [place] Tobacco Quit Line at 3-984-LUSI-NOW. CERTIFICATION: I certify that the transfer of the above named patient to an Extended Care Facility is necessary for the continuing treatment of the diagnosis listed. The above information is true and accurate reflection of patient's current condition. Confidential - Redisclosure prohibited without a patient's written consent.
--- NOTE | 2016-07-29 14:01 | Internal Med Progress Note ---
Date of Encounter: 07/29/16 Time of Encounter: 13:57 - Assessment and plan (1) Sepsis Current Visit: Yes Status: Resolved Assessment and plan: Secondary to abdominal wall cellulitis, resolved Abd CT scan with no evidence of abscesses or collections, Initial blood cuture with S. hominis Repeat Blood culture NTD She had 10 days of ceftriaxone, discontinued 07/25 Started on doxycycline-Day 5 HR and BP WNL Lekocytosis resolved Continue to monitor hemodynamic status Patient with complicated hospital stay and many active problems Qualifiers: Sepsis type: sepsis due to unspecified organism Qualified Code(s): A41.9 - Sepsis, unspecified organism (2) Cellulitis Current Visit: Yes Status: Acute Assessment and plan: Improving as above Qualifiers: Site of cellulitis: trunk Site of cellulitis of trunk: abdominal wall Qualified Code(s): L03.311 - Cellulitis of abdominal wall (3) Acute exacerbation of chronic obstructive pulmonary disease (COPD) Current Visit: Yes Status: Resolved Assessment and plan: Resolved (4) Tobacco abuse Current Visit: Yes Status: Chronic Assessment and plan: Chronic, counselling done (5) Acute on chronic respiratory failure with hypoxia and hypercapnia Current Visit: Yes Status: Acute Assessment and plan: s/p intubation , extubated 5.25 Was Stable on room air, needed O2 overnight, CXR with stale pulmonary edema and new R pleural effusion, no infiltrates, continue O2, Increase dose of lasix (6) NSTEMI (non-ST elevated myocardial infarction) Current Visit: Yes Status: Ruled-out Assessment and plan: Suspected, ruled out per cardiology, no intervention. Elevated troponins possibly from demand ischemia (7) Atrial flutter with rapid ventricular response Current Visit: Yes Status: Acute Assessment and plan: HR controlled now CHADS scre 4 but not ideal candidate for AC due to GIB Continue LOpressor Hb stable May start ASA at a later date Cardiology input appreciated, will re-consult prn (8) GI (gastrointestinal bleed) Current Visit: Yes Status: Acute Assessment and plan: Continue PPI, change to po Follow biopsy Hb slightly decreased to 7.9 this a.m, continue to monitor Transfuse for HB <7 Qualifiers: GI bleed type/associated pathology: duodenal ulcer Qualified Code(s): K26.4 - Chronic or unspecified duodenal ulcer with hemorrhage (9) Diastolic heart failure Current Visit: Yes Status: Acute Assessment and plan: Echo 07/14/16 with LVEF 50-60%, all wall segments show normal motion, no severe valvular disease. I/O negative ~9L BP stable Continue lasix IV Qualifiers: Heart failure chronicity: acute on chronic Qualified Code(s): I50.33 - Acute on chronic diastolic (congestive) heart failure (10) Elevated troponin Current Visit: Yes Status: Acute Assessment and plan: From demand ischemia, no intervention per cardiology (11) Morbid obesity with alveolar hypoventilation Current Visit: Yes Status: Chronic Assessment and plan: O2 prn (12) Acute blood loss anemia Current Visit: Yes Status: Resolved Assessment and plan: Stable Hb (13) Duodenal ulcer Current Visit: Yes Status: Acute Assessment and plan: Continue PPI bid for life (14) Morbid obesity with BMI of 60.0-69.9, adult Current Visit: Yes Status: Chronic - Subjective Interval history: Seen and evaluated at bedside 71 F, Morbidly Obese, complicated hospital stay Being managed for acute hypoxic and hypercapneic respiratory failure secondary to acute on chronic CHF, COPDE, Obesity hypoventilation syndrome (extubated 07/20 ), acute CHF, NSTEMI, hospital stay complicated by acute blood loss anemia secondary to GIB from bleeding duodenal ulcer , sepsis secondary to anterior abdominal wall panniculitis/cellulitis, Atrial fibrillation, Hypotension Denied new complains Patient is having adequate diuresis from IV lsix, I/O negative 9.2L WBC, HB, HR< BP all stable Continues to have 7L O2 supplement Bed is available at [facility] but patient's O2 requirement has to be 5 or less Will continue aggressive diuresis - Constitutional Vitals: Temp Pulse Resp BP Pulse Ox 98.1 F 60 20 101/49 87 07/29/16 11:19 07/29/16 11:19 07/29/16 11:19 07/29/16 11:19 07/29/16 11:19 Exam: VSS, on 7L O2 by NC, O2 sat 91% Morbidly obese, flat affect-patient continues to deny depression everyday Neuro: Alert, awake, oriented, moves all limbs equally HEENT: Moist oral mucosa, no cyanosis, no scleral icterus, Chest: Anterior auscultation only, clear to auscultation bilaterally. Heart S1-S2 irregular. Abdomen morbidly obese, right lower quadrant cellulitis with evidence of ecchymoses and bruising, no tenderness, improved clinically Extremities 2+ bilateral pitting pedal edema Skin multiple bruising from blood draws and IV accesses. Internal Medicine: Result - Labs CBC & Chem 7: 07/29/16 06:09 07/29/16 06:09 Labs: Short CBC 07/29/16 Range/Units 06:09 WBC 10.7 (4.3-11.1) K/mcL Hgb 8.2 L (11.5-15.4) g/dL Hct 27.3 L (35.3-44.9) % Plt Count 268 (140-400) K/mcL Neutrophils # 6.9 (1.6-8.9) K/mcL BMP 07/29/16 06:09 Sodium 138 Potassium 3.5 Chloride 99 Carbon Dioxide 34 H BUN 21 H Creatinine 0.70 Glucose 85 Calcium 7.9 L - ABG Interpretation ABG results: ABG ABG pH 7.41 pH Units (7.32-7.45) 07/20/16 07:55 ABG pCO2 66 mmHg (35-45) H 07/20/16 07:55 ABG pO2 52 mmHg (85-104) L 07/20/16 07:55 ABG O2 Saturation 87 % (95-98) L 07/20/16 07:55 PT/INR, D-dimer PT 18.3 Seconds (9.4-12.1) H 07/24/16 16:57 Consult Discharge Plan - Plan Referrals: Maddi Chong DO [Partnered Physician] - 09/13/16 10:30 am (Office will call you if an appointment becomes open at a earlier date) Blair Nichols DO [Partnered Physician] - (office makes their own appointments)
[2016-07-30] MEDS: Doxycycline 100 MG CAPSULE PO SCH ×2 (07:41→21:17)
[2016-07-30] MEDS: *HR* Amiodarone 200 MG TABLET PO SCH (07:42)
[2016-07-30] MEDS: Furosemide 20 MG/2 ML VIAL IVP SCH (07:43)
[2016-07-30] MEDS: Miconazole 2% ointment 114 GM TUBE TP SCH (07:44)
[2016-07-30] MEDS: Nystatin POWDER 30 GM BOTTLE TP SCH ×3 (07:44→21:18)
[2016-07-30] MEDS: Sennosides/Docusate Sodium TABLET PO SCH ×2 (07:45→21:17)
[2016-07-30] MEDS: Furosemide 40 MG TABLET PO SCH ×2 (08:09→15:58)
--- NOTE | 2016-07-30 09:56 | Internal Med Progress Note ---
Date of Encounter: 07/30/16 Time of Encounter: 09:20 - Assessment and plan (1) Sepsis Current Visit: Yes Status: Resolved Assessment and plan: Resolved Was Secondary to abdominal wall cellulitis Abd CT scan with no evidence of abscesses or collections, Initial blood cuture with S. hominis Repeat Blood culture NTD She had 10 days of ceftriaxone, discontinued 07/25 Started on doxycycline-Day 6, will complete 7 days, hence d/c after tomorrow's dose HR and BP WNL Leukocytosis resolved Qualifiers: Sepsis type: sepsis due to unspecified organism Qualified Code(s): A41.9 - Sepsis, unspecified organism (2) Cellulitis Current Visit: Yes Status: Acute Assessment and plan: Improving as above Qualifiers: Site of cellulitis: trunk Site of cellulitis of trunk: abdominal wall Qualified Code(s): L03.311 - Cellulitis of abdominal wall (3) Acute exacerbation of chronic obstructive pulmonary disease (COPD) Current Visit: Yes Status: Resolved Assessment and plan: Resolved (4) Tobacco abuse Current Visit: Yes Status: Chronic Assessment and plan: Chronic, counselling done (5) Acute on chronic respiratory failure with hypoxia and hypercapnia Current Visit: Yes Status: Acute Assessment and plan: s/p intubation , extubated 5.25 CXR with Pulmonary edema Continue O2 supplements Continue diuresis (6) NSTEMI (non-ST elevated myocardial infarction) Current Visit: Yes Status: Ruled-out Assessment and plan: Suspected, ruled out per cardiology, no intervention. Elevated troponins possibly from demand ischemia (7) Atrial flutter with rapid ventricular response Current Visit: Yes Status: Acute Assessment and plan: HR controlled now CHADS scre 4 but not ideal candidate for AC due to GIB Continue LOpressor Hb stable Started ASA today, HB has been stable for >4 days Cardiology input appreciated, will re-consult prn (8) GI (gastrointestinal bleed) Current Visit: Yes Status: Acute Assessment and plan: Continue PPI, change to po Follow biopsy Hb slightly decreased to 7.9 this a.m, continue to monitor Transfuse for HB <7 Qualifiers: GI bleed type/associated pathology: duodenal ulcer Qualified Code(s): K26.4 - Chronic or unspecified duodenal ulcer with hemorrhage (9) Diastolic heart failure Current Visit: Yes Status: Acute Assessment and plan: Echo 07/14/16 with LVEF 50-60%, all wall segments show normal motion, no severe valvular disease. I/O negative ~12L BP stable Continue lasix IV Qualifiers: Heart failure chronicity: acute on chronic Qualified Code(s): I50.33 - Acute on chronic diastolic (congestive) heart failure (10) Elevated troponin Current Visit: Yes Status: Acute Assessment and plan: From demand ischemia, no intervention per cardiology (11) Morbid obesity with alveolar hypoventilation Current Visit: Yes Status: Chronic Assessment and plan: O2 prn (12) Acute blood loss anemia Current Visit: Yes Status: Resolved Assessment and plan: Stable Hb (13) Duodenal ulcer Current Visit: Yes Status: Acute Assessment and plan: Continue PPI bid for life (14) Morbid obesity with BMI of 60.0-69.9, adult Current Visit: Yes Status: Chronic - Subjective Interval history: Seen and evaluated at bedside 71 F, Morbidly Obese, complicated hospital stay Being managed for acute hypoxic and hypercapneic respiratory failure secondary to acute on chronic CHF, COPDE, Obesity hypoventilation syndrome (extubated 07/20 ), acute CHF, NSTEMI, hospital stay complicated by acute blood loss anemia secondary to GIB from bleeding duodenal ulcer , sepsis secondary to anterior abdominal wall panniculitis/cellulitis, Atrial fibrillation, Hypotension HR and BP have improved, and being tolerating increament in doses of medications She continues to require 6L O2 Will give 120mg lasix today, change to po from tomorrow I/O -12L. Renal function is stable - Constitutional Vitals: Temp Pulse Resp BP Pulse Ox 98.2 F 62 18 115/58 88 07/30/16 08:20 07/30/16 08:20 07/30/16 08:20 07/30/16 08:20 07/30/16 08:20 General appearance: Present: A&O X 3, morbidly obese, no acute distress - Head Head exam: Present: atraumatic, normocephalic - Eye Eye exam: Present: PERRL, conjuntiva pink, sclera anicteric Pupils: Present: PERRL - Neck Neck exam general surgery: Present: supple, trachea midline. Absent: lymphadenopathy - Respiratory Respiratory exam: Present: CTAB. Absent: accessory muscle use, rales, rhonchi, wheezes - Cardiovascular Cardiovascular exam: Present: irregular rhythm, +S1, +S2. Absent: diastolic murmur, gallop, rubs, systolic murmur - GI/Abdominal GI/Abdominal exam: Present: normal bowel sounds, soft, no peritoneal signs. Absent: distended, tenderness Additional comments: Mporbidly obese, with slight erythema on LLQ, not tender - Extremities Exam Extremities exam: Present: pedal edema (2+, improved from prior, chronic venous stasis changes), warm, radial pulses palpable and symetrical. Absent: calf tenderness, cyanotic - Neurological Exam Neurological exam: Present: alert, CN II-XII intact, oriented X3, no focal deficits. Absent: pronater drift, facial droop, speech deficit - Skin Skin exam: Present: dry, intact Internal Medicine: Result - Labs CBC & Chem 7: 07/29/16 06:09 07/29/16 06:09 - ABG Interpretation ABG results: ABG ABG pH 7.41 pH Units (7.32-7.45) 07/20/16 07:55 ABG pCO2 66 mmHg (35-45) H 07/20/16 07:55 ABG pO2 52 mmHg (85-104) L 07/20/16 07:55 ABG O2 Saturation 87 % (95-98) L 07/20/16 07:55 PT/INR, D-dimer PT 18.3 Seconds (9.4-12.1) H 07/24/16 16:57 Consult Discharge Plan - Plan Referrals: Maddi Chong DO [Partnered Physician] - 09/13/16 10:30 am (Office will call you if an appointment becomes open at a earlier date) Blair Nichols DO [Partnered Physician] - (office makes their own appointments)
[2016-07-30] MEDS: Aspirin Enteric Coated 81 MG Tablet PO SCH (12:58)
[2016-07-31 06:52] LABS: BUN/Creatinine Ratio 16 (6-26); Blood Urea Nitrogen 12 mg/dL (7-20); Calcium 7.9 mg/dL (8.6-10.8); Carbon Dioxide 37 mEq/L (19-29); Chloride 95 mEq/L (98-109); Glucose 70 mg/dL (70-99); Osmolality,Calculated 288 (280-300); Potassium 3.5 mEq/L (3.5-4.5); Sodium 140 mEq/L (136-145); eGFR For African Americans > 60 (> 60); eGFR For Non-African Americans > 60 (> 60)
--- NOTE | 2016-07-31 09:43 | Internal Med Progress Note ---
Date of Encounter: 07/31/16 Time of Encounter: 09:00 - Assessment and plan (1) Sepsis Current Visit: Yes Status: Resolved Assessment and plan: Resolved Was Secondary to abdominal wall cellulitis Abd CT scan with no evidence of abscesses or collections, Initial blood cuture with S. hominis Repeat Blood culture NTD She had 10 days of ceftriaxone, discontinued 07/25 Started on doxycycline-Day 7, d/c after today HR and BP WNL Leukocytosis resolved Qualifiers: Sepsis type: sepsis due to unspecified organism Qualified Code(s): A41.9 - Sepsis, unspecified organism (2) Cellulitis Current Visit: Yes Status: Acute Assessment and plan: Improving as above Qualifiers: Site of cellulitis: trunk Site of cellulitis of trunk: abdominal wall Qualified Code(s): L03.311 - Cellulitis of abdominal wall (3) Acute exacerbation of chronic obstructive pulmonary disease (COPD) Current Visit: Yes Status: Resolved Assessment and plan: Resolved (4) Tobacco abuse Current Visit: Yes Status: Chronic Assessment and plan: Chronic, counselling done (5) Acute on chronic respiratory failure with hypoxia and hypercapnia Current Visit: Yes Status: Acute Assessment and plan: s/p intubation , extubated 5.25 CXR with Pulmonary edema Continue O2 supplements Continue diuresis Encourage incentive spirometry (6) NSTEMI (non-ST elevated myocardial infarction) Current Visit: Yes Status: Ruled-out Assessment and plan: Suspected, ruled out per cardiology, no intervention. Elevated troponins possibly from demand ischemia (7) Atrial flutter with rapid ventricular response Current Visit: Yes Status: Acute Assessment and plan: HR controlled now CHADS scre 4 but not ideal candidate for AC due to GIB Continue LOpressor Hb stable Started ASA 6/4, HB has been stable for >4 days Cardiology input appreciated, will re-consult prn (8) GI (gastrointestinal bleed) Current Visit: Yes Status: Acute Assessment and plan: Continue PPI po Follow biopsy Hb stable Transfuse for HB <7 Qualifiers: GI bleed type/associated pathology: duodenal ulcer Qualified Code(s): K26.4 - Chronic or unspecified duodenal ulcer with hemorrhage (9) Diastolic heart failure Current Visit: Yes Status: Acute Assessment and plan: Echo 07/14/16 with LVEF 50-60%, all wall segments show normal motion, no severe valvular disease. I/O negative ~12L BP stable transition to po lasix Qualifiers: Heart failure chronicity: acute on chronic Qualified Code(s): I50.33 - Acute on chronic diastolic (congestive) heart failure (10) Elevated troponin Current Visit: Yes Status: Acute Assessment and plan: From demand ischemia, no intervention per cardiology (11) Morbid obesity with alveolar hypoventilation Current Visit: Yes Status: Chronic Assessment and plan: O2 prn Incentive spirometry (12) Acute blood loss anemia Current Visit: Yes Status: Resolved Assessment and plan: Stable Hb (13) Duodenal ulcer Current Visit: Yes Status: Acute Assessment and plan: Continue PPI bid for life (14) Morbid obesity with BMI of 60.0-69.9, adult Current Visit: Yes Status: Chronic - Subjective Interval history: Seen and evaluated at bedside 71 F, Morbidly Obese, complicated hospital stay Being managed for acute hypoxic and hypercapneic respiratory failure secondary to acute on chronic CHF, COPDE, Obesity hypoventilation syndrome (extubated 07/20 ), acute CHF, NSTEMI, hospital stay complicated by acute blood loss anemia secondary to GIB from bleeding duodenal ulcer , sepsis secondary to anterior abdominal wall panniculitis/cellulitis, Atrial fibrillation, Hypotension She has no new complains Sje states "I will never be able to get off this bed" HR and BP have improved, and being tolerating increment in doses of medications She continues to require 6L O2 I/O -12.7L Per shoe caser, patient will need repre-certification for SNF Also, she is on high flow O2 and will need to be on max 5L O2 to be accpeted, continue to attempt to wean off O2 Add incentive spirometry - Constitutional Vitals: Temp Pulse Resp BP Pulse Ox 97.9 F 63 17 100/53 91 07/31/16 07:18 07/31/16 07:18 07/31/16 07:18 07/31/16 07:18 07/31/16 07:18 General appearance: Present: A&O X 3, morbidly obese, no acute distress - Head Head exam: Present: atraumatic, normocephalic - Eye Eye exam: Present: PERRL, conjuntiva pink, sclera anicteric Pupils: Present: PERRL - Neck Neck exam general surgery: Present: supple, trachea midline. Absent: lymphadenopathy - Respiratory Respiratory exam: Present: CTAB. Absent: accessory muscle use, rales, rhonchi, wheezes - Cardiovascular Cardiovascular exam: Present: irregular rhythm, +S1, +S2. Absent: diastolic murmur, gallop, rubs, systolic murmur - GI/Abdominal GI/Abdominal exam: Present: normal bowel sounds, soft, no peritoneal signs. Absent: distended, tenderness Additional comments: LLQ cellulitis, improving - Extremities Exam Extremities exam: Present: pedal edema (1+, improving), warm, radial pulses palpable and symetrical. Absent: calf tenderness, cyanotic - Neurological Exam Neurological exam: Present: alert, CN II-XII intact, oriented X3, no focal deficits. Absent: pronater drift, facial droop, speech deficit - Skin Skin exam: Present: dry. Absent: normal color Additional comments: Ecchymoses from heparin/blood draws Internal Medicine: Result - Labs CBC & Chem 7: 07/29/16 06:09 07/31/16 06:02 Labs: BMP 07/31/16 06:02 Sodium 140 Potassium 3.5 Chloride 95 L Carbon Dioxide 37 H BUN 12 Creatinine 0.73 Glucose 70 Calcium 7.9 L - ABG Interpretation ABG results: ABG ABG pH 7.41 pH Units (7.32-7.45) 07/20/16 07:55 ABG pCO2 66 mmHg (35-45) H 07/20/16 07:55 ABG pO2 52 mmHg (85-104) L 07/20/16 07:55 ABG O2 Saturation 87 % (95-98) L 07/20/16 07:55 PT/INR, D-dimer PT 18.3 Seconds (9.4-12.1) H 07/24/16 16:57 Consult Discharge Plan - Plan Referrals: Maddi Chong DO [Partnered Physician] - 09/13/16 10:30 am (Office will call you if an appointment becomes open at a earlier date) Blair Nichols DO [Partnered Physician] - (office makes their own appointments)
[2016-07-31] MEDS: Sennosides/Docusate Sodium TABLET PO SCH ×3 (10:51→22:01)
[2016-07-31] MEDS: Doxycycline 100 MG CAPSULE PO SCH ×2 (10:51→22:01)
[2016-07-31] MEDS: Aspirin Enteric Coated 81 MG Tablet PO SCH (10:52)
[2016-07-31] MEDS: Nystatin POWDER 30 GM BOTTLE TP SCH ×3 (10:52→22:02)
[2016-07-31] MEDS: Miconazole 2% ointment 114 GM TUBE TP SCH (10:52)
[2016-07-31] MEDS: Furosemide 40 MG TABLET PO SCH ×2 (10:52→17:48)
[2016-07-31] MEDS: *HR* Amiodarone 200 MG TABLET PO SCH (13:00)
[2016-08-01] MEDS: Miconazole 2% ointment 114 GM TUBE TP SCH (09:17)
[2016-08-01] MEDS: Aspirin Enteric Coated 81 MG Tablet PO SCH (09:17)
[2016-08-01] MEDS: Nystatin POWDER 30 GM BOTTLE TP SCH ×3 (09:17→22:45)
[2016-08-01] MEDS: Furosemide 40 MG TABLET PO SCH ×2 (09:17→16:32)
[2016-08-01] MEDS: Sennosides/Docusate Sodium TABLET PO SCH (09:17)
[2016-08-01] MEDS: *HR* Amiodarone 200 MG TABLET PO SCH (09:18)
--- NOTE | 2016-08-01 14:38 | Internal Med Progress Note ---
Date of Encounter: 08/01/16 Time of Encounter: 11:45 - Assessment and plan (1) Acute on chronic respiratory failure with hypoxia and hypercapnia Current Visit: Yes Status: Acute Assessment and plan: Patient continues to require high levels of O2 supplementation. Currently wearing between 6-10 L via high flow nasal cannula. Height is for complications. We will continue to wean FiO2 as tolerated. Continue physical therapy. Continue incentive spirometry. Discussed with case management. Patient may need to be discharged to a long-term acute care facility instead of subacute rehabilitation due to high O2 requirements. Patient not willing to use BiPAP. Due to morbid obesity, obesity hypoventilation and COPD (2) Acute exacerbation of chronic obstructive pulmonary disease (COPD) Current Visit: Yes Status: Resolved (3) Acute blood loss anemia Current Visit: Yes Status: Resolved (4) Cellulitis Current Visit: Yes Status: Acute Assessment and plan: Patient has completed antibiotic course. Qualifiers: Site of cellulitis: trunk Site of cellulitis of trunk: abdominal wall Qualified Code(s): L03.311 - Cellulitis of abdominal wall (5) Diastolic heart failure Current Visit: Yes Status: Acute Assessment and plan: On oral Lasix. Improving overall. Qualifiers: Heart failure chronicity: acute on chronic Qualified Code(s): I50.33 - Acute on chronic diastolic (congestive) heart failure (6) Duodenal ulcer Current Visit: Yes Status: Acute Assessment and plan: s/p EGD and injection and clipping. On PPI (7) GI (gastrointestinal bleed) Current Visit: Yes Status: Acute Assessment and plan: Improved. Will follow CBC. Qualifiers: GI bleed type/associated pathology: duodenal ulcer Qualified Code(s): K26.4 - Chronic or unspecified duodenal ulcer with hemorrhage (8) Morbid obesity with BMI of 60.0-69.9, adult Current Visit: Yes Status: Chronic (9) Sepsis Current Visit: Yes Status: Resolved Assessment and plan: From cellulitis. Completed antibiotic course. Qualifiers: Sepsis type: sepsis due to unspecified organism Qualified Code(s): A41.9 - Sepsis, unspecified organism (10) Tobacco abuse Current Visit: Yes Status: Chronic Assessment and plan: Harvinder has been counseled about cessation. (11) Atrial flutter with rapid ventricular response Current Visit: Yes Status: Acute Assessment and plan: Now in sinus rhythm and rate controlled. On not on anticoagulation due to serious GI bleed. Rate controlled and on amiodarone. - Subjective Interval history: Patient lying in bed. Appears comfortable. Still requiring high O2 supplementation. Denies any significant shortness of breath or chest pain. No fever chills reported overnight. No nausea or vomiting. - Constitutional Vitals: Temp Pulse Resp BP Pulse Ox 97.8 F 60 16 100/64 90 08/01/16 11:03 08/01/16 11:03 08/01/16 11:03 08/01/16 11:44 08/01/16 11:03 General appearance: Present: mild distress, A&O X 3, morbidly obese, answers questions appropriately - Neck Neck exam general surgery: Present: supple, trachea midline. Absent: lymphadenopathy - Respiratory Respiratory exam: Present: decreased breath sounds (Decreased air entry bilaterally), prolonged expiratory phase. Absent: accessory muscle use, rales, rhonchi, wheezes - GI/Abdominal GI/Abdominal exam: Present: normal bowel sounds, soft, no peritoneal signs. Absent: distended, tenderness - Extremities Exam Extremities exam: Present: warm, radial pulses palpable and symetrical. Absent : calf tenderness, cyanotic, pedal edema - Neurological Exam Neurological exam: Present: CN II-XII intact, oriented X3, no focal deficits, strengths equal and symetr throughout. Absent: facial droop, speech deficit Internal Medicine: Result - Labs CBC & Chem 7: 07/29/16 06:09 07/31/16 06:02 - ABG Interpretation ABG results: ABG ABG pH 7.41 pH Units (7.32-7.45) 07/20/16 07:55 ABG pCO2 66 mmHg (35-45) H 07/20/16 07:55 ABG pO2 52 mmHg (85-104) L 07/20/16 07:55 ABG O2 Saturation 87 % (95-98) L 07/20/16 07:55 PT/INR, D-dimer PT 18.3 Seconds (9.4-12.1) H 07/24/16 16:57 Consult Discharge Plan - Plan Referrals: Maddi Chong DO [Partnered Physician] - 09/13/16 10:30 am (Office will call you if an appointment becomes open at a earlier date) Blair Nichols DO [Partnered Physician] - (office makes their own appointments) - Attending Attestation This document has been at least partially created by [employer] recognition technology by Dr. Dave. Errors in grammar, wording or other phrases may exist. If errors are found after the documentation is signed, they will be addressed individually in the addendum section of this document when appropriate.
[2016-08-02] MEDS: Sennosides/Docusate Sodium TABLET PO SCH ×2 (00:09→09:04)
[2016-08-02 06:09] LABS: Basophils % 0.9 %; Eosinophils # 0.2 K/mcL (0.0-0.6); Eosinophils % 4.6 %; Hematocrit 28.3 % (35.3-44.9); Hemoglobin 8.5 g/dL (11.5-15.4); Immature Granulocytes % 1.5 % (0-4); Lymphocytes # 1.4 K/mcL (0.6-4.6); Lymphocytes % 31.1 %; Mean Corpuscular Hemoglobin 30.4 pg (28.0-33.3); Mean Corpuscular Volume 101.1 fL (83.0-100.0); Mean Platelet Volume 10.4 fL (9.4-12.4); Monocytes # 0.7 K/mcL (0.0-1.3); Monocytes % 14.5 %; Nucleated Red Blood Cells 0.4 /100 WBC (0); Platelet Count 224 K/mcL (140-400); Red Cell Distribution Width 17.9 % (11.5-14.5); Segmented Neutrophils % 47.4 %
[2016-08-02 06:13] LABS: Neutrophils # 2.1 K/mcL (1.6-8.9)
[2016-08-02 06:23] LABS: BUN/Creatinine Ratio 13 (6-26); Blood Urea Nitrogen 9 mg/dL (7-20); Calcium 7.6 mg/dL (8.6-10.8); Chloride 93 mEq/L (98-109); Glucose 68 mg/dL (70-99); Osmolality,Calculated 287 (280-300); Sodium 140 mEq/L (136-145); eGFR For African Americans > 60 (> 60); eGFR For Non-African Americans > 60 (> 60)
[2016-08-02 06:24] LABS: Carbon Dioxide 42 mEq/L (19-29)
[2016-08-02] MEDS: Furosemide 40 MG TABLET PO SCH (09:04)
[2016-08-02] MEDS: Aspirin Enteric Coated 81 MG Tablet PO SCH (09:04)
[2016-08-02] MEDS: Miconazole 2% ointment 114 GM TUBE TP SCH (09:05)
[2016-08-02] MEDS: *HR* Amiodarone 200 MG TABLET PO SCH (09:05)
[2016-08-02] MEDS: Nystatin POWDER 30 GM BOTTLE TP SCH ×2 (09:05→15:44)
[2016-08-02 10:20] VITALS: BP 111/53
[2016-08-02 11:01] LABS: ABG Base Excess 16.8 mEq/L (-2.0 to 3.0); ABG HCO3 44.2 mEQ/L (21-27); ABG Oxygen Saturation 93 % (95-98); ABG PH 7.39 pH Units (7.32-7.45); ABG PO2 67 mmHg (85-104); ABG TCO2 46.4 mEq/L (20-26)
[2016-08-02 11:05] LABS: ABG PCO2 73 mmHg (35-45); Blood Gas Liter Flow 10 L/MIN
--- NOTE | 2016-08-02 13:19 | Discharge Summary ---
Date of Encounter: 08/02/16 Time of Encounter: 11:15 - Discharge Diagnosis (1) Acute on chronic respiratory failure with hypoxia and hypercapnia Priority: Primary Status: Acute (2) Acute exacerbation of chronic obstructive pulmonary disease (COPD) Priority: Secondary Status: Resolved (3) Acute blood loss anemia Priority: Secondary Status: Resolved (4) Cellulitis Priority: Secondary Status: Acute Qualifiers: Site of cellulitis: trunk Site of cellulitis of trunk: abdominal wall Qualified Code(s): L03.311 - Cellulitis of abdominal wall (5) Diastolic heart failure Priority: Secondary Status: Acute Qualifiers: Heart failure chronicity: acute on chronic Qualified Code(s): I50.33 - Acute on chronic diastolic (congestive) heart failure (6) Duodenal ulcer Priority: Secondary Status: Acute (7) GI (gastrointestinal bleed) Priority: Secondary Status: Acute Qualifiers: GI bleed type/associated pathology: duodenal ulcer Qualified Code(s): K26.4 - Chronic or unspecified duodenal ulcer with hemorrhage (8) Morbid obesity with BMI of 60.0-69.9, adult Priority: Secondary Status: Chronic (9) Sepsis Priority: Secondary Status: Resolved Qualifiers: Sepsis type: sepsis due to unspecified organism Qualified Code(s): A41.9 - Sepsis, unspecified organism (10) Tobacco abuse Priority: Secondary Status: Chronic (11) Atrial flutter with rapid ventricular response Priority: Secondary Status: Acute - Discharge Medications Prescriptions: Potassium Chloride [Klor-Con Sprinkle] 10 meq PO DAILY #20 capsule.er Home Medications: Furosemide [Lasix] 40 mg PO TID 30 Days 02/16/15 [Rx] Gabapentin [Neurontin] 300 mg PO TID capsule 02/16/15 [Rx] Acetaminophen [Tylenol] 1,000 mg PO Q6HR PRN 07/14/16 [History] Acetaminophen [Tylenol] 650 mg PO Q6HR PRN #0 tablet 08/02/16 [Rx] Amiodarone [Cordarone] 100 mg PO DAILY tablet 08/02/16 [Rx] Aspirin Enteric Coated [Aspirin EC] 81 mg PO DAILY tablet. 08/02/16 [Rx] Atorvastatin [Lipitor] 40 mg PO HS tablet 08/02/16 [Rx] Furosemide [Lasix] 40 mg PO BIDDIURETIC tablet 08/02/16 [Rx] Metoprolol [Lopressor] 12.5 mg PO BID tablet 08/02/16 [Rx] Nystatin POWDER [Nystop] 1 appl TP TID bottle 08/02/16 [Rx] Omeprazole [PriLOSEC] 40 mg PO BIDAC capsule. 08/02/16 [Rx] Potassium Chloride [Klor-Con Sprinkle] 10 meq PO DAILY #20 capsule.er 08/02/16 [ Rx] Sennosides/Docusate Sodium [Senna Plus] 2 each PO BID tablet 08/02/16 [Rx] Allergies/Adverse Reactions: Allergies No Known Allergies Allergy (Verified 01/03/15 19:02) Date of admission: 07/14/16 11:08 Primary care physician: PCP NO Consults: 07/14/16 11:31 Consult to Floral Designer Salesperson [CONS] Routine Reason for SW Consult: HOME WITH SPOUSE. 07/14/16 12:34 Consult to Critical Care [CONS] Routine Consulting Provider: Pulm Crit Care & Sleep Keyser Reason for Consult: Respiratory failure Call Completed: Yes 07/14/16 14:17 Consult to Cardiac Rehabilitation-Phase1 [CONS] Routine Comment: Reason for Consult: NSTEMI Call Completed: No 07/15/16 09:06 Consult to Nutrition [CONS] Routine Comment: Consulting Provider: NUTRITION Reason for Dietary Consult: TF Start and Manage 07/21/16 11:16 Consult to Occupational Therapy [CONS] Stat Comment: Evaluate, develop and implement POC Reason for Consult: POC Consult to Physical Therapy [CONS] Stat Comment: Evaluate, develop and implement POC Reason for Consult: POC 07/21/16 14:20 Consult to Speech Therapy [CONS] Stat Comment: Evaluate, develop and implement POC Reason for Consult: POC Call Completed: No 07/22/16 08:48 Consult to Gastroenterology [CONS] Routine Consulting Provider: Yohan Tran Reason for Consult: gi bleed, spoke with Dr. Tran Time Notified: 08:56 Call Completed: Yes Discharging clinician: Thanh Dave Anticipated date of discharge: 08/02/16 - Patient Status Disposition: Transfer SNF Condition: Fair Functional capacity at discharge: bed bound Overall status at discharge: patient is not back to baseline - Discharge Instructions Instructions: Chronic Obstructive Pulmonary Disease (DC), Acute Respiratory Distress Syndrome (DC), Peripheral Vascular Disorders (DC), Anemia (GEN) Follow Up With: Maddi Chong DO [Partnered Physician] - 09/13/16 10:30 am (Office will call you if an appointment becomes open at a earlier date) Blair Nichols DO [Partnered Physician] - (office makes their own appointments) Forms: ED Satisfaction Letter - Diet and Activity Activity: as per physical therapy Diet: low fat, low cholesterol, low salt diet Hospital course: Ms. Plata is a 71 year old female patient with a history of morbid obesity, CHF, COPD who was admitted here after presenting to the ER with complaints of worsening shortness of breath over the prior 2 weeks. Patient has decreased ambulatory capacity at baseline is usually bed bound. In the ER, she was found to be saturating the 60s on room air and placed on a nonrebreather mask. Her troponins were also elevated and cardiology was consulted. Patient was started on heparin drip in the ED. Patient's sats continued to remain low and so she was placed on BiPAP. She was also found to have some abdominal wall cellulitis and was treated with IV antibiotics. As patient's respiratory status did not improve, she was intubated on 07/15/2016 and transferred to the ICU. She had a prolonged stay in the ICU during which her course was complicated by a non-ST elevation MD for which medical management was recommended as this was believed to be due to demand ischemia rather than ACS, acute diastolic congestive heart failure, acute blood loss anemia due to GI bleeding for which she underwent upper GI endoscopy and was found to have a bleeding duodenal ulcer that was clipped. She also developed atrial fibrillation and was placed on amiodarone. She is not on anticoagulation due to GI bleed. She was treated with IV Lasix for her congestive heart failure and has had her on 15 L negative fluid balance during her stay here. She has completed antibiotic course for her cellulitis/ sepsis which has now resolved. The patient however remains hypoxic with high O2 requirement between 8 and 10 L via nasal cannula/Oxymask. She was evaluated by physical therapy and recommended placement to skilled rehabilitation. At this time. Been trying to wean the patient's O2 supplementation, however this has so far been unsuccessful. After discussing with the [facility], we are able to transfer the patient to [facility] for rehabilitation and further care on this high level of O2 supplementation. Patient does have overall guarded prognosis and wishes to remain DNR comfort care arrest/DNI. She also does not wish to use BiPAP again. Presently she is able to tolerate diet and has good urine output and normal vital signs besides her high O2 supplementation. She up with cardiology and her primary care provider for further management. She will be discharged to rehabilitation once she has everything arranged for her care over there. - Time Spent with Patient Total time spent providing and/or coordinating discharge services: Greater than 30 minutes (50 min) - Constitutional Vitals: Temp Pulse Resp BP Pulse Ox 97.4 F L 59 20 111/53 87 08/02/16 10:16 08/02/16 10:16 08/02/16 10:16 08/02/16 10:16 08/02/16 10:16 General appearance: Present: mild distress, A&O X 3, morbidly obese, answers questions appropriately - Respiratory Respiratory exam: Present: decreased breath sounds (decreased air entry bilaterally). Absent: accessory muscle use, rales, rhonchi, wheezes - Extremities Exam Extremities exam: Present: pedal edema, warm, radial pulses palpable and symetrical. Absent: calf tenderness, cyanotic - Neurological Exam Neurological exam: Present: alert, oriented X3, no focal deficits. Absent: facial droop, speech deficit - Skin Skin exam: Present: dry, intact - Attending Attestation This document has been at least partially created by [employer] voice recognition technology by Dr. Dave. Errors in grammar, wording or other phrases may exist. If errors are found after the documentation is signed, they will be addressed individually in the addendum section of this document when appropriate.
--- NOTE | 2016-08-02 13:39 | Physician Discharge Referral ---
ExtendedCare Referral Info Provider in Charge after Transfer: PCP Institutional Level of Care: Skilled - Diagnosis (1) Acute on chronic respiratory failure with hypoxia and hypercapnia Priority: Primary Status: Acute (2) Acute exacerbation of chronic obstructive pulmonary disease (COPD) Priority: Secondary Status: Resolved (3) Acute blood loss anemia Priority: Secondary Status: Resolved (4) Cellulitis Priority: Secondary Status: Acute (5) Diastolic heart failure Status: Acute (6) Duodenal ulcer Priority: Secondary Status: Acute (7) GI (gastrointestinal bleed) Priority: Secondary Status: Acute (8) Morbid obesity with BMI of 60.0-69.9, adult Priority: Secondary Status: Chronic (9) Sepsis Priority: Secondary Status: Resolved (10) Tobacco abuse Priority: Secondary Status: Chronic (11) Atrial flutter with rapid ventricular response Priority: Secondary Status: Acute Prognosis: Poor Aware of Diagnosis: Patient Aware of Prognosis: Patient - Transfer Medications Prescriptions: Potassium Chloride [Klor-Con Sprinkle] 10 meq PO DAILY #20 capsule.er Home Medications: Furosemide [Lasix] 40 mg PO TID 30 Days 02/16/15 [Rx] Gabapentin [Neurontin] 300 mg PO TID capsule 02/16/15 [Rx] Acetaminophen [Tylenol] 1,000 mg PO Q6HR PRN 07/14/16 [History] Acetaminophen [Tylenol] 650 mg PO Q6HR PRN #0 tablet 08/02/16 [Rx] Amiodarone [Cordarone] 100 mg PO DAILY tablet 08/02/16 [Rx] Aspirin Enteric Coated [Aspirin EC] 81 mg PO DAILY tablet. 08/02/16 [Rx] Atorvastatin [Lipitor] 40 mg PO HS tablet 08/02/16 [Rx] Furosemide [Lasix] 40 mg PO BIDDIURETIC tablet 08/02/16 [Rx] Metoprolol [Lopressor] 12.5 mg PO BID tablet 08/02/16 [Rx] Nystatin POWDER [Nystop] 1 appl TP TID bottle 08/02/16 [Rx] Omeprazole [PriLOSEC] 40 mg PO BIDAC capsule. 08/02/16 [Rx] Potassium Chloride [Klor-Con Sprinkle] 10 meq PO DAILY #20 capsule.er 08/02/16 [ Rx] Sennosides/Docusate Sodium [Senna Plus] 2 each PO BID tablet 08/02/16 [Rx] Allergies/Adverse Reactions: Allergies No Known Allergies Allergy (Verified 01/03/15 19:02) - Respiratory Orders Oxygen / L per min (Keep sats >88%) Smoking Cessation: Smoking cessation has been advised. For more information, call the [place] Tobacco Quit Line at 8-940-XFBT-NOW. - Ancillary Orders May use pressure relief devices daily prn, May consult with Dentist, Sales Agent Insurance, Accounts Payable Coordinator PRN - Advance Directives Code Status: DNR-Arrest/Don't Intubate - Mobility Orders Other (Per PT/OT) - Rehabiliation Orders Rehab Potential: Poor Rehab Orders: Evaluation for Physical Therapy, Evaluation for Occupational Therapy - Diet Orders Cardiac CERTIFICATION: I certify that the transfer of the above named patient to an Extended Care Facility is necessary for the continuing treatment of the diagnosis listed. The above information is true and accurate reflection of patient's current condition. Confidential - Redisclosure prohibited without a patient's written consent.
== END 2016-08-02 15:42 | DRG 870 ==
LOC: EMEROO 06:44 → 2ANU 06:44 → 2NNU 09:35 → SUATTDRO 11:08 → ICNU 16:00 → 2ANU 07-24 10:05
PROVIDERS: ADMIT Internal Medicine Sleep Medicine; ATTEND Internal Medicine

== ENCOUNTER 2016-11-14 00:41 | Inpatient (IN) ==
--- NOTE | 2016-11-14 00:59 | Emergency Department Note ---
Disposition Clinical Impression: Hypoxia Pneumonia Qualifiers: Pneumonia type: due to unspecified organism Laterality: right Lung location: lower lobe of lung Qualified Code(s): J18.1 - Lobar pneumonia, unspecified organism Disposition: Admitted As Inpatient Condition: Fair Time of Disposition: 03:56 Lower Extremity Injury HPI - General Chief Complaint: ED Extremity Injury, Lower Stated Complaint: fall/knee pain/hypoxic Time Seen by Provider: 11/14/16 00:47 Nursing Notes Reviewed: Yes Vital Signs Reviewed: Yes - History of Present Illness HPI Narrative: Mrs. Plata, 71-year-old female presents from [facility] shelter via EMS for evaluation reported fall out of bed. Patient rolled out of bed apx 2 hrs prior to arrival. She was found down and was able to get back onto her feet with the assistance of shelter staff. She reportedly impacted her bilateral knees initially. No LOC, no neck pain, no other complaints at this time. She was not on her oxygen when she was found. She has COPD with chronic respiratory failure requiring 3L continuous NC. Patient was hypoxic in the 80' s on 6L NC upon EMS arrival to the scene. PMH: diastolic CHF, COPD requiring continuous O2 use. ROS: Pos: Bilateral knee pain Neg: chest pain, palpitations, nausea, vomiting, headache, neck pain, hip pain, back pain - Related Data Home Medications Medication Instructions Recorded Confirmed Acetaminophen [Tylenol] 650 mg PO Q6HR PRN 10/31/16 10/31/16 DiphenhydraMINE [Benadryl] 25 mg PO Q6H PRN 10/31/16 10/31/16 Furosemide [Lasix] 40 mg PO BID 10/31/16 10/31/16 Ipratropium/Albuterol Neb [Duoneb] 3 ml IH QID PRN 10/31/16 10/31/16 Lactose-Reduced Food [Ensure 1 bottle PO TID 10/31/16 10/31/16 Liquid] Levothyroxine [Synthroid] 100 mcg PO 0630 10/31/16 10/31/16 Metoprolol XL (24 HR) Succ [Toprol 25 mg PO DAILY 10/31/16 10/31/16 Xl] Omeprazole [PriLOSEC] 20 mg PO BIDAC 10/31/16 10/31/16 Previous Rx's Medication Instructions Recorded Amiodarone [Cordarone] 100 mg PO DAILY tablet 08/02/16 Aspirin Enteric Coated [Aspirin EC] 81 mg PO DAILY tablet. 08/02/16 Atorvastatin [Lipitor] 40 mg PO HS tablet 08/02/16 Potassium Chloride [Klor-Con 10 meq PO DAILY #20 capsule.er 08/02/16 Sprinkle] Sennosides/Docusate Sodium [Senna 2 each PO BID tablet 08/02/16 Plus] GuaiFENesin ER [Mucinex] 600 mg PO BID #14 11/03/16 Aewlwgwgxtco-Jogq-Pcxamqyx,Iso 4.5 gm IV Q6H #28 froz.piggy 11/03/16 [Zosyn 4.5 gm/100 ml Galaxy Bag] Zolpidem [Ambien] 5 mg PO HS PRN #7 11/03/16 Allergies Allergy/AdvReac Type Severity Reaction Status Date / Time No Known Allergies Allergy Verified 01/03/15 19:02 All systems ED: reviewed and negative except as stated. Past Medical History - Past Medical History Medical history: Reports: atrial fibrillation, CHF, COPD, coronary artery disease, GI bleed, other Surgical history: Reports: appendectomy, Psychiatric history: Reports: no psych history KNITTER HELPER history: Reports: no KNITTER HELPER history - Social History Smoking Status: Former smoker (40 pack year history) Smokeless Tobacco Status: No Alcohol use: Reports: none Drug use: Reports: none Physical Exam Vital Signs Reviewed - patient hypoxic on nasal cannula with O2 saturation in the 80s. This improved to the mid 90s on a nonrebreather. General: Patient is alert, oriented, and in no acute distress. HEENT: No facial asymmetry. Head is normocephalic and atraumatic. PERRLA, EOMI. Oral mucosa tacky. Trachea midline. Cardiovascular: Heart regular rate and rhythm without clicks, rubs, gallops, or murmurs. No JVD. PMI nondisplaced. Trace pedal edema. Bilateral posterior tibial pulses 2/4 equal. Respiratory: Symmetric chest rise with poor respiratory effort. Bilateral breath sounds are diffusely diminished with right sided wheeze. No crackles or rhonchi. Abdomen: Morbidly obese. Bowel sounds present normoactive -4 quadrants. Abdomen is soft, nondistended, and nontender. No organomegaly noted. Musculoskeletal: Strength exam limited secondary to patient's body habitus. She is able to spontaneously move her bilateral lower extremities and bilateral upper extremities. Skin: Warm, dry, intact. Psych: Patient's affect is appropriate for situation. Course Course Narrative: Patient presents from [facility] where she lives after reportedly rolling out of bed. She was not down for a prolonged period of time as such, no clinical concern for rhabdomyolysis. She is hypoxic at her baseline 3 L however she did receive an opioid by mouth analgesia at the shelter approximately one hour prior to arrival. This could be opioid-induced hypoventilation. Will x-ray chest looking for alternate potential causes. We will also image patient's knees and bilateral hips confirm no acute fractures. CT head shows no acute abnormalities per radiology read. Chest x-ray concerning for right lower lobe pneumonia. This does correlate clinically with the patient's hypoxia and reduced right-sided breath sounds. Knee and pelvis x-rays show no acute fracture. Pelvic x-ray has an incidental finding suspicious for small bowel obstruction. CT abdomen and pelvis does not show small bowel obstruction however does confirm right lower lobe airspace disease. Begin patient on empiric antibiotics for pneumonia. Patient's ABG shows respiratory acidosis with incomplete metabolic compensation. Her CO2 is critically high at 79. Patient's mentation has improved. She is saturating well on a nonrebreather without increased work of breathing. We will hold on BiPAP at this time. I discussed the patient with the admitting hospitalist, Dr. Carlin, who agrees to accept the patient for IV antibiotics and respiratory support. Chest X-Ray 11/14/16 00:53 IMPRESSION: Interval development of right lower lobe opacities and diffuse interstitial opacities. D/ / Brian Morrow MD / Brian Morrow MD Interpreting Provider: Brian Morrow MD Knee X-Ray 11/14/16 00:53 IMPRESSION: Anterior swelling with no definite fracture bilaterally. D/ / Lobo Rey MD / Lobo Rey MD Interpreting Provider: Lobo Rey MD Pelvis X-Ray 11/14/16 00:53 IMPRESSION: 1. No definite fracture on a limited study. 2. Dilated small bowel could represent a partial small bowel obstruction or reactive ileus. D/ / Lobo Rey MD / Lobo Rey MD Interpreting Provider: Lobo Rey MD Head CT 11/14/16 01:59 IMPRESSION: No acute intracranial abnormality. Mild paranasal sinus disease as above. D/ / Jose Francisco Hernandez MD / Jose Francisco Hernandez MD Interpreting Provider: Jose Francisco Hernandez MD Abdomen/Pelvis CT 11/14/16 02:28 IMPRESSION: Broad-based ventral hernia containing loops of bowel. Right lower lobe airspace disease. D/ / Brian Morrow MD / Brian Morrow MD Interpreting Provider: Brian Morrow MD Vital Signs Temperature 98.1 F 11/14/16 00:46 Pulse Rate 64 11/14/16 00:46 Respiratory Rate 16 11/14/16 00:46 Blood Pressure 128/62 11/14/16 00:46 O2 Sat by Pulse Oximetry 85 11/14/16 00:46 Temperature 98.1 F 11/14/16 00:46 Pulse Rate 65 11/14/16 04:38 Respiratory Rate 18 11/14/16 04:38 Blood Pressure 103/54 11/14/16 04:38 O2 Sat by Pulse Oximetry 93 11/14/16 04:38 Oxygen Delivery Oxygen Delivery Venti Mask Extremity Injury, Lower - Medical Records Medical records reviewed: Yes I reviewed the patient's medical records. - Lab Data Lab results reviewed: Yes I reviewed the patient's lab results. Result diagrams: 11/14/16 03:02 11/14/16 03:02 Lab Results 11/14/16 11/14/16 11/14/16 Range/Units 03:02 03:02 03:05 WBC 9.9 (4.3-11.1) K/mcL RBC 3.51 L (3.82-4.97) M/mcL Hgb 9.9 L (11.5-15.4) g/dL Hct 33.4 L (35.3-44.9) % MCV 95.2 (83.0-100.0) fL MCH 28.2 (28.0-33.3) pg MCHC 29.6 L (31.6-35.5) g/dL RDW 16.0 H (11.5-14.5) % Plt Count 299 (140-400) K/mcL MPV 9.8 (9.4-12.4) fL Immature Gran % 1.0 (0-4) % Seg Neutrophils % 62.7 % Lymphocytes % 20.3 % Monocytes % 12.6 % Eosinophils % 2.9 % Basophils % 0.5 % Neutrophils # 6.2 (1.6-8.9) K/mcL Lymphocytes # 2.0 (0.6-4.6) K/mcL Monocytes # 1.3 (0.0-1.3) K/mcL Eosinophils # 0.3 (0.0-0.6) K/mcL Basophils # 0.1 (0.0-0.2) K/mcL Polychromasia 1+ A (Not Present) Hypochromasia Present A (Not Present) ABG pH 7.26 L (7.32-7.45) pH Units ABG pCO2 79 H* (35-45) mmHg ABG pO2 73 L (85-104) mmHg ABG HCO3 36 H (21-27) mEq/L ABG Total CO2 37.9 H (20-26) mEq/L ABG O2 Saturation 92 L (95-98) % ABG Base Excess 6.5 H (-2.0 to 3.0) mEq/L Liter Flow 6 L/MIN Blood Gas Modality MASK Inspired O2 44 % Sodium 140 (136-145) mEq/L Potassium 3.8 (3.5-4.5) mEq/L Chloride 103 (98-109) mEq/L Carbon Dioxide 31 H (19-29) mEq/L BUN 7 (7-20) mg/dL Creatinine 0.67 (0.57-1.11) mg/dL Est GFR ( Amer) > 60 (> 60) Est GFR (Non-Af Amer) > 60 (> 60) BUN/Creatinine Ratio 10 (6-26) Glucose 149 H (70-99) mg/dL Calculated Osmolality 291 (280-300) Lactic Acid (0.5-2.2) mmol/L Calcium 8.9 (8.6-10.8) mg/dL Troponin I (0-0.03) ng/mL Urine Color (Yellow) Urine Clarity (Clear) Urine pH (5.0-8.0) pH Units Ur Specific Tabor (1.010-1.025) Urine Protein (Neg-Trace) mg/dL Urine Glucose (UA) (Normal) mg/dL Urine Ketones (Negative) mg/dL Urine Blood (Negative) Urine Nitrite (Negative) Urine Bilirubin (Negative) Urine Urobilinogen (Normal) mg/dL Ur Leukocyte Esterase (Negative) Urine Microscopic RBC (0-3) per hpf Urine Microscopic WBC (0-3) per hpf Ur Squamous Epith Cells (None-Few) per lpf Urine Bacteria (None-Few) per hpf Hyaline Casts (None-Few) per lpf Ur Culture Indicated? (NO) 11/14/16 11/14/16 11/14/16 Range/Units 03:08 03:11 04:08 WBC (4.3-11.1) K/mcL RBC (3.82-4.97) M/mcL Hgb (11.5-15.4) g/dL Hct (35.3-44.9) % MCV (83.0-100.0) fL MCH (28.0-33.3) pg MCHC (31.6-35.5) g/dL RDW (11.5-14.5) % Plt Count (140-400) K/mcL MPV (9.4-12.4) fL Immature Gran % (0-4) % Seg Neutrophils % % Lymphocytes % % Monocytes % % Eosinophils % % Basophils % % Neutrophils # (1.6-8.9) K/mcL Lymphocytes # (0.6-4.6) K/mcL Monocytes # (0.0-1.3) K/mcL Eosinophils # (0.0-0.6) K/mcL Basophils # (0.0-0.2) K/mcL Polychromasia (Not Present) Hypochromasia (Not Present) ABG pH (7.32-7.45) pH Units ABG pCO2 (35-45) mmHg ABG pO2 (85-104) mmHg ABG HCO3 (21-27) mEq/L ABG Total CO2 (20-26) mEq/L ABG O2 Saturation (95-98) % ABG Base Excess (-2.0 to 3.0) mEq/L Liter Flow L/MIN Blood Gas Modality Inspired O2 % Sodium (136-145) mEq/L Potassium (3.5-4.5) mEq/L Chloride (98-109) mEq/L Carbon Dioxide (19-29) mEq/L BUN (7-20) mg/dL Creatinine (0.57-1.11) mg/dL Est GFR ( Amer) (> 60) Est GFR (Non-Af Amer) (> 60) BUN/Creatinine Ratio (6-26) Glucose (70-99) mg/dL Calculated Osmolality (280-300) Lactic Acid 0.9 (0.5-2.2) mmol/L Calcium (8.6-10.8) mg/dL Troponin I 0.03 (0-0.03) ng/mL Urine Color Dark Yellow (Yellow) Urine Clarity Clear (Clear) Urine pH 6.0 (5.0-8.0) pH Units Ur Specific Tabor 1.025 (1.010-1.025) Urine Protein 30 H (Neg-Trace) mg/dL Urine Glucose (UA) Normal (Normal) mg/dL Urine Ketones Negative (Negative) mg/dL Urine Blood Negative (Negative) Urine Nitrite Negative (Negative) Urine Bilirubin Small H (Negative) Urine Urobilinogen Normal (Normal) mg/dL Ur Leukocyte Esterase Negative (Negative) Urine Microscopic RBC 0-3 (0-3) per hpf Urine Microscopic WBC 0-3 (0-3) per hpf Ur Squamous Epith Cells Few (None-Few) per lpf Urine Bacteria Few (None-Few) per hpf Hyaline Casts Few (None-Few) per lpf Ur Culture Indicated? NO (NO) - Radiology Data Radiology results reviewed: Yes I reviewed the patient's radiology results. - EKG Data EKG attestation: Yes I reviewed and interpreted this EKG. EKG results narrative: EKG dated 11/14/16 at 02:02 interpreted as sinus rhythm with rate of 65. Normal intervals. Normal axis. Nonspecific ST-T changes. Compared to previous dated 10/31/2016 showing no acute ischemic changes. Attestation Statement - Attestation Attestation: I, Clay Sepulveda DO, examined this patient [id number] and my medical decision-making was reviewed with Dr. Mesfin Erickson, Resident Physician. I agree with the documented findings, disposition and treatment plan as described except to the extent set forth below. Please see my progress notes for details. 71-year-old female presents from shelter for what appears to be a mechanical fall. Patient was rolling out of bed today fell to the floor denied any loss of consciousness or head injury. She is on the floor by her care providers with a pulse ox in the 80s. Patient was placed back on oxygen but did not respond appropriately. They became concerned and called EMS for transportation. Patient denied any symptoms on arrival. Pulse ox was here 100 % on a nonrebreather mask at presentation. Physical exam shows a morbidly obese female education questions appropriately she is alert she is oriented she speaking in full sentences. Oxygen being applied by a nonrebreather mask on initial presentation. Is this filter changer to 6 L nasal cannula which is supposedly her home oxygen requirement. Patient continues to have fluctuations in her mentation is 0 oxygenation. Initial evaluation was completed with chest x-ray EKG and plain films of the extremities. After fluctuation mentations CT of the head ABG CBC chemistry to be added on as well. Patient will most likely need admission for hypoxia unknown etiology after Fall. Patient is otherwise stable this point with intermittent mentation issues see detailed documentation of physical exam, medical intervention, medical decision-making, consultation admission resident physician's note. Physical exam shows morbidly obese female significantly decompensated a normal neurologic evaluation answer questions appropriately on arrival. Lungs had coarse breath sounds bilaterally with intermittent wheezing. She has truncal obesity with difficulty with full inspiration. Heart is regular abdomen is soft nontender nondistended. No signs of pitting edema of the extremities
[2016-11-14] MEDS ORDERED: Ondansetron ODT 4 MG TAB.RAPDIS SL ONE (01:00)
[2016-11-14] MEDS ORDERED: Ipratropium/Albuterol Neb 3 ML IH ONE (01:02)
[2016-11-14] MEDS ORDERED: Levofloxacin 750 MG/150 ML 750 MG/150 ML BAG IVPB ONE (02:23)
[2016-11-14] MEDS ORDERED: *HR* Promethazine 25 MG/ML VIAL IVP ONE (02:32)
[2016-11-14] MEDS ORDERED: 0.9 % Sodium Chloride 1,000 ML IVC SCH ×2 (02:45→08:30)
[2016-11-14 03:11] LABS: Basophils % 0.5 %; Hemoglobin 9.9 g/dL (11.5-15.4)
[2016-11-14 03:12] LABS: Basophils # 0.1 K/mcL (0.0-0.2); Eosinophils # 0.3 K/mcL (0.0-0.6); Eosinophils % 2.9 %; Hematocrit 33.4 % (35.3-44.9); Lymphocytes % 20.3 %; Mean Corpuscular HGB Conc 29.6 g/dL (31.6-35.5); Mean Corpuscular Hemoglobin 28.2 pg (28.0-33.3); Mean Corpuscular Volume 95.2 fL (83.0-100.0); Mean Platelet Volume 9.8 fL (9.4-12.4); Monocytes % 12.6 %; Neutrophils # 6.2 K/mcL (1.6-8.9); Platelet Count 299 K/mcL (140-400); Red Blood Count 3.51 M/mcL (3.82-4.97); Segmented Neutrophils % 62.7 %
[2016-11-14 03:13] LABS: ABG Base Excess 6.5 mEq/L (-2.0 to 3.0); ABG HCO3 36 mEq/L (21-27); ABG Oxygen Saturation 92 % (95-98); ABG PH 7.26 pH Units (7.32-7.45); ABG PO2 73 mmHg (85-104); ABG TCO2 37.9 mEq/L (20-26)
[2016-11-14 03:14] LABS: Blood Gas FiO2 44 %; Blood Gas Liter Flow 6 L/MIN; Blood Gas Modality MASK
[2016-11-14 03:16] LABS: ABG PCO2 79 mmHg (35-45)
[2016-11-14 03:16] LABS: Monocytes # 1.3 K/mcL (0.0-1.3)
[2016-11-14 03:23] LABS: BUN/Creatinine Ratio 10 (6-26); Blood Urea Nitrogen 7 mg/dL (7-20); Calcium 8.9 mg/dL (8.6-10.8); Carbon Dioxide 31 mEq/L (19-29); Chloride 103 mEq/L (98-109); Glucose 149 mg/dL (70-99); Osmolality,Calculated 291 (280-300); Potassium 3.8 mEq/L (3.5-4.5); Sodium 140 mEq/L (136-145); eGFR For African Americans > 60 (> 60); eGFR For Non-African Americans > 60 (> 60)
[2016-11-14 03:26] LABS: Bilirubin,Urine Small (Negative); Blood,Urine Negative (Negative); Clarity,Urine Clear (Clear); Color,Urine Dark Yellow (Yellow); Glucose,Urine (UA) Normal (Normal); Ketones,Urine Negative (Negative); Leukocyte Esterase,Urine Negative (Negative); Nitrite,Urine Negative (Negative); Protein,Urine 30 mg/dL (Neg-Trace); Specific Gravity,Urine 1.025 (1.010-1.025); Urobilinogen,Urine Normal (Normal)
[2016-11-14 03:27] LABS: RBC,Urine 0-3 per hpf (0-3)
[2016-11-14 03:36] LABS: Hypochromasia Present (Not Present)
[2016-11-14 03:37] LABS: Polychromasia 1+ (Not Present)
[2016-11-14 03:42] LABS: Bacteria,Urine Few per hpf (None-Few); Hyaline Casts,Urine Few per lpf (None-Few); Squamous Epithelial Cell,Urine Few per lpf (None-Few); WBC,Urine 0-3 per hpf (0-3)
[2016-11-14] MEDS ORDERED: Vancomycin 2,000 MG in D5% in Water 250 ML IVPB ONE (04:41)
[2016-11-14] MEDS ORDERED: Piperacillin/Tazobactam 3.375 GM in D5% in Water (Mini-Bag+) 100 ML IVPB ONE (04:42)
[2016-11-14] MEDS ORDERED: Vancomycin 2,000 MG in D5% in Water 500 ML IVPB ONE (05:45)
[2016-11-14] MEDS ORDERED: Ondansetron 4 MG/2 ML VIAL IVP PRN (07:46)
[2016-11-14] MEDS ORDERED: Naloxone 0.4 MG/ML INJ IVP PRN (07:46)
--- NOTE | 2016-11-14 08:48 | Internal Med History&Physical ---
Date of Encounter: 11/14/16 Time of Encounter: 08:42 Assessment and Plan (1) Acute on chronic respiratory failure with hypoxia and hypercapnia Current visit: No Status: Acute Reviewed ABG showed acute respiratory acidosis with inc PCo2 She did have chronic hypercapnea.. now in acute exacerbation mostly triggered by RLL PNA and COPD exacerbation currently she is alert, awake and O x 3 Will start her on Solumedrol , Bronchodilators, and O2 try to wean her off the O2 as she tolerates Will put a NG tube due to her N / V , then may consider placing her on BiPAP and repeat ABG in few hours as f/u Pulmonary / Critical care consulted Placed her on abx Levofloxacin Spent 50 minutes on this pt's critical care (2) Acute exacerbation of chronic obstructive pulmonary disease (COPD) Current visit: No Status: Acute see above (3) Pneumonia Current visit: Yes Status: Acute Mostly bacterial Pt does not look severely toxic.. so will give Levofloxacin for now cont close monitoring Qualifiers: Pneumonia type: due to unspecified organism Laterality: right Lung location: lower lobe of lung Qualified Code(s): J18.1 - Lobar pneumonia, unspecified organism (4) Intractable nausea and vomiting Current visit: Yes Status: Acute Reviewed CT of Abd results No incarceration noticed due to her symptoms will place NG tube now - with low intermittent suctions Consulted Surgery NPO for now IV fluids Qualifiers: Qualified Code(s): R11.2 - Nausea with vomiting, unspecified (5) Ventral hernia without obstruction or gangrene Current visit: Yes Status: Acute see above (6) Morbid obesity with BMI of 45.0-49.9, adult Current visit: No Status: Acute (7) Diastolic congestive heart failure, NYHA class 3 Current visit: No Status: Chronic not in exacerbation resume home meds will give Lopressor IV PRN Qualifiers: Qualified Code(s): I50.30 - Unspecified diastolic (congestive) heart failure (8) DVT prophylaxis Current visit: No Status: Acute onn Lovenox Internal Medicine - H&P: HPI Chief complaint: SOB / Wheezing Admitted From: Long-term Nursing Facility Plans for Post Hospital Care: Home History of present illness: Mrs. Plata, 71-year-old female presents from [facility] via EMS for evaluation reported fall out of bed. Patient rolled out of bed apx 2 hrs prior to arrival. She was found down and was able to get back onto her feet with the assistance of alf staff. She reportedly impacted her bilateral knees initially. No LOC, no neck pain, no other complaints at this time. She was not on her oxygen when she was found. She has COPD with chronic respiratory failure requiring 3L continuous NC. Patient was hypoxic in the 80' s on 6L NC upon EMS arrival to the scene. Pt was placed on NRB and her Spo2 got improved. She had further work up done in the ER, which showed possible RLL pneumonia. She also happened to have distended ventral hernia containing loops of bowel. Pt was seen and examined at bed side around 8.20 AM, she is alert, awake and O x 3. Denied any CP. However she does have SOB and c/o abdmominal discomfort with nausea and vomiting x 1 episode. She is also kept on belching from past a couple of hours. Denied any hematemesis / Melena / BRBPR Past Med Surg Social Fam HX - Past Medical History Medical history: atrial fibrillation, CHF, COPD, coronary artery disease, GI bleed, other Psychiatric history: no psych history - Past Surgical History Surgical History: appendectomy, - Social History Smoking Status: Former smoker (40 pack year history) Smokeless Tobacco Status: No Alcohol use: none Drug use: none - Family History Father Adopted: (PATIENT WAS UNABLE TO RECALL FAMILY HISTORY.) Living Status: Hx Family Cardiac Disorders: Yes Mother Living Status: Hx Family Cancer: Yes Internal Medicine - H&P: Meds Amiodarone [Cordarone] 100 mg PO DAILY tablet 08/02/16 [Rx] Aspirin Enteric Coated [Aspirin EC] 81 mg PO DAILY tablet.dr 08/02/16 [Rx] Atorvastatin [Lipitor] 40 mg PO HS tablet 08/02/16 [Rx] Potassium Chloride [Klor-Con Sprinkle] 10 meq PO DAILY #20 capsule.er 08/02/16 [ Rx] Sennosides/Docusate Sodium [Senna Plus] 2 each PO BID tablet 08/02/16 [Rx] Acetaminophen [Tylenol] 650 mg PO Q6HR PRN 10/31/16 [History] DiphenhydraMINE [Benadryl] 25 mg PO Q6H PRN 10/31/16 [History] Furosemide [Lasix] 40 mg PO BID 10/31/16 [History] Ipratropium/Albuterol Neb [Duoneb] 3 ml IH QID PRN 10/31/16 [History] Lactose-Reduced Food [Ensure Liquid] 1 bottle PO TID 10/31/16 [History] Levothyroxine [Synthroid] 100 mcg PO 0630 10/31/16 [History] Metoprolol XL (24 HR) Succ [Toprol Xl] 25 mg PO DAILY 10/31/16 [History] Omeprazole [PriLOSEC] 20 mg PO BIDAC 10/31/16 [History] Zolpidem [Ambien] 5 mg PO HS PRN #7 11/03/16 [Rx] 3 Allergy/AdvReac Type Severity Reaction Status Date / Time No Known Allergies Allergy Verified 01/03/15 19:02 All Systems PM: A 10-system review of systems was performed and is negative for pertinent findings except as documented above in the HPI. Review of systems: All the systems reviewed everything is benign except the systems and symptoms I mentioned in HPI - Constitutional Vitals: Temp Pulse Resp BP Pulse Ox 98.1 F 63 18 126/56 90 11/14/16 00:46 11/14/16 07:01 11/14/16 07:01 11/14/16 07:01 11/14/16 07:01 General appearance: Present: mild distress, A&O X 3, answers questions appropriately - Head Head exam: Present: atraumatic, normal inspection - Respiratory Respiratory exam: Present: decreased breath sounds, wheezes (moderate to severe) . Absent: rales, rhonchi, tachypnea - Cardiovascular Cardiovascular exam: Present: RRR, +S1, +S2 - GI/Abdominal GI/Abdominal exam: Present: distended, normal bowel sounds, soft, tenderness ( mild discomfort). Absent: guarding, rebound, rigid, no peritoneal signs - Extremities Exam Extremities exam: Absent: calf tenderness, pedal edema, tenderness - Neurological Exam Neurological exam: Present: alert, oriented X3 - Psychiatric Psychiatric exam: Present: normal affect, normal mood Internal Med - H&P Results - Labs CBC & Chem 7: 11/14/16 03:02 11/14/16 03:02
[2016-11-14] MEDS ORDERED: Famotidine 20 MG TABLET PO SCH (09:00)
--- NOTE | 2016-11-14 09:03 | Pulmonology Consult Note ---
Date of Encounter: 11/14/16 Time of Encounter: 09:03 Assessment and Plan (1) Acute on chronic respiratory failure with hypoxia and hypercapnia Current Visit: No Status: Acute This is likely secondary to pneumonia with possible COPD exacerbation complicated by underlying obesity hypoventilation syndrome. I suspect mediated by aspiration cause. Currently given significant vomiting on examination noninvasive positive pressure ventilation is relatively contraindicated encouragingly mentation has recovered and she is sitting up awake and able to follow commands I would continue supplemental oxygen to keep saturation greater then 88-92% avoid ENVIRONMENTAL ADVISER depressant medications and with gastric decompression hopefully this will alleviate vomiting and could trial noninvasive positive pressure ventilation later in the day as clinically able. Also recommend repeating ABG has been obtained to determine that this she is not retaining more CO2. Clearly she remains at risk for further deterioration and progression to need of invasive mechanical ventilation. I also recommend formal consultation palliative care service for ongoing goals of care as patient overall prognosis is not good with multiple medical comorbidities and recurrent hospitalizations all with admissions for critical illness. (2) Pneumonia Current Visit: Yes Status: Acute Bilateral atelectatic and consolidative changes right greater than left concern for aspiration pneumonia would broaden her antimicrobials to cover for aspiration organisms by providing her with Unasyn or Zosyn until cultures have been obtained and de-escalate based upon clinical course. She will also need blood and sputum culture unless already obtained lactate is currently within normal limits which is encouraging Qualifiers: Pneumonia type: aspiration pneumonia Aspiration pneumonia type: due to vomit Laterality: bilateral Qualified Code(s): J69.0 - Pneumonitis due to inhalation of food and vomit (3) COPD exacerbation Current Visit: No Status: Acute I would continue bronchodilators currently I do not think there is a clear indication for systemic steroids at present but will continue to monitor this closely (4) Diastolic congestive heart failure, NYHA class 3 Current Visit: No Status: Chronic Blood pressure heart rate are currently controlled continue beta raphael and closely monitor fluid balance avoid maintenance infusion of crystalloid if possible Qualifiers: Congestive heart failure chronicity: chronic Qualified Code(s): I50.32 - Chronic diastolic (congestive) heart failure (5) DVT prophylaxis Current Visit: No Status: Acute Recommend chemical DVT prophylaxis unless otherwise contraindicated (6) Morbid obesity with alveolar hypoventilation Current Visit: No Status: Chronic Chronic obesity hypoventilation syndrome with chronic metabolic alkalosis she will need to be treated with positive airway pressure 1 clinically as able and on this visit will try to qualify her for home-going positive airway pressure. (7) Intractable nausea and vomiting Current Visit: Yes Status: Acute Unclear etiology of present agree with nasogastric decompression and surgical evaluation for ventral hernia unclear if this is acutely contributing to presentation although I feel it is less likely may be a case of gastroenteritis Qualifiers: Qualified Code(s): R11.2 - Nausea with vomiting, unspecified (8) Ventral hernia without obstruction or gangrene Current Visit: Yes Status: Acute Patient does have bowel loops contained within the ventral hernia although no evidence of incarceration she will need surgical evaluation History of Present Illness Consult date: 11/14/16 Requesting physician: Pankaj Monroy Reason for consult: hypoxemia Chief complaint: Shortness of breath History of present illness: 71-year-old woman with past medical history of super morbid obesity hypoxic hypercapnic respiratory failure obesity hypoventilation syndrome coronary artery disease history of gastrointestinal hemorrhages in the past who presented from senior living after falling out of bed and hitting her knees. Noted to have acute on chronic hypoxic hypercapnic respiratory failure also with significant vomiting and evidence of skin on CT of chest of bibasilar consolidation and atelectasis concerning for possible aspiration. History and information have been obtained from medical record the nursing staff and admitting hospitalist as patient is a willing but incomplete historian secondary to confusion. She has had significant vomiting since admission although in the room it looks like she has been without vomiting for at least the last 3-4 hours. She has significant amount of belching CT the abdomen was not suggestive of bowel obstruction however she did have a ventral hernia that did not have incarcerated features. For his been consulted to evaluate the patient for acute on chronic respiratory failure. Past Med Surg Social Fam HX - Past Medical History Medical history: atrial fibrillation, CHF, COPD, coronary artery disease, GI bleed, other Psychiatric history: no psych history - Past Surgical History Surgical History: appendectomy, - Social History Smoking Status: Former smoker (40 pack year history) Smokeless Tobacco Status: No Alcohol use: none Drug use: none - Family History Father Adopted: (PATIENT WAS UNABLE TO RECALL FAMILY HISTORY.) Living Status: Hx Family Cardiac Disorders: Yes Mother Living Status: Hx Family Cancer: Yes Medications and Allergies Amiodarone [Cordarone] 100 mg PO DAILY tablet 08/02/16 [Rx] Aspirin Enteric Coated [Aspirin EC] 81 mg PO DAILY tablet. 08/02/16 [Rx] Atorvastatin [Lipitor] 40 mg PO HS tablet 08/02/16 [Rx] Potassium Chloride [Klor-Con Sprinkle] 10 meq PO DAILY #20 capsule.er 08/02/16 [ Rx] Sennosides/Docusate Sodium [Senna Plus] 2 each PO BID tablet 08/02/16 [Rx] Acetaminophen [Tylenol] 650 mg PO Q6HR PRN 10/31/16 [History] DiphenhydraMINE [Benadryl] 25 mg PO Q6H PRN 10/31/16 [History] Furosemide [Lasix] 40 mg PO BID 10/31/16 [History] Ipratropium/Albuterol Neb [Duoneb] 3 ml IH QID PRN 10/31/16 [History] Lactose-Reduced Food [Ensure Liquid] 1 bottle PO TID 10/31/16 [History] Levothyroxine [Synthroid] 100 mcg PO 0630 10/31/16 [History] Metoprolol XL (24 HR) Succ [Toprol Xl] 25 mg PO DAILY 10/31/16 [History] Omeprazole [PriLOSEC] 20 mg PO BIDAC 10/31/16 [History] Zolpidem [Ambien] 5 mg PO HS PRN #7 11/03/16 [Rx] 3 Allergy/AdvReac Type Severity Reaction Status Date / Time No Known Allergies Allergy Verified 01/03/15 19:02 All Systems: A 10-system review of systems was performed and is negative for pertinent findings except as documented above in the HPI. Physical Examination Vital Signs: Vital Signs, Last 4 Hours Pulse Resp BP Pulse Ox 11/14/16 07:01 63 18 126/56 90 11/14/16 05:41 16 118/58 General appearance: no acute distress, other (She is awake nose where she is but she is unable to answer questions consistently) Neck: supple Auscultation: bilateral: wheezes Cardiovascular: regular rate and rhythm Gastrointestinal: normoactive bowel sounds, soft, non-tender Integumentary: normal Extremities: edema Musculoskeletal: no deformities non-focal exam, pupils equal and round mood appropriate Results - Laboratory Findings CBC and BMP: 11/14/16 03:02 11/14/16 03:02 ABG ABG pH 7.26 pH Units (7.32-7.45) L 11/14/16 03:05 ABG pCO2 79 mmHg (35-45) H* 11/14/16 03:05 ABG pO2 73 mmHg (85-104) L 11/14/16 03:05 ABG O2 Saturation 92 % (95-98) L 11/14/16 03:05 Abnormal lab findings: Abnormal lab results RBC 3.51 M/mcL (3.82-4.97) L 11/14/16 03:02 Hgb 9.9 g/dL (11.5-15.4) L 11/14/16 03:02 Hct 33.4 % (35.3-44.9) L 11/14/16 03:02 MCHC 29.6 g/dL (31.6-35.5) L 11/14/16 03:02 RDW 16.0 % (11.5-14.5) H 11/14/16 03:02 Polychromasia 1+ (Not Present) A 11/14/16 03:02 Hypochromasia Present (Not Present) A 11/14/16 03:02 ABG pH 7.26 pH Units (7.32-7.45) L 11/14/16 03:05 ABG pCO2 79 mmHg (35-45) H* 11/14/16 03:05 ABG pO2 73 mmHg (85-104) L 11/14/16 03:05 ABG HCO3 36 mEq/L (21-27) H 11/14/16 03:05 ABG Total CO2 37.9 mEq/L (20-26) H 11/14/16 03:05 ABG O2 Saturation 92 % (95-98) L 11/14/16 03:05 ABG Base Excess 6.5 mEq/L (-2.0 to 3.0) H 11/14/16 03:05 Carbon Dioxide 31 mEq/L (19-29) H 11/14/16 03:02 Glucose 149 mg/dL (70-99) H 11/14/16 03:02 Urine Protein 30 mg/dL (Neg-Trace) H 11/14/16 03:11 Urine Bilirubin Small (Negative) H 11/14/16 03:11 - Diagnostic Findings Chest x-ray: report reviewed, image reviewed CT scan - chest: report reviewed, image reviewed - Clinical Findings Intake & Output: Intake & Output 11/13/16 11/14/16 11/14/16 23:59 07:59 15:59 Intake Total 100 / 100 Balance 100 / 100 Consult Discharge Plan - Plan Referrals: Dieter Winters MD [Primary Care Provider] -
[2016-11-14] MEDS: MethylPREDNISolone 40 MG/ML VIAL IVP SCH ×4 (09:47→22:58)
[2016-11-14] MEDS: Pantoprazole 40 MG VIAL IVP SCH (09:47)
[2016-11-14 10:21] LABS: ABG Base Excess 7.2 mEq/L (-2.0 to 3.0); ABG HCO3 37 mEq/L (21-27); ABG Oxygen Saturation 96 % (95-98); ABG PH 7.24 pH Units (7.32-7.45); ABG PO2 92 mmHg (85-104); ABG TCO2 39.5 mEq/L (20-26)
[2016-11-14 10:25] LABS: ABG PCO2 86 mmHg (35-45); Blood Gas FiO2 44 %; Blood Gas Modality NC
--- NOTE | 2016-11-14 10:42 | General Surgery Consult Note ---
<Chelsea Fierro Johnathan - Last Filed: 11/14/16 11:04> Date of Encounter: 11/14/16 Time of Encounter: 10:00 Assessment and Plan (1) Ventral hernia without obstruction or gangrene Current Visit: Yes Status: Acute CT scan has been reviewed with Dr. Zarco and there is no evidence of obstruction or strangulation of the patient's ventral hernia No urgent surgical intervention indicated at this time It is unlikely that the patient's ventral hernia is the source for her nausea/ vomiting given that there is no obstruction per CT Surgery will sign off at this time. Thank you for allowing us to evaluate and participate in the care of this patient. Please call with any further questions/ concerns. (2) Nausea and vomiting Current Visit: Yes Status: Acute NPO NG tube ordered per the hospitalist No surgical intervention indicated at this time It is unlikely that the patient's ventral hernia is the source for her nausea/ vomiting given that there is no obstruction per CT Qualifiers: Vomiting type: unspecified Vomiting Intractability: non-intractable Qualified Code(s): R11.2 - Nausea with vomiting, unspecified (3) Morbid obesity with BMI of 70 and over, adult Current Visit: Yes Status: Chronic (4) Acute exacerbation of chronic obstructive pulmonary disease (COPD) Current Visit: No Status: Acute Pulmonary following for recommendations (5) Acute and chronic respiratory failure with hypercapnia Current Visit: No Status: Acute Pulmonary following for recommendations (6) Pneumonia Current Visit: Yes Status: Acute Antibiotics- Levaquin Pulmonary following for recommendations Qualifiers: Pneumonia type: due to unspecified organism Laterality: right Lung location: lower lobe of lung Qualified Code(s): J18.1 - Lobar pneumonia, unspecified organism History of Present Illness Consult date: 11/14/16 Reason for consult: other (ventral hernia with nausea/vomiting) Requesting physician: Pankaj Monroy History of present illness: Ms. Plata is a 71 year old female who presented to the ED last evening from the [facility] where she resides after falling out of bed. She is confused and unable to answer questions at this time. The information in the HPI has been obtained from the chart and providers caring for the patient. She has had belching and had a couple episodes of emesis this morning. She had a CT complete which shows evidence of a ventral hernia which contained large bowel. There is no evidence of obstruction. The patient is unsure of when she last passed flatus or had a bowel movement. No fevers or chills are documented. She does complain of upper abdominal discomfort with examination. We have been asked to see and evaluate the patient for recommendations. Past Med Surg Social Fam HX - Past Medical History Source: old records reviewed Medical history: atrial fibrillation, CHF, COPD, coronary artery disease, GI bleed, other Psychiatric history: no psych history - Past Surgical History Surgical History: appendectomy, - Social History Smoking Status: Former smoker (40 pack year history) Smokeless Tobacco Status: No Alcohol use: none Drug use: none Occupational status: disabled Current living situation: ECF - Family History Father Adopted: (PATIENT WAS UNABLE TO RECALL FAMILY HISTORY.) Living Status: Hx Family Cardiac Disorders: Yes Mother Living Status: Hx Family Cancer: Yes Medications and Allergies Amiodarone [Cordarone] 100 mg PO DAILY tablet 08/02/16 [Rx] Aspirin Enteric Coated [Aspirin EC] 81 mg PO DAILY tablet. 08/02/16 [Rx] Atorvastatin [Lipitor] 40 mg PO HS tablet 08/02/16 [Rx] Potassium Chloride [Klor-Con Sprinkle] 10 meq PO DAILY #20 capsule.er 08/02/16 [ Rx] Sennosides/Docusate Sodium [Senna Plus] 2 each PO BID tablet 08/02/16 [Rx] Acetaminophen [Tylenol] 650 mg PO Q6HR PRN 10/31/16 [History] DiphenhydraMINE [Benadryl] 25 mg PO Q6H PRN 10/31/16 [History] Furosemide [Lasix] 40 mg PO BID 10/31/16 [History] Ipratropium/Albuterol Neb [Duoneb] 3 ml IH QID PRN 10/31/16 [History] Lactose-Reduced Food [Ensure Liquid] 1 bottle PO TID 10/31/16 [History] Levothyroxine [Synthroid] 100 mcg PO 0630 10/31/16 [History] Metoprolol XL (24 HR) Succ [Toprol Xl] 25 mg PO DAILY 10/31/16 [History] Omeprazole [PriLOSEC] 20 mg PO BIDAC 10/31/16 [History] Zolpidem [Ambien] 5 mg PO HS PRN #7 11/03/16 [Rx] 3 Allergy/AdvReac Type Severity Reaction Status Date / Time No Known Allergies Allergy Verified 01/03/15 19:02 Review of Systems ROS unobtainable: due to mental status All systems PM: A 10-system review of systems was performed and is negative for pertinent findings except as documented above in the HPI. General Surgery Exam Initial Vital Signs Temp Pulse Resp BP Pulse Ox 98.1 F 64 16 128/62 85 11/14/16 00:46 11/14/16 00:46 11/14/16 00:46 11/14/16 00:46 11/14/16 00:46 - General physical appearance well nourished, moderate distress, chronically ill, obese, other (Patient is somnolent and minimally responsive to questions) - Eyes PERRL - ENT dry mucosa, atraumatic, normocephalic - Neck trachea midline - Respiratory other (poor respiratory effort; diminished bibasilar breath sounds) wheezing: bilateral - Cardiovascular Cardiovascular exam: Present: irregular rhythm - Abdomen Abdomen general surgery: Present: bowel sounds present (minimal, hypoactive ), soft, tender Abdominal Tenderness: Present: epigastic - Integumentary Integumentary general surgery: Present: warm and dry - Musculoskeletal Present: other (Unable to assess) - Psychiatric Psychiatric general surgery: Present: other (Patient is confused and somnolent during exam; difficult to assess during examination) Exam Initial Vital Signs Temp Pulse Resp BP Pulse Ox 98.1 F 64 16 128/62 85 11/14/16 00:46 11/14/16 00:46 11/14/16 00:46 11/14/16 00:46 11/14/16 00:46 Results - Labs 11/14/16 03:02 11/14/16 03:02 Abnormal lab results RBC 3.51 M/mcL (3.82-4.97) L 11/14/16 03:02 Hgb 9.9 g/dL (11.5-15.4) L 11/14/16 03:02 Hct 33.4 % (35.3-44.9) L 11/14/16 03:02 MCHC 29.6 g/dL (31.6-35.5) L 11/14/16 03:02 RDW 16.0 % (11.5-14.5) H 11/14/16 03:02 Polychromasia 1+ (Not Present) A 11/14/16 03:02 Hypochromasia Present (Not Present) A 11/14/16 03:02 ABG pH 7.24 pH Units (7.32-7.45) L 11/14/16 10:10 ABG pCO2 86 mmHg (35-45) H* 11/14/16 10:10 ABG HCO3 37 mEq/L (21-27) H 11/14/16 10:10 ABG Total CO2 39.5 mEq/L (20-26) H 11/14/16 10:10 ABG Base Excess 7.2 mEq/L (-2.0 to 3.0) H 11/14/16 10:10 Carbon Dioxide 31 mEq/L (19-29) H 11/14/16 03:02 Glucose 149 mg/dL (70-99) H 11/14/16 03:02 Urine Protein 30 mg/dL (Neg-Trace) H 11/14/16 03:11 Urine Bilirubin Small (Negative) H 11/14/16 03:11 All other labs normal. - Imaging CT scan - abdomen: report reviewed CT scan - pelvis: report reviewed Additional studies: Chest X-Ray 11/14/16 00:53 IMPRESSION: Interval development of right lower lobe opacities and diffuse interstitial opacities. D/ / Brian Morrow MD / Brian Morrow MD Interpreting Provider: Brian Morrow MD Knee X-Ray 11/14/16 00:53 IMPRESSION: Anterior swelling with no definite fracture bilaterally. D/ / Lobo Rey MD / Lobo Rey MD Interpreting Provider: Lobo Rey MD Pelvis X-Ray 11/14/16 00:53 IMPRESSION: 1. No definite fracture on a limited study. 2. Dilated small bowel could represent a partial small bowel obstruction or reactive ileus. D/ / Lobo Rey MD / Lobo Rey MD Interpreting Provider: Lobo Rey MD Head CT 11/14/16 01:59 IMPRESSION: No acute intracranial abnormality. Mild paranasal sinus disease as above. D/ / Jose Francisco Hernandez MD / Jose Francisco Hernandez MD Interpreting Provider: Jose Francisco Hernandez MD Abdomen/Pelvis CT 11/14/16 02:28 IMPRESSION: Broad-based ventral hernia containing loops of bowel. Right lower lobe airspace disease. D/ / Brian Morrow MD / Brian Morrow MD Interpreting Provider: Brian Morrow MD Consult Discharge Plan - Plan Referrals: Dieter Winters MD [Primary Care Provider] - - Attending Attestation For this encounter, I have reviewed the PRACTICE BUSINESS ASST or PA documentation, treatment plan, and medical decision making; and I have had face to face time with this patient. <Nurys Zarco - Last Filed: 11/14/16 15:31> Date of Encounter: 11/14/16 Assessment and Plan (1) Nausea and vomiting Current Visit: Yes Status: Acute Qualifiers: Vomiting type: unspecified Vomiting Intractability: non-intractable Qualified Code(s): R11.2 - Nausea with vomiting, unspecified (2) Ventral hernia without obstruction or gangrene Current Visit: Yes Status: Acute (3) Ventral hernia without obstruction or gangrene Current Visit: Yes Status: Chronic patients CT scan reviewed, she has no dilated colon proximal to hernia, no small bowel dilation and stomach is well decompressed, not so sure how well ngt decompression is going to control her nausea but I do not feel she is obstructed from her hernia. Due to COPD exaccerbation and pneumonia no surgical intervention will be attempted at this time. Patients abdomen is soft and nontender over area of hernia. (4) Nausea and vomiting Current Visit: Yes Status: Acute unsure how well ngt is going to control nausea and vomiting and there are no dilated loops of small bowel, no stomach distention would try to control from medical standpoint with zofran, possibly promethazine and scopalamine patch Qualifiers: Vomiting type: unspecified Past Med Surg Social Fam HX - Past Medical History Source: old records reviewed Medical history: atrial fibrillation, CHF, COPD, coronary artery disease, GI bleed, other (morbid obesity) - Past Surgical History Surgical History: appendectomy, Review of Systems All systems PM: A 10-system review of systems was performed and is negative for pertinent findings except as documented above in the HPI. General Surgery Exam Initial Vital Signs Temp Pulse Resp BP Pulse Ox 98.1 F 64 16 128/62 85 11/14/16 00:46 11/14/16 00:46 11/14/16 00:46 11/14/16 00:46 11/14/16 00:46 - General physical appearance well nourished, no distress, no pain, obese - Eyes PERRL - ENT atraumatic, normocephalic - Neck trachea midline - Respiratory normal expansion - Cardiovascular Cardiovascular exam: Present: RRR - Abdomen Abdomen general surgery: Present: bowel sounds present, soft, tender Hernia: Present: incarcerated (patient is not tender over area of hernia) - Integumentary Integumentary general surgery: Present: warm and dry - Neurologic Present: CN 2-12 grossly intact - Musculoskeletal Present: normal posture - Psychiatric Psychiatric general surgery: Present: A&Ox3, speech is normal, other (confused) Exam Initial Vital Signs Temp Pulse Resp BP Pulse Ox 98.1 F 64 16 128/62 85 11/14/16 00:46 11/14/16 00:46 11/14/16 00:46 11/14/16 00:46 11/14/16 00:46 Results - Labs 11/14/16 03:02 11/14/16 03:02 Abnormal lab results RBC 3.51 M/mcL (3.82-4.97) L 11/14/16 03:02 Hgb 9.9 g/dL (11.5-15.4) L 11/14/16 03:02 Hct 33.4 % (35.3-44.9) L 11/14/16 03:02 MCHC 29.6 g/dL (31.6-35.5) L 11/14/16 03:02 RDW 16.0 % (11.5-14.5) H 11/14/16 03:02 Polychromasia 1+ (Not Present) A 11/14/16 03:02 Hypochromasia Present (Not Present) A 11/14/16 03:02 ABG pH 7.24 pH Units (7.32-7.45) L 11/14/16 10:10 ABG pCO2 86 mmHg (35-45) H* 11/14/16 10:10 ABG HCO3 37 mEq/L (21-27) H 11/14/16 10:10 ABG Total CO2 39.5 mEq/L (20-26) H 11/14/16 10:10 ABG Base Excess 7.2 mEq/L (-2.0 to 3.0) H 11/14/16 10:10 Carbon Dioxide 31 mEq/L (19-29) H 11/14/16 03:02 Glucose 149 mg/dL (70-99) H 11/14/16 03:02 Urine Protein 30 mg/dL (Neg-Trace) H 11/14/16 03:11 Urine Bilirubin Small (Negative) H 11/14/16 03:11 All other labs normal. - Imaging CT scan - abdomen: report reviewed, image reviewed CT scan - pelvis: report reviewed, image reviewed - Attending Attestation I have personally performed a face to face evaluation on this patient. I have reviewed and agree with the care plan. History and Exam by me shows:
[2016-11-14] MEDS: Ipratropium/Albuterol Neb 3 ML IH SCH ×4 (11:19→23:44)
[2016-11-14] MEDS ORDERED: Furosemide 20 MG/2 ML VIAL IVP ONE (11:19)
[2016-11-14] MEDS ORDERED: Metoclopramide 10 MG/2 ML VIAL IVP PRN (12:57)
[2016-11-14] MEDS ORDERED: Piperacillin/Tazobactam 3.375 GM in D5% in Water (Mini-Bag+) 100 ML IVPB SCH (13:00)
[2016-11-14] MEDS ORDERED: Lidocaine Viscous Oral Soln 15 ML SOLUTION MM PRN (14:58)
[2016-11-14] MEDS ORDERED: *HR* LORazepam 2 MG/ML VIAL IVP ONE (15:01)
--- NOTE | 2016-11-14 18:32 | Electrocardiograph Report ---
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
[2016-11-14 20:15] LABS: ABG Base Excess 7.6 mEq/L (-2.0 to 3.0); ABG HCO3 37 mEq/L (21-27); ABG Oxygen Saturation 81 % (95-98); ABG PH 7.24 pH Units (7.32-7.45); ABG PO2 54 mmHg (85-104)
[2016-11-14 20:16] LABS: ABG PCO2 87 mmHg (35-45); Blood Gas FiO2 40 %; Blood Gas Modality NC
--- NOTE | 2016-11-14 21:02 | Event Note ---
Date of Encounter: 11/14/16 Time of Encounter: 21:02 Patient is seen and evaluated at the bedside. Respiratory therapists was present during evaluation.. 71-year-old female admitted for acute on chronic hypoxic and hypercapnic respiratory failure, as well as healthcare associated pneumonia. Attention drawn to this patient by STREET CAR INSPECTOR for abnormal ABG She is alert and oriented 3. She is uncooperative with most of the evaluation. Patient was admitted and placed on BiPAP by the day team, NG tube was also placed due to complaints of belching for the presence of a ventral hernia. On examination she is saturating 82% on 4 L of oxygen, she is sitting propped up in bed morbidly obese able to complete sentences. Anterior auscultation with good air entry bilaterally. Heart sounds S1 and S2. Abdomen is obese , with a large hernia ,unable to palpate any organs. No pedal edema. Labs and imaging reviewed as above. Assessment and plan #1 acute on chronic hypoxic and hypercapnic respiratory failure with respiratory acidosis. Patient agrees to BiPAP. Respiratory therapist to place patient on BiPAP with IPAP 12 EPAP of 6 respiratory rate of 14 and FiO2 40%. Reevaluate within the next 2 hours and repeat ABG at that time. #2 . Code Status: Patient absolutely refuses mechanical ventilation and intubation. When asked about her resuscitation status she states she is DNR DNI. She continues to be high risk for respiratory failure, eventual cardiac arrest secondary to hypoxia, and . She verbalizes understanding and we will continue to monitor.
[2016-11-14] MEDS: Piperacillin/Tazobactam 3.375 GM in D5% in Water (Mini-Bag+) 100 ML IVPB SCH (22:58)
[2016-11-15 00:25] LABS: ABG Base Excess 8.1 mEq/L (-2.0 to 3.0); ABG HCO3 38 mEq/L (21-27); ABG Oxygen Saturation 96 % (95-98); ABG PH 7.24 pH Units (7.32-7.45); ABG PO2 92 mmHg (85-104); ABG TCO2 40.4 mEq/L (20-26)
[2016-11-15 00:26] LABS: ABG PCO2 88 mmHg (35-45); Blood Gas FiO2 50 %; Blood Gas Modality BIPAP
[2016-11-15] MEDS ORDERED: Levofloxacin 750 MG/150 ML 750 MG/150 ML BAG IVPB SCH (03:00)
[2016-11-15] MEDS: Ipratropium/Albuterol Neb 3 ML IH SCH ×5 (04:05→20:01)
[2016-11-15 04:17] LABS: ABG Base Excess 8.1 mEq/L (-2.0 to 3.0); ABG HCO3 38 mEq/L (21-27); ABG Oxygen Saturation 94 % (95-98); ABG PH 7.24 pH Units (7.32-7.45); ABG PO2 83 mmHg (85-104); ABG TCO2 40.4 mEq/L (20-26)
[2016-11-15] MEDS: MethylPREDNISolone 40 MG/ML VIAL IVP SCH ×3 (05:51→17:57)
[2016-11-15] MEDS: *HR* Enoxaparin 40 MG/0.4 ML SYRINGE SQ SCH (05:51)
[2016-11-15 06:13] LABS: ABG PCO2 88 mmHg (35-45); Blood Gas FiO2 40 %; Blood Gas Modality BIPAP
--- NOTE | 2016-11-15 09:40 | Pulmonology Progress Note ---
Date of Encounter: 11/15/16 Time of Encounter: 09:38 Assessment and Plan (1) Acute on chronic respiratory failure with hypoxia and hypercapnia Current Visit: No Status: Acute 71-year-old woman with acute on chronic hypoxic hypercapnic respiratory failure which is likely secondary to COPD exacerbation complicated by possible aspiration pneumonia which may be precipitated by a relative ileus without inés bowel obstruction. The main concern here is that thus far treatments of been ineffectual which has been a combination of some unwillingness the patient to cooperate with treatments and a lack of persistence of applying appropriate therapies in a consistent fashion. The overall goal of therapy as outlined to the nursing staff and the hospitalist staff was that an NG tube should be placed to try to alleviate if possible the ongoing belching and possibility of vomiting in an effort to safely apply noninvasive positive pressure ventilation to support her respiratory needs. Unfortunately this morning in entering the room she clinically continues to belch is not wearing bilevel positive airway pressure support and does not have any NG tube in place to support allow this . It is Clear after speaking with patient reading the medical record that she does not want to undergo intubation and mechanical ventilation and the thus options are quite limited she is sustaining current respiratory status although this is extremely tenuous and could deteriorate at any time. Unless measures as outlined are reinstituted and consistent application of noninvasive positive pressure ventilation is delivered and crucially in this case and is safe manner (that is with some form of gastric decompression that would at least make aspiration risk less likely e.g. NG Tube) chances of recovery are just about as likely as decompensation. Other interventions such as antimicrobials to treat for possible aspiration and bronchodilators along with steroids for COPD exacerbation are warranted and should be continued. Additionally given history of pulmonary edema and heart failure trial of diuresis would also likely be beneficial with daily monitoring electrolyte panel and kidney function Unfortunately if she does not allow current interventions to be undertaken as outlined above her short-term prognosis is poor and overall regardless of outcome of this hospitalization her prognosis is poor and I would recommend formal consultation with palliative care service to establish goals of care. I think this would be reinforced if she continues to refuse positive airway pressure ventilation the inpatient setting but the outpatient setting which is can be crucial for her overall longevity. She would continue to benefit from chemical DVT prophylaxis unless contraindication arises. (2) Pneumonia Current Visit: Yes Status: Acute Qualifiers: Pneumonia type: aspiration pneumonia Aspiration pneumonia type: due to vomit Laterality: bilateral Qualified Code(s): J69.0 - Pneumonitis due to inhalation of food and vomit (3) COPD exacerbation Current Visit: No Status: Acute (4) Diastolic congestive heart failure, NYHA class 3 Current Visit: No Status: Chronic Qualifiers: Congestive heart failure chronicity: chronic Qualified Code(s): I50.32 - Chronic diastolic (congestive) heart failure (5) DVT prophylaxis Current Visit: No Status: Acute (6) Morbid obesity with alveolar hypoventilation Current Visit: No Status: Chronic (7) Intractable nausea and vomiting Current Visit: Yes Status: Acute Qualifiers: Qualified Code(s): R11.2 - Nausea with vomiting, unspecified (8) Ventral hernia without obstruction or gangrene Current Visit: Yes Status: Acute Subjective Principal diagnosis: Respiratory Failure Interval history: Overnight NG tube was placed per nursing staff report and medical record although this morning when I enter the room she no longer had an NG tube. Bilevel positive airway pressure support was then instituted which she wore intermittently most the time it sounds like she was unwilling to wear it. Despite above measures her PCO2 had not improved. Her mental status today is slightly improved she is more alert and awake and able to more consistently answer my questions. I do note that when I am talking to her she continues to belch although I do not think there has been any more episodes of vomiting. Objective PUL Vital signs: Last Vital Signs Temp 97.5 F L 11/15/16 07:31 Pulse 64 11/15/16 07:31 Resp 16 11/15/16 07:31 BP 117/52 11/15/16 07:31 Pulse Ox 96 11/15/16 07:31 General appearance: other (Morbidly obese elderly woman does not appear to be in distress progress noted belching on examination she is clearly confused at times) Eyes: nonicteric ENT: oropharynx moist Effort: normal Auscultation: bilateral: diminished breath sounds, wheezes Gastrointestinal: soft, non-tender, other (Ventral hernia appreciated) Extremities: no cyanosis, no clubbing, edema non-focal exam Results - Laboratory Findings CBC and BMP: 11/14/16 03:02 11/14/16 03:02 ABG ABG pH 7.24 pH Units (7.32-7.45) L 11/15/16 04:10 ABG pCO2 88 mmHg (35-45) H* 11/15/16 04:10 ABG pO2 83 mmHg (85-104) L 11/15/16 04:10 ABG O2 Saturation 94 % (95-98) L 11/15/16 04:10 Abnormal lab findings: Abnormal lab results RBC 3.51 M/mcL (3.82-4.97) L 11/14/16 03:02 Hgb 9.9 g/dL (11.5-15.4) L 11/14/16 03:02 Hct 33.4 % (35.3-44.9) L 11/14/16 03:02 MCHC 29.6 g/dL (31.6-35.5) L 11/14/16 03:02 RDW 16.0 % (11.5-14.5) H 11/14/16 03:02 Polychromasia 1+ (Not Present) A 11/14/16 03:02 Hypochromasia Present (Not Present) A 11/14/16 03:02 ABG pH 7.24 pH Units (7.32-7.45) L 11/15/16 04:10 ABG pCO2 88 mmHg (35-45) H* 11/15/16 04:10 ABG pO2 83 mmHg (85-104) L 11/15/16 04:10 ABG HCO3 38 mEq/L (21-27) H 11/15/16 04:10 ABG Total CO2 40.4 mEq/L (20-26) H 11/15/16 04:10 ABG O2 Saturation 94 % (95-98) L 11/15/16 04:10 ABG Base Excess 8.1 mEq/L (-2.0 to 3.0) H 11/15/16 04:10 Carbon Dioxide 31 mEq/L (19-29) H 11/14/16 03:02 Glucose 149 mg/dL (70-99) H 11/14/16 03:02 POC Glucose 146 (58-89) H 11/15/16 07:35 Urine Protein 30 mg/dL (Neg-Trace) H 11/14/16 03:11 Urine Bilirubin Small (Negative) H 11/14/16 03:11 - Clinical Findings Intake & Output: Intake & Output 11/14/16 11/15/16 11/15/16 23:59 07:59 15:59 Intake Total 0 / 0 Balance 0 / 0 Weight 140 kg Consult Discharge Plan - Plan Referrals: Dieter Winters MD [Primary Care Provider] -
[2016-11-15] MEDS: Piperacillin/Tazobactam 3.375 GM in D5% in Water (Mini-Bag+) 100 ML IVPB SCH ×2 (09:44→17:57)
[2016-11-15] MEDS: Pantoprazole 40 MG VIAL IVP SCH (09:45)
[2016-11-15 11:36] LABS: Nucleated Red Blood Cells 0.2 /100 WBC (0); Red Cell Distribution Width 15.6 % (11.5-14.5)
[2016-11-15 11:37] LABS: Basophils % 0.2 %; Hemoglobin 9.4 g/dL (11.5-15.4); Immature Granulocytes % 0.9 % (0-4); Lymphocytes # 1.1 K/mcL (0.6-4.6); Lymphocytes % 11.6 %; Mean Corpuscular HGB Conc 28.5 g/dL (31.6-35.5); Mean Corpuscular Hemoglobin 27.9 pg (28.0-33.3); Mean Corpuscular Volume 97.9 fL (83.0-100.0); Mean Platelet Volume 9.9 fL (9.4-12.4); Monocytes # 0.2 K/mcL (0.0-1.3); Monocytes % 2.2 %; Neutrophils # 7.9 K/mcL (1.6-8.9); Platelet Count 294 K/mcL (140-400); Red Blood Count 3.37 M/mcL (3.82-4.97); Segmented Neutrophils % 85.1 %
[2016-11-15] MEDS ORDERED: 0.9 % Sodium Chloride 1,000 ML IVC SCH (12:00)
[2016-11-15 13:01] LABS: Anisocytosis 1+ (Not Present); Hypochromasia Present (Not Present); Macrocytosis Present (Not Present)
--- NOTE | 2016-11-15 14:19 | Palliative - Consult Note ---
<Leonard Jiang - Last Filed: 11/15/16 14:17> Date of Encounter: 11/15/16 Time of Encounter: 14:17 - Assessment and Plan (1) Goals of care, counseling/discussion Current Visit: No Status: Acute Assessment and plan: Patient status to remain DNR/DNI/CCA. Patient Crow [phone] is point of contact, currently no AD's on file. Patient requests to return to signature as soon as she is able to. Patient cannot tolerate BiPAP, currently SpO2 91-95% on 6.5 L NC. Patient is currently not hospice eligibile due to her respiratory status. (2) Acute exacerbation of chronic obstructive pulmonary disease (COPD) Current Visit: No Status: Acute Assessment and plan: currently stable. per management of medicine team Code(s): J44.1 - Chronic obstructive pulmonary disease with (acute) exacerbation (3) Morbid obesity with alveolar hypoventilation Current Visit: No Status: Chronic Assessment and plan: patient is hypercapneic most likely multi-factoral from obesity and COPD. per medicine team management (4) Leg abrasion Current Visit: Yes Status: Acute Assessment and plan: Right leg abrasion. Notified medicine team, they requested an X-Ray, medicine team will follow up. Qualifiers: Laterality: right Qualified Code(s): S80.811A - Abrasion, right lower leg, initial encounter Palliative-CN HPI - Data of Consult Patient: new to practice Consult date: 11/15/16 Requesting Physician: Emily Bell MD Primary Care Provider: Dieter Winters MD - Consult Narrative Palliative Care/Comfort Measures: Palliative care Reason for consult: health goal next steps History of present illness: Ms. Plata is a 71 year old female admitted due to a fall and exacerbation of her COPD. PMHx includes ventral hernia, morbid obesity, and diastolic congestive heart failure. Patient does not want to use BiPAP machine because she feels "scared" "claustrophobic" with it on. Patient would like to return signatures as soon as possible. Patient was currently in no discomfort or pain. Patient's only concern was the bruise on her right knee. CC: Emily Bell MD Past Med Surg Social Fam HX - Past Medical History Medical history: atrial fibrillation, CHF, COPD, coronary artery disease, GI bleed, other (morbid obesity) Psychiatric history: no psych history - Past Surgical History Surgical History: appendectomy, - Social History Smoking Status: Former smoker (40 pack year history) Smokeless Tobacco Status: No Alcohol use: none Drug use: none - Family History Father Adopted: (PATIENT WAS UNABLE TO RECALL FAMILY HISTORY.) Living Status: Hx Family Cardiac Disorders: Yes Mother Living Status: Hx Family Cancer: Yes Medications and Allergies Amiodarone [Cordarone] 100 mg PO DAILY tablet 08/02/16 [Rx] Aspirin Enteric Coated [Aspirin EC] 81 mg PO DAILY tablet. 08/02/16 [Rx] Atorvastatin [Lipitor] 40 mg PO HS tablet 08/02/16 [Rx] Potassium Chloride [Klor-Con Sprinkle] 10 meq PO DAILY #20 capsule.er 08/02/16 [ Rx] Sennosides/Docusate Sodium [Senna Plus] 2 each PO BID tablet 08/02/16 [Rx] Acetaminophen [Tylenol] 650 mg PO Q6HR PRN 10/31/16 [History] DiphenhydraMINE [Benadryl] 25 mg PO Q6H PRN 10/31/16 [History] Ipratropium/Albuterol Neb [Duoneb] 3 ml IH QID PRN 10/31/16 [History] Lactose-Reduced Food [Ensure Liquid] 1 bottle PO TID 10/31/16 [History] Levothyroxine [Synthroid] 100 mcg PO 0630 10/31/16 [History] Metoprolol XL (24 HR) Succ [Toprol Xl] 25 mg PO DAILY 10/31/16 [History] Zolpidem [Ambien] 5 mg PO HS PRN #7 11/03/16 [Rx] LORazepam [Ativan] 0.5 mg PO HS 11/15/16 [History] Omeprazole 10 mg PO BID 11/15/16 [History] Oxycodone HCl [Oxaydo] 10 mg PO Q4H PRN 11/15/16 [History] 3 Allergy/AdvReac Type Severity Reaction Status Date / Time No Known Allergies Allergy Verified 01/03/15 19:02 Palliative Care-Exam - Constitutional Vitals: Temp Pulse Resp BP Pulse Ox 98.1 F 74 14 108/70 94 11/15/16 11:33 11/15/16 11:33 11/15/16 11:33 11/15/16 11:33 11/15/16 11:33 General appearance: Present: morbidly obese - Respiratory Respiratory exam: Present: decreased breath sounds (breath sounds difficult to hear due to habitus) - Cardiovascular Cardiovascular exam: Present: RRR (difficult to auscultate heart sounds due to habitus) - Extremities Exam Additional comments: Right pateller discoloration, mildly erythematous. Internal Medicine - CN: Reslt - Labs CBC & Chem 7: 11/15/16 11:17 11/14/16 03:02 Labs: Short CBC 11/15/16 Range/Units 11:17 WBC 9.3 (4.3-11.1) K/mcL Hgb 9.4 L (11.5-15.4) g/dL Hct 33.0 L (35.3-44.9) % Plt Count 294 (140-400) K/mcL Neutrophils # 7.9 (1.6-8.9) K/mcL - ABG Interpretation ABG results: ABG ABG pH 7.24 pH Units (7.32-7.45) L 11/15/16 04:10 ABG pCO2 88 mmHg (35-45) H* 11/15/16 04:10 ABG pO2 83 mmHg (85-104) L 11/15/16 04:10 ABG O2 Saturation 94 % (95-98) L 11/15/16 04:10 - Impressions Impressions KUB X-Ray 11/14/16 15:48 IMPRESSION: NG tube with tip in the distal stomach. D/ / Gauri Jackson MD / Gauri Jackson MD Interpreting Provider: Gauri Jackson MD Consult Discharge Plan - Plan Referrals: Dieter Winters MD [Primary Care Provider] - Palliative Quality Palliative Quality: Screen for Code Status: Yes, Screen for Goals of Care: Yes, Screen for Pain: Yes, If Pain Regimen Started, Initiate Bowel Regimen: NA, Screen for Nausea/Vomitting: Yes Code Status: 11/14/16 21:02 DNR [Resuscitation Status: Active] [RES] Routine Comment: Resuscitation Status: [id number] <Mendez Hyatt L - Last Filed: 11/15/16 15:22> Date of Encounter: 11/15/16 Palliative-CN HPI - Data of Consult Requesting Physician: Emily Bell MD Primary Care Provider: Dieter Winters MD - Consult Narrative History of present illness: Ms. Plata is a 71 year old female CC: Emily Bell MD Palliative Care-Exam - Constitutional Vitals: Temp Pulse Resp BP Pulse Ox 98.1 F 74 14 108/70 94 11/15/16 11:33 11/15/16 11:33 11/15/16 11:33 11/15/16 11:33 11/15/16 11:33 Internal Medicine - CN: Reslt - Labs CBC & Chem 7: 11/15/16 11:17 11/14/16 03:02 Labs: Short CBC 11/15/16 Range/Units 11:17 WBC 9.3 (4.3-11.1) K/mcL Hgb 9.4 L (11.5-15.4) g/dL Hct 33.0 L (35.3-44.9) % Plt Count 294 (140-400) K/mcL Neutrophils # 7.9 (1.6-8.9) K/mcL - ABG Interpretation ABG results: ABG ABG pH 7.24 pH Units (7.32-7.45) L 11/15/16 04:10 ABG pCO2 88 mmHg (35-45) H* 11/15/16 04:10 ABG pO2 83 mmHg (85-104) L 11/15/16 04:10 ABG O2 Saturation 94 % (95-98) L 11/15/16 04:10 - Impressions Impressions KUB X-Ray 11/14/16 15:48 IMPRESSION: NG tube with tip in the distal stomach. D/ / Gauri Jackson MD / Gauri Jackson MD Interpreting Provider: Gauri Jackson MD Knee X-Ray 11/15/16 13:49 IMPRESSION: Osteopenia. No displaced fracture identified. Focal pretibial soft tissue swelling and increased density at the proximal right leg most consistent with hematoma given the history of trauma. Clinical follow-up to resolution is suggested. D/ / 11/15/2016 15:06:53 Filiberto Biggs MD / mario Interpreting Provider: Filiberto Biggs MD Knee X-Ray 11/15/16 13:49 IMPRESSION: Osteopenia. No displaced fracture identified. Focal pretibial soft tissue swelling and increased density at the proximal right leg most consistent with hematoma given the history of trauma. Clinical follow-up to resolution is suggested. D/ / 11/15/2016 15:06:53 Filiberto Biggs MD / mario Interpreting Provider: Filiberto Biggs MD - Attending Attestation I examined this patient and my medical decision-making was reviewed with the Resident Physician. I agree with the documented findings, disposition and treatment plan as described except to the extent set forth below. pt had blunt trauma to knees I have ordered x rays that Dr Bell has requested and he will f/u on them. Palliative Quality Code Status: 11/14/16 21:02 DNR [Resuscitation Status: Active] [RES] Routine Comment: Resuscitation Status: [id number]
--- NOTE | 2016-11-15 20:35 | Internal Med Progress Note ---
Date of Encounter: 11/15/16 Time of Encounter: 10:00 - Assessment and plan (1) Acute exacerbation of chronic obstructive pulmonary disease (COPD) Current Visit: No Status: Acute Assessment and plan: Patient has a history of COPD. Has wheezing and shortness of breath. ABG shows CO2 retention with respiratory acidosis. Consider COPD exacerbation. - As patient cannot tolerate BiPAP and refused intubation, currently treated patient with medications. - We will continue antibiotic, steroid, and bronchodilator. Add singuliar and give Magnesium. - Continue closely monitor patient, placed BiPAP as patient would like to. (2) Morbid obesity with BMI of 50.0-59.9, adult Current Visit: No Status: Chronic Assessment and plan: In the lifestyle modification. May also contribute to hypoventilation and CO2 retention (3) CHF (congestive heart failure) Current Visit: No Status: Chronic Assessment and plan: Appears euvolemic at that point. Continue home medications Qualifiers: Congestive heart failure type: diastolic Congestive heart failure chronicity: chronic Qualified Code(s): I50.32 - Chronic diastolic (congestive ) heart failure (4) DVT prophylaxis Current Visit: No Status: Acute Assessment and plan: Lovenox sc (5) Acute on chronic respiratory failure with hypoxia and hypercapnia Current Visit: No Status: Acute Assessment and plan: Heart the by COPD exacerbation and obesity hypoventilation syndrome. Continue treatment as listed above. Continue supportive treatment. (6) Ventral hernia without obstruction or gangrene Current Visit: Yes Status: Acute (7) Leg abrasion Current Visit: Yes Status: Acute Assessment and plan: X-ray shows no fracture. Continue pain management Qualifiers: Laterality: right Qualified Code(s): S80.811A - Abrasion, right lower leg, initial encounter (8) Pneumonia Current Visit: Yes Status: Acute Assessment and plan: Consider community acquired pneumonia versus aspiration pneumonia as the patient has larger ventral hernia. Place patient on Zosyn. Culture negative. - Continue nebulizer and the supportive treatment. - Keep nothing by mouth at this point, swallow evaluation. Qualifiers: Pneumonia type: aspiration pneumonia Aspiration pneumonia type: meconium aspiration Laterality: right Lung location: lower lobe of lung Qualified Code(s): P24.01 - Meconium aspiration with respiratory symptoms - Time Spent With Patient 25 - 35 minutes - Subjective Interval history: Pt is a 71-year-old female admitted for COPD exacerbation. Her past medical history is significant for COPD, CHF, CAD, GI bleeding. Patient was seen and examined. Awake alert oriented 3. Morbid obesity with difficulty breathing. No fever. Mild cough with whitish sputum. Vitals are stable. Patient cannot tolerate BiPAP and refuse intubation (patient is DNR/DNI ), palliative care consult on case and input is highly appreciated. We have to use a high level oxygen to maintain saturation although it apparently will worsen Hypercapnia and respiratory acidosis. Will continue maximum medication treatment. Pulmonology is also on case. - Constitutional Vitals: Temp Pulse Resp BP Pulse Ox 97.7 F 71 16 109/47 83 11/15/16 15:58 11/15/16 15:58 11/15/16 15:58 11/15/16 15:58 11/15/16 15:58 General appearance: Present: mild distress, A&O X 3, answers questions appropriately - Head Head exam: Present: atraumatic, normocephalic - Eye Eye exam: Present: PERRL, conjuntiva pink, sclera anicteric Pupils: Present: PERRL - Neck Neck exam general surgery: Present: supple, trachea midline. Absent: lymphadenopathy - Respiratory Respiratory exam: Present: CTAB, wheezes (Schedule with his bilaterally). Absent: accessory muscle use, rales, rhonchi - Cardiovascular Cardiovascular exam: Present: RRR, +S1, +S2. Absent: diastolic murmur, gallop, rubs, systolic murmur - GI/Abdominal GI/Abdominal exam: Present: normal bowel sounds, soft, no peritoneal signs. Absent: distended, tenderness - Extremities Exam Extremities exam: Present: warm, radial pulses palpable and symmetrical. Absent : calf tenderness, cyanotic, pedal edema - Neurological Exam Neurological exam: Present: CN II-XII intact, oriented X3, no focal deficits. Absent: pronater drift, facial droop, speech deficit - Skin Skin exam: Present: dry, intact Internal Medicine: Result - Labs CBC & Chem 7: 11/15/16 11:17 11/14/16 03:02 Labs: Short CBC 11/15/16 Range/Units 11:17 WBC 9.3 (4.3-11.1) K/mcL Hgb 9.4 L (11.5-15.4) g/dL Hct 33.0 L (35.3-44.9) % Plt Count 294 (140-400) K/mcL Neutrophils # 7.9 (1.6-8.9) K/mcL - ABG Interpretation Interpretation: ABG interpreted by me ABG results: ABG ABG pH 7.24 pH Units (7.32-7.45) L 11/15/16 04:10 ABG pCO2 88 mmHg (35-45) H* 11/15/16 04:10 ABG pO2 83 mmHg (85-104) L 11/15/16 04:10 ABG O2 Saturation 94 % (95-98) L 11/15/16 04:10 Interpretation: respiratory acidosis - Impressions Impressions Knee X-Ray 11/15/16 13:49 IMPRESSION: Osteopenia. No displaced fracture identified. Focal pretibial soft tissue swelling and increased density at the proximal right leg most consistent with hematoma given the history of trauma. Clinical follow-up to resolution is suggested. D/ / 11/15/2016 15:06:53 Filiberto Biggs MD / mario Interpreting Provider: Filiberto Biggs MD Knee X-Ray 11/15/16 13:49 IMPRESSION: Osteopenia. No displaced fracture identified. Focal pretibial soft tissue swelling and increased density at the proximal right leg most consistent with hematoma given the history of trauma. Clinical follow-up to resolution is suggested. D/ / 11/15/2016 15:06:53 Filiberto Biggs MD / mario Interpreting Provider: Filiberto Biggs MD Consult Discharge Plan - Plan Referrals: Dieter Winters MD [Primary Care Provider] -
[2016-11-15] MEDS ORDERED: *HR* OxyCODONE Immed Rel 5 MG TABLET PO PRN (20:44)
[2016-11-15] MEDS ORDERED: Acetaminophen 325 MG TABLET PO PRN (20:44)
[2016-11-15] MEDS ORDERED: Magnesium Sulfate 2 GM in D5% in Water 100 ML IVPB ONE (20:44)
[2016-11-15] MEDS: Sennosides/Docusate Sodium TABLET PO SCH (21:12)
[2016-11-16] MEDS: MethylPREDNISolone 40 MG/ML VIAL IVP SCH ×4 (00:04→16:27)
[2016-11-16] MEDS: Piperacillin/Tazobactam 3.375 GM in D5% in Water (Mini-Bag+) 100 ML IVPB SCH ×2 (00:04→06:12)
[2016-11-16] MEDS: Ipratropium/Albuterol Neb 3 ML IH SCH ×7 (00:51→23:07)
[2016-11-16 05:33] LABS: Lymphocytes % 10.5 %
[2016-11-16 05:35] LABS: Basophils % 0.2 %; Hematocrit 30.1 % (35.3-44.9); Hemoglobin 8.9 g/dL (11.5-15.4); Immature Granulocytes % 0.7 % (0-4); Lymphocytes # 1.3 K/mcL (0.6-4.6); Mean Corpuscular HGB Conc 29.6 g/dL (31.6-35.5); Mean Corpuscular Hemoglobin 28.5 pg (28.0-33.3); Mean Corpuscular Volume 96.5 fL (83.0-100.0); Mean Platelet Volume 9.9 fL (9.4-12.4); Monocytes # 0.3 K/mcL (0.0-1.3); Monocytes % 2.4 %; Platelet Count 301 K/mcL (140-400); Red Blood Count 3.12 M/mcL (3.82-4.97); Red Cell Distribution Width 15.8 % (11.5-14.5); Segmented Neutrophils % 86.2 %
[2016-11-16 05:50] LABS: Neutrophils # 10.3 K/mcL (1.6-8.9)
[2016-11-16 05:51] LABS: BUN/Creatinine Ratio 17 (6-26); Blood Urea Nitrogen 11 mg/dL (7-20); Carbon Dioxide 34 mEq/L (19-29); Chloride 101 mEq/L (98-109); Glucose 158 mg/dL (70-99); Osmolality,Calculated 291 (280-300); Potassium 4.5 mEq/L (3.5-4.5); Sodium 139 mEq/L (136-145); eGFR For African Americans > 60 (> 60); eGFR For Non-African Americans > 60 (> 60)
[2016-11-16] MEDS: *HR* Enoxaparin 40 MG/0.4 ML SYRINGE SQ SCH (06:13)
[2016-11-16 06:32] LABS: Hypochromasia Present (Not Present); Platelet Estimate Normal (Normal)
[2016-11-16] MEDS: Aspirin Enteric Coated 81 MG Tablet PO SCH (10:51)
[2016-11-16] MEDS: Sennosides/Docusate Sodium TABLET PO SCH ×2 (10:51→21:35)
[2016-11-16] MEDS: *HR* Amiodarone 200 MG TABLET PO SCH (10:51)
[2016-11-16] MEDS: Metoprolol XL (24 HR) Succ 25 MG TAB.ER.24H PO SCH (10:51)
--- NOTE | 2016-11-16 12:29 | Palliative Progress Note ---
Date of Encounter: 11/16/16 Time of Encounter: 10:00 - Assessment and plan (1) Goals of care, counseling/discussion Current Visit: No Status: Acute Assessment and plan: Attempted goals of care discussion with pt this am, however, she states her only concern at this time is "getting food". She refuses to answer some of my questions. In review of Dr. Hyatt's note yesterday, I believe there was a mistake in typing - pt is eligible for hospice based on persistent hypercarbia and resp failure. I discussed this with her. She stated that her is paying for the senior care. I did let her know that if she enrolled in hospice, this may offset at least the cost of most of her medications, as well as possibly prevent her from coming back to hospital. She declined discussing further. Will f/u in am. (2) Dyspnea Current Visit: Yes Status: Acute - Time Spent With Patient Total time spent is greater than 50% in coordination of care (as documented) at patient's floor/unit and/or counseling patient: 25 - 35 minutes - Subjective Interval history: Patient awake and alert. States not feeling well. Upset over NPO status and wanting me to get her food. Denies pain, states still short of breath. Patient refuses to answer some questions. - Constitutional Vitals: Abnormal lab results WBC 11.9 K/mcL (4.3-11.1) H 11/16/16 05:18 RBC 3.12 M/mcL (3.82-4.97) L 11/16/16 05:18 Hgb 8.9 g/dL (11.5-15.4) L 11/16/16 05:18 Hct 30.1 % (35.3-44.9) L 11/16/16 05:18 MCHC 29.6 g/dL (31.6-35.5) L 11/16/16 05:18 RDW 15.8 % (11.5-14.5) H 11/16/16 05:18 Neutrophils # 10.3 K/mcL (1.6-8.9) H 11/16/16 05:18 Nucleated RBCs/100 WBC 0.2 /100 WBC (0) H 11/15/16 11:17 Polychromasia 1+ (Not Present) A 11/14/16 03:02 Hypochromasia Present (Not Present) A 11/16/16 05:18 Anisocytosis 1+ (Not Present) A 11/15/16 11:17 Macrocytosis Present (Not Present) A 11/15/16 11:17 ABG pH 7.24 pH Units (7.32-7.45) L 11/15/16 04:10 ABG pCO2 88 mmHg (35-45) H* 11/15/16 04:10 ABG pO2 83 mmHg (85-104) L 11/15/16 04:10 ABG HCO3 38 mEq/L (21-27) H 11/15/16 04:10 ABG Total CO2 40.4 mEq/L (20-26) H 11/15/16 04:10 ABG O2 Saturation 94 % (95-98) L 11/15/16 04:10 ABG Base Excess 8.1 mEq/L (-2.0 to 3.0) H 11/15/16 04:10 Carbon Dioxide 34 mEq/L (19-29) H 11/16/16 05:18 Glucose 158 mg/dL (70-99) H 11/16/16 05:18 POC Glucose 141 (58-89) H 11/15/16 21:29 Urine Protein 30 mg/dL (Neg-Trace) H 11/14/16 03:11 Urine Bilirubin Small (Negative) H 11/14/16 03:11 General appearance: Present: no acute distress - Respiratory Respiratory exam: Present: decreased breath sounds, CTAB - Cardiovascular Cardiovascular exam: Present: +S1, +S2 - GI/Abdominal GI/Abdominal exam: Present: normal bowel sounds, soft - Neurological Exam Neurological exam: Present: alert, oriented X3 - Skin Skin exam: Present: dry, pallor, warm Palliative Quality Palliative Quality: Screen for Code Status: Yes, Screen for Goals of Care: Yes, Screen for Pain: Yes, If Pain Regimen Started, Initiate Bowel Regimen: NA, Screen for Nausea/Vomitting: Yes Code Status: 11/14/16 21:02 DNR [Resuscitation Status: Active] [RES] Routine Comment: Resuscitation Status: [id number] - Labs CBC & Chem 7: 11/16/16 05:18 11/16/16 05:18 Labs: Laboratory Results - last 24 hr 11/15/16 11/15/16 11/15/16 11:17 16:50 21:29 WBC RBC Hgb Hct MCV MCH MCHC RDW Plt Count MPV Immature Gran % 0.9 Seg Neutrophils % 85.1 Lymphocytes % 11.6 Monocytes % 2.2 Eosinophils % 0.0 Basophils % 0.2 Neutrophils # 7.9 Lymphocytes # 1.1 Monocytes # 0.2 Eosinophils # 0.0 Basophils # 0.0 Platelet Estimate Hypochromasia Present A Anisocytosis 1+ A Macrocytosis Present A Sodium Potassium Chloride Carbon Dioxide BUN Creatinine Est GFR ( Amer) Est GFR (Non-Af Amer) BUN/Creatinine Ratio Glucose POC Glucose 139 H 141 H Calculated Osmolality Calcium 11/16/16 11/16/16 05:18 05:18 WBC 11.9 H RBC 3.12 L Hgb 8.9 L Hct 30.1 L MCV 96.5 MCH 28.5 MCHC 29.6 L RDW 15.8 H Plt Count 301 MPV 9.9 Immature Gran % 0.7 Seg Neutrophils % 86.2 Lymphocytes % 10.5 Monocytes % 2.4 Eosinophils % 0.0 Basophils % 0.2 Neutrophils # 10.3 H Lymphocytes # 1.3 Monocytes # 0.3 Eosinophils # 0.0 Basophils # 0.0 Platelet Estimate Normal Hypochromasia Present A Anisocytosis Macrocytosis Sodium 139 Potassium 4.5 Chloride 101 Carbon Dioxide 34 H BUN 11 Creatinine 0.66 Est GFR ( Amer) > 60 Est GFR (Non-Af Amer) > 60 BUN/Creatinine Ratio 17 Glucose 158 H POC Glucose Calculated Osmolality 291 Calcium 9.0 - Impressions Impressions Knee X-Ray 11/15/16 13:49 IMPRESSION: Osteopenia. No displaced fracture identified. Focal pretibial soft tissue swelling and increased density at the proximal right leg most consistent with hematoma given the history of trauma. Clinical follow-up to resolution is suggested. D/ / 11/15/2016 15:06:53 Filiberto Biggs MD / [facility] Interpreting Provider: Filiberto Biggs MD Knee X-Ray 11/15/16 13:49 IMPRESSION: Osteopenia. No displaced fracture identified. Focal pretibial soft tissue swelling and increased density at the proximal right leg most consistent with hematoma given the history of trauma. Clinical follow-up to resolution is suggested. D/ / 11/15/2016 15:06:53 Filiberto Biggs MD / [facility] Interpreting Provider: Filiberto Biggs MD - ABG Interpretation ABG results: ABG ABG pH 7.24 pH Units (7.32-7.45) L 11/15/16 04:10 ABG pCO2 88 mmHg (35-45) H* 11/15/16 04:10 ABG pO2 83 mmHg (85-104) L 11/15/16 04:10 ABG O2 Saturation 94 % (95-98) L 11/15/16 04:10 Consult Discharge Plan - Plan Referrals: Dieter Winters MD [Primary Care Provider] -
[2016-11-16] MEDS: Ampicillin/Sulbactam 1,500 MG in 0.9 % Sodium Chloride Mini Bag 100 ML IVPB SCH (16:27)
--- NOTE | 2016-11-16 17:57 | Internal Med Progress Note ---
Date of Encounter: 11/16/16 Time of Encounter: 10:00 - Assessment and plan (1) Acute exacerbation of chronic obstructive pulmonary disease (COPD) Current Visit: No Status: Acute Assessment and plan: Patient has a history of COPD. Has wheezing and shortness of breath. ABG shows CO2 retention with respiratory acidosis. Consider COPD exacerbation. - As patient cannot tolerate BiPAP and refused intubation, currently treated patient with medications. - We will continue antibiotic, steroid, and bronchodilator. Add singuliar HS. - Continue closely monitor patient, placed BiPAP as patient would like to. (2) Morbid obesity with BMI of 50.0-59.9, adult Current Visit: No Status: Chronic Assessment and plan: In the lifestyle modification. May also contribute to hypoventilation and CO2 retention (3) CHF (congestive heart failure) Current Visit: No Status: Chronic Assessment and plan: Appears euvolemic at that point. Continue home medications Qualifiers: Congestive heart failure type: diastolic Congestive heart failure chronicity: chronic Qualified Code(s): I50.32 - Chronic diastolic (congestive ) heart failure (4) DVT prophylaxis Current Visit: No Status: Acute Assessment and plan: Lovenox sc (5) Acute on chronic respiratory failure with hypoxia and hypercapnia Current Visit: No Status: Acute Assessment and plan: Caused by COPD exacerbation and obesity hypoventilation syndrome. Continue treatment as listed above. Continue supportive treatment. (6) Ventral hernia without obstruction or gangrene Current Visit: Yes Status: Acute Assessment and plan: No obstruction per CAT scan. Diet resumed. (7) Leg abrasion Current Visit: Yes Status: Acute Assessment and plan: X-ray shows no fracture. Continue pain management Qualifiers: Laterality: right Qualified Code(s): S80.811A - Abrasion, right lower leg, initial encounter (8) Pneumonia Current Visit: Yes Status: Acute Assessment and plan: Consider community acquired pneumonia versus aspiration pneumonia as the patient has larger ventral hernia. Place patient on Unasyn. Culture negative. - Continue nebulizer and the supportive treatment. - Have finished swallow evaluation, diet resumed per recommendation. Qualifiers: Pneumonia type: aspiration pneumonia Aspiration pneumonia type: meconium aspiration Laterality: right Lung location: lower lobe of lung Qualified Code(s): P24.01 - Meconium aspiration with respiratory symptoms - Time Spent With Patient 25 - 35 minutes - Subjective Interval history: Pt is a 71-year-old female admitted for COPD exacerbation. Her past medical history is significant for COPD, CHF, CAD, GI bleeding. Patient was seen and examined. Awake alert oriented 3. Morbid obesity with difficulty breathing. No fever. Mild cough with whitish sputum. Vitals are stable. Patient used about a 2 hour BiPAP last night. We will continue medical treatment. Continue encourage Patient uses BiPAP. Swallow evaluation has been done, diet and resumed per recommendation and as patient abdominal CT shows no obstruction. Patient stated she can pass gas. - Constitutional Vitals: Temp Pulse Resp BP Pulse Ox 98.0 F 63 15 111/46 99 11/16/16 16:55 11/16/16 16:55 11/16/16 16:55 11/16/16 16:55 11/16/16 16:55 General appearance: Present: mild distress, A&O X 3, answers questions appropriately - Head Head exam: Present: atraumatic, normocephalic - Eye Eye exam: Present: PERRL, conjuntiva pink, sclera anicteric Pupils: Present: PERRL - Neck Neck exam general surgery: Present: supple, trachea midline. Absent: lymphadenopathy - Respiratory Respiratory exam: Present: CTAB. Absent: accessory muscle use, rales, rhonchi, wheezes - Cardiovascular Cardiovascular exam: Present: RRR, +S1, +S2. Absent: diastolic murmur, gallop, rubs, systolic murmur - GI/Abdominal GI/Abdominal exam: Present: normal bowel sounds, soft, no peritoneal signs. Absent: distended, tenderness - Extremities Exam Extremities exam: Present: warm, radial pulses palpable and symmetrical. Absent : calf tenderness, cyanotic, pedal edema Additional comments: Bruise on Rt knee - Neurological Exam Neurological exam: Present: CN II-XII intact, oriented X3, no focal deficits. Absent: pronater drift, facial droop, speech deficit - Skin Skin exam: Present: dry, intact Internal Medicine: Result - Labs CBC & Chem 7: 11/16/16 05:18 11/16/16 05:18 Labs: Short CBC 11/16/16 Range/Units 05:18 WBC 11.9 H (4.3-11.1) K/mcL Hgb 8.9 L (11.5-15.4) g/dL Hct 30.1 L (35.3-44.9) % Plt Count 301 (140-400) K/mcL Neutrophils # 10.3 H (1.6-8.9) K/mcL BMP 11/16/16 05:18 Sodium 139 Potassium 4.5 Chloride 101 Carbon Dioxide 34 H BUN 11 Creatinine 0.66 Glucose 158 H Calcium 9.0 - ABG Interpretation ABG results: ABG ABG pH 7.24 pH Units (7.32-7.45) L 11/15/16 04:10 ABG pCO2 88 mmHg (35-45) H* 11/15/16 04:10 ABG pO2 83 mmHg (85-104) L 11/15/16 04:10 ABG O2 Saturation 94 % (95-98) L 11/15/16 04:10 - Impressions Impressions Knee X-Ray 11/15/16 13:49 IMPRESSION: Osteopenia. No displaced fracture identified. Focal pretibial soft tissue swelling and increased density at the proximal right leg most consistent with hematoma given the history of trauma. Clinical follow-up to resolution is suggested. D/ / 11/15/2016 15:06:53 Filiberto Biggs MD / [facility] Interpreting Provider: Filiberto Biggs MD Knee X-Ray 11/15/16 13:49 IMPRESSION: Osteopenia. No displaced fracture identified. Focal pretibial soft tissue swelling and increased density at the proximal right leg most consistent with hematoma given the history of trauma. Clinical follow-up to resolution is suggested. D/ / 11/15/2016 15:06:53 Filiberto Biggs MD / [facility] Interpreting Provider: Filiberto Biggs MD Consult Discharge Plan - Plan Referrals: Dieter Winters MD [Primary Care Provider] -
[2016-11-17] MEDS: MethylPREDNISolone 40 MG/ML VIAL IVP SCH ×3 (01:50→17:35)
[2016-11-17] MEDS: Ampicillin/Sulbactam 1,500 MG in 0.9 % Sodium Chloride Mini Bag 100 ML IVPB SCH ×5 (01:50→23:40)
[2016-11-17] MEDS: Ipratropium/Albuterol Neb 3 ML IH SCH ×6 (04:07→23:11)
[2016-11-17] MEDS: *HR* Enoxaparin 40 MG/0.4 ML SYRINGE SQ SCH (05:02)
[2016-11-17 05:16] LABS: Hematocrit 30.1 % (35.3-44.9)
[2016-11-17 05:18] LABS: Hemoglobin 8.8 g/dL (11.5-15.4); Immature Granulocytes % 0.6 % (0-4); Lymphocytes # 0.8 K/mcL (0.6-4.6); Lymphocytes % 8.2 %; Mean Corpuscular HGB Conc 29.2 g/dL (31.6-35.5); Mean Corpuscular Hemoglobin 27.8 pg (28.0-33.3); Mean Platelet Volume 9.7 fL (9.4-12.4); Monocytes # 0.3 K/mcL (0.0-1.3); Monocytes % 2.5 %; Platelet Count 299 K/mcL (140-400); Red Blood Count 3.17 M/mcL (3.82-4.97); Red Cell Distribution Width 15.9 % (11.5-14.5); Segmented Neutrophils % 88.7 %
[2016-11-17 05:22] LABS: Neutrophils # 9.1 K/mcL (1.6-8.9)
[2016-11-17 05:35] LABS: BUN/Creatinine Ratio 24 (6-26); Blood Urea Nitrogen 17 mg/dL (7-20); Calcium 8.7 mg/dL (8.6-10.8); Carbon Dioxide 34 mEq/L (19-29); Chloride 102 mEq/L (98-109); Glucose 142 mg/dL (70-99); Osmolality,Calculated 292 (280-300); Potassium 4.7 mEq/L (3.5-4.5); Sodium 139 mEq/L (136-145); eGFR For African Americans > 60 (> 60); eGFR For Non-African Americans > 60 (> 60)
[2016-11-17 06:08] LABS: Hypochromasia Present (Not Present); Platelet Estimate Normal (Normal)
[2016-11-17] MEDS: Metoprolol XL (24 HR) Succ 25 MG TAB.ER.24H PO SCH (09:58)
[2016-11-17] MEDS: Sennosides/Docusate Sodium TABLET PO SCH ×2 (09:58→22:01)
[2016-11-17] MEDS: Aspirin Enteric Coated 81 MG Tablet PO SCH (09:58)
[2016-11-17] MEDS: *HR* Amiodarone 200 MG TABLET PO SCH (09:59)
--- NOTE | 2016-11-17 15:09 | Event Note ---
Date of Encounter: 11/17/16 Time of Encounter: 15:00 F/u with pt from visit yesterday. She is more pleasant today. Re-discussed goals of care - pt states she still wishes to return to hospital for acute events, but does not want any heroic measures. I did discuss that if she decided she did not desire aggressive management, and would rather be kept at [facility] instead of coming to hospital, she would be eligible to receive hospice care at [facility] and they could assist with symptom management. She verbalized understanding but states she does not want hospice at this time. Palliative not currently managing symptoms, and she will return to [facility] upon D/C. Will sign off. Please call if needed.
--- NOTE | 2016-11-17 18:13 | Internal Med Progress Note ---
Date of Encounter: 11/17/16 Time of Encounter: 10:00 - Assessment and plan (1) Acute exacerbation of chronic obstructive pulmonary disease (COPD) Current Visit: No Status: Acute Assessment and plan: Patient has a history of COPD. Has wheezing and shortness of breath. ABG shows CO2 retention with respiratory acidosis. Consider COPD exacerbation. - As patient cannot tolerate BiPAP and refused intubation, currently treated patient with medications. - We will continue antibiotic, steroid, and bronchodilator. Add singuliar HS. - Continue closely monitor patient, placed BiPAP as patient would like to. (2) Morbid obesity with BMI of 50.0-59.9, adult Current Visit: No Status: Chronic Assessment and plan: Need lifestyle modification. May also contribute to hypoventilation and CO2 retention (3) CHF (congestive heart failure) Current Visit: No Status: Chronic Assessment and plan: Appears euvolemic at that point. Continue home medications Qualifiers: Congestive heart failure type: diastolic Congestive heart failure chronicity: chronic Qualified Code(s): I50.32 - Chronic diastolic (congestive ) heart failure (4) DVT prophylaxis Current Visit: No Status: Acute Assessment and plan: Lovenox sc (5) Acute on chronic respiratory failure with hypoxia and hypercapnia Current Visit: No Status: Acute Assessment and plan: Caused by COPD exacerbation and obesity hypoventilation syndrome. Continue treatment as listed above. Continue supportive treatment. (6) Ventral hernia without obstruction or gangrene Current Visit: Yes Status: Acute Assessment and plan: No obstruction per CAT scan. Diet resumed. (7) Leg abrasion Current Visit: Yes Status: Acute Assessment and plan: X-ray shows no fracture. Continue pain management Qualifiers: Laterality: right Qualified Code(s): S80.811A - Abrasion, right lower leg, initial encounter (8) Pneumonia Current Visit: Yes Status: Acute Assessment and plan: Consider community acquired pneumonia versus aspiration pneumonia as the patient has larger ventral hernia. Place patient on Unasyn. Culture negative. - Continue nebulizer and the supportive treatment. - Have finished swallow evaluation, diet resumed per recommendation. Qualifiers: Pneumonia type: aspiration pneumonia Aspiration pneumonia type: meconium aspiration Laterality: right Lung location: lower lobe of lung Qualified Code(s): P24.01 - Meconium aspiration with respiratory symptoms - Time Spent With Patient 25 - 35 minutes - Subjective Interval history: Pt is a 71-year-old female admitted for COPD exacerbation. Her past medical history is significant for COPD, CHF, CAD, GI bleeding. Patient was seen and examined. Awake alert oriented 3. Morbid obesity with difficulty breathing. No fever. Mild cough with whitish sputum. Wheezing has improved. Vitals are stable. We will continue medical treatment. Continue encourage Patient uses BiPAP. Continue closely monitor patient - Constitutional Vitals: Temp Pulse Resp BP Pulse Ox 97.7 F 59 18 127/66 99 11/17/16 15:27 11/17/16 15:27 11/17/16 15:47 11/17/16 15:27 11/17/16 15:47 General appearance: Present: mild distress, A&O X 3, morbidly obese, answers questions appropriately - Head Head exam: Present: atraumatic, normocephalic - Eye Eye exam: Present: PERRL, conjuntiva pink, sclera anicteric Pupils: Present: PERRL - Neck Neck exam general surgery: Present: supple, trachea midline. Absent: lymphadenopathy - Respiratory Respiratory exam: Present: CTAB. Absent: accessory muscle use, rales, rhonchi, wheezes - Cardiovascular Cardiovascular exam: Present: RRR, +S1, +S2. Absent: diastolic murmur, gallop, rubs, systolic murmur - GI/Abdominal GI/Abdominal exam: Present: normal bowel sounds, soft, no peritoneal signs. Absent: distended, tenderness - Extremities Exam Extremities exam: Present: warm, radial pulses palpable and symmetrical. Absent : calf tenderness, cyanotic, pedal edema - Neurological Exam Neurological exam: Present: CN II-XII intact, oriented X3, no focal deficits. Absent: pronater drift, facial droop, speech deficit - Skin Skin exam: Present: dry, intact Internal Medicine: Result - Labs CBC & Chem 7: 11/17/16 05:00 11/17/16 05:00 Labs: Short CBC 11/17/16 Range/Units 05:00 WBC 10.2 (4.3-11.1) K/mcL Hgb 8.8 L (11.5-15.4) g/dL Hct 30.1 L (35.3-44.9) % Plt Count 299 (140-400) K/mcL Neutrophils # 9.1 H (1.6-8.9) K/mcL BMP 11/17/16 05:00 Sodium 139 Potassium 4.7 H Chloride 102 Carbon Dioxide 34 H BUN 17 Creatinine 0.71 Glucose 142 H Calcium 8.7 - ABG Interpretation ABG results: ABG ABG pH 7.24 pH Units (7.32-7.45) L 11/15/16 04:10 ABG pCO2 88 mmHg (35-45) H* 11/15/16 04:10 ABG pO2 83 mmHg (85-104) L 11/15/16 04:10 ABG O2 Saturation 94 % (95-98) L 11/15/16 04:10 Consult Discharge Plan - Plan Referrals: Dieter Winters MD [Primary Care Provider] -
[2016-11-18] MEDS: Ipratropium/Albuterol Neb 3 ML IH SCH ×6 (04:21→23:15)
[2016-11-18] MEDS: Ampicillin/Sulbactam 1,500 MG in 0.9 % Sodium Chloride Mini Bag 100 ML IVPB SCH ×3 (05:29→19:59)
[2016-11-18] MEDS: MethylPREDNISolone 40 MG/ML VIAL IVP SCH ×2 (05:30→19:58)
[2016-11-18] MEDS: *HR* Enoxaparin 40 MG/0.4 ML SYRINGE SQ SCH (05:30)
[2016-11-18 05:48] LABS: Hematocrit 30.7 % (35.3-44.9); Lymphocytes # 0.8 K/mcL (0.6-4.6); Mean Corpuscular HGB Conc 29.3 g/dL (31.6-35.5); Mean Corpuscular Hemoglobin 27.4 pg (28.0-33.3); Mean Corpuscular Volume 93.3 fL (83.0-100.0); Mean Platelet Volume 9.6 fL (9.4-12.4); Monocytes # 0.4 K/mcL (0.0-1.3); Monocytes % 5.7 %; Neutrophils # 6.4 K/mcL (1.6-8.9); Platelet Count 288 K/mcL (140-400); Red Blood Count 3.29 M/mcL (3.82-4.97); Red Cell Distribution Width 15.8 % (11.5-14.5); Segmented Neutrophils % 83.3 %
[2016-11-18 05:59] LABS: BUN/Creatinine Ratio 29 (6-26); Blood Urea Nitrogen 22 mg/dL (7-20); Calcium 8.9 mg/dL (8.6-10.8); Carbon Dioxide 35 mEq/L (19-29); Chloride 102 mEq/L (98-109); Glucose 131 mg/dL (70-99); Osmolality,Calculated 293 (280-300); Potassium 4.8 mEq/L (3.5-4.5); Sodium 139 mEq/L (136-145); eGFR For African Americans > 60 (> 60); eGFR For Non-African Americans > 60 (> 60)
[2016-11-18] MEDS: *HR* Amiodarone 200 MG TABLET PO SCH (09:09)
[2016-11-18] MEDS: Sennosides/Docusate Sodium TABLET PO SCH ×2 (09:09→21:26)
[2016-11-18] MEDS: Metoprolol XL (24 HR) Succ 25 MG TAB.ER.24H PO SCH (09:09)
[2016-11-18] MEDS: Aspirin Enteric Coated 81 MG Tablet PO SCH (09:09)
[2016-11-18] MEDS ORDERED: Ipratropium/Albuterol Neb 3 ML IH PRN (12:08)
--- NOTE | 2016-11-18 14:05 | Internal Med Progress Note ---
Date of Encounter: 11/18/16 Time of Encounter: 10:00 - Assessment and plan (1) Acute exacerbation of chronic obstructive pulmonary disease (COPD) Current Visit: No Status: Acute Assessment and plan: Patient has a history of COPD. Has wheezing and shortness of breath. ABG shows CO2 retention with respiratory acidosis. Consider COPD exacerbation. - As patient cannot tolerate BiPAP and refused intubation, currently treated patient with medications. - We will continue antibiotic, steroid, and bronchodilator. Add singuliar HS. - Continue closely monitor patient, placed BiPAP as patient would like to. (2) Morbid obesity with BMI of 50.0-59.9, adult Current Visit: No Status: Chronic Assessment and plan: Need lifestyle modification. May also contribute to hypoventilation and CO2 retention (3) CHF (congestive heart failure) Current Visit: No Status: Chronic Assessment and plan: Appears euvolemic at that point. Continue home medications Qualifiers: Congestive heart failure type: diastolic Congestive heart failure chronicity: chronic Qualified Code(s): I50.32 - Chronic diastolic (congestive ) heart failure (4) DVT prophylaxis Current Visit: No Status: Acute Assessment and plan: Lovenox sc (5) Acute on chronic respiratory failure with hypoxia and hypercapnia Current Visit: No Status: Acute Assessment and plan: Caused by COPD exacerbation and obesity hypoventilation syndrome. Continue treatment as listed above. Continue supportive treatment. (6) Ventral hernia without obstruction or gangrene Current Visit: Yes Status: Acute Assessment and plan: No obstruction per CAT scan. Diet resumed. (7) Leg abrasion Current Visit: Yes Status: Acute Assessment and plan: X-ray shows no fracture. Continue pain management Qualifiers: Laterality: right Qualified Code(s): S80.811A - Abrasion, right lower leg, initial encounter (8) Pneumonia Current Visit: Yes Status: Acute Assessment and plan: Consider community acquired pneumonia versus aspiration pneumonia as the patient has larger ventral hernia. Place patient on Unasyn. Culture negative. - Continue nebulizer and the supportive treatment. - Have finished swallow evaluation, diet resumed per recommendation. Qualifiers: Pneumonia type: aspiration pneumonia Aspiration pneumonia type: meconium aspiration Laterality: right Lung location: lower lobe of lung Qualified Code(s): P24.01 - Meconium aspiration with respiratory symptoms - Time Spent With Patient 25 - 35 minutes - Subjective Interval history: Pt is a 71-year-old female admitted for COPD exacerbation. Her past medical history is significant for COPD, CHF, CAD, GI bleeding. Patient was seen and examined. Awake alert oriented 3. Morbid obesity with difficulty breathing. No fever. Mild cough with whitish sputum. Still mild wheezing. Vitals are stable. We will continue medical treatment. Continue encourage Patient uses BiPAP. Continue closely monitor patient - Constitutional Vitals: Temp Pulse Resp BP Pulse Ox 97.9 F 62 17 134/54 100 11/18/16 11:30 11/18/16 11:30 11/18/16 12:14 11/18/16 11:11/18/16 12:14 General appearance: Present: mild distress, A&O X 3, morbidly obese, answers questions appropriately - Head Head exam: Present: atraumatic, normocephalic - Eye Eye exam: Present: PERRL, conjuntiva pink, sclera anicteric Pupils: Present: PERRL - Neck Neck exam general surgery: Present: supple, trachea midline. Absent: lymphadenopathy - Respiratory Respiratory exam: Present: CTAB, wheezes (Scattered wheezes bilaterally). Absent: accessory muscle use, rales, rhonchi - Cardiovascular Cardiovascular exam: Present: RRR, +S1, +S2. Absent: diastolic murmur, gallop, rubs, systolic murmur - GI/Abdominal GI/Abdominal exam: Present: normal bowel sounds, soft, no peritoneal signs. Absent: distended, tenderness - Extremities Exam Extremities exam: Present: warm, radial pulses palpable and symmetrical. Absent : calf tenderness, cyanotic, pedal edema - Neurological Exam Neurological exam: Present: CN II-XII intact, oriented X3, no focal deficits. Absent: pronater drift, facial droop, speech deficit - Skin Skin exam: Present: dry, intact Internal Medicine: Result - Labs CBC & Chem 7: 11/18/16 05:30 11/18/16 05:30 Labs: Short CBC 11/18/16 Range/Units 05:30 WBC 7.7 (4.3-11.1) K/mcL Hgb 9.0 L (11.5-15.4) g/dL Hct 30.7 L (35.3-44.9) % Plt Count 288 (140-400) K/mcL Neutrophils # 6.4 (1.6-8.9) K/mcL BMP 11/18/16 05:30 Sodium 139 Potassium 4.8 H Chloride 102 Carbon Dioxide 35 H BUN 22 H Creatinine 0.75 Glucose 131 H Calcium 8.9 - ABG Interpretation ABG results: ABG ABG pH 7.24 pH Units (7.32-7.45) L 11/15/16 04:10 ABG pCO2 88 mmHg (35-45) H* 11/15/16 04:10 ABG pO2 83 mmHg (85-104) L 11/15/16 04:10 ABG O2 Saturation 94 % (95-98) L 11/15/16 04:10 Consult Discharge Plan - Plan Referrals: Dieter Winters MD [Primary Care Provider] -
[2016-11-19] MEDS: Ampicillin/Sulbactam 1,500 MG in 0.9 % Sodium Chloride Mini Bag 100 ML IVPB SCH ×4 (00:58→17:50)
[2016-11-19] MEDS: Ipratropium/Albuterol Neb 3 ML IH SCH ×6 (04:23→23:22)
[2016-11-19] MEDS: *HR* Enoxaparin 40 MG/0.4 ML SYRINGE SQ SCH (06:04)
[2016-11-19] MEDS: MethylPREDNISolone 40 MG/ML VIAL IVP SCH (06:05)
[2016-11-19 06:32] LABS: BUN/Creatinine Ratio 29 (6-26); Blood Urea Nitrogen 22 mg/dL (7-20); Calcium 8.4 mg/dL (8.6-10.8); Carbon Dioxide 36 mEq/L (19-29); Chloride 101 mEq/L (98-109); Glucose 139 mg/dL (70-99); Osmolality,Calculated 296 (280-300); Potassium 4.7 mEq/L (3.5-4.5); Sodium 140 mEq/L (136-145); eGFR For African Americans > 60 (> 60); eGFR For Non-African Americans > 60 (> 60)
[2016-11-19 06:41] LABS: Basophils % 0.1 %; Hematocrit 30.1 % (35.3-44.9); Immature Granulocytes % 1.6 % (0-4); Lymphocytes # 0.7 K/mcL (0.6-4.6); Lymphocytes % 10.6 %; Mean Corpuscular HGB Conc 29.9 g/dL (31.6-35.5); Mean Corpuscular Volume 93.8 fL (83.0-100.0); Monocytes # 0.3 K/mcL (0.0-1.3); Monocytes % 4.6 %; Neutrophils # 5.6 K/mcL (1.6-8.9); Platelet Count 263 K/mcL (140-400); Red Blood Count 3.21 M/mcL (3.82-4.97); Red Cell Distribution Width 15.9 % (11.5-14.5); Segmented Neutrophils % 83.1 %
[2016-11-19] MEDS: *HR* Amiodarone 200 MG TABLET PO SCH (09:22)
[2016-11-19] MEDS: Metoprolol XL (24 HR) Succ 25 MG TAB.ER.24H PO SCH (09:22)
[2016-11-19] MEDS: Sennosides/Docusate Sodium TABLET PO SCH ×2 (09:22→21:39)
[2016-11-19] MEDS: Aspirin Enteric Coated 81 MG Tablet PO SCH (09:22)
--- NOTE | 2016-11-19 15:01 | Internal Med Progress Note ---
Date of Encounter: 11/19/16 Time of Encounter: 10:00 - Assessment and plan (1) Acute exacerbation of chronic obstructive pulmonary disease (COPD) Current Visit: No Status: Acute Assessment and plan: Patient has a history of COPD. Has wheezing and shortness of breath. ABG shows CO2 retention with respiratory acidosis. Consider COPD exacerbation. - As patient cannot tolerate BiPAP and refused intubation, currently treated patient with medications. - We will continue antibiotic, steroid, and bronchodilator. Add singuliar HS. - Continue closely monitor patient, placed BiPAP as patient would like to. (2) Morbid obesity with BMI of 50.0-59.9, adult Current Visit: No Status: Chronic Assessment and plan: Need lifestyle modification. May also contribute to hypoventilation and CO2 retention (3) CHF (congestive heart failure) Current Visit: No Status: Chronic Assessment and plan: Appears euvolemic at that point. Continue home medications Qualifiers: Congestive heart failure type: diastolic Congestive heart failure chronicity: chronic Qualified Code(s): I50.32 - Chronic diastolic (congestive ) heart failure (4) DVT prophylaxis Current Visit: No Status: Acute Assessment and plan: Lovenox sc (5) Acute on chronic respiratory failure with hypoxia and hypercapnia Current Visit: No Status: Acute Assessment and plan: Caused by COPD exacerbation and obesity hypoventilation syndrome. Continue treatment as listed above. Continue supportive treatment. (6) Ventral hernia without obstruction or gangrene Current Visit: Yes Status: Acute Assessment and plan: No obstruction per CAT scan. Diet resumed. (7) Leg abrasion Current Visit: Yes Status: Acute Assessment and plan: X-ray shows no fracture. Continue pain management Qualifiers: Laterality: right Qualified Code(s): S80.811A - Abrasion, right lower leg, initial encounter (8) Pneumonia Current Visit: Yes Status: Acute Assessment and plan: Consider community acquired pneumonia versus aspiration pneumonia as the patient has larger ventral hernia. Place patient on Unasyn. Culture negative. - Continue nebulizer and the supportive treatment. - Have finished swallow evaluation, diet resumed per recommendation. Qualifiers: Pneumonia type: aspiration pneumonia Aspiration pneumonia type: meconium aspiration Laterality: right Lung location: lower lobe of lung Qualified Code(s): P24.01 - Meconium aspiration with respiratory symptoms - Time Spent With Patient 25 - 35 minutes - Subjective Interval history: Pt is a 71-year-old female admitted for COPD exacerbation. Her past medical history is significant for COPD, CHF, CAD, GI bleeding. Patient was seen and examined. Awake alert oriented 3. Morbid obesity with mild difficulty breathing. No fever. Mild cough with whitish sputum, improved generally. no wheezing today. Vitals are stable. We will continue medical treatment. Continue encourage Patient uses BiPAP. Continue closely monitor patient - Constitutional Vitals: Temp Pulse Resp BP Pulse Ox 97.8 F 53 18 129/63 94 11/19/16 11:17 11/19/16 11:17 11/19/16 11:49 11/19/16 11:11/19/16 11:49 General appearance: Present: mild distress, A&O X 3, morbidly obese, answers questions appropriately - Head Head exam: Present: atraumatic, normocephalic - Eye Eye exam: Present: PERRL, conjuntiva pink, sclera anicteric Pupils: Present: PERRL - Neck Neck exam general surgery: Present: supple, trachea midline. Absent: lymphadenopathy - Respiratory Respiratory exam: Present: CTAB. Absent: accessory muscle use, rales, rhonchi, wheezes - Cardiovascular Cardiovascular exam: Present: RRR, +S1, +S2. Absent: diastolic murmur, gallop, rubs, systolic murmur - GI/Abdominal GI/Abdominal exam: Present: normal bowel sounds, soft, no peritoneal signs. Absent: distended, tenderness - Extremities Exam Extremities exam: Present: warm, radial pulses palpable and symmetrical. Absent : calf tenderness, cyanotic, pedal edema - Neurological Exam Neurological exam: Present: CN II-XII intact, oriented X3, no focal deficits. Absent: pronater drift, facial droop, speech deficit - Skin Skin exam: Present: dry, intact Internal Medicine: Result - Labs CBC & Chem 7: 11/19/16 06:11 11/19/16 06:11 Labs: Short CBC 11/19/16 Range/Units 06:11 WBC 6.8 (4.3-11.1) K/mcL Hgb 9.0 L (11.5-15.4) g/dL Hct 30.1 L (35.3-44.9) % Plt Count 263 (140-400) K/mcL Neutrophils # 5.6 (1.6-8.9) K/mcL BMP 11/19/16 06:11 Sodium 140 Potassium 4.7 H Chloride 101 Carbon Dioxide 36 H BUN 22 H Creatinine 0.75 Glucose 139 H Calcium 8.4 L - ABG Interpretation ABG results: ABG ABG pH 7.24 pH Units (7.32-7.45) L 11/15/16 04:10 ABG pCO2 88 mmHg (35-45) H* 11/15/16 04:10 ABG pO2 83 mmHg (85-104) L 11/15/16 04:10 ABG O2 Saturation 94 % (95-98) L 11/15/16 04:10 Consult Discharge Plan - Plan Referrals: Dieter Winters MD [Primary Care Provider] -
[2016-11-20] MEDS: Ampicillin/Sulbactam 1,500 MG in 0.9 % Sodium Chloride Mini Bag 100 ML IVPB SCH ×3 (00:39→11:22)
[2016-11-20] MEDS: Ipratropium/Albuterol Neb 3 ML IH SCH ×6 (04:31→23:32)
[2016-11-20] MEDS: *HR* Enoxaparin 40 MG/0.4 ML SYRINGE SQ SCH (06:12)
[2016-11-20 06:13] LABS: Basophils % 0.1 %; Eosinophils % 0.3 %; Hematocrit 31.8 % (35.3-44.9); Hemoglobin 9.6 g/dL (11.5-15.4); Lymphocytes # 2.1 K/mcL (0.6-4.6); Lymphocytes % 19.5 %; Mean Corpuscular HGB Conc 30.2 g/dL (31.6-35.5); Mean Corpuscular Hemoglobin 27.8 pg (28.0-33.3); Mean Corpuscular Volume 92.2 fL (83.0-100.0); Mean Platelet Volume 9.5 fL (9.4-12.4); Monocytes # 1.1 K/mcL (0.0-1.3); Monocytes % 10.6 %; Neutrophils # 7.3 K/mcL (1.6-8.9); Platelet Count 274 K/mcL (140-400); Red Blood Count 3.45 M/mcL (3.82-4.97); Segmented Neutrophils % 68.5 %
[2016-11-20 06:23] LABS: BUN/Creatinine Ratio 30 (6-26); Blood Urea Nitrogen 21 mg/dL (7-20); Calcium 8.5 mg/dL (8.6-10.8); Carbon Dioxide 33 mEq/L (19-29); Chloride 101 mEq/L (98-109); Glucose 80 mg/dL (70-99); Osmolality,Calculated 292 (280-300); Potassium 3.8 mEq/L (3.5-4.5); Sodium 140 mEq/L (136-145); eGFR For African Americans > 60 (> 60); eGFR For Non-African Americans > 60 (> 60)
[2016-11-20] MEDS: predniSONE 20 MG TABLET PO SCH (10:23)
[2016-11-20] MEDS: *HR* Amiodarone 200 MG TABLET PO SCH (10:24)
[2016-11-20] MEDS: Aspirin Enteric Coated 81 MG Tablet PO SCH (10:24)
[2016-11-20] MEDS: Sennosides/Docusate Sodium TABLET PO SCH ×2 (10:26→20:32)
[2016-11-20] MEDS: Metoprolol XL (24 HR) Succ 25 MG TAB.ER.24H PO SCH (10:26)
--- NOTE | 2016-11-20 19:05 | Internal Med Progress Note ---
Date of Encounter: 11/20/16 Time of Encounter: 10:00 - Assessment and plan (1) Acute exacerbation of chronic obstructive pulmonary disease (COPD) Current Visit: No Status: Acute Assessment and plan: Patient has a history of COPD. Has wheezing and shortness of breath on Adm. ABG shows CO2 retention with respiratory acidosis. Consider COPD exacerbation. - As patient cannot tolerate BiPAP and refused intubation, currently treated patient with medications. - We will continue antibiotic, steroid, and bronchodilator. Add singuliar HS. - Continue closely monitor patient, placed BiPAP as patient would like to. - Antibiotic and the steroid has been switched to by mouth now. Discharge planning (2) Morbid obesity with BMI of 50.0-59.9, adult Current Visit: No Status: Chronic Assessment and plan: Need lifestyle modification. May also contribute to hypoventilation and CO2 retention (3) CHF (congestive heart failure) Current Visit: No Status: Chronic Assessment and plan: Appears euvolemic at that point. Continue home medications Qualifiers: Congestive heart failure type: diastolic Congestive heart failure chronicity: chronic Qualified Code(s): I50.32 - Chronic diastolic (congestive ) heart failure (4) DVT prophylaxis Current Visit: No Status: Acute Assessment and plan: Lovenox sc (5) Acute on chronic respiratory failure with hypoxia and hypercapnia Current Visit: No Status: Acute Assessment and plan: Caused by COPD exacerbation and obesity hypoventilation syndrome. Continue treatment as listed above. Continue supportive treatment. (6) Ventral hernia without obstruction or gangrene Current Visit: Yes Status: Acute Assessment and plan: No obstruction per CAT scan. Diet resumed. (7) Leg abrasion Current Visit: Yes Status: Acute Assessment and plan: X-ray shows no fracture. Continue pain management Qualifiers: Laterality: right Qualified Code(s): S80.811A - Abrasion, right lower leg, initial encounter (8) Pneumonia Current Visit: Yes Status: Acute Assessment and plan: Consider community acquired pneumonia versus aspiration pneumonia as the patient has larger ventral hernia. Culture negative. - Continue nebulizer and the supportive treatment. - Have finished swallow evaluation, diet resumed per recommendation. - Antibody has been changed to by mouth now. Qualifiers: Pneumonia type: aspiration pneumonia Aspiration pneumonia type: meconium aspiration Laterality: right Lung location: lower lobe of lung Qualified Code(s): P24.01 - Meconium aspiration with respiratory symptoms - Time Spent With Patient 25 - 35 minutes - Subjective Interval history: Pt is a 71-year-old female admitted for COPD exacerbation. Her past medical history is significant for COPD, CHF, CAD, GI bleeding. Patient was seen and examined. Awake alert oriented 3. Morbid obesity with mild difficulty breathing. No fever. No wheezing today. Decreased O2 requirement, on 2L now. Vitals are stable. Switch IV antibiotic to by mouth today. Patient is about at her baseline now, consider transfer back to SNF on by mouth antibiotic. 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 Absent: lymphadenopathy - Respiratory Respiratory exam: Present: CTAB. Absent: accessory muscle use, rales, rhonchi, wheezes - Cardiovascular Cardiovascular exam: Present: RRR, +S1, +S2. Absent: diastolic murmur, gallop, rubs, systolic murmur - GI/Abdominal GI/Abdominal exam: Present: normal bowel sounds, soft, no peritoneal signs. Absent: distended, tenderness - Extremities Exam Extremities exam: Present: warm, radial pulses palpable and symmetrical. Absent : calf tenderness, cyanotic, pedal edema - Neurological Exam Neurological exam: Present: CN II-XII intact, oriented X3, no focal deficits. Absent: pronater drift, facial droop, speech deficit - Skin Skin exam: Present: dry, intact Internal Medicine: Result - Labs CBC & Chem 7: 11/20/16 06:01 11/20/16 06:01 Labs: Short CBC 11/20/16 Range/Units 06:01 WBC 10.7 D (4.3-11.1) K/mcL Hgb 9.6 L (11.5-15.4) g/dL Hct 31.8 L (35.3-44.9) % Plt Count 274 (140-400) K/mcL Neutrophils # 7.3 (1.6-8.9) K/mcL BMP 11/20/16 06:01 Sodium 140 Potassium 3.8 Chloride 101 Carbon Dioxide 33 H BUN 21 H Creatinine 0.69 Glucose 80 Calcium 8.5 L - ABG Interpretation ABG results: ABG ABG pH 7.24 pH Units (7.32-7.45) L 11/15/16 04:10 ABG pCO2 88 mmHg (35-45) H* 11/15/16 04:10 ABG pO2 83 mmHg (85-104) L 11/15/16 04:10 ABG O2 Saturation 94 % (95-98) L 11/15/16 04:10 Consult Discharge Plan - Plan Referrals: Dieter Winters MD [Primary Care Provider] -
[2016-11-21] MEDS: Ipratropium/Albuterol Neb 3 ML IH SCH ×5 (03:45→20:49)
[2016-11-21] MEDS: *HR* Enoxaparin 40 MG/0.4 ML SYRINGE SQ SCH (06:02)
[2016-11-21 06:33] LABS: BUN/Creatinine Ratio 27 (6-26); Blood Urea Nitrogen 16 mg/dL (7-20); Calcium 8.2 mg/dL (8.6-10.8); Carbon Dioxide 33 mEq/L (19-29); Chloride 103 mEq/L (98-109); Glucose 89 mg/dL (70-99); Osmolality,Calculated 291 (280-300); Sodium 140 mEq/L (136-145); eGFR For African Americans > 60 (> 60); eGFR For Non-African Americans > 60 (> 60)
[2016-11-21 06:46] LABS: Basophils % 0.1 %; Eosinophils % 0.4 %; Hematocrit 30.7 % (35.3-44.9); Hemoglobin 9.4 g/dL (11.5-15.4); Immature Granulocytes % 1.8 % (0-4); Lymphocytes # 1.4 K/mcL (0.6-4.6); Lymphocytes % 16.7 %; Mean Corpuscular HGB Conc 30.6 g/dL (31.6-35.5); Mean Corpuscular Hemoglobin 28.2 pg (28.0-33.3); Mean Corpuscular Volume 92.2 fL (83.0-100.0); Mean Platelet Volume 10.5 fL (9.4-12.4); Monocytes # 0.9 K/mcL (0.0-1.3); Monocytes % 10.8 %; Neutrophils # 5.9 K/mcL (1.6-8.9); Platelet Count 247 K/mcL (140-400); Red Blood Count 3.33 M/mcL (3.82-4.97); Segmented Neutrophils % 70.2 %
[2016-11-21] MEDS: Metoprolol XL (24 HR) Succ 25 MG TAB.ER.24H PO SCH (10:38)
[2016-11-21] MEDS: predniSONE 20 MG TABLET PO SCH (10:38)
[2016-11-21] MEDS: *HR* Amiodarone 200 MG TABLET PO SCH (10:39)
[2016-11-21] MEDS: Aspirin Enteric Coated 81 MG Tablet PO SCH (10:40)
[2016-11-21] MEDS: Sennosides/Docusate Sodium TABLET PO SCH ×2 (10:40→21:04)
--- NOTE | 2016-11-21 20:47 | Internal Med Progress Note ---
Date of Encounter: 11/21/16 Time of Encounter: 09:15 - Assessment and plan (1) Acute exacerbation of chronic obstructive pulmonary disease (COPD) Current Visit: Yes Status: Acute Assessment and plan: Patient has a history of COPD. Has wheezing and shortness of breath on Adm. ABG shows CO2 retention with respiratory acidosis. - Likely 2/2 PNA seen on CXR done in ER - Pt currently tolerating 2L nasal cannula, improved from admission - antibiotic course completed; steroid stopped; continue DuoNebs and singuliar.. (2) Pneumonia Current Visit: Yes Status: Acute Assessment and plan: As suggested by CXR done in ER. Afebrile and white count WNL. Completed course of augmentin. Qualifiers: Pneumonia type: due to unspecified organism Laterality: right Lung location: lower lobe of lung Qualified Code(s): J18.1 - Lobar pneumonia, unspecified organism (3) CHF (congestive heart failure) Current Visit: No Status: Chronic Assessment and plan: Appears euvolemic at that point. Less likely CHF exacerbation given CXR findings and fluid status.Continue home medications. Qualifiers: Congestive heart failure type: diastolic Congestive heart failure chronicity: chronic Qualified Code(s): I50.32 - Chronic diastolic (congestive ) heart failure (4) DVT prophylaxis Current Visit: No Status: Acute Assessment and plan: Continue lovenox sc - Subjective Interval history: Pt seen & examined this morning. Chart reviewed. Pt feels her shortness of breath is about the same as the previous day. Somnolent but arousable and responsive to questioning. Denies complaints at this time. Denies chest pain or pressure, wheezing, N/V, diarrhea, constipation, abdominal pain. - Constitutional Vitals: Temp Pulse Resp BP Pulse Ox 97.7 F 58 17 116/67 96 11/21/16 15:00 11/21/16 15:00 11/21/16 15:55 11/21/16 15:00 11/21/16 15:55 General appearance: Present: mild distress, A&O X 3, morbidly obese, answers questions appropriately - Head Head exam: Present: atraumatic, normocephalic - Respiratory Respiratory exam: Present: CTAB. Absent: accessory muscle use, respiratory distress, wheezes - Cardiovascular Cardiovascular exam: Present: distant heart sounds (2/2 body habitus), +S1, +S2 - GI/Abdominal GI/Abdominal exam: Present: normal bowel sounds, soft. Absent: tenderness - Expanded Lower Extremities Exam Lower Leg exam: Present: swelling. Absent: erythema, tenderness (b/l 3+ pitting edema extending above knee) Ankle exam: Present: swelling. Absent: erythema, tenderness Neuro vascular tendon exam: Absent: pulse deficit (DP pulses palpable and symmetric b/l) - Neurological Exam Neurological exam: Present: alert, oriented X3. Absent: facial droop, speech deficit - Psychiatric Psychiatric exam: Present: flat affect Internal Medicine: Result - Labs CBC & Chem 7: 11/21/16 06:00 11/21/16 06:00 Labs: Short CBC 11/21/16 Range/Units 06:00 WBC 8.4 (4.3-11.1) K/mcL Hgb 9.4 L (11.5-15.4) g/dL Hct 30.7 L (35.3-44.9) % Plt Count 247 (140-400) K/mcL Neutrophils # 5.9 (1.6-8.9) K/mcL BMP 11/21/16 06:00 Sodium 140 Potassium 4.0 Chloride 103 Carbon Dioxide 33 H BUN 16 Creatinine 0.60 Glucose 89 Calcium 8.2 L - ABG Interpretation ABG results: ABG ABG pH 7.24 pH Units (7.32-7.45) L 11/15/16 04:10 ABG pCO2 88 mmHg (35-45) H* 11/15/16 04:10 ABG pO2 83 mmHg (85-104) L 11/15/16 04:10 ABG O2 Saturation 94 % (95-98) L 11/15/16 04:10 Consult Discharge Plan - Plan Referrals: Dieter Winters MD [Primary Care Provider] -
[2016-11-22] MEDS: Ipratropium/Albuterol Neb 3 ML IH SCH ×7 (00:37→23:44)
[2016-11-22 04:19] LABS: Basophils % 0.1 %; Eosinophils % 0.1 %; Hematocrit 29.7 % (35.3-44.9); Immature Granulocytes % 1.3 % (0-4); Lymphocytes # 1.2 K/mcL (0.6-4.6); Lymphocytes % 14.3 %; Mean Corpuscular HGB Conc 30.3 g/dL (31.6-35.5); Mean Corpuscular Hemoglobin 27.5 pg (28.0-33.3); Mean Corpuscular Volume 90.8 fL (83.0-100.0); Mean Platelet Volume 10.1 fL (9.4-12.4); Monocytes # 0.9 K/mcL (0.0-1.3); Monocytes % 10.4 %; Platelet Count 229 K/mcL (140-400); Red Blood Count 3.27 M/mcL (3.82-4.97); Red Cell Distribution Width 15.8 % (11.5-14.5); Segmented Neutrophils % 73.8 %
[2016-11-22 04:32] LABS: BUN/Creatinine Ratio 23 (6-26); Blood Urea Nitrogen 14 mg/dL (7-20); Carbon Dioxide 32 mEq/L (19-29); Chloride 104 mEq/L (98-109); Glucose 93 mg/dL (70-99); Osmolality,Calculated 290 (280-300); Sodium 140 mEq/L (136-145); eGFR For African Americans > 60 (> 60); eGFR For Non-African Americans > 60 (> 60)
[2016-11-22] MEDS: *HR* Enoxaparin 40 MG/0.4 ML SYRINGE SQ SCH (06:07)
--- NOTE | 2016-11-22 12:14 | Discharge Summary ---
<Dimas Solares - Last Filed: 11/22/16 18:25> Date of Encounter: 11/22/16 - Discharge Diagnosis (1) Acute on chronic respiratory failure with hypoxia and hypercapnia Priority: Primary Status: Acute (2) Acute exacerbation of chronic obstructive pulmonary disease (COPD) Priority: Primary Status: Acute (3) Morbid obesity with BMI of 50.0-59.9, adult Priority: Secondary Status: Chronic (4) CHF (congestive heart failure) Priority: Secondary Status: Chronic Qualifiers: Congestive heart failure type: diastolic Congestive heart failure chronicity: chronic Qualified Code(s): I50.32 - Chronic diastolic (congestive ) heart failure - Discharge Medications Home Medications: Amiodarone [Cordarone] 100 mg PO DAILY tablet 08/02/16 [Rx] Aspirin Enteric Coated [Aspirin EC] 81 mg PO DAILY tablet.dr 08/02/16 [Rx] Atorvastatin [Lipitor] 40 mg PO HS tablet 08/02/16 [Rx] Potassium Chloride [Klor-Con Sprinkle] 10 meq PO DAILY #20 capsule.er 08/02/16 [ Rx] Sennosides/Docusate Sodium [Senna Plus] 2 each PO BID tablet 08/02/16 [Rx] Acetaminophen [Tylenol] 650 mg PO Q6HR PRN 10/31/16 [History] DiphenhydraMINE [Benadryl] 25 mg PO Q6H PRN 10/31/16 [History] Ipratropium/Albuterol Neb [Duoneb] 3 ml IH QID PRN 10/31/16 [History] Lactose-Reduced Food [Ensure Liquid] 1 bottle PO TID 10/31/16 [History] Levothyroxine [Synthroid] 100 mcg PO 0630 10/31/16 [History] Metoprolol XL (24 HR) Succ [Toprol Xl] 25 mg PO DAILY 10/31/16 [History] Zolpidem [Ambien] 5 mg PO HS PRN #7 11/03/16 [Rx] LORazepam [Ativan] 0.5 mg PO HS 11/15/16 [History] Omeprazole 10 mg PO BID 11/15/16 [History] Oxycodone HCl [Oxaydo] 10 mg PO Q4H PRN 11/15/16 [History] Allergies/Adverse Reactions: 3 Allergy/AdvReac Type Severity Reaction Status Date / Time No Known Allergies Allergy Verified 01/03/15 19:02 Date of admission: 11/14/16 07:46 Primary care physician: Dieter Winters MD Consults: 11/14/16 08:19 Consult to [facility] [CONS] Routine Reason for SW Consult: patient from signature 11/14/16 08:33 Consult to Surgery [CONS] Routine Consulting Provider: [facility] Reason for Consult: Intractable nausea / vomiting - Small bowel loops in Ventral hernia Call Completed: Yes 11/14/16 08:34 Consult to Pulmonology [CONS] Routine Consulting Provider: [facility] Reason for Consult: Acute hypercapneic resp failure Call Completed: Yes 11/15/16 11:53 Consult to Speech Therapy [CONS] Routine Comment: Evaluate, develop and implement POC Reason for Consult: poss aspiration Call Completed: No 11/15/16 12:25 Consult to Palliative Care [CONS] Stat Comment: Consulting Provider: [facility] Reason for Consult: Goal of care. Pt need BiPAP and NG tube but pt refuse. Determine goal of care Call Completed: No - Patient Status Disposition: Transfer SNF Condition: Good - Discharge Instructions Instructions: Heart Failure (DC), Chronic Obstructive Pulmonary Disease (DC), Pneumonia (DC) Follow Up With: Dieter Winters MD [Primary Care Provider] - Hospital course: Ms. Plata is a 71 year old female - Time Spent with Patient Total time spent providing and/or coordinating discharge services: 39min - Constitutional Vitals: Temp Pulse Resp BP Pulse Ox 98 F 57 16 132/63 99 11/22/16 16:02 11/22/16 16:02 11/22/16 16:21 11/22/16 16:02 11/22/16 16:21 - Attending Attestation I examined this patient and my medical decision-making was reviewed with the Resident Physician on 11/22/16. I agree with the documented findings, disposition and treatment plan as described except to the extent set forth below. Ms. Plata has been admitted for hypoxia and exac COPD. She is now afebrile with stable vitals. She is ready for return to LTC. Exam Alert. Comfortable Heart reg No wheeze Abd soft Plan D/C to LTC. <Annalise Lewis - Last Filed: 11/22/16 22:50> Date of Encounter: 11/22/16 Time of Encounter: 09:45 - Discharge Diagnosis (1) Acute exacerbation of chronic obstructive pulmonary disease (COPD) Status: Acute (2) Pneumonia Status: Acute Qualifiers: Pneumonia type: due to unspecified organism Laterality: right Lung location: lower lobe of lung Qualified Code(s): J18.1 - Lobar pneumonia, unspecified organism (3) CHF (congestive heart failure) Status: Chronic Qualifiers: Congestive heart failure type: diastolic Congestive heart failure chronicity: chronic Qualified Code(s): I50.32 - Chronic diastolic (congestive ) heart failure (4) DVT prophylaxis Status: Acute Date of admission: 11/14/16 07:46 Primary care physician: Dieter Winters MD Consults: 11/14/16 08:19 Consult to [facility] [CONS] Routine Reason for SW Consult: patient from signature 11/14/16 08:33 Consult to Surgery [CONS] Routine Consulting Provider: [facility] Reason for Consult: Intractable nausea / vomiting - Small bowel loops in Ventral hernia Call Completed: Yes 11/14/16 08:34 Consult to Pulmonology [CONS] Routine Consulting Provider: [facility] Reason for Consult: Acute hypercapneic resp failure Call Completed: Yes 11/15/16 11:53 Consult to Speech Therapy [CONS] Routine Comment: Evaluate, develop and implement POC Reason for Consult: poss aspiration Call Completed: No 11/15/16 12:25 Consult to Palliative Care [CONS] Stat Comment: Consulting Provider: [facility] Reason for Consult: Goal of care. Pt need BiPAP and NG tube but pt refuse. Determine goal of care Call Completed: No Discharging clinician: Annalise Lewis Anticipated date of discharge: 11/22/16 - Patient Status Functional capacity at discharge: wheelchair bound Overall status at discharge: patient is progressing back to baseline - Diet and Activity Activity: as per physical therapy Diet: diabetic diet, low fat, low cholesterol, low salt diet Hospital course: Ms. Plata is a 71 year old female who [facility] from [facility] after a reported unwitnessed fall. Patient was reportedly down for approximately 2 hours. She reportedly impacted bilateral knees without known loss of consciousness. She was reportedly found without her home 3L of O2 on. Patient is not a good historian and was unable to provide a good history. In the ED, patients vital signs were significant for O2 saturation in the 80s which improved on 6L O2 via rebreather. Remainder of vital signs within normal limits. Labs were significant for H/H of 9.1/33.4, ABG showing respiratory acidosis with incomplete metabolic compensation with a CO2 of 79 and pO2 of 73. Lactic acid, troponin and urinalysis were all within normal limits. CT head showed no acute abnormalities, CXR was concerning for RLL PNA, supported on abdominal CT. Pelvic xray, knee xrays were negative for fracture. Patient was started on levofloxacin and was admitted for medicine service for further treatment of acute on chronic respiratory failure secondary to PNA and COPD exacerbation. During course of hospital stay, patients condition gradually improved. Pulmonology and general surgery were consulted. Pulmonolgy suggested that hypoxia was likely secondary to COPD exacerbation with an element of aspiration. Broadened ABx to unasyn and augmentin. Surgery consulted for ventral hernia, possible Small bowel obstruction and n/v. Unlikely SBO at this time, non emergent hernia. N/v resolved with NG tube and bowel rest. Afebrile and no leukocytosis during hospital stay, blood cultures negative. Patients respiratory status improved with BiPAP and was eventually weaned to 2L via NC. On day of discharge, patient is returning to baseline and is medically stable for discharge. She was instructed to follow up with her PCP and to return to ED if her condition should worsen. - Time Spent with Patient Total time spent providing and/or coordinating discharge services: Greater than 30 minutes (40 min) - Constitutional Vitals: Temp Pulse Resp BP Pulse Ox 97.8 F 60 16 129/60 97 11/22/16 11:46 11/22/16 11:46 11/22/16 11:46 11/22/16 11:46 11/22/16 11:46 General appearance: Present: A&O X 3, morbidly obese, no acute distress, answers questions appropriately - Head Head exam: Present: normocephalic - Eye Eye exam: Present: EOMI, normal appearance - Respiratory Respiratory exam: Present: decreased breath sounds (2/2 body habitus ), CTAB. Absent: respiratory distress, wheezes, tachypnea - Cardiovascular Cardiovascular exam: Present: distant heart sounds (2/2 body habitus), RRR, +S1 , +S2 - Extremities Exam Extremities exam: Absent: pedal edema Additional comments: DP pulses palpable and symmetric - Neurological Exam Neurological exam: Present: alert, oriented X3. Absent: facial droop, speech deficit
--- NOTE | 2016-11-22 12:17 | Physician Discharge Referral ---
ExtendedCare Referral Info Provider in Charge: Dr. Dimas Solares Provider in Charge after Transfer: PCP Institutional Level of Care: Skilled - Diagnosis (1) Pneumonia Priority: Primary Status: Acute (2) Acute exacerbation of chronic obstructive pulmonary disease (COPD) Priority: Secondary Status: Acute (3) CHF (congestive heart failure) Priority: Secondary Status: Chronic (4) DVT prophylaxis Priority: Secondary Status: Acute - Transfer Medications Home Medications: Amiodarone [Cordarone] 100 mg PO DAILY tablet 08/02/16 [Rx] Aspirin Enteric Coated [Aspirin EC] 81 mg PO DAILY tablet. 08/02/16 [Rx] Atorvastatin [Lipitor] 40 mg PO HS tablet 08/02/16 [Rx] Potassium Chloride [Klor-Con Sprinkle] 10 meq PO DAILY #20 capsule.er 08/02/16 [ Rx] Sennosides/Docusate Sodium [Senna Plus] 2 each PO BID tablet 08/02/16 [Rx] Acetaminophen [Tylenol] 650 mg PO Q6HR PRN 10/31/16 [History] DiphenhydraMINE [Benadryl] 25 mg PO Q6H PRN 10/31/16 [History] Ipratropium/Albuterol Neb [Duoneb] 3 ml IH QID PRN 10/31/16 [History] Lactose-Reduced Food [Ensure Liquid] 1 bottle PO TID 10/31/16 [History] Levothyroxine [Synthroid] 100 mcg PO 0630 10/31/16 [History] Metoprolol XL (24 HR) Succ [Toprol Xl] 25 mg PO DAILY 10/31/16 [History] Zolpidem [Ambien] 5 mg PO HS PRN #7 11/03/16 [Rx] LORazepam [Ativan] 0.5 mg PO HS 11/15/16 [History] Omeprazole 10 mg PO BID 11/15/16 [History] Oxycodone HCl [Oxaydo] 10 mg PO Q4H PRN 11/15/16 [History] Allergies/Adverse Reactions: 3 Allergy/AdvReac Type Severity Reaction Status Date / Time No Known Allergies Allergy Verified 01/03/15 19:02 - Respiratory Orders Oxygen / L per min (2.5) Smoking Cessation: Smoking cessation has been advised. For more information, call the [place] Tobacco Quit Line at 0-828-KSRX-NOW. - Ancillary Orders May use pressure relief devices daily prn - Advance Directives Code Status: DNR-Arrest/Don't Intubate - Mobility Orders Chair, Bedrest - Rehabiliation Orders Rehab Potential: Fair Rehab Orders: Sternal Precautions, ROM Exercises, Evaluation for Physical Therapy, Evaluation for Occupational Therapy - Treatments Skin tear care topically daily PRN per policy - Diet Orders Cardiac (ada) CERTIFICATION: I certify that the transfer of the above named patient to an Extended Care Facility is necessary for the continuing treatment of the diagnosis listed. The above information is true and accurate reflection of patient's current condition. Confidential - Redisclosure prohibited without a patient's written consent.
[2016-11-22] MEDS: *HR* Amiodarone 200 MG TABLET PO SCH (12:29)
[2016-11-22] MEDS: Aspirin Enteric Coated 81 MG Tablet PO SCH (12:30)
[2016-11-22] MEDS: Sennosides/Docusate Sodium TABLET PO SCH (12:30)
[2016-11-22] MEDS: Metoprolol XL (24 HR) Succ 25 MG TAB.ER.24H PO SCH (12:30)
[2016-11-22 16:03] VITALS: BP 132/63
== END 2016-11-22 21:15 | DRG 190 ==
LOC: 2NENU 00:41 → EMEROO 00:41 → 2NENU 06:05 → SUATTDRO 07:46
PROVIDERS: ADMIT Family Medicine; ATTEND Internal Medicine

== ENCOUNTER 2016-12-08 10:56 | Inpatient (IN) ==
--- NOTE | 2016-12-08 11:18 | Emergency Department Note ---
Disposition Clinical Impression: Atypical pneumonia, Hypercapnia Altered mental status Qualifiers: Altered mental status type: disorientation Qualified Code(s): R41.0 - Disorientation, unspecified Disposition: Admitted As Inpatient Condition: Good Time of Disposition: 14:41 General Adult HPI - General Chief complaint: ED Shortness of Breath/Dyspnea Stated complaint: sob Time Seen by Provider: 12/08/16 11:01 Source: patient Limitations: no limitations Nursing Notes Reviewed: Yes Vital Signs Reviewed: Yes - History of Present Illness HPI Narrative: Patient being sent from the halfway for increased CO2. She is being treated for pneumonia at this time. Patient does have altered mental status. Pain Scale: 0 - Related Data Home Medications Medication Instructions Recorded Confirmed Acetaminophen [Tylenol] 650 mg PO Q6HR PRN 10/31/16 12/08/16 DiphenhydraMINE [Benadryl] 25 mg PO Q6H PRN 10/31/16 12/08/16 Ipratropium/Albuterol Neb [Duoneb] 3 ml IH QID PRN 10/31/16 12/08/16 Lactose-Reduced Food [Ensure 1 bottle PO TID 10/31/16 12/08/16 Liquid] Levothyroxine [Synthroid] 100 mcg PO 0630 10/31/16 12/08/16 Metoprolol XL (24 HR) Succ [Toprol 25 mg PO DAILY 10/31/16 12/08/16 Xl] LORazepam [Ativan] 0.5 mg PO HS 11/15/16 12/08/16 Omeprazole 10 mg PO BID 11/15/16 12/08/16 Oxycodone HCl [Oxaydo] 10 mg PO Q4H PRN 11/15/16 12/08/16 Levofloxacin 750 MG/150 ML 150 ml IVPB Q24H 12/08/16 12/08/16 [Levaquin Premix 750mg/150 mL] Cjlddsbdlqyg-Ihnz-Vzwproai,Iso 4.5 gm IVPB Q6H 12/08/16 12/08/16 [Zosyn 4.5 gm/100 ml Galaxy Bag] Previous Rx's Medication Instructions Recorded Amiodarone [Cordarone] 100 mg PO DAILY tablet 08/02/16 Aspirin Enteric Coated [Aspirin EC] 81 mg PO DAILY tablet. 08/02/16 Atorvastatin [Lipitor] 40 mg PO HS tablet 08/02/16 Potassium Chloride [Klor-Con 10 meq PO DAILY #20 capsule.er 08/02/16 Sprinkle] Sennosides/Docusate Sodium [Senna 2 each PO BID tablet 08/02/16 Plus] Zolpidem [Ambien] 5 mg PO HS PRN #7 11/03/16 Allergies Allergy/AdvReac Type Severity Reaction Status Date / Time No Known Allergies Allergy Verified 01/03/15 19:02 Limitations: ROS unobtainable due to patients medical condition Past Medical History - Past Medical History Attestation: Yes The following information was validated with the patient. Source: patient Medical history: Reports: atrial fibrillation, CHF, COPD, coronary artery disease, GI bleed, other Surgical history: Reports: appendectomy, Psychiatric history: Reports: no psych history [employer] GRADER history: Reports: no [employer] GRADER history - Social History Smoking Status: Former smoker Smokeless Tobacco Status: No Alcohol use: Reports: none Drug use: Reports: none Physical Exam - General Limitations: altered mental status General appearance: in no apparent distress, obese - Head Head exam: atraumatic, normocephalic, normal inspection - Eye Eye exam: Present: normal appearance, PERRL, EOMI - ENT ENT exam: normal exam, normal oropharynx, mucous membranes moist - Neck Neck exam: Present: normal inspection, full ROM, trachea midline. Absent: tenderness, meningismus, lymphadenopathy - Chest Chest inspection: Present: normal inspection, symmetric chest wall rise. Absent : tenderness, rash - Respiratory Respiratory exam: Present: other (Rhonchi throughout). Absent: respiratory distress, wheezes, accessory muscle use - Cardiovascular Cardiovascular exam: Present: regular rate, normal rhythm, normal heart sounds - Abdominal Exam Abdominal exam: Present: soft, Non-Tender, other (Abdominal exam complicated by patient size.). Absent: guarding - Extremities Exam Extremities exam: Present: normal inspection, full ROM, normal capillary refill , other (Ecchymosis on bilateral knees. No tenderness no swelling.). Absent: tenderness, pedal edema - Neurological Exam Neurological exam: Present: alert, other (Confused) - Psychiatric Psychiatric exam: Present: normal affect, normal mood - Skin Skin exam: Present: warm, dry, intact, normal color. Absent: rash, cyanosis, diaphoresis, erythema Course Course Narrative: Confused female sent from halfway for increasing shortness of breath and elevated CO2. She presents with EMS. EMS advises that the patient initial oxygen saturation was in the 80s. This was on 5 L via nasal cannula. She is currently being treated for pneumonia. They state the halfway did not advise what her CO2 level was. During a chart review it was noted to be in the 40s when drawn recently. She has previous CO2 level center in the 80s. She does not appear dyspneic and does not appear to be in distress at this time. Her BMI is 51. Lung sounds are rhonchorous throughout. She is mouth breathing however oxygen saturation stays in the 85 range after asked to breathe through her nose several times. Patient is a DNR CCA as well as a DNI. We will place patient on BiPAP and get an ABG. We will also get a chest x-ray as well as a CTA of her chest. She is not tachycardic however she does have an altered mentation with a low oxygen saturation. She also has bruising to her knees bilaterally. She is unable to tell us when she fell but she does state that she did fall. We will get a CT of her head. - Reevaluation(s) Reevaluation #1: Patient's mentation has improved since she has been on BiPAP. We will admit patient to the hospital for atypical pneumonia, hypercapnia. We will start her on Vanco and Zosyn. She is on BiPAP and will remain on BiPAP. Time: 13:58 - Consultations Consultation #1: Rolando Roger accepted patient in stable condition. Time: 14:39 Vital Signs Temperature 97.9 F 12/08/16 10:58 Pulse Rate 69 12/08/16 10:58 Respiratory Rate 16 12/08/16 10:58 Blood Pressure 130/61 12/08/16 10:58 O2 Sat by Pulse Oximetry 84 12/08/16 10:58 Temperature 97.9 F 12/08/16 10:58 Pulse Rate 66 12/08/16 12:45 Respiratory Rate 20 12/08/16 15:13 Blood Pressure 90/38 12/08/16 15:13 O2 Sat by Pulse Oximetry 92 12/08/16 12:45 Oxygen Delivery Oxygen Delivery Room Air Medical Decision Making - Medical Records Medical records reviewed: Yes I reviewed the patient's medical records. - Lab Data Lab results reviewed: Yes I reviewed the patient's lab results. Result diagrams: 12/08/16 11:20 12/08/16 11:20 Lab Results 12/08/16 12/08/16 12/08/16 Range/Units 11:17 11:20 11:20 WBC 4.7 (4.3-11.1) K/mcL RBC 3.51 L (3.82-4.97) M/mcL Hgb 9.8 L (11.5-15.4) g/dL Hct 33.2 L (35.3-44.9) % MCV 94.6 (83.0-100.0) fL MCH 27.9 L (28.0-33.3) pg MCHC 29.5 L (31.6-35.5) g/dL RDW 17.0 H (11.5-14.5) % Plt Count 227 (140-400) K/mcL MPV 10.0 (9.4-12.4) fL Immature Gran % 0.6 (0-4) % Seg Neutrophils % 51.7 % Lymphocytes % 23.2 % Monocytes % 15.5 % Eosinophils % 8.6 % Basophils % 0.4 % Neutrophils # 2.4 (1.6-8.9) K/mcL Lymphocytes # 1.1 (0.6-4.6) K/mcL Monocytes # 0.7 (0.0-1.3) K/mcL Eosinophils # 0.4 (0.0-0.6) K/mcL Basophils # 0.0 (0.0-0.2) K/mcL ABG pH 7.36 (7.32-7.45) pH Units ABG pCO2 73 H* (35-45) mmHg ABG pO2 53 L (85-104) mmHg ABG HCO3 41 H (21-27) mEq/L ABG Total CO2 43 H (20-26) mEq/L ABG O2 Saturation 83 L (95-98) % ABG Base Excess 13 H (-2 to 3) mEq/L Sodium 138 (136-145) mEq/L Potassium 3.8 (3.5-4.5) mEq/L Chloride 92 L (98-109) mEq/L Carbon Dioxide 41 H* (19-29) mEq/L BUN 6 L (7-20) mg/dL Creatinine 0.60 (0.57-1.11) mg/dL Est GFR ( Amer) > 60 (> 60) Est GFR (Non-Af Amer) > 60 (> 60) BUN/Creatinine Ratio 10 (6-26) Glucose 88 (70-99) mg/dL Calculated Osmolality 283 (280-300) Lactic Acid (0.5-2.2) mmol/L Calcium 8.7 (8.6-10.8) mg/dL Troponin I (0-0.03) ng/mL B-Natriuretic Peptide (0-100) pg/mL Urine Color (Yellow) Urine Clarity (Clear) Urine pH (5.0-8.0) pH Units Ur Specific [place] (1.010-1.025) Urine Protein (Neg-Trace) mg/dL Urine Glucose (UA) (Normal) mg/dL Urine Ketones (Negative) mg/dL Urine Blood (Negative) Urine Nitrite (Negative) Urine Bilirubin (Negative) Urine Urobilinogen (Normal) mg/dL Ur Leukocyte Esterase (Negative) Urine Microscopic RBC (0-3) per hpf Urine Microscopic WBC (0-3) per hpf Ur Squamous Epith Cells (None-Few) per lpf Urine Bacteria (None-Few) per hpf Hyaline Casts (None-Few) per lpf Ur Culture Indicated? (NO) Person Notif of Crit David Claros 12/08/16 12/08/16 12/08/16 Range/Units 11:20 11:20 11:20 WBC (4.3-11.1) K/mcL RBC (3.82-4.97) M/mcL Hgb (11.5-15.4) g/dL Hct (35.3-44.9) % MCV (83.0-100.0) fL MCH (28.0-33.3) pg MCHC (31.6-35.5) g/dL RDW (11.5-14.5) % Plt Count (140-400) K/mcL MPV (9.4-12.4) fL Immature Gran % (0-4) % Seg Neutrophils % % Lymphocytes % % Monocytes % % Eosinophils % % Basophils % % Neutrophils # (1.6-8.9) K/mcL Lymphocytes # (0.6-4.6) K/mcL Monocytes # (0.0-1.3) K/mcL Eosinophils # (0.0-0.6) K/mcL Basophils # (0.0-0.2) K/mcL ABG pH (7.32-7.45) pH Units ABG pCO2 (35-45) mmHg ABG pO2 (85-104) mmHg ABG HCO3 (21-27) mEq/L ABG Total CO2 (20-26) mEq/L ABG O2 Saturation (95-98) % ABG Base Excess (-2 to 3) mEq/L Sodium (136-145) mEq/L Potassium (3.5-4.5) mEq/L Chloride (98-109) mEq/L Carbon Dioxide (19-29) mEq/L BUN (7-20) mg/dL Creatinine (0.57-1.11) mg/dL Est GFR ( Amer) (> 60) Est GFR (Non-Af Amer) (> 60) BUN/Creatinine Ratio (6-26) Glucose (70-99) mg/dL Calculated Osmolality (280-300) Lactic Acid 0.7 (0.5-2.2) mmol/L Calcium (8.6-10.8) mg/dL Troponin I 0.08 H* (0-0.03) ng/mL B-Natriuretic Peptide 131 H (0-100) pg/mL Urine Color (Yellow) Urine Clarity (Clear) Urine pH (5.0-8.0) pH Units Ur Specific [place] (1.010-1.025) Urine Protein (Neg-Trace) mg/dL Urine Glucose (UA) (Normal) mg/dL Urine Ketones (Negative) mg/dL Urine Blood (Negative) Urine Nitrite (Negative) Urine Bilirubin (Negative) Urine Urobilinogen (Normal) mg/dL Ur Leukocyte Esterase (Negative) Urine Microscopic RBC (0-3) per hpf Urine Microscopic WBC (0-3) per hpf Ur Squamous Epith Cells (None-Few) per lpf Urine Bacteria (None-Few) per hpf Hyaline Casts (None-Few) per lpf Ur Culture Indicated? (NO) Person Notif of Crit 12/08/16 Range/Units 11:39 WBC (4.3-11.1) K/mcL RBC (3.82-4.97) M/mcL Hgb (11.5-15.4) g/dL Hct (35.3-44.9) % MCV (83.0-100.0) fL MCH (28.0-33.3) pg MCHC (31.6-35.5) g/dL RDW (11.5-14.5) % Plt Count (140-400) K/mcL MPV (9.4-12.4) fL Immature Gran % (0-4) % Seg Neutrophils % % Lymphocytes % % Monocytes % % Eosinophils % % Basophils % % Neutrophils # (1.6-8.9) K/mcL Lymphocytes # (0.6-4.6) K/mcL Monocytes # (0.0-1.3) K/mcL Eosinophils # (0.0-0.6) K/mcL Basophils # (0.0-0.2) K/mcL ABG pH (7.32-7.45) pH Units ABG pCO2 (35-45) mmHg ABG pO2 (85-104) mmHg ABG HCO3 (21-27) mEq/L ABG Total CO2 (20-26) mEq/L ABG O2 Saturation (95-98) % ABG Base Excess (-2 to 3) mEq/L Sodium (136-145) mEq/L Potassium (3.5-4.5) mEq/L Chloride (98-109) mEq/L Carbon Dioxide (19-29) mEq/L BUN (7-20) mg/dL Creatinine (0.57-1.11) mg/dL Est GFR ( Amer) (> 60) Est GFR (Non-Af Amer) (> 60) BUN/Creatinine Ratio (6-26) Glucose (70-99) mg/dL Calculated Osmolality (280-300) Lactic Acid (0.5-2.2) mmol/L Calcium (8.6-10.8) mg/dL Troponin I (0-0.03) ng/mL B-Natriuretic Peptide (0-100) pg/mL Urine Color Dark Yellow (Yellow) Urine Clarity Clear (Clear) Urine pH 8.0 (5.0-8.0) pH Units Ur Specific [place] 1.023 (1.010-1.025) Urine Protein 30 H (Neg-Trace) mg/dL Urine Glucose (UA) Normal (Normal) mg/dL Urine Ketones 15 H (Negative) mg/dL Urine Blood Negative (Negative) Urine Nitrite Negative (Negative) Urine Bilirubin Small H (Negative) Urine Urobilinogen Normal (Normal) mg/dL Ur Leukocyte Esterase Negative (Negative) Urine Microscopic RBC 0-3 (0-3) per hpf Urine Microscopic WBC 0-3 (0-3) per hpf Ur Squamous Epith Cells Many H (None-Few) per lpf Urine Bacteria None Seen (None-Few) per hpf Hyaline Casts None Seen (None-Few) per lpf Ur Culture Indicated? NO (NO) Person Notif of Crit - Radiology Data Radiology results reviewed: Yes I reviewed the patient's radiology results. Chest X-Ray 12/08/16 11:02 IMPRESSION: 1. Right-sided PICC line. 2. Persistently enlarged cardiac silhouette. 3. Prominence of the interstitial markings with patchy perihilar opacification, which may represent pulmonary edema. D/ / Hung Navas MD / Hung Navas MD Interpreting Provider: Hung Navas MD Chest CTA 12/08/16 11:03 IMPRESSION: 1. Examination is negative for an acute pulmonary embolism. 2. Left-sided pleural effusion. 3. Interval resolution of the ground-glass infiltrates. 4. Scarring is seen in both lungs. 5. Cholelithiasis. D/ / 12/08/2016 13:54:06 Brian Toledo MD / earnold Interpreting Provider: Brian Toledo MD Head CT 12/08/16 11:04 IMPRESSION: No acute intracranial abnormality. D/ / Michael Benitez MD / Michael Benitez MD Interpreting Provider: Michael Benitez MD - EKG Data EKG #1 EKG attestation: Yes I reviewed and interpreted this EKG. EKG results narrative: Normal sinus rhythm at a rate of 66. DC interval is 188. QRS duration is 110. QT is 432. QTC is 446. No signs of acute ischemia. There are inverted T waves in leads V1 to V3 however these were on the previous EKG dated 11/14/2016. Attestation Statement - Attestation Attestation: I, Bridger Simon, examined this patient and my medical decision-making was reviewed with the AWNING INSTALLER/PA/Advanced Practice Nurse/Resident Physician. I agree with the documented findings, disposition and treatment plan as described except to the extent set forth below. 71-year-old female brought to the emergency department by EMS after concerns of hypercarbia and hypoxia at the halfway. Patient is currently being treated for pneumonia. She has a history of COPD, pneumonia and hypercarbia in the past. Patient is mildly confused on the exam, is able to answer simple questions but is unable to give a complete history regarding her case and presentation. On initial evaluation the patient is satting 80-85% on Ventimask. Patient improved significantly after started on BiPAP after initial evaluation. ABG was obtained which did not show significant abnormality from her previous carbon dioxide level. CT of the head was negative for acute intraparenchymal hemorrhage. CTA of the chest was negative for acute PE. Patient was continued on antibiotics as she is treated for pneumonia at the nursing facility. Patient comfortable with the plan for admission to the hospital for further care and evaluation.
[2016-12-08 11:24] LABS: ABG Base Excess 13 mEq/L (-2 to 3); ABG HCO3 41 mEq/L (21-27); ABG Oxygen Saturation 83 % (95-98); ABG PCO2 73 mmHg (35-45); ABG PH 7.36 pH Units (7.32-7.45); ABG PO2 53 mmHg (85-104); ABG TCO2 43 mEq/L (20-26)
[2016-12-08 11:49] LABS: Basophils % 0.4 %; Eosinophils # 0.4 K/mcL (0.0-0.6); Eosinophils % 8.6 %; Hematocrit 33.2 % (35.3-44.9); Hemoglobin 9.8 g/dL (11.5-15.4); Immature Granulocytes % 0.6 % (0-4); Lymphocytes # 1.1 K/mcL (0.6-4.6); Lymphocytes % 23.2 %; Mean Corpuscular HGB Conc 29.5 g/dL (31.6-35.5); Mean Corpuscular Hemoglobin 27.9 pg (28.0-33.3); Mean Corpuscular Volume 94.6 fL (83.0-100.0); Monocytes # 0.7 K/mcL (0.0-1.3); Monocytes % 15.5 %; Neutrophils # 2.4 K/mcL (1.6-8.9); Platelet Count 227 K/mcL (140-400); Red Blood Count 3.51 M/mcL (3.82-4.97); Segmented Neutrophils % 51.7 %
[2016-12-08 11:53] LABS: Bilirubin,Urine Small (Negative); Blood,Urine Negative (Negative); Clarity,Urine Clear (Clear); Color,Urine Dark Yellow (Yellow); Glucose,Urine (UA) Normal (Normal); Ketones,Urine 15 mg/dL (Negative); Leukocyte Esterase,Urine Negative (Negative); Nitrite,Urine Negative (Negative); Protein,Urine 30 mg/dL (Neg-Trace); Specific Gravity,Urine 1.023 (1.010-1.025); Urobilinogen,Urine Normal (Normal)
[2016-12-08 11:56] LABS: Bacteria,Urine None Seen per hpf (None-Few); Hyaline Casts,Urine None Seen per lpf (None-Few); RBC,Urine 0-3 per hpf (0-3); Squamous Epithelial Cell,Urine Many per lpf (None-Few); WBC,Urine 0-3 per hpf (0-3)
[2016-12-08 12:00] LABS: BUN/Creatinine Ratio 10 (6-26); Blood Urea Nitrogen 6 mg/dL (7-20); Calcium 8.7 mg/dL (8.6-10.8); Chloride 92 mEq/L (98-109); Glucose 88 mg/dL (70-99); Osmolality,Calculated 283 (280-300); Potassium 3.8 mEq/L (3.5-4.5); Sodium 138 mEq/L (136-145); eGFR For African Americans > 60 (> 60); eGFR For Non-African Americans > 60 (> 60)
[2016-12-08 12:07] LABS: Carbon Dioxide 41 mEq/L (19-29)
[2016-12-08] MEDS ORDERED: Ondansetron 4 MG/2 ML VIAL IVP ONE (12:48)
[2016-12-08] MEDS ORDERED: Ondansetron 4 MG/2 ML VIAL ONE (12:49)
[2016-12-08] MEDS ORDERED: Piperacillin/Tazobactam 3.375 GM in D5% in Water (Mini-Bag+) 100 ML IVPB ONE (13:57)
[2016-12-08] MEDS ORDERED: Vancomycin 1,000 MG in D5% in Water 250 ML IVPB ONE (13:57)
[2016-12-08] MEDS ORDERED: Naloxone 0.4 MG/ML INJ IVP PRN (16:41)
[2016-12-08] MEDS ORDERED: Acetaminophen 325 MG TABLET PO PRN (16:41)
[2016-12-08] MEDS ORDERED: *HR* Morphine 2 MG/ML SYRINGE IVP PRN (16:41)
[2016-12-08] MEDS ORDERED: LEVOFLOXACIN 750 MG/150 ML IVPB SCH (16:45)
--- NOTE | 2016-12-08 16:50 | Internal Med History&Physical ---
Date of Encounter: 12/08/16 Time of Encounter: 16:50 Assessment and Plan (1) Acute on chronic respiratory failure with hypoxia and hypercapnia Current visit: Yes Status: Acute Multiple similar previous admissions. Likely due to noncompliance-nursing staff called longterm and noted that patient has been prescribed nocturnal BiPAP, however refuses to wear it at the longterm. Multifactorial- progressive COPD, obesity hypoventilation syndrome, questionable pneumonia. ABGs reviewed-pH 7.36, PCO2 73, PO2 53. Does not seem to be having acute hypercapnia as baseline PCO2 is noted to be around 88. Continue supplemental oxygen along with when necessary BiPAP support, bronchodilators, inhaled corticosteroids and IV antibiotics. Not in acute exacerbation of COPD or CHF at this time. Goals of care discussed with patient, who continues to refuse hospice/ palliative care as she does not think she is close to , however confirms that her CODE STATUS is DNR comfort care arrest/DNI. (2) Elevated troponin Current visit: Yes Status: Acute Mild troponin leak of 0.08, likely related to hypoxemia and demand ischemia. Continue telemetry monitoring and cycle troponins. The patient had an episode of non-ST elevation [place] in June 2016 and recommended medical management at this time. (3) HCAP (healthcare-associated pneumonia) Current visit: Yes Status: Suspected Suspected and initiated on IV antibiotics at the longterm-Levaquin and Zosyn , started on December 07 for a 10 day course. Reviewed chest x-ray and CT angiogram of the chest done in the emergency room, no significant new changes noted although she does have chronic interstitial changes bilaterally along with stable enlarged cardiac shadow. We will hold IV Levaquin in light of history of prolonged QT. Send sputum for Gram stain and culture. Follow-up blood cultures and continue IV Zosyn for now. Patient has had multiple courses of broad-spectrum IV antibiotics in the last 2 months, may not need further antibiotics. Does not appear septic at this time. No fever, leukocytosis or lactic acidosis. (4) Hypothyroidism Current visit: Yes Status: Chronic Resume levothyroxine. Qualifiers: Hypothyroidism type: unspecified Qualified Code(s): E03.9 - Hypothyroidism , unspecified (5) COPD (chronic obstructive pulmonary disease) Current visit: Yes Status: Chronic Progressive, medical noncompliance. Continue scheduled bronchodilators, start inhaled corticosteroids/LABA; continue supplemental oxygen and wean down FiO2 as tolerated. We will use noninvasive positive pressure ventilation as needed. Poor prognosis. Qualifiers: COPD type: unspecified COPD Qualified Code(s): J44.9 - Chronic obstructive pulmonary disease, unspecified (6) Morbid obesity with BMI of 45.0-49.9, adult Current visit: Yes Status: Chronic (7) CHF (congestive heart failure) Current visit: Yes Status: Chronic Echocardiogram from June 2016 shows technically challenging study, preserved ejection fraction, no wall motion abnormalities. Not in acute exacerbation at this time. Qualifiers: Congestive heart failure type: diastolic Congestive heart failure chronicity: chronic Qualified Code(s): I50.32 - Chronic diastolic (congestive ) heart failure (8) CAD (coronary artery disease) Current visit: Yes Status: Chronic Continue aspirin, statin, beta raphael. Telemetry monitoring. Qualifiers: Coronary Disease-Associated Artery/Lesion type: [place] artery [place] vs. transplanted heart: [place] heart Associated angina: without angina Qualified Code(s): I25.10 - Atherosclerotic heart disease of [place] coronary artery without angina pectoris (9) Atrial fibrillation Current visit: Yes Status: Chronic Currently rate controlled, continue on amiodarone. Not a candidate for long- term anticoagulation due to recent GI bleed. Qualifiers: Atrial fibrillation type: paroxysmal Qualified Code(s): I48.0 - Paroxysmal atrial fibrillation Internal Medicine - H&P: HPI Chief complaint: Shortness of breath Admitted From: Emergency Dept Plans for Post Hospital Care: Transfer [facility] History of present illness: Ms. Plata is a 71 year old female with history of COPD on oxygen, was sent from longterm for evaluation of hypoxia and respiratory distress. Patient has had multiple recent hospitalizations with similar complaints and has been recommended palliative care in the past, which she has declined. Patient is unable to provide complete history at this time; history is also obtained from review of previous medical records. patient reports that she was sent to the hospital because of difficulty breathing and some respiratory distress, however she is unable to specify the duration of this. She denies subjective fever, chills, nausea, vomiting or cough. Per longterm documents, she is currently being treated for pneumonia with IV Levaquin and Zosyn and she was noted to be tachypneic and hypoxic this morning with oxygen saturation and 70s. She received supplemental oxygen and breathing treatments en route by the squad and she was noted to be much more comfortable in the emergency room, where she received further breathing treatments and BiPAP support. Patient is essentially bedbound with poor functional status. She reports that she tries to use BiPAP at night. Past Med Surg Social Fam HX - Past Medical History Medical history: atrial fibrillation, CHF, COPD, coronary artery disease, GI bleed, thyroid disease, other Psychiatric history: anxiety - Past Surgical History Surgical History: appendectomy, - Social History Smoking Status: Former smoker Smokeless Tobacco Status: No Alcohol use: none Drug use: none Occupational status: disabled Current living situation: ECF Activity Level: Bed bound Recent Out of Country Travel Within the Last 8 Weeks: No Exposure or Possible Exposure to Illness During Travel: No - Family History Father Adopted: (PATIENT WAS UNABLE TO RECALL FAMILY HISTORY.) Living Status: Hx Family Cardiac Disorders: Yes Mother Living Status: Hx Family Cancer: Yes Internal Medicine - H&P: Meds Amiodarone [Cordarone] 100 mg PO DAILY tablet 08/02/16 [Rx] Aspirin Enteric Coated [Aspirin EC] 81 mg PO DAILY tablet. 08/02/16 [Rx] Atorvastatin [Lipitor] 40 mg PO HS tablet 08/02/16 [Rx] Potassium Chloride [Klor-Con Sprinkle] 10 meq PO DAILY #20 capsule.er 08/02/16 [ Rx] Sennosides/Docusate Sodium [Senna Plus] 2 each PO BID tablet 08/02/16 [Rx] Acetaminophen [Tylenol] 650 mg PO Q6HR PRN 10/31/16 [History] DiphenhydraMINE [Benadryl] 25 mg PO Q6H PRN 10/31/16 [History] Ipratropium/Albuterol Neb [Duoneb] 3 ml IH QID PRN 10/31/16 [History] Lactose-Reduced Food [Ensure Liquid] 1 bottle PO TID 10/31/16 [History] Levothyroxine [Synthroid] 100 mcg PO 0630 10/31/16 [History] Metoprolol XL (24 HR) Succ [Toprol Xl] 25 mg PO DAILY 10/31/16 [History] Zolpidem [Ambien] 5 mg PO HS PRN #7 11/03/16 [Rx] LORazepam [Ativan] 0.5 mg PO HS 11/15/16 [History] Omeprazole 10 mg PO BID 11/15/16 [History] Oxycodone HCl [Oxaydo] 10 mg PO Q4H PRN 11/15/16 [History] Levofloxacin 750 MG/150 ML [Levaquin Premix 750mg/150 mL] 150 ml IVPB Q24H 12/08 [History] Ghmisjegqdnd-Ckqf-Ysglugjk,Iso [Zosyn 4.5 gm/100 ml Galaxy Bag] 4.5 gm IVPB Q6H 12/08/16 [History] 3 Allergy/AdvReac Type Severity Reaction Status Date / Time No Known Allergies Allergy Verified 01/03/15 19:02 All Systems PM: A 10-system review of systems was performed and is negative for pertinent findings except as documented above in the HPI. - Constitutional Constitutional: no chills, no fever(s), no night sweats - EENT Eyes: no change in vision, no discharge, no pain, no photophobia Ears: no ear discharge, no ear pain, no tinnitus Nose, mouth and throat: no dysphagia, no nasal discharge, no neck pain, no sore throat - Cardiovascular Cardiovascular ROS IM: dyspnea - Respiratory Respiratory: dyspnea, dyspnea on exertion - Gastrointestinal Gastrointestinal: no abdominal pain, no diarrhea, no hematemesis, no hematochezia, no melena, no nausea, no vomiting - Genitourinary Genitourinary: no change in urinary stream, no dysuria, no flank pain, no hematuria - Musculoskeletal Musculoskeletal ROS IM: no numbness, no tingling - Integumentary Integumentary IM: no rash, no unusual bruising - Neurological Neurological ROS: no confusion, no convulsions, no focal weakness, no numbness, no tingling, no tremor(s) - Hematologic/Lymphatic Hematologic/Lymphatic: no easy bruising - Constitutional Vitals: Temp Pulse Resp BP Pulse Ox 97.5 F L 59 20 113/52 93 12/08/16 15:48 12/08/16 15:48 12/08/16 15:48 12/08/16 15:48 12/08/16 15:48 General appearance: Present: A&O X 2, morbidly obese, answers questions appropriately - Respiratory Respiratory exam: Present: CTAB (complete examination is very difficult due to body habitus and positioning; coarse breath sounds bilaterally anterolaterally. No active wheezing or rhonchi.). Absent: accessory muscle use, rales, rhonchi , wheezes - Cardiovascular Cardiovascular exam: Present: bradycardia, RRR, +S1, +S2. Absent: diastolic murmur, gallop, rubs, systolic murmur - GI/Abdominal GI/Abdominal exam: Present: normal bowel sounds, soft (OBese), no peritoneal signs. Absent: distended, tenderness - Extremities Exam Extremities exam: Present: warm, radial pulses palpable and symmetrical. Absent : calf tenderness, cyanotic, pedal edema - Neurological Exam Neurological exam: Present: CN II-XII intact, oriented X3, no focal deficits ( Decreased motor power bilateral lower extremities). Absent: pronater drift, facial droop, speech deficit - Skin Skin exam: Present: dry, intact Internal Med - H&P Results - Labs CBC & Chem 7: 12/08/16 11:20 12/08/16 11:20 - EKG Data -: EKG Interpreted by Myself EKG shows normal: sinus rhythm (Old infarct in lateral leads) Rate: normal
[2016-12-08] MEDS ORDERED: Ipratropium/Albuterol Neb 3 ML IH SCH (17:00)
[2016-12-08] MEDS: Levofloxacin 750 MG/150 ML 750 MG/150 ML BAG IVPB SCH (17:34)
[2016-12-08] MEDS: Sennosides/Docusate Sodium TABLET PO SCH (20:24)
[2016-12-08] MEDS: *HR* LORazepam 0.5 MG TABLET PO SCH (20:24)
[2016-12-08] MEDS ORDERED: NON-FORMULARY MEDICATION 1 EACH EACH (Lactose-Reduced Food [Ensure Liquid] 1 BOTTLE) PO SCH (21:00)
[2016-12-08] MEDS: Budesonide/Formoterol 160/4.5 MDI IH SCH (23:51)
[2016-12-08] MEDS: Ipratropium/Albuterol Neb 3 ML IH SCH (23:51)
[2016-12-08] MEDS: Piperacillin/Tazobactam 3.375 GM in D5% in Water (Mini-Bag+) 100 ML IVPB SCH (23:59)
[2016-12-09] MEDS: Ipratropium/Albuterol Neb 3 ML IH SCH ×4 (04:12→21:13)
[2016-12-09 04:17] LABS: Basophils % 0.9 %; Eosinophils # 0.4 K/mcL (0.0-0.6); Eosinophils % 9.8 %; Hematocrit 30.9 % (35.3-44.9); Hemoglobin 9.1 g/dL (11.5-15.4); Immature Granulocytes % 0.7 % (0-4); Lymphocytes # 1.1 K/mcL (0.6-4.6); Lymphocytes % 24.2 %; Mean Corpuscular HGB Conc 29.4 g/dL (31.6-35.5); Mean Corpuscular Hemoglobin 27.9 pg (28.0-33.3); Mean Corpuscular Volume 94.8 fL (83.0-100.0); Monocytes # 0.7 K/mcL (0.0-1.3); Monocytes % 15.5 %; Neutrophils # 2.1 K/mcL (1.6-8.9); Platelet Count 225 K/mcL (140-400); Red Blood Count 3.26 M/mcL (3.82-4.97); Red Cell Distribution Width 16.9 % (11.5-14.5); Segmented Neutrophils % 48.9 %
[2016-12-09 04:27] LABS: BUN/Creatinine Ratio 10 (6-26); Blood Urea Nitrogen 6 mg/dL (7-20); Calcium 8.6 mg/dL (8.6-10.8); Chloride 92 mEq/L (98-109); Glucose 90 mg/dL (70-99); Magnesium 1.1 mg/dL (1.6-2.6); Osmolality,Calculated 281 (280-300); Potassium 3.6 mEq/L (3.5-4.5); Sodium 137 mEq/L (136-145); eGFR For African Americans > 60 (> 60); eGFR For Non-African Americans > 60 (> 60)
[2016-12-09 04:36] LABS: Carbon Dioxide 42 mEq/L (19-29)
[2016-12-09] MEDS: Piperacillin/Tazobactam 3.375 GM in D5% in Water (Mini-Bag+) 100 ML IVPB SCH ×3 (06:34→21:09)
[2016-12-09] MEDS: Sennosides/Docusate Sodium TABLET PO SCH ×2 (08:16→21:05)
[2016-12-09] MEDS: Metoprolol XL (24 HR) Succ 25 MG TAB.ER.24H PO SCH (08:16)
[2016-12-09] MEDS: *HR* Amiodarone 200 MG TABLET PO SCH (08:16)
[2016-12-09] MEDS: *HR* Heparin 5,000 UNIT/ML VIAL SQ SCH ×3 (08:17→15:45)
[2016-12-09] MEDS: Aspirin Enteric Coated 81 MG Tablet PO SCH (08:17)
[2016-12-09] MEDS: Vancomycin 1,500 MG in D5% in Water 250 ML IVPB SCH ×2 (10:27→21:05)
[2016-12-09] MEDS: Budesonide/Formoterol 160/4.5 MDI IH SCH ×2 (11:29→21:13)
--- NOTE | 2016-12-09 18:29 | Internal Med Progress Note ---
Date of Encounter: 12/09/16 Time of Encounter: 10:00 - Assessment and plan (1) Pneumonia Current Visit: No Status: Acute Assessment and plan: -We will continue to treat patient for HAP with vancomycin, Zosyn and Levaquin. Qualifiers: Pneumonia type: aspiration pneumonia Aspiration pneumonia type: due to vomit Laterality: unspecified laterality Qualified Code(s): J69.0 - Pneumonitis due to inhalation of food and vomit (2) Acute on chronic respiratory failure with hypoxia and hypercapnia Current Visit: Yes Status: Acute Assessment and plan: -Secondary to the above. -Continue supplemental oxygen (3) Acute exacerbation of chronic obstructive pulmonary disease (COPD) Current Visit: No Status: Acute Assessment and plan: -Secondary to the above. - Subjective Interval history: No acute events overnight. - Constitutional Vitals: Temp Pulse Resp BP Pulse Ox 98.5 F 71 24 109/61 91 12/09/16 16:01 12/09/16 16:01 12/09/16 16:15 12/09/16 16:01 12/09/16 16:15 General appearance: Present: A&O X 2, morbidly obese, answers questions appropriately - Respiratory Respiratory exam: Present: CTAB. Absent: accessory muscle use, rales, rhonchi, wheezes - Cardiovascular Cardiovascular exam: Present: RRR, +S1, +S2. Absent: diastolic murmur, gallop, rubs, systolic murmur Internal Medicine: Result - Labs CBC & Chem 7: 12/09/16 04:02 12/09/16 04:02 Labs: Short CBC 12/09/16 Range/Units 04:02 WBC 4.4 (4.3-11.1) K/mcL Hgb 9.1 L (11.5-15.4) g/dL Hct 30.9 L (35.3-44.9) % Plt Count 225 (140-400) K/mcL Neutrophils # 2.1 (1.6-8.9) K/mcL BMP 12/09/16 04:02 Sodium 137 Potassium 3.6 Chloride 92 L Carbon Dioxide 42 H* BUN 6 L Creatinine 0.58 Glucose 90 Calcium 8.6 Cardiac Enzymes 12/08/16 12/09/16 Range/Units 22:09 04:02 Troponin I 0.06 H* 0.08 H* (0-0.03) ng/mL - ABG Interpretation ABG results: ABG ABG pH 7.36 pH Units (7.32-7.45) 12/08/16 11:17 ABG pCO2 73 mmHg (35-45) H* 12/08/16 11:17 ABG pO2 53 mmHg (85-104) L 12/08/16 11:17 ABG O2 Saturation 83 % (95-98) L 12/08/16 11:17 Consult Discharge Plan - Plan Referrals: Dieter Winters MD [Primary Care Provider] -
[2016-12-09] MEDS: Levofloxacin 750 MG/150 ML 750 MG/150 ML BAG IVPB SCH (18:36)
[2016-12-09] MEDS: *HR* LORazepam 0.5 MG TABLET PO SCH (21:05)
[2016-12-10] MEDS: *HR* Heparin 5,000 UNIT/ML VIAL SQ SCH ×3 (01:21→16:04)
[2016-12-10] MEDS: Ipratropium/Albuterol Neb 3 ML IH SCH ×4 (05:13→23:00)
[2016-12-10] MEDS: Piperacillin/Tazobactam 3.375 GM in D5% in Water (Mini-Bag+) 100 ML IVPB SCH ×2 (06:18→13:57)
[2016-12-10] MEDS: Metoprolol XL (24 HR) Succ 25 MG TAB.ER.24H PO SCH (08:03)
[2016-12-10] MEDS: Sennosides/Docusate Sodium TABLET PO SCH ×3 (08:03→20:19)
[2016-12-10] MEDS: Aspirin Enteric Coated 81 MG Tablet PO SCH (08:03)
[2016-12-10] MEDS: *HR* Amiodarone 200 MG TABLET PO SCH (08:04)
[2016-12-10 09:31] LABS: Basophils % 0.7 %; Eosinophils # 0.4 K/mcL (0.0-0.6); Eosinophils % 9.3 %; Hematocrit 28.8 % (35.3-44.9); Hemoglobin 8.7 g/dL (11.5-15.4); Immature Granulocytes % 0.9 % (0-4); Immature Platelets 3.7 % (1.1-6.1); Lymphocytes % 22.5 %; Mean Corpuscular HGB Conc 30.2 g/dL (31.6-35.5); Mean Corpuscular Hemoglobin 28.2 pg (28.0-33.3); Mean Corpuscular Volume 93.2 fL (83.0-100.0); Mean Platelet Volume 9.8 fL (9.4-12.4); Monocytes # 0.8 K/mcL (0.0-1.3); Monocytes % 17.3 %; Neutrophils # 2.2 K/mcL (1.6-8.9); Platelet Count 269 K/mcL (140-400); Red Blood Count 3.09 M/mcL (3.82-4.97); Red Cell Distribution Width 17.2 % (11.5-14.5); Segmented Neutrophils % 49.3 %
[2016-12-10 09:43] LABS: BUN/Creatinine Ratio 6 (6-26); Calcium 8.7 mg/dL (8.6-10.8); Chloride 95 mEq/L (98-109); Glucose 97 mg/dL (70-99); Osmolality,Calculated 287 (280-300); Potassium 3.6 mEq/L (3.5-4.5); Sodium 140 mEq/L (136-145); eGFR For African Americans > 60 (> 60); eGFR For Non-African Americans > 60 (> 60)
[2016-12-10 09:45] LABS: Blood Urea Nitrogen 4 mg/dL (7-20); Carbon Dioxide 40 mEq/L (19-29)
[2016-12-10] MEDS: Budesonide/Formoterol 160/4.5 MDI IH SCH ×2 (10:52→23:00)
[2016-12-10 11:21] LABS: ABG Base Excess 12 mEq/L (-2 to 3); ABG HCO3 38 mEq/L (21-27); ABG Oxygen Saturation 97 % (95-98); ABG PCO2 60 mmHg (35-45); ABG PH 7.41 pH Units (7.32-7.45); ABG PO2 91 mmHg (85-104); ABG TCO2 40 mEq/L (20-26)
[2016-12-10] MEDS: Vancomycin 1,500 MG in D5% in Water 250 ML IVPB SCH ×2 (11:25→22:15)
--- NOTE | 2016-12-10 12:04 | Electrocardiograph Report ---
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
--- NOTE | 2016-12-10 17:43 | Internal Med Progress Note ---
Date of Encounter: 12/10/16 Time of Encounter: 11:00 - Assessment and plan (1) Pneumonia Current Visit: No Status: Acute Assessment and plan: -Patient afebrile and without leukocytosis. -Patient is requiring high amounts of oxygen supplementation however. -Will continue to treat patient for HAP with vancomycin, Zosyn and Levaquin. Qualifiers: Aspiration pneumonia type: due to vomit Laterality: unspecified laterality Qualified Code(s): J69.0 - Pneumonitis due to inhalation of food and vomit (2) Acute on chronic respiratory failure with hypoxia and hypercapnia Current Visit: Yes Status: Acute Assessment and plan: -Secondary to the above. -Will wean supplemental oxygen to baseline as tolerates. (3) Acute exacerbation of chronic obstructive pulmonary disease (COPD) Current Visit: No Status: Acute Assessment and plan: -Secondary to the above. -Will continue DuoNeb's. (4) DVT prophylaxis Current Visit: No Status: Acute Assessment and plan: Subcutaneous heparin - Subjective Interval history: Patient still requiring oxygen mask for oxygen supplementation. - Constitutional Vitals: Temp Pulse Resp BP Pulse Ox 97.9 F 70 16 115/61 93 12/10/16 16:08 12/10/16 16:08 12/10/16 16:23 12/10/16 16:08 12/10/16 16:23 General appearance: Present: A&O X 2, morbidly obese, answers questions appropriately - Cardiovascular Cardiovascular exam: Present: RRR, +S1, +S2. Absent: diastolic murmur, gallop, rubs, systolic murmur Internal Medicine: Result - Labs CBC & Chem 7: 12/10/16 09:20 12/10/16 09:20 Labs: Short CBC 12/10/16 Range/Units 09:20 WBC 4.4 (4.3-11.1) K/mcL Hgb 8.7 L (11.5-15.4) g/dL Hct 28.8 L (35.3-44.9) % Plt Count 269 (140-400) K/mcL Neutrophils # 2.2 (1.6-8.9) K/mcL BMP 12/10/16 09:20 Sodium 140 Potassium 3.6 Chloride 95 L Carbon Dioxide 40 H* BUN 4 L Creatinine 0.62 Glucose 97 Calcium 8.7 - ABG Interpretation ABG results: ABG ABG pH 7.41 pH Units (7.32-7.45) 12/10/16 11:19 ABG pCO2 60 mmHg (35-45) H 12/10/16 11:19 ABG pO2 91 mmHg (85-104) 12/10/16 11:19 ABG O2 Saturation 97 % (95-98) 12/10/16 11:19 Consult Discharge Plan - Plan Referrals: Dieter Winters MD [Primary Care Provider] -
[2016-12-10] MEDS: Levofloxacin 750 MG/150 ML 750 MG/150 ML BAG IVPB SCH (18:12)
[2016-12-10] MEDS: *HR* LORazepam 0.5 MG TABLET PO SCH (20:17)
[2016-12-11 04:23] LABS: BUN/Creatinine Ratio 6 (6-26); Calcium 8.4 mg/dL (8.6-10.8); Carbon Dioxide 38 mEq/L (19-29); Chloride 95 mEq/L (98-109); Glucose 91 mg/dL (70-99); Magnesium 1.2 mg/dL (1.6-2.6); Osmolality,Calculated 284 (280-300); Potassium 3.3 mEq/L (3.5-4.5); Sodium 139 mEq/L (136-145); eGFR For African Americans > 60 (> 60); eGFR For Non-African Americans > 60 (> 60)
[2016-12-11 04:38] LABS: Blood Urea Nitrogen 4 mg/dL (7-20)
[2016-12-11] MEDS ORDERED: Magnesium Sulfate 2 GM in D5% in Water 100 ML IVPB ONE (05:10)
[2016-12-11] MEDS: Ipratropium/Albuterol Neb 3 ML IH SCH ×4 (05:25→22:08)
[2016-12-11] MEDS: Piperacillin/Tazobactam 3.375 GM in D5% in Water (Mini-Bag+) 100 ML IVPB SCH ×4 (06:29→22:35)
[2016-12-11] MEDS: Aspirin Enteric Coated 81 MG Tablet PO SCH (08:43)
[2016-12-11] MEDS: Sennosides/Docusate Sodium TABLET PO SCH ×2 (08:43→20:20)
[2016-12-11] MEDS: *HR* Amiodarone 200 MG TABLET PO SCH (08:43)
[2016-12-11] MEDS: Metoprolol XL (24 HR) Succ 25 MG TAB.ER.24H PO SCH (08:43)
[2016-12-11] MEDS: *HR* Heparin 5,000 UNIT/ML VIAL SQ SCH ×3 (08:44→14:56)
[2016-12-11 08:58] LABS: Basophils % 0.8 %; Eosinophils # 0.4 K/mcL (0.0-0.6); Eosinophils % 8.3 %; Hematocrit 30.9 % (35.3-44.9); Hemoglobin 9.4 g/dL (11.5-15.4); Lymphocytes # 0.9 K/mcL (0.6-4.6); Lymphocytes % 18.3 %; Mean Corpuscular HGB Conc 30.4 g/dL (31.6-35.5); Mean Corpuscular Hemoglobin 27.9 pg (28.0-33.3); Mean Corpuscular Volume 91.7 fL (83.0-100.0); Mean Platelet Volume 10.1 fL (9.4-12.4); Monocytes # 0.9 K/mcL (0.0-1.3); Monocytes % 17.1 %; Neutrophils # 2.8 K/mcL (1.6-8.9); Platelet Count 272 K/mcL (140-400); Red Blood Count 3.37 M/mcL (3.82-4.97); Red Cell Distribution Width 17.2 % (11.5-14.5); Segmented Neutrophils % 54.5 %
[2016-12-11] MEDS: Budesonide/Formoterol 160/4.5 MDI IH SCH ×2 (10:18→22:04)
[2016-12-11] MEDS: *HR* OxyCODONE Immed Rel 5 MG TABLET PO PRN ×2 (16:34→22:36)
[2016-12-11] MEDS ORDERED: levoFLOXacin 750 MG TABLET PO SCH (18:00)
--- NOTE | 2016-12-11 20:00 | Internal Med Progress Note ---
Date of Encounter: 12/11/16 Time of Encounter: 11:00 - Assessment and plan (1) Pneumonia Current Visit: No Status: Acute Assessment and plan: -Patient afebrile and without leukocytosis. -Patient is requiring high amounts of oxygen supplementation however. -Will continue to treat patient for HAP with vancomycin, Zosyn and Levaquin. Qualifiers: Aspiration pneumonia type: due to vomit Laterality: unspecified laterality Qualified Code(s): J69.0 - Pneumonitis due to inhalation of food and vomit (2) Acute on chronic respiratory failure with hypoxia and hypercapnia Current Visit: Yes Status: Acute Assessment and plan: -Secondary to the above. -Will wean supplemental oxygen to baseline as tolerates. (3) Acute exacerbation of chronic obstructive pulmonary disease (COPD) Current Visit: No Status: Acute Assessment and plan: -Secondary to the above. -Will continue DuoNeb's. (4) DVT prophylaxis Current Visit: No Status: Acute Assessment and plan: Subcutaneous heparin - Subjective Interval history: Patient still requiring oxygen mask for oxygen supplementation. - Constitutional Vitals: Temp Pulse Resp BP Pulse Ox 98.0 F 64 19 111/57 94 12/11/16 19:31 12/11/16 19:31 12/11/16 19:31 12/11/16 19:31 12/11/16 19:31 General appearance: Present: A&O X 2, morbidly obese, answers questions appropriately - Respiratory Respiratory exam: Present: CTAB. Absent: accessory muscle use, rales, rhonchi, wheezes - Cardiovascular Cardiovascular exam: Present: RRR, +S1, +S2. Absent: diastolic murmur, gallop, rubs, systolic murmur Internal Medicine: Result - Labs CBC & Chem 7: 12/11/16 08:48 12/11/16 03:52 Labs: Short CBC 12/11/16 Range/Units 08:48 WBC 5.1 (4.3-11.1) K/mcL Hgb 9.4 L (11.5-15.4) g/dL Hct 30.9 L (35.3-44.9) % Plt Count 272 (140-400) K/mcL Neutrophils # 2.8 (1.6-8.9) K/mcL BMP 12/11/16 03:52 Sodium 139 Potassium 3.3 L Chloride 95 L Carbon Dioxide 38 H BUN 4 L Creatinine 0.71 Glucose 91 Calcium 8.4 L - ABG Interpretation ABG results: ABG ABG pH 7.41 pH Units (7.32-7.45) 12/10/16 11:19 ABG pCO2 60 mmHg (35-45) H 12/10/16 11:19 ABG pO2 91 mmHg (85-104) 12/10/16 11:19 ABG O2 Saturation 97 % (95-98) 12/10/16 11:19 Consult Discharge Plan - Plan Referrals: Dieter Winters MD [Primary Care Provider] -
[2016-12-11] MEDS: *HR* LORazepam 0.5 MG TABLET PO SCH (20:20)
--- NOTE | 2016-12-11 21:26 | Electrocardiograph Report ---
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
[2016-12-12] MEDS: *HR* Heparin 5,000 UNIT/ML VIAL SQ SCH ×4 (00:37→23:32)
[2016-12-12] MEDS: Ipratropium/Albuterol Neb 3 ML IH SCH ×5 (04:17→23:11)
[2016-12-12] MEDS: Ondansetron 4 MG/2 ML VIAL IVP PRN ×3 (04:32→23:30)
[2016-12-12] MEDS: Piperacillin/Tazobactam 3.375 GM in D5% in Water (Mini-Bag+) 100 ML IVPB SCH (06:33)
[2016-12-12 06:41] LABS: Calcium 8.6 mg/dL (8.6-10.8); Magnesium 1.6 mg/dL (1.6-2.6)
[2016-12-12] MEDS: Metoprolol XL (24 HR) Succ 25 MG TAB.ER.24H PO SCH (08:23)
[2016-12-12] MEDS: *HR* Amiodarone 200 MG TABLET PO SCH (08:23)
[2016-12-12] MEDS: Aspirin Enteric Coated 81 MG Tablet PO SCH (08:23)
[2016-12-12] MEDS: Sennosides/Docusate Sodium TABLET PO SCH ×2 (08:23→20:34)
[2016-12-12] MEDS ORDERED: 0.9 % Sodium Chloride 500 ML IVC ONE (08:47)
[2016-12-12] MEDS ORDERED: Vancomycin 1 EACH in EMPTY BAG 1 EACH IVPB SCH (09:00)
[2016-12-12] MEDS: Budesonide/Formoterol 160/4.5 MDI IH SCH ×2 (10:33→23:11)
--- NOTE | 2016-12-12 11:07 | Internal Med Progress Note ---
Date of Encounter: 12/12/16 Time of Encounter: 11:35 - Assessment and plan (1) Acute exacerbation of chronic obstructive pulmonary disease (COPD) Current Visit: Yes Status: Acute Assessment and plan: Secondary to age. Patient actively wheezing at time of review. Continue nebs scheduled, continue Levaquin, continue prednisone. BiPAP qualification overnight. (2) Metabolic alkalosis Current Visit: Yes Status: Acute Assessment and plan: Secondary to hypercapnia. Patient also has JUAN Give gentle bolus. Continue to monitor. (3) Peripheral arterial disease Current Visit: Yes Status: Chronic Assessment and plan: Chronic, stable (4) Morbid obesity with BMI of 50.0-59.9, adult Current Visit: Yes Status: Chronic Assessment and plan: Lifestyle medication (5) CHF (congestive heart failure) Current Visit: Yes Status: Chronic Assessment and plan: Chronic, euvolemic at this time Continue home meds Qualifiers: Congestive heart failure type: diastolic Congestive heart failure chronicity: chronic Qualified Code(s): I50.32 - Chronic diastolic (congestive ) heart failure (6) Tobacco abuse Current Visit: Yes Status: Chronic Assessment and plan: Encourage cessation. (7) Acute on chronic respiratory failure with hypoxia and hypercapnia Current Visit: Yes Status: Acute Assessment and plan: Contrary to COPD exacerbation and healthcare associated pneumonia. BiPAP qualification tonight. (8) JUAN (acute kidney injury) Current Visit: Yes Status: Acute Assessment and plan: Creatinine today elevated to 1.7 Vancomycin trough was supratherapeutic in the past 24 hours. Discontinue vancomycin and Zosyn, give gentle hydration and monitor chemistry. (9) Hypothyroidism Current Visit: Yes Status: Chronic Assessment and plan: Continue home medication. Qualifiers: Hypothyroidism type: unspecified Qualified Code(s): E03.9 - Hypothyroidism , unspecified (10) CAD (coronary artery disease) Current Visit: Yes Status: Chronic Assessment and plan: Chronic, stable, continue home meds Qualifiers: Coronary Disease-Associated Artery/Lesion type: [place] artery [place] vs. transplanted heart: [place] heart Associated angina: without angina Qualified Code(s): I25.10 - Atherosclerotic heart disease of [place] coronary artery without angina pectoris (11) Atrial fibrillation Current Visit: Yes Status: Chronic Assessment and plan: HR controlled, continue on amiodarone. Not a candidate for long-term anticoagulation due to recent GI bleed. Qualifiers: Atrial fibrillation type: paroxysmal Qualified Code(s): I48.0 - Paroxysmal atrial fibrillation (12) Decubitus skin ulcer Current Visit: Yes Status: Chronic Qualifiers: Pressure ulcer location: sacral region Pressure ulcer stage: unspecified pressure ulcer stage Qualified Code(s): L89.159 - Pressure ulcer of sacral region, unspecified stage - Subjective Interval history: Seen and evaluated at the bedside. She denies any new complaints. - Constitutional Vitals: Temp Pulse Resp BP Pulse Ox 97.8 F 62 20 124/76 94 12/12/16 07:04 12/12/16 07:33 12/12/16 10:39 12/12/16 07:04 12/12/16 10:39 General appearance: Present: A&O X 2, morbidly obese, pleasant, no acute distress, answers questions appropriately - Head Head exam: Present: atraumatic, normocephalic - Eye Eye exam: Present: PERRL, conjuntiva pink, sclera anicteric Pupils: Present: PERRL - Neck Neck exam general surgery: Present: supple, trachea midline. Absent: lymphadenopathy - Respiratory Respiratory exam: Present: wheezes (Diffuse wheezinf bilaterally) - Cardiovascular Cardiovascular exam: Present: RRR, +S1, +S2. Absent: diastolic murmur, gallop, rubs, systolic murmur - GI/Abdominal GI/Abdominal exam: Present: normal bowel sounds, soft, no peritoneal signs. Absent: distended, tenderness Additional comments: Obese - Extremities Exam Extremities exam: Present: warm, radial pulses palpable and symmetrical. Absent : calf tenderness, cyanotic, pedal edema - Neurological Exam Neurological exam: Present: alert, CN II-XII intact, no focal deficits. Absent : pronater drift, facial droop, speech deficit - Skin Skin exam: Present: dry Internal Medicine: Result - Labs CBC & Chem 7: 12/11/16 08:48 12/12/16 04:30 Labs: BMP 12/12/16 04:30 Sodium 136 Potassium 4.0 Chloride 94 L Carbon Dioxide 37 H BUN 8 Creatinine 1.65 H D Glucose 86 Calcium 8.6 - ABG Interpretation ABG results: ABG ABG pH 7.41 pH Units (7.32-7.45) 12/10/16 11:19 ABG pCO2 60 mmHg (35-45) H 12/10/16 11:19 ABG pO2 91 mmHg (85-104) 12/10/16 11:19 ABG O2 Saturation 97 % (95-98) 12/10/16 11:19 Consult Discharge Plan - Plan Referrals: Dieter Winters MD [Primary Care Provider] - (PATIENT IS FROM REPLACED BY [facility] NO PCP APPOINTMENT NEEDED)
[2016-12-12] MEDS ORDERED: Ipratropium/Albuterol Neb 3 ML IH ONE (11:36)
[2016-12-12] MEDS: predniSONE 20 MG TABLET PO SCH (12:34)
[2016-12-12] MEDS: *HR* OxyCODONE Immed Rel 5 MG TABLET PO PRN (13:43)
[2016-12-12] MEDS: *HR* LORazepam 0.5 MG TABLET PO SCH (20:33)
[2016-12-13 04:05] LABS: Basophils % 0.2 %; Hematocrit 31.6 % (35.3-44.9); Hemoglobin 9.6 g/dL (11.5-15.4); Immature Granulocytes % 0.7 % (0-4); Lymphocytes # 0.5 K/mcL (0.6-4.6); Lymphocytes % 12.1 %; Mean Corpuscular HGB Conc 30.4 g/dL (31.6-35.5); Mean Corpuscular Hemoglobin 27.8 pg (28.0-33.3); Mean Corpuscular Volume 91.6 fL (83.0-100.0); Mean Platelet Volume 10.2 fL (9.4-12.4); Monocytes # 0.2 K/mcL (0.0-1.3); Monocytes % 4.6 %; Neutrophils # 3.6 K/mcL (1.6-8.9); Platelet Count 292 K/mcL (140-400); Red Blood Count 3.45 M/mcL (3.82-4.97); Segmented Neutrophils % 82.4 %
[2016-12-13 04:17] LABS: Calcium 8.9 mg/dL (8.6-10.8); Potassium 4.4 mEq/L (3.5-4.5)
[2016-12-13] MEDS: Ipratropium/Albuterol Neb 3 ML IH SCH ×5 (04:17→22:31)
[2016-12-13] MEDS: Aspirin Enteric Coated 81 MG Tablet PO SCH (08:33)
[2016-12-13] MEDS: Sennosides/Docusate Sodium TABLET PO SCH ×2 (08:33→21:07)
[2016-12-13] MEDS: *HR* Heparin 5,000 UNIT/ML VIAL SQ SCH ×3 (08:33→23:58)
[2016-12-13] MEDS: *HR* Amiodarone 200 MG TABLET PO SCH (08:33)
[2016-12-13] MEDS: Metoprolol XL (24 HR) Succ 25 MG TAB.ER.24H PO SCH (08:34)
[2016-12-13] MEDS: predniSONE 20 MG TABLET PO SCH (08:34)
[2016-12-13] MEDS ORDERED: 0.9 % Sodium Chloride 1,000 ML IVC SCH (09:45)
--- NOTE | 2016-12-13 10:52 | Internal Med Progress Note ---
Date of Encounter: 12/13/16 Time of Encounter: 10:48 - Assessment and plan (1) Acute exacerbation of chronic obstructive pulmonary disease (COPD) Current Visit: Yes Status: Acute Assessment and plan: Patient actively wheezing at time of review. Continue nebs scheduled, continue Levaquin, continue prednisone. BiPAP qualification overnight. (2) Metabolic alkalosis Current Visit: Yes Status: Acute Assessment and plan: Secondary to hypercapnia. Patient also has JUAN Give gentle bolus. Continue to monitor. (3) Peripheral arterial disease Current Visit: Yes Status: Chronic Assessment and plan: Chronic, stable (4) Morbid obesity with BMI of 50.0-59.9, adult Current Visit: Yes Status: Chronic Assessment and plan: Lifestyle medication (5) CHF (congestive heart failure) Current Visit: Yes Status: Chronic Assessment and plan: Chronic, euvolemic at this time Continue home meds Qualifiers: Congestive heart failure type: diastolic Congestive heart failure chronicity: chronic Qualified Code(s): I50.32 - Chronic diastolic (congestive ) heart failure (6) Tobacco abuse Current Visit: Yes Status: Chronic Assessment and plan: Encourage cessation. (7) Acute on chronic respiratory failure with hypoxia and hypercapnia Current Visit: Yes Status: Acute Assessment and plan: Secondary to COPD exacerbation and suspected pneumonia BiPAP qualification noted (8) JUAN (acute kidney injury) Current Visit: Yes Status: Acute Assessment and plan: Creatinine 2.18(1.65), BUN 12. Possibly secondary to vanco toxicit Discontinued vancomycin and Zosyn 12/12, give gentle hydration and monitor chemistry. renal USS today Place Schreiber for strict I/Os, patient is incontinent K, Ca, na, stbale, no urgent indication for HD at this time, (9) Hypothyroidism Current Visit: Yes Status: Chronic Assessment and plan: Continue home medication. Qualifiers: Hypothyroidism type: unspecified Qualified Code(s): E03.9 - Hypothyroidism , unspecified (10) CAD (coronary artery disease) Current Visit: Yes Status: Chronic Assessment and plan: Chronic, stable, continue home meds Qualifiers: Coronary Disease-Associated Artery/Lesion type: [place] artery [place] vs. transplanted heart: [place] heart Associated angina: without angina Qualified Code(s): I25.10 - Atherosclerotic heart disease of [place] coronary artery without angina pectoris (11) Atrial fibrillation Current Visit: Yes Status: Chronic Assessment and plan: HR controlled, continue on amiodarone. Not a candidate for long-term anticoagulation due to recent GI bleed. Qualifiers: Atrial fibrillation type: paroxysmal Qualified Code(s): I48.0 - Paroxysmal atrial fibrillation (12) Decubitus skin ulcer Current Visit: Yes Status: Chronic Assessment and plan: Initial encounter 12/12, noted decubitus 12/12, I cannot state if it was present on admission or not Continue regular turning, allevyn Qualifiers: Pressure ulcer location: sacral region Pressure ulcer stage: stage 2 Qualified Code(s): L89.152 - Pressure ulcer of sacral region, stage 2 - Subjective Interval history: Seen and evaluated at the bedside. She denies any new complaints. 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 Absent: lymphadenopathy - Respiratory Respiratory exam: Present: CTAB. Absent: accessory muscle use, rales, rhonchi, wheezes - Cardiovascular Cardiovascular exam: Present: RRR, +S1, +S2. Absent: diastolic murmur, gallop, rubs, systolic murmur - GI/Abdominal GI/Abdominal exam: Present: normal bowel sounds, soft, no peritoneal signs. Absent: distended, tenderness - Expanded Exam Female exam: Present: deferred - Extremities Exam Extremities exam: Present: warm, radial pulses palpable and symmetrical. Absent : calf tenderness, cyanotic, pedal edema - Neurological Exam Neurological exam: Present: alert, CN II-XII intact, oriented X3, no focal deficits. Absent: pronater drift, facial droop, speech deficit - Skin Skin exam: Present: dry Internal Medicine: Result - Labs CBC & Chem 7: 12/13/16 03:48 12/13/16 03:48 Labs: Short CBC 12/13/16 Range/Units 03:48 WBC 4.4 (4.3-11.1) K/mcL Hgb 9.6 L (11.5-15.4) g/dL Hct 31.6 L (35.3-44.9) % Plt Count 292 (140-400) K/mcL Neutrophils # 3.6 (1.6-8.9) K/mcL BMP 12/13/16 03:48 Sodium 135 L Potassium 4.4 Chloride 95 L Carbon Dioxide 33 H BUN 12 Creatinine 2.18 H Glucose 120 H Calcium 8.9 - ABG Interpretation ABG results: ABG ABG pH 7.41 pH Units (7.32-7.45) 12/10/16 11:19 ABG pCO2 60 mmHg (35-45) H 12/10/16 11:19 ABG pO2 91 mmHg (85-104) 12/10/16 11:19 ABG O2 Saturation 97 % (95-98) 12/10/16 11:19 Consult Discharge Plan - Plan Referrals: Dieter Winters MD [Primary Care Provider] - (PATIENT IS FROM [facility] NO PCP APPOINTMENT NEEDED)
[2016-12-13] MEDS: Budesonide/Formoterol 160/4.5 MDI IH SCH ×3 (11:34→22:31)
[2016-12-13] MEDS: *HR* OxyCODONE Immed Rel 5 MG TABLET PO PRN (15:58)
[2016-12-13] MEDS ORDERED: levoFLOXacin 750 MG TABLET PO SCH (18:00)
[2016-12-13] MEDS: *HR* LORazepam 0.5 MG TABLET PO SCH (21:07)
[2016-12-14] MEDS: Ondansetron 4 MG/2 ML VIAL IVP PRN ×2 (03:46→21:13)
[2016-12-14 03:58] LABS: Basophils % 0.2 %; Hematocrit 28.9 % (35.3-44.9); Immature Granulocytes % 0.9 % (0-4); Immature Platelets 4.9 % (1.1-6.1); Lymphocytes # 0.9 K/mcL (0.6-4.6); Lymphocytes % 13.9 %; Mean Corpuscular HGB Conc 31.1 g/dL (31.6-35.5); Mean Corpuscular Hemoglobin 28.3 pg (28.0-33.3); Mean Corpuscular Volume 90.9 fL (83.0-100.0); Mean Platelet Volume 10.1 fL (9.4-12.4); Monocytes # 0.7 K/mcL (0.0-1.3); Monocytes % 11.1 %; Neutrophils # 4.9 K/mcL (1.6-8.9); Platelet Count 330 K/mcL (140-400); Red Blood Count 3.18 M/mcL (3.82-4.97); Segmented Neutrophils % 73.9 %
[2016-12-14 04:13] LABS: Calcium 8.3 mg/dL (8.6-10.8); Magnesium 1.6 mg/dL (1.6-2.6); Potassium 4.3 mEq/L (3.5-4.5)
[2016-12-14] MEDS: Ipratropium/Albuterol Neb 3 ML IH SCH ×4 (04:32→22:56)
[2016-12-14] MEDS: predniSONE 20 MG TABLET PO SCH (07:42)
[2016-12-14] MEDS: Aspirin Enteric Coated 81 MG Tablet PO SCH (07:42)
[2016-12-14] MEDS: Sennosides/Docusate Sodium TABLET PO SCH ×2 (07:42→20:28)
[2016-12-14] MEDS: *HR* Amiodarone 200 MG TABLET PO SCH (07:43)
[2016-12-14] MEDS: Metoprolol XL (24 HR) Succ 25 MG TAB.ER.24H PO SCH (07:43)
[2016-12-14] MEDS: *HR* Heparin 5,000 UNIT/ML VIAL SQ SCH ×3 (07:43→23:58)
[2016-12-14] MEDS: 0.9 % Sodium Chloride 1,000 ML IVC SCH (08:50)
--- NOTE | 2016-12-14 10:34 | Internal Med Progress Note ---
Date of Encounter: 12/14/16 Time of Encounter: 10:34 - Assessment and plan (1) Acute exacerbation of chronic obstructive pulmonary disease (COPD) Current Visit: Yes Status: Acute Assessment and plan: Continue current management D/C levaquin , has received 6 days D/C prednisone a.m BiPAP at night (2) Metabolic alkalosis Current Visit: Yes Status: Acute Assessment and plan: Secondary to hypercapnia. Patient also has JUAN Continue gentle hydration Continue to monitor. (3) Peripheral arterial disease Current Visit: Yes Status: Chronic Assessment and plan: Chronic, stable (4) Morbid obesity with BMI of 50.0-59.9, adult Current Visit: Yes Status: Chronic Assessment and plan: Lifestyle medication (5) CHF (congestive heart failure) Current Visit: Yes Status: Chronic Assessment and plan: Chronic, euvolemic at this time Continue home meds Qualifiers: Congestive heart failure type: diastolic Congestive heart failure chronicity: chronic Qualified Code(s): I50.32 - Chronic diastolic (congestive ) heart failure (6) Tobacco abuse Current Visit: Yes Status: Chronic Assessment and plan: Encourage cessation. (7) Acute on chronic respiratory failure with hypoxia and hypercapnia Current Visit: Yes Status: Acute Assessment and plan: Secondary to COPD exacerbation and suspected pneumonia BiPAP qualification noted (8) JUAN (acute kidney injury) Current Visit: Yes Status: Acute Assessment and plan: Creatinine seems to be plateued at 2.35. BUN WNL Possibly secondary to ATN from vanco toxicity Discontinued vancomycin and Zosyn 12/12, give gentle hydration and monitor chemistry. renal USS unremarkable Continue Strict I/O-patient oliguric and also having poor po intake K, Ca, na, stbale, no urgent indication for HD at this time, Nephrology input appreciated (9) Hypothyroidism Current Visit: Yes Status: Chronic Assessment and plan: Continue home medication. Qualifiers: Hypothyroidism type: unspecified Qualified Code(s): E03.9 - Hypothyroidism , unspecified (10) CAD (coronary artery disease) Current Visit: Yes Status: Chronic Assessment and plan: Chronic, stable, continue home meds Qualifiers: Coronary Disease-Associated Artery/Lesion type: [place] artery [place] vs. transplanted heart: [place] heart Associated angina: without angina Qualified Code(s): I25.10 - Atherosclerotic heart disease of [place] coronary artery without angina pectoris (11) Atrial fibrillation Current Visit: Yes Status: Chronic Assessment and plan: HR controlled, continue on amiodarone. Not a candidate for long-term anticoagulation due to recent GI bleed. Qualifiers: Atrial fibrillation type: paroxysmal Qualified Code(s): I48.0 - Paroxysmal atrial fibrillation (12) Decubitus skin ulcer Current Visit: Yes Status: Chronic Assessment and plan: Initial encounter 12/12, noted decubitus 12/12, I cannot state if it was present on admission or not Continue regular turning, allevyn Qualifiers: Pressure ulcer location: sacral region Pressure ulcer stage: stage 2 Qualified Code(s): L89.152 - Pressure ulcer of sacral region, stage 2 - Subjective Interval history: Seen and evaluated at the bedside. She denies any new complaints. Renal function continues to worsen Renal USS unremarkable - Constitutional Vitals: Temp Pulse Resp BP Pulse Ox 97.9 F 72 18 110/52 94 12/14/16 07:23 12/14/16 09:08 12/14/16 07:23 12/14/16 07:23 12/14/16 07:23 General appearance: Present: A&O X 3, morbidly obese, pleasant, no acute distress, answers questions appropriately - Head Head exam: Present: atraumatic, normocephalic - Eye Eye exam: Present: PERRL, conjuntiva pink, sclera anicteric Pupils: Present: PERRL - Neck Neck exam general surgery: Present: supple, trachea midline. Absent: lymphadenopathy - Respiratory Respiratory exam: Present: CTAB. Absent: accessory muscle use, rales, rhonchi, wheezes - Cardiovascular Cardiovascular exam: Present: RRR, +S1, +S2. Absent: diastolic murmur, gallop, rubs, systolic murmur - GI/Abdominal GI/Abdominal exam: Present: normal bowel sounds, soft, no peritoneal signs. Absent: distended, tenderness - Extremities Exam Extremities exam: Present: warm, radial pulses palpable and symmetrical. Absent : calf tenderness, cyanotic, pedal edema - Neurological Exam Neurological exam: Present: alert, CN II-XII intact, oriented X3, no focal deficits. Absent: pronater drift, facial droop, speech deficit - Skin Skin exam: Present: dry, intact Internal Medicine: Result - Labs CBC & Chem 7: 12/14/16 03:50 12/14/16 03:50 Labs: Short CBC 12/14/16 Range/Units 03:50 WBC 6.6 (4.3-11.1) K/mcL Hgb 9.0 L (11.5-15.4) g/dL Hct 28.9 L (35.3-44.9) % Plt Count 330 (140-400) K/mcL Neutrophils # 4.9 (1.6-8.9) K/mcL BMP 12/14/16 03:50 Sodium 135 L Potassium 4.3 Chloride 97 L Carbon Dioxide 32 H BUN 16 Creatinine 2.35 H Glucose 93 Calcium 8.3 L - ABG Interpretation ABG results: ABG ABG pH 7.41 pH Units (7.32-7.45) 12/10/16 11:19 ABG pCO2 60 mmHg (35-45) H 12/10/16 11:19 ABG pO2 91 mmHg (85-104) 12/10/16 11:19 ABG O2 Saturation 97 % (95-98) 12/10/16 11:19 - Impressions Impressions Retroperitoneum Ultrasound 12/13/16 21:00 IMPRESSION: Unremarkable ultrasound of the kidneys and urinary bladder. D/ / Matt Garcia MD / Matt Garcia MD Interpreting Provider: Matt Garcia MD Consult Discharge Plan - Plan Referrals: Dieter Winters MD [Primary Care Provider] - ([facility] NO PCP APPOINTMENT NEEDED)
[2016-12-14] MEDS: Budesonide/Formoterol 160/4.5 MDI IH SCH ×2 (10:54→22:56)
--- NOTE | 2016-12-14 11:01 | Nephrology Consult Note ---
<Rolando Moran - Last Filed: 12/14/16 14:19> Date of Encounter: 12/14/16 Time of Encounter: 10:53 Assessment and Plan (1) JUAN (acute kidney injury) Current Visit: Yes Status: Acute Acute kidney injury with current creatinine 2.35 with baseline around 0.7 and GFR currently 20 with baseline greater than 60. The patient has not seen a faith healer prior to this admission. Previously normal renal function. Blood pressure is been normotensive since admission and currently no concerns of hypotension. She appears euvolemic on evaluation. Currently has an indwelling Schreiber catheter with light yellow urine production. - Patient was receiving vancomycin with her last trough 12/11/2016 at 33.3 - Patient denies excess NSAID use Suspect acute kidney injury secondary to nephrotoxic antibiotic use with vancomycin trough 33.3 with concurrent use of Zosyn. Antibiotics were discontinued recently but creatinine continues to elevate and GFR is diminished. Urinary volume records do not appear to be accurate as is documented she had 150 ML's out yesterday and 200 today. Plan: - Repeat vancomycin trough - Strict intake and output monitoring, continue Schreiber catheter - Daily weight - Avoid nephrotoxic medications such as NSAIDs and renally dose antibiotics - Urine creatinine, urine sodium, urine protein, urine eosinophil, serum uric acid, retroperitoneal ultrasound, urine and serum osmolality, serum phosphate - NS at 75ml/hr (2) Metabolic alkalosis Current Visit: Yes Status: Acute Patient presented with metabolic alkalosis with history of hypercapnia. With correction of respiratory compromise her bicarbonate has been improving from 40- 32 currently. Patient asymptomatic. - Patient is not on diuretics - Continue to monitor (3) Hypomagnesemia Current Visit: Yes Status: Acute Current magnesium 1.6, magnesium upon admission was 1.2. Continue to monitor magnesium daily and observe for potential loss. History of Present Illness - Reason for Consult Consult date: 12/14/16 Acute Kidney Injury Requesting physician: Bhaskar Brown - Chief Complaint juan - History of Present Illness Mrs. Plata 71-year-old female who lives at [facility] recently discharged one month ago from our facility for pneumonia sent home on Levaquin and Zosyn for antibiotic therapy. She has a significant past medical history of COPD, diastolic heart failure, super morbid obesity, atrial fibrillation currently in sinus rhythm, coronary artery disease and hypothyroidism. She was admitted to our facility for acute on chronic respiratory failure and mildly elevated troponin leak at 0.08. She was treated for HAP with antibiotics of vancomycin, Zosyn and Levaquin. Consult to nephrology was placed after patient developed acute kidney injury with no previous history of chronic kidney disease and has never seen a faith healer before. Baseline creatinine around 0.7 and GFR greater than 60. Acute kidney injury developed around 12/12/2016 with creatinine steadily worsening and GFR declining to current GFR 20. His [place] denies any renal problems prior to this current situation. She denies chronic indwelling Schreiber catheters but is immobile at her nursing facility. She denies ever seeing a kidney specialist or been treated for kidney disease or reduced urinary output. Denies any history of kidney stones. She did have a urinary tract infection that grew ESBL in August 2016. She has any current fevers , chills, sweating, dizziness, chest pain or palpitations, nausea vomiting diarrhea constipation, blood in her urine or stool, burning with urination or diminished urinary output. She is tolerating her Schreiber catheter at this time. Past Med Surg Social Fam HX - Past Medical History Medical history: atrial fibrillation, CHF, COPD, coronary artery disease, GI bleed, thyroid disease, other Psychiatric history: anxiety - Past Surgical History Surgical History: appendectomy, - Social History Smoking Status: Former smoker Smokeless Tobacco Status: No Alcohol use: none Drug use: none - Family History Father Adopted: (PATIENT WAS UNABLE TO RECALL FAMILY HISTORY.) Living Status: Hx Family Cardiac Disorders: Yes Mother Living Status: Hx Family Cancer: Yes Medications and Allergies Amiodarone [Cordarone] 100 mg PO DAILY tablet 08/02/16 [Rx] Aspirin Enteric Coated [Aspirin EC] 81 mg PO DAILY tablet. 08/02/16 [Rx] Atorvastatin [Lipitor] 40 mg PO HS tablet 08/02/16 [Rx] Potassium Chloride [Klor-Con Sprinkle] 10 meq PO DAILY #20 capsule.er 08/02/16 [ Rx] Sennosides/Docusate Sodium [Senna Plus] 2 each PO BID tablet 08/02/16 [Rx] Acetaminophen [Tylenol] 650 mg PO Q6HR PRN 10/31/16 [History] DiphenhydraMINE [Benadryl] 25 mg PO Q6H PRN 10/31/16 [History] Ipratropium/Albuterol Neb [Duoneb] 3 ml IH QID PRN 10/31/16 [History] Lactose-Reduced Food [Ensure Liquid] 1 bottle PO TID 10/31/16 [History] Levothyroxine [Synthroid] 100 mcg PO 0630 10/31/16 [History] Metoprolol XL (24 HR) Succ [Toprol Xl] 25 mg PO DAILY 10/31/16 [History] Zolpidem [Ambien] 5 mg PO HS PRN #7 11/03/16 [Rx] LORazepam [Ativan] 0.5 mg PO HS 11/15/16 [History] Omeprazole 10 mg PO BID 11/15/16 [History] Oxycodone HCl [Oxaydo] 10 mg PO Q4H PRN 11/15/16 [History] Levofloxacin 750 MG/150 ML [Levaquin Premix 750mg/150 mL] 150 ml IVPB Q24H 12/08 [History] Idpudjghbmez-Kbyx-Oqxlfgng,Iso [Zosyn 4.5 gm/100 ml Galaxy Bag] 4.5 gm IVPB Q6H 12/08/16 [History] 3 Allergy/AdvReac Type Severity Reaction Status Date / Time No Known Allergies Allergy Verified 01/03/15 19:02 Review of Systems Constitutional: no excessive sweating, no weight loss Eyes: bilateral: blurred vision (patient denies), diplopia (patient denies) Nose, mouth and throat: no dizziness, no headache(s) Cardiovascular: no chest pain, no palpitations Respiratory: no cough, no dyspnea Gastrointestinal: no abdominal pain, no change in bowel habits Musculoskeletal: no muscle weakness, no numbness Integumentary: no hirsutism, no striae Psychiatric: no depression, no difficulty concentrating Endocrine: as per HPI Hematologic/Lymphatic: no easy bruising, no lymphadenopathy Exam - Vital Signs Vital signs: Initial Vital Signs Temp Pulse Resp BP Pulse Ox 97.9 F 69 16 130/61 84 12/08/16 10:58 12/08/16 10:58 12/08/16 10:58 12/08/16 10:58 12/08/16 10:58 Vital Signs - Last 8 Hours Temp Pulse Resp BP Pulse Ox 12/14/16 10:44 97.7 F 66 16 116/49 96 12/14/16 09:08 72 12/14/16 07:23 97.9 F 73 18 110/52 94 12/14/16 04:33 16 95 12/14/16 04:02 97.8 F 66 18 115/55 95 Intake and Output 12/13/16 12/14/16 12/14/16 23:59 07:59 15:59 Intake Total 100 / 100 120 / 120 Output Total 150 / 150 200 / 200 Balance -50 / -50 -80 / -80 Intake: Oral 100 / 100 120 / 120 Output: Catheter 150 / 150 200 / 200 Other: Meal Breakfast Percent of Meal Consumed 0% Weight 128.2 kg Patient Weight 12/14/16 23:59 Weight 128.2 kg - General Appearance Exam: General: Patient alert, awake, oriented 3, interactive, in no acute distress HEENT: Normocephalic, atraumatic, pupils equal reactive to light, oral mucosa moist, neck supple trachea midline no palpable lymphadenopathy, no thyromegaly. Chest: Symmetric bilateral correlating with respiratory effort, effort nonlabored. Cardiac: Regular rate and rhythm, positive S1 and S2. no bruits appreciated bilateral carotids, Radial pulses 2+ bilateral, posterior tibial and dorsal pedal pulses 1+ bilateral. Respiratory: Clear to auscultation all lung lucero Abdomen: Soft, nontender, positive bowel sounds, no palpable masses appreciated on examination Extremities: Symmetric bilateral, bilateral lower extremities without erythema or edema Neurologic: Face symmetric, Results - Lab Results 12/14/16 03:50 12/14/16 03:50 Most recent lab results ABG pH 7.41 pH Units (7.32-7.45) 12/10/16 11:19 ABG pCO2 60 mmHg (35-45) H 12/10/16 11:19 ABG pO2 91 mmHg (85-104) 12/10/16 11:19 ABG HCO3 38 mEq/L (21-27) H 12/10/16 11:19 ABG O2 Saturation 97 % (95-98) 12/10/16 11:19 Calcium 8.3 mg/dL (8.6-10.8) L 12/14/16 03:50 Magnesium 1.6 mg/dL (1.6-2.6) 12/14/16 03:50 Consult Discharge Plan - Plan Referrals: Dieter Winters MD [Primary Care Provider] - (PATIENT IS FROM [facility] NO PCP APPOINTMENT NEEDED) <ApolloronnyJohn Cardenas - Last Filed: 12/14/16 14:37> Date of Encounter: 12/14/16 Exam - Vital Signs Vital signs: Initial Vital Signs Temp Pulse Resp BP Pulse Ox 97.9 F 69 16 130/61 84 12/08/16 10:58 12/08/16 10:58 12/08/16 10:58 12/08/16 10:58 12/08/16 10:58 Vital Signs - Last 8 Hours Temp Pulse Resp BP Pulse Ox 12/14/16 11:02 16 96 12/14/16 10:44 97.7 F 66 16 116/49 96 12/14/16 09:08 72 12/14/16 07:23 97.9 F 73 18 110/52 94 Intake and Output 12/13/16 12/14/16 12/14/16 23:59 07:59 15:59 Intake Total 100 / 100 120 / 120 Output Total 150 / 150 200 / 200 Balance -50 / -50 -80 / -80 Intake: Oral 100 / 100 120 / 120 Output: Catheter 150 / 150 200 / 200 Other: Meal Breakfast Percent of Meal Consumed 0% Weight 128.2 kg 128.2 kg Patient Weight 12/14/16 23:59 Weight 128.2 kg Results - Lab Results 12/14/16 03:50 12/14/16 03:50 Most recent lab results ABG pH 7.41 pH Units (7.32-7.45) 12/10/16 11:19 ABG pCO2 60 mmHg (35-45) H 12/10/16 11:19 ABG pO2 91 mmHg (85-104) 12/10/16 11:19 ABG HCO3 38 mEq/L (21-27) H 12/10/16 11:19 ABG O2 Saturation 97 % (95-98) 12/10/16 11:19 Calcium 8.3 mg/dL (8.6-10.8) L 12/14/16 03:50 Magnesium 1.6 mg/dL (1.6-2.6) 12/14/16 03:50 Urine Creatinine 131 mg/dL 12/14/16 12:16 Urine Sodium 37.0 mEq/L 12/14/16 12:16 Urine Total Protein 28 mg/dL (1-14) H 12/14/16 12:16 - Attending Attestation I examined this patient and my medical decision-making was reviewed with the Resident Physician. I agree with the documented findings, disposition and treatment plan as described except to the extent set forth below. Pt seen and examined with progressive JUAN (SCr currently at 2.35, GFR 20 previously GFR >60 at baseline) in the setting of possible sepsis treated outpatient with antibiotics and also here including vanco with levels as high as 33 along with poor po intake. Agree with avoiding nephrotoxins including vanco. Will check urine sodium, creatinine and eosinophils along with CPK and uric acid levels. Gentle fluid repletion also advised. Will followup US of kidneys as well.
[2016-12-14 12:27] LABS: Bilirubin,Urine Negative (Negative); Blood,Urine Negative (Negative); Clarity,Urine Clear (Clear); Color,Urine Yellow (Yellow); Glucose,Urine (UA) Normal (Normal); Ketones,Urine Negative (Negative); Leukocyte Esterase,Urine Negative (Negative); Nitrite,Urine Negative (Negative); Protein,Urine Trace mg/dL (Neg-Trace); Specific Gravity,Urine 1.013 (1.010-1.025); Urobilinogen,Urine Normal (Normal)
[2016-12-14 12:28] LABS: Bacteria,Urine None Seen per hpf (None-Few); Hyaline Casts,Urine None Seen per lpf (None-Few); Squamous Epithelial Cell,Urine Many per lpf (None-Few); WBC,Urine 0-3 per hpf (0-3)
[2016-12-14 12:33] LABS: Protein/Creatinine Ratio,Urine 0.21 mg/mg (0-0.20)
[2016-12-14] MEDS: *HR* LORazepam 0.5 MG TABLET PO SCH (20:28)
[2016-12-15] MEDS: 0.9 % Sodium Chloride 1,000 ML IVC SCH ×2 (01:21→20:25)
[2016-12-15 03:52] LABS: Hematocrit 26.7 % (35.3-44.9); Hemoglobin 8.3 g/dL (11.5-15.4); Immature Granulocytes % 1.3 % (0-4); Lymphocytes # 0.9 K/mcL (0.6-4.6); Lymphocytes % 13.6 %; Mean Corpuscular HGB Conc 31.1 g/dL (31.6-35.5); Mean Corpuscular Hemoglobin 28.2 pg (28.0-33.3); Mean Corpuscular Volume 90.8 fL (83.0-100.0); Mean Platelet Volume 10.2 fL (9.4-12.4); Monocytes # 0.7 K/mcL (0.0-1.3); Monocytes % 10.1 %; Neutrophils # 5.1 K/mcL (1.6-8.9); Platelet Count 322 K/mcL (140-400); Red Blood Count 2.94 M/mcL (3.82-4.97); Red Cell Distribution Width 17.2 % (11.5-14.5)
[2016-12-15 04:13] LABS: Calcium 8.1 mg/dL (8.6-10.8); Potassium 4.2 mEq/L (3.5-4.5)
[2016-12-15] MEDS: Ipratropium/Albuterol Neb 3 ML IH SCH ×4 (04:13→22:53)
[2016-12-15] MEDS: predniSONE 20 MG TABLET PO SCH (08:26)
[2016-12-15] MEDS: Sennosides/Docusate Sodium TABLET PO SCH ×2 (08:27→20:28)
[2016-12-15] MEDS: *HR* Amiodarone 200 MG TABLET PO SCH (08:27)
[2016-12-15] MEDS: *HR* Heparin 5,000 UNIT/ML VIAL SQ SCH ×3 (08:27→23:58)
[2016-12-15] MEDS: Aspirin Enteric Coated 81 MG Tablet PO SCH (08:27)
[2016-12-15] MEDS: Metoprolol XL (24 HR) Succ 25 MG TAB.ER.24H PO SCH (08:27)
[2016-12-15] MEDS ORDERED: 0.9 % Sodium Chloride 1,000 ML IVC ONE (08:39)
--- NOTE | 2016-12-15 09:23 | Nephrology Progress Note ---
Date of Encounter: 12/15/16 Time of Encounter: 08:25 - Assessment and Plan (1) JUAN (acute kidney injury) Current Visit: Yes Status: Acute Nonoliguric JUAN and slightly trending worse but now that the nephrotoxic exposures have been stopped, I suspect she'll soon see renal improvement Continue IVF for now Minimal proteinuria with a random U P/C ratio of 0.21, with may be d/t the JUAN Also has microscopic hematuria as, but no obvious renal stones on the renal U/S : no hydro. 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 Thank you. (2) Metabolic alkalosis Current Visit: Yes Status: Acute Likely secondary to a primary respiratory component (3) Atrial fibrillation Current Visit: Yes Status: Chronic As per primary Qualifiers: Atrial fibrillation type: paroxysmal Qualified Code(s): I48.0 - Paroxysmal atrial fibrillation (4) CHF (congestive heart failure) Current Visit: Yes Status: Chronic As per primary Qualifiers: Congestive heart failure type: diastolic Congestive heart failure chronicity: chronic Qualified Code(s): I50.32 - Chronic diastolic (congestive ) heart failure Subjective Principal diagnosis: JUAN Interval history: Pt was s/e and did not affirm N/V/D or uremic symptoms. She had no major complaints. Objective - Vital Signs Vital signs: Vital Signs Temp Pulse Resp BP Pulse Ox 12/15/16 07:13 97.9 F 62 17 112/55 97 12/15/16 05:23 97.8 F 66 16 111/48 92 12/15/16 04:13 11 100 12/15/16 04:05 66 12/15/16 00:18 60 12/14/16 23:54 97.9 F 71 14 103/73 94 12/14/16 22:59 92 12/14/16 22:56 15 92 12/14/16 21:03 70 12/14/16 21:02 98.2 F 69 16 134/60 94 12/14/16 15:58 98.2 F 69 14 115/72 98 12/14/16 15:31 16 96 12/14/16 11:02 16 96 12/14/16 10:44 97.7 F 66 16 116/49 96 Intake and Output 12/14/16 12/15/16 12/15/16 23:59 07:59 15:59 Intake Total 0 / 0 1000 / 1000 Output Total 275 / 275 100 / 100 Balance -275 / -275 900 / 900 Intake: IV Fluids 1000 / 1000 0.9 % Sodium Chloride 1,000 ML 1000 / 1000 @ 60 mls/hr IVC .[id number] [facility] Rx #:[id number] Oral 0 / 0 Output: Catheter 275 / 275 100 / 100 Other: Meal Dinner Percent of Meal Consumed 0% Weight 128.4 kg Patient Weight 12/15/16 23:59 Weight 128.4 kg - General Appearance General appearance: Present: well-developed, well-nourished, obese, chronically ill EENT: Present: ATNC, PERRL, mucous membranes moist Neck: Present: supple Respiratory: Present: clear Cardiology: Present: no edema, irregular rhythm, normal S1, normal S2 Gastrointestinal: Present: normoactive bowel sounds, no tenderness, no guarding , obese Integumentary: Present: warm and dry Neurologic: Present: no focal deficit, no asterixis Additional Comments: b/l tremors of her hands Musculoskeletal: Present: no deformities, no erythema, no clubbing Psychiatric: Present: mood/affect appropriate, cooperative - Lab 12/15/16 03:42 12/15/16 03:42 Most recent lab results ABG pH 7.41 pH Units (7.32-7.45) 12/10/16 11:19 ABG pCO2 60 mmHg (35-45) H 12/10/16 11:19 ABG pO2 91 mmHg (85-104) 12/10/16 11:19 ABG HCO3 38 mEq/L (21-27) H 12/10/16 11:19 ABG O2 Saturation 97 % (95-98) 12/10/16 11:19 Calcium 8.1 mg/dL (8.6-10.8) L 12/15/16 03:42 Magnesium 1.6 mg/dL (1.6-2.6) 12/14/16 03:50 Urine Creatinine 131 mg/dL 12/14/16 12:16 Urine Sodium 37.0 mEq/L 12/14/16 12:16 Urine Total Protein 28 mg/dL (1-14) H 12/14/16 12:16 Consult Discharge Plan - Plan Referrals: Dieter Winters MD [Primary Care Provider] - (PATIENT IS FROM [facility] NO PCP APPOINTMENT NEEDED)
--- NOTE | 2016-12-15 09:52 | Internal Med Progress Note ---
Date of Encounter: 12/15/16 Time of Encounter: 09:51 - Assessment and plan (1) Acute exacerbation of chronic obstructive pulmonary disease (COPD) Current Visit: Yes Status: Acute Assessment and plan: Continue current management Levaquin and prednisone course completed BiPAP at night (2) Metabolic alkalosis Current Visit: Yes Status: Acute Assessment and plan: Secondary to hypercapnia. Patient also has JUAN Continue gentle hydration Continue to monitor. (3) Peripheral arterial disease Current Visit: Yes Status: Chronic Assessment and plan: Chronic, stable (4) Morbid obesity with BMI of 50.0-59.9, adult Current Visit: Yes Status: Chronic Assessment and plan: Lifestyle medication Patient is bedbound (5) CHF (congestive heart failure) Current Visit: Yes Status: Chronic Assessment and plan: Chronic, euvolemic at this time Continue home meds Qualifiers: Congestive heart failure type: diastolic Congestive heart failure chronicity: chronic Qualified Code(s): I50.32 - Chronic diastolic (congestive ) heart failure (6) Tobacco abuse Current Visit: Yes Status: Chronic Assessment and plan: Encourage cessation. (7) Acute on chronic respiratory failure with hypoxia and hypercapnia Current Visit: Yes Status: Resolved Assessment and plan: Secondary to COPD exacerbation and suspected pneumonia BiPAP qualification noted (8) JUAN (acute kidney injury) Current Visit: Yes Status: Acute Assessment and plan: Pre-renal and intrinsic , oliguric JUAN with possible ATN from vancomycin toxicity Discontinued vancomycin and Zosyn 12/12 renal USS unremarkable 1L bolus this a,m continue maintenance fluid Continue Strict I/O-patient oliguric and also having poor po intake K, Ca, na, stbale, no urgent indication for HD at this time, Nephrology input appreciated, following (9) Hypothyroidism Current Visit: Yes Status: Chronic Assessment and plan: Continue home medication. Qualifiers: Hypothyroidism type: unspecified Qualified Code(s): E03.9 - Hypothyroidism , unspecified (10) CAD (coronary artery disease) Current Visit: Yes Status: Chronic Assessment and plan: Chronic, stable, continue home meds Qualifiers: Coronary Disease-Associated Artery/Lesion type: [place] artery [place] vs. transplanted heart: [place] heart Associated angina: without angina Qualified Code(s): I25.10 - Atherosclerotic heart disease of [place] coronary artery without angina pectoris (11) Atrial fibrillation Current Visit: Yes Status: Chronic Assessment and plan: HR controlled, continue on amiodarone. Not a candidate for long-term anticoagulation due to recent GI bleed. Qualifiers: Atrial fibrillation type: paroxysmal Qualified Code(s): I48.0 - Paroxysmal atrial fibrillation (12) Decubitus skin ulcer Current Visit: Yes Status: Chronic Assessment and plan: Initial encounter 12/12, noted decubitus 12/12, I cannot state if it was present on admission or not Continue regular turning, allevyn Qualifiers: Pressure ulcer location: sacral region Pressure ulcer stage: stage 2 Qualified Code(s): L89.152 - Pressure ulcer of sacral region, stage 2 - Subjective Interval history: Seen and evaluated at the bedside. She denies any new complaints. Patient remains oliguric, total UO in 24 hrs ~500cc. She is resting comfortably with a flat affect and denies any new complains She verbalized understanding of her diagnoses and is encouraged to drink water liberally - Constitutional Vitals: Temp Pulse Resp BP Pulse Ox 97.9 F 62 17 112/55 97 12/15/16 07:13 12/15/16 07:13 12/15/16 07:13 12/15/16 07:13 12/15/16 07:13 General appearance: Present: A&O X 3, morbidly obese, pleasant, no acute distress, answers questions appropriately - Head Head exam: Present: atraumatic, normocephalic - Eye Eye exam: Present: PERRL, conjuntiva pink, sclera anicteric Pupils: Present: PERRL - Neck Neck exam general surgery: Present: supple, trachea midline. Absent: lymphadenopathy - Respiratory Respiratory exam: Present: CTAB (anterior auscultation only) - Cardiovascular Cardiovascular exam: Present: RRR, +S1, +S2. Absent: diastolic murmur, gallop, rubs, systolic murmur - GI/Abdominal GI/Abdominal exam: Present: normal bowel sounds, soft, no peritoneal signs. Absent: distended, tenderness - Additional comments: deferred. Schreiber wit minimal clear urine - Extremities Exam Extremities exam: Present: warm, radial pulses palpable and symmetrical. Absent : calf tenderness, cyanotic, pedal edema - Neurological Exam Neurological exam: Present: alert, CN II-XII intact, oriented X3, no focal deficits. Absent: pronater drift, facial droop, speech deficit - Skin Skin exam: Present: dry, intact Internal Medicine: Result - Labs CBC & Chem 7: 12/15/16 03:42 12/15/16 03:42 Labs: Short CBC 12/15/16 Range/Units 03:42 WBC 6.8 (4.3-11.1) K/mcL Hgb 8.3 L (11.5-15.4) g/dL Hct 26.7 L (35.3-44.9) % Plt Count 322 (140-400) K/mcL Neutrophils # 5.1 (1.6-8.9) K/mcL BMP 12/15/16 03:42 Sodium 135 L Potassium 4.2 Chloride 99 Carbon Dioxide 31 H BUN 20 Creatinine 2.55 H Glucose 113 H Calcium 8.1 L Urine 12/14/16 Range/Units 12:16 Urine Color Yellow (Yellow) Urine Clarity Clear (Clear) Urine pH 7.0 (5.0-8.0) pH Units Ur Specific [place] 1.013 (1.010-1.025) Urine Protein Trace (Neg-Trace) mg/dL Urine Glucose (UA) Normal (Normal) mg/dL - ABG Interpretation ABG results: ABG ABG pH 7.41 pH Units (7.32-7.45) 12/10/16 11:19 ABG pCO2 60 mmHg (35-45) H 12/10/16 11:19 ABG pO2 91 mmHg (85-104) 12/10/16 11:19 ABG O2 Saturation 97 % (95-98) 12/10/16 11:19 Consult Discharge Plan - Plan Referrals: Dieter Winters MD [Primary Care Provider] - (PATIENT IS FROM [facility] NO PCP APPOINTMENT NEEDED)
[2016-12-15] MEDS: Budesonide/Formoterol 160/4.5 MDI IH SCH ×2 (11:27→22:53)
[2016-12-15] MEDS: Megestrol Acetate 400 MG/10 ML UDC PO SCH (16:00)
[2016-12-15] MEDS: *HR* LORazepam 0.5 MG TABLET PO SCH (20:28)
[2016-12-16] MEDS: Ipratropium/Albuterol Neb 3 ML IH SCH ×4 (04:38→22:23)
[2016-12-16 05:11] LABS: Basophils % 0.2 %; Hematocrit 27.2 % (35.3-44.9); Hemoglobin 8.2 g/dL (11.5-15.4); Immature Granulocytes % 1.5 % (0-4); Lymphocytes # 1.1 K/mcL (0.6-4.6); Lymphocytes % 16.4 %; Mean Corpuscular HGB Conc 30.1 g/dL (31.6-35.5); Mean Corpuscular Hemoglobin 27.6 pg (28.0-33.3); Mean Corpuscular Volume 91.6 fL (83.0-100.0); Mean Platelet Volume 10.8 fL (9.4-12.4); Monocytes # 0.8 K/mcL (0.0-1.3); Monocytes % 11.7 %; Neutrophils # 4.6 K/mcL (1.6-8.9); Platelet Count 307 K/mcL (140-400); Red Blood Count 2.97 M/mcL (3.82-4.97); Segmented Neutrophils % 70.2 %
[2016-12-16 05:17] LABS: Calcium 7.9 mg/dL (8.6-10.8); Potassium 4.3 mEq/L (3.5-4.5)
[2016-12-16] MEDS: Megestrol Acetate 400 MG/10 ML UDC PO SCH ×2 (07:34→16:23)
[2016-12-16] MEDS: *HR* Heparin 5,000 UNIT/ML VIAL SQ SCH ×3 (07:34→23:39)
[2016-12-16] MEDS ORDERED: 0.9 % Sodium Chloride 1,000 ML IVC ONE (08:06)
[2016-12-16] MEDS: predniSONE 20 MG TABLET PO SCH (08:34)
[2016-12-16] MEDS: Metoprolol XL (24 HR) Succ 25 MG TAB.ER.24H PO SCH (08:34)
[2016-12-16] MEDS: Sennosides/Docusate Sodium TABLET PO SCH ×2 (08:34→20:01)
[2016-12-16] MEDS: Aspirin Enteric Coated 81 MG Tablet PO SCH (08:34)
[2016-12-16] MEDS: *HR* Amiodarone 200 MG TABLET PO SCH (08:35)
--- NOTE | 2016-12-16 09:56 | Nephrology Progress Note ---
Date of Encounter: 12/16/16 Time of Encounter: 08:50 - Assessment and Plan (1) JUAN (acute kidney injury) Current Visit: Yes Status: Acute Nonoliguric JUAN and slightly trending better. Would continue IVF for now and will monitor for any risks of edema. Minimal proteinuria with a random U P/C ratio of 0.21, with may be d/t the JUAN Also has microscopic hematuria as, but no obvious renal stones on the renal U/S : no hydro. 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 Thank you. (2) Metabolic alkalosis Current Visit: Yes Status: Acute Likely secondary to a primary respiratory component (3) Atrial fibrillation Current Visit: Yes Status: Chronic As per primary Qualifiers: Atrial fibrillation type: paroxysmal Qualified Code(s): I48.0 - Paroxysmal atrial fibrillation (4) CHF (congestive heart failure) Current Visit: Yes Status: Chronic As per primary Qualifiers: Congestive heart failure type: diastolic Congestive heart failure chronicity: chronic Qualified Code(s): I50.32 - Chronic diastolic (congestive ) heart failure Subjective Principal diagnosis: JUAN Interval history: Pt was s/e and did not affirm N/V/D or uremic symptoms. She had no major complaints reported by the pt to me today. Objective - Vital Signs Vital signs: Vital Signs Temp Pulse Resp BP Pulse Ox 12/16/16 07:05 97.6 F 63 15 117/68 99 12/16/16 04:41 97.6 F 62 122/57 12/16/16 04:38 16 95 12/16/16 00:55 12 115/54 100 12/15/16 23:56 98.2 F 64 17 115/54 12/15/16 22:53 16 98 12/15/16 19:43 97.3 F L 58 19 137/75 94 12/15/16 16:28 98.2 F 57 18 131/69 94 12/15/16 16:25 20 94 12/15/16 11:39 98.0 F 67 17 123/64 95 12/15/16 11:26 16 98 Intake and Output 12/15/16 12/16/16 12/16/16 23:59 07:59 15:59 Intake Total 1000 / 1000 240 / 240 220 / 220 Output Total 450 / 450 250 / 250 Balance 550 / 550 -10 / -10 220 / 220 Intake: IV Fluids 1000 / 1000 0.9 % Sodium Chloride 1,000 ML 1000 / 1000 @ 60 mls/hr IVC .[id number] [facility] Rx #:[id number] Oral 240 / 240 220 / 220 Output: Catheter 450 / 450 250 / 250 Other: Meal Breakfast Percent of Meal Consumed 30% Weight 131 kg Patient Weight 12/16/16 23:59 Weight 131 kg - General Appearance Exam: General appearance: Present: well-developed, well-nourished, obese, chronically ill EENT: Present: ATNC, PERRL, mucous membranes moist Neck: Present: supple Respiratory: Present: clear Cardiology: Present: no edema, irregular rhythm, normal S1, normal S2 Gastrointestinal: Present: normoactive bowel sounds, no tenderness, no guarding , obese Integumentary: Present: warm and dry Neurologic: Present: no focal deficit, no asterixis, slow speech but not slurred Additional Comments: b/l tremors of her hands Musculoskeletal: Present: no deformities, no erythema, no clubbing Psychiatric: Present: mood/affect appropriate, cooperative - Lab 12/16/16 04:40 12/16/16 04:40 Most recent lab results ABG pH 7.41 pH Units (7.32-7.45) 12/10/16 11:19 ABG pCO2 60 mmHg (35-45) H 12/10/16 11:19 ABG pO2 91 mmHg (85-104) 12/10/16 11:19 ABG HCO3 38 mEq/L (21-27) H 12/10/16 11:19 ABG O2 Saturation 97 % (95-98) 12/10/16 11:19 Calcium 7.9 mg/dL (8.6-10.8) L 12/16/16 04:40 Magnesium 1.6 mg/dL (1.6-2.6) 12/14/16 03:50 Urine Creatinine 131 mg/dL 12/14/16 12:16 Urine Sodium 37.0 mEq/L 12/14/16 12:16 Urine Total Protein 28 mg/dL (1-14) H 12/14/16 12:16 Consult Discharge Plan - Plan Referrals: Dieter Winters MD [Primary Care Provider] - (PATIENT IS FROM [facility] NO PCP APPOINTMENT NEEDED)
[2016-12-16] MEDS: Budesonide/Formoterol 160/4.5 MDI IH SCH ×2 (10:18→22:23)
--- NOTE | 2016-12-16 11:04 | Internal Med Progress Note ---
Date of Encounter: 12/16/16 Time of Encounter: 11:00 - Assessment and plan (1) Acute exacerbation of chronic obstructive pulmonary disease (COPD) Current Visit: Yes Status: Resolved Assessment and plan: Continue current management Levaquin and prednisone course completed BiPAP at night (2) Metabolic alkalosis Current Visit: Yes Status: Acute Assessment and plan: Secondary to hypercapnia. Patient also has JUAN Continue gentle hydration Continue to monitor. (3) Peripheral arterial disease Current Visit: Yes Status: Chronic Assessment and plan: Chronic, stable (4) Morbid obesity with BMI of 50.0-59.9, adult Current Visit: Yes Status: Chronic Assessment and plan: Lifestyle medication Patient is bedbound (5) CHF (congestive heart failure) Current Visit: Yes Status: Chronic Assessment and plan: Chronic, euvolemic at this time Continue home meds Qualifiers: Congestive heart failure type: diastolic Congestive heart failure chronicity: chronic Qualified Code(s): I50.32 - Chronic diastolic (congestive ) heart failure (6) Tobacco abuse Current Visit: Yes Status: Chronic Assessment and plan: Encourage cessation. (7) Acute on chronic respiratory failure with hypoxia and hypercapnia Current Visit: Yes Status: Resolved Assessment and plan: Secondary to COPD exacerbation and suspected pneumonia BiPAP qualification noted (8) JUAN (acute kidney injury) Current Visit: Yes Status: Acute Assessment and plan: Pre-renal and intrinsic , oliguric JUAN with possible ATN from vancomycin toxicity Discontinued vancomycin and Zosyn 12/12 renal USS unremarkable 1L bolus this a,m continue maintenance fluid Continue Strict I/O-patient oliguric and also having poor po intake K, Ca, na, stbale, no urgent indication for HD at this time, Nephrology input appreciated, following (9) Hypothyroidism Current Visit: Yes Status: Chronic Assessment and plan: Continue home medication. Qualifiers: Hypothyroidism type: unspecified Qualified Code(s): E03.9 - Hypothyroidism , unspecified (10) CAD (coronary artery disease) Current Visit: Yes Status: Chronic Assessment and plan: Chronic, stable, continue home meds Qualifiers: Coronary Disease-Associated Artery/Lesion type: [place] artery [place] vs. transplanted heart: [place] heart Associated angina: without angina Qualified Code(s): I25.10 - Atherosclerotic heart disease of [place] coronary artery without angina pectoris (11) Atrial fibrillation Current Visit: Yes Status: Chronic Assessment and plan: HR controlled, continue on amiodarone. Not a candidate for long-term anticoagulation due to recent GI bleed. Qualifiers: Atrial fibrillation type: paroxysmal Qualified Code(s): I48.0 - Paroxysmal atrial fibrillation (12) Decubitus skin ulcer Current Visit: Yes Status: Chronic Assessment and plan: Initial encounter 12/12, noted decubitus 12/12, I cannot state if it was present on admission or not Continue regular turning, allevyn Qualifiers: Pressure ulcer location: sacral region Pressure ulcer stage: stage 2 Qualified Code(s): L89.152 - Pressure ulcer of sacral region, stage 2 - Subjective Interval history: Seen and evaluated at the bedside. She denies any new complaints. Patient remains oliguric, total UO in 24 hrs ~600 She denies new complains Her renal function is beginning to improve slowly - Constitutional Vitals: Temp Pulse Resp BP Pulse Ox 97.6 F 63 16 117/68 99 12/16/16 07:05 12/16/16 07:05 12/16/16 10:18 12/16/16 10:18 12/16/16 10:18 General appearance: Present: A&O X 3, morbidly obese, pleasant, no acute distress, answers questions appropriately - Head Head exam: Present: atraumatic, normocephalic - Eye Eye exam: Present: PERRL, conjuntiva pink, sclera anicteric Pupils: Present: PERRL - Neck Neck exam general surgery: Present: supple, trachea midline. Absent: lymphadenopathy - Respiratory Respiratory exam: Present: CTAB. Absent: accessory muscle use, rales, rhonchi, wheezes - Cardiovascular Cardiovascular exam: Present: RRR, +S1, +S2. Absent: diastolic murmur, gallop, rubs, systolic murmur - GI/Abdominal GI/Abdominal exam: Present: normal bowel sounds, soft, no peritoneal signs. Absent: distended, tenderness - Additional comments: Clear urine in [place] - Extremities Exam Extremities exam: Present: warm, radial pulses palpable and symmetrical. Absent : calf tenderness, cyanotic, pedal edema Additional comments: Chronic venous stasis changes - Neurological Exam Neurological exam: Present: alert, CN II-XII intact, oriented X3, no focal deficits. Absent: pronater drift, facial droop, speech deficit - Skin Skin exam: Present: dry Internal Medicine: Result - Labs CBC & Chem 7: 12/16/16 04:40 12/16/16 04:40 Labs: Short CBC 12/16/16 Range/Units 04:40 WBC 6.5 (4.3-11.1) K/mcL Hgb 8.2 L (11.5-15.4) g/dL Hct 27.2 L (35.3-44.9) % Plt Count 307 (140-400) K/mcL Neutrophils # 4.6 (1.6-8.9) K/mcL BMP 12/16/16 04:40 Sodium 135 L Potassium 4.3 Chloride 101 Carbon Dioxide 29 BUN 21 H Creatinine 2.49 H Glucose 95 Calcium 7.9 L - ABG Interpretation ABG results: ABG ABG pH 7.41 pH Units (7.32-7.45) 12/10/16 11:19 ABG pCO2 60 mmHg (35-45) H 12/10/16 11:19 ABG pO2 91 mmHg (85-104) 12/10/16 11:19 ABG O2 Saturation 97 % (95-98) 12/10/16 11:19 Consult Discharge Plan - Plan Referrals: Dieter Winters MD [Primary Care Provider] - ([facility] NO [facility]CP APPOINTMENT NEEDED)
[2016-12-16] MEDS: 0.9 % Sodium Chloride 1,000 ML IVC SCH ×2 (13:02→20:01)
[2016-12-16] MEDS: *HR* LORazepam 0.5 MG TABLET PO SCH (20:01)
[2016-12-17 04:07] LABS: Basophils % 0.1 %; Hematocrit 27.2 % (35.3-44.9); Hemoglobin 8.4 g/dL (11.5-15.4); Immature Granulocytes % 1.9 % (0-4); Lymphocytes % 12.5 %; Mean Corpuscular HGB Conc 30.9 g/dL (31.6-35.5); Mean Corpuscular Hemoglobin 28.1 pg (28.0-33.3); Mean Platelet Volume 10.7 fL (9.4-12.4); Monocytes # 0.8 K/mcL (0.0-1.3); Monocytes % 10.2 %; Platelet Count 308 K/mcL (140-400); Red Blood Count 2.99 M/mcL (3.82-4.97); Segmented Neutrophils % 75.3 %
[2016-12-17 04:21] LABS: Calcium 8.1 mg/dL (8.6-10.8); Potassium 4.2 mEq/L (3.5-4.5)
[2016-12-17] MEDS: Ipratropium/Albuterol Neb 3 ML IH SCH ×4 (05:52→22:27)
[2016-12-17] MEDS: Megestrol Acetate 400 MG/10 ML UDC PO SCH (07:46)
[2016-12-17] MEDS: Metoprolol XL (24 HR) Succ 25 MG TAB.ER.24H PO SCH (07:46)
[2016-12-17] MEDS: Sennosides/Docusate Sodium TABLET PO SCH ×2 (07:46→20:02)
[2016-12-17] MEDS: *HR* Heparin 5,000 UNIT/ML VIAL SQ SCH ×3 (07:46→23:07)
[2016-12-17] MEDS: Aspirin Enteric Coated 81 MG Tablet PO SCH (07:46)
[2016-12-17] MEDS: *HR* Amiodarone 200 MG TABLET PO SCH (07:46)
--- NOTE | 2016-12-17 08:31 | Nephrology Progress Note ---
Date of Encounter: 12/17/16 Time of Encounter: 08:10 - Assessment and Plan (1) JUAN (acute kidney injury) Current Visit: Yes Status: Acute She continues to have a nonoliguric JUAN and slightly trending better; but it's nearly leveling off. This may suggest ATN has developed. 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 Would continue IVF for now and will monitor for any risks of edema; and she had no edema in her hands or feet/ankles. She denied feeling short of breath. Minimal proteinuria with a random U P/C ratio of 0.21, with may be d/t the JUAN Also has microscopic hematuria as, but no obvious renal stones on the renal U/S : no hydro. Continue to follow a renal protective strategy: avoid other nephrotoxins as able , dose renally cleared Rx by GFR Strict I/Os and daily weights Will follow with you. Thank you. (2) Metabolic alkalosis Current Visit: Yes Status: Acute Likely secondary to a primary respiratory component; improving with saline. (3) Atrial fibrillation Current Visit: Yes Status: Chronic As per primary Qualifiers: Atrial fibrillation type: paroxysmal Qualified Code(s): I48.0 - Paroxysmal atrial fibrillation (4) CHF (congestive heart failure) Current Visit: Yes Status: Chronic As per primary. Does not appear to be active at this time. Qualifiers: Congestive heart failure type: diastolic Congestive heart failure chronicity: chronic Qualified Code(s): I50.32 - Chronic diastolic (congestive ) heart failure Subjective Principal diagnosis: JUAN Interval history: Pt was s/e and did not affirm N/V/D or uremic symptoms. She had no major complaints reported by the pt to me today, and essentially said no to all my questions about CP, abdominal pain, or develop of any swelling in her fingers or ankles. Objective - Vital Signs Vital signs: Vital Signs Temp Pulse Resp BP Pulse Ox 12/17/16 07:19 97.2 F L 68 16 112/51 93 12/17/16 05:52 18 97 12/17/16 03:44 97 F L 62 16 113/57 92 12/16/16 23:48 98.3 F 64 18 119/91 94 12/16/16 22:25 16 97 12/16/16 19:46 97.8 F 67 16 125/70 94 12/16/16 16:11 97.7 F 12/16/16 16:06 16 121/61 96 12/16/16 15:10 64 16 121/61 95 12/16/16 12:04 96.5 F L 66 14 108/48 92 12/16/16 10:18 16 117/68 99 Intake and Output 12/16/16 12/17/16 12/17/16 23:59 07:59 15:59 Intake Total 1240 / 1240 0 / 0 Output Total 300 / 300 750 / 750 Balance 940 / 940 -750 / -750 Intake: IV Fluids 1000 / 1000 0.9 % Sodium Chloride 1,000 ML 1000 / 1000 @ 60 mls/hr IVC .[id number] [facility] Rx #:[id number] Oral 240 / 240 0 / 0 Output: Urine 300 / 300 Catheter 750 / 750 Other: Meal Dinner Percent of Meal Consumed 10% Weight 133.8 kg Patient Weight 12/17/16 23:59 Weight 133.8 kg - General Appearance General appearance: Present: well-developed, well-nourished, appears started age , obese, fatigue, frail EENT: Present: ATNC, PERRL, mucous membranes dry Neck: Present: supple Respiratory: Present: clear Cardiology: Present: no edema, irregular rhythm, normal S1, normal S2 Gastrointestinal: Present: normoactive bowel sounds, no tenderness, no guarding Integumentary: Present: no rash, warm and dry Neurologic: Present: no focal deficit, no asterixis Musculoskeletal: Present: no erythema, no cyanosis, no clubbing Psychiatric: Present: mood/affect appropriate, cooperative - Lab 12/17/16 03:30 12/17/16 03:30 Most recent lab results ABG pH 7.41 pH Units (7.32-7.45) 12/10/16 11:19 ABG pCO2 60 mmHg (35-45) H 12/10/16 11:19 ABG pO2 91 mmHg (85-104) 12/10/16 11:19 ABG HCO3 38 mEq/L (21-27) H 12/10/16 11:19 ABG O2 Saturation 97 % (95-98) 12/10/16 11:19 Calcium 8.1 mg/dL (8.6-10.8) L 12/17/16 03:30 Magnesium 1.6 mg/dL (1.6-2.6) 12/14/16 03:50 Urine Creatinine 131 mg/dL 12/14/16 12:16 Urine Sodium 37.0 mEq/L 12/14/16 12:16 Urine Total Protein 28 mg/dL (1-14) H 12/14/16 12:16 Consult Discharge Plan - Plan Referrals: Dieter Winters MD [Primary Care Provider] - (PATIENT IS FROM [facility] NO PCP APPOINTMENT NEEDED)
--- NOTE | 2016-12-17 08:48 | Internal Med Progress Note ---
Date of Encounter: 12/17/16 Time of Encounter: 08:47 - Assessment and plan (1) Acute exacerbation of chronic obstructive pulmonary disease (COPD) Current Visit: Yes Status: Resolved Assessment and plan: Continue current management Levaquin and prednisone course completed BiPAP at night (2) Metabolic alkalosis Current Visit: Yes Status: Acute Assessment and plan: Secondary to hypercapnia. Patient also has JUAN Continue gentle hydration Continue to monitor. (3) Peripheral arterial disease Current Visit: Yes Status: Chronic Assessment and plan: Chronic, stable (4) Morbid obesity with BMI of 50.0-59.9, adult Current Visit: Yes Status: Chronic Assessment and plan: Lifestyle medication Patient is bedbound (5) CHF (congestive heart failure) Current Visit: Yes Status: Chronic Assessment and plan: Chronic, euvolemic at this time Continue home meds Qualifiers: Congestive heart failure type: diastolic Congestive heart failure chronicity: chronic Qualified Code(s): I50.32 - Chronic diastolic (congestive ) heart failure (6) Tobacco abuse Current Visit: Yes Status: Chronic Assessment and plan: Encourage cessation. (7) Acute on chronic respiratory failure with hypoxia and hypercapnia Current Visit: Yes Status: Resolved Assessment and plan: Secondary to COPD exacerbation and suspected pneumonia BiPAP qualification noted (8) JUAN (acute kidney injury) Current Visit: Yes Status: Acute Assessment and plan: Pre-renal and intrinsic , oliguric JUAN with possible ATN from vancomycin toxicity Discontinued vancomycin and Zosyn 12/12 renal USS unremarkable 1L bolus this a,m continue maintenance fluid Continue Strict I/O-oliguria is improving K, Ca, na, stbale, no urgent indication for HD at this time, Nephrology input appreciated, following (9) Hypothyroidism Current Visit: Yes Status: Chronic Assessment and plan: Continue home medication. Qualifiers: Hypothyroidism type: unspecified Qualified Code(s): E03.9 - Hypothyroidism , unspecified (10) CAD (coronary artery disease) Current Visit: Yes Status: Chronic Assessment and plan: Chronic, stable, continue home meds Qualifiers: Coronary Disease-Associated Artery/Lesion type: [place] artery [place] vs. transplanted heart: [place] heart Associated angina: without angina Qualified Code(s): I25.10 - Atherosclerotic heart disease of [place] coronary artery without angina pectoris (11) Atrial fibrillation Current Visit: Yes Status: Chronic Assessment and plan: HR controlled, continue on amiodarone. Not a candidate for long-term anticoagulation due to recent GI bleed. Qualifiers: Atrial fibrillation type: paroxysmal Qualified Code(s): I48.0 - Paroxysmal atrial fibrillation (12) Decubitus skin ulcer Current Visit: Yes Status: Chronic Assessment and plan: Initial encounter 12/12, noted decubitus 12/12, I cannot state if it was present on admission or not Continue regular turning, allevyn Qualifiers: Pressure ulcer location: sacral region Pressure ulcer stage: stage 2 Qualified Code(s): L89.152 - Pressure ulcer of sacral region, stage 2 - Subjective Interval history: Seen and evaluated at the bedside. No new complains Renal function is slowly improving Patient is said to be refusing megace - Constitutional Vitals: Temp Pulse Resp BP Pulse Ox 97.2 F L 68 16 112/51 93 12/17/16 07:19 12/17/16 07:19 12/17/16 07:19 12/17/16 07:19 12/17/16 07:19 General appearance: Present: A&O X 3, morbidly obese, pleasant, no acute distress, answers questions appropriately - Head Head exam: Present: atraumatic, normocephalic - Eye Eye exam: Present: PERRL, conjuntiva pink, sclera anicteric Pupils: Present: PERRL - Neck Neck exam general surgery: Present: supple, trachea midline. Absent: lymphadenopathy - Respiratory Respiratory exam: Present: CTAB. Absent: accessory muscle use, rales, rhonchi, wheezes - Cardiovascular Cardiovascular exam: Present: RRR, +S1, +S2. Absent: diastolic murmur, gallop, rubs, systolic murmur - GI/Abdominal GI/Abdominal exam: Present: normal bowel sounds, soft, no peritoneal signs. Absent: distended, tenderness - Extremities Exam Extremities exam: Present: warm, radial pulses palpable and symmetrical. Absent : calf tenderness, cyanotic, pedal edema - Neurological Exam Neurological exam: Present: alert, CN II-XII intact, oriented X3, no focal deficits. Absent: pronater drift, facial droop, speech deficit - Psychiatric Psychiatric exam: Present: flat affect - Skin Skin exam: Present: dry Internal Medicine: Result - Labs CBC & Chem 7: 12/17/16 03:30 12/17/16 03:30 Labs: Short CBC 12/17/16 Range/Units 03:30 WBC 8.0 (4.3-11.1) K/mcL Hgb 8.4 L (11.5-15.4) g/dL Hct 27.2 L (35.3-44.9) % Plt Count 308 (140-400) K/mcL Neutrophils # 6.0 (1.6-8.9) K/mcL BMP 12/17/16 03:30 Sodium 136 Potassium 4.2 Chloride 103 Carbon Dioxide 27 BUN 25 H Creatinine 2.45 H Glucose 100 H Calcium 8.1 L - ABG Interpretation ABG results: ABG ABG pH 7.41 pH Units (7.32-7.45) 12/10/16 11:19 ABG pCO2 60 mmHg (35-45) H 12/10/16 11:19 ABG pO2 91 mmHg (85-104) 12/10/16 11:19 ABG O2 Saturation 97 % (95-98) 12/10/16 11:19 Consult Discharge Plan - Plan Referrals: Dieter Winters MD [Primary Care Provider] - (PATIENT IS FROM [facility] NO PCP APPOINTMENT NEEDED)
[2016-12-17] MEDS: Budesonide/Formoterol 160/4.5 MDI IH SCH ×2 (10:01→22:27)
[2016-12-17] MEDS: 0.9 % Sodium Chloride 1,000 ML IVC SCH (15:34)
[2016-12-17] MEDS: *HR* LORazepam 0.5 MG TABLET PO SCH (20:02)
[2016-12-18 03:14] LABS: Basophils % 0.2 %; Eosinophils # 0.1 K/mcL (0.0-0.6); Eosinophils % 1.1 %; Hematocrit 27.7 % (35.3-44.9); Hemoglobin 8.5 g/dL (11.5-15.4); Immature Granulocytes % 1.6 % (0-4); Lymphocytes % 24.1 %; Mean Corpuscular HGB Conc 30.7 g/dL (31.6-35.5); Mean Corpuscular Hemoglobin 27.9 pg (28.0-33.3); Mean Corpuscular Volume 90.8 fL (83.0-100.0); Mean Platelet Volume 10.2 fL (9.4-12.4); Monocytes # 1.1 K/mcL (0.0-1.3); Monocytes % 13.6 %; Neutrophils # 4.9 K/mcL (1.6-8.9); Platelet Count 270 K/mcL (140-400); Red Blood Count 3.05 M/mcL (3.82-4.97); Red Cell Distribution Width 17.1 % (11.5-14.5); Segmented Neutrophils % 59.4 %
[2016-12-18 03:43] LABS: Calcium 7.9 mg/dL (8.6-10.8)
[2016-12-18] MEDS: Ipratropium/Albuterol Neb 3 ML IH SCH ×5 (05:16→22:22)
[2016-12-18] MEDS: *HR* Amiodarone 200 MG TABLET PO SCH (08:38)
[2016-12-18] MEDS: *HR* Heparin 5,000 UNIT/ML VIAL SQ SCH ×2 (08:38→15:21)
[2016-12-18] MEDS: Aspirin Enteric Coated 81 MG Tablet PO SCH (08:38)
[2016-12-18] MEDS: Metoprolol XL (24 HR) Succ 25 MG TAB.ER.24H PO SCH (08:39)
[2016-12-18] MEDS: Sennosides/Docusate Sodium TABLET PO SCH ×2 (08:39→22:27)
--- NOTE | 2016-12-18 10:54 | Internal Med Progress Note ---
Date of Encounter: 12/18/16 Time of Encounter: 10:54 - Assessment and plan (1) Acute exacerbation of chronic obstructive pulmonary disease (COPD) Current Visit: Yes Status: Resolved Assessment and plan: Continue current management Levaquin and prednisone course completed BiPAP at night (2) Metabolic alkalosis Current Visit: Yes Status: Resolved Assessment and plan: Secondary to hypercapnia. Patient also has JUAN Continue to monitor. (3) Peripheral arterial disease Current Visit: Yes Status: Chronic Assessment and plan: Chronic, stable (4) Morbid obesity with BMI of 50.0-59.9, adult Current Visit: Yes Status: Chronic Assessment and plan: Lifestyle medication Patient is bedbound (5) CHF (congestive heart failure) Current Visit: Yes Status: Chronic Assessment and plan: Chronic, euvolemic at this time Continue home meds Qualifiers: Congestive heart failure type: diastolic Congestive heart failure chronicity: chronic Qualified Code(s): I50.32 - Chronic diastolic (congestive ) heart failure (6) Tobacco abuse Current Visit: Yes Status: Chronic Assessment and plan: Encourage cessation. (7) Acute on chronic respiratory failure with hypoxia and hypercapnia Current Visit: Yes Status: Resolved Assessment and plan: Secondary to COPD exacerbation and suspected pneumonia BiPAP qualification noted (8) JUAN (acute kidney injury) Current Visit: Yes Status: Acute Assessment and plan: Pre-renal and intrinsic , oliguric JUAN with possible ATN from vancomycin toxicity Discontinued vancomycin and Zosyn 12/12 renal USS unremarkable Continue Strict I/O-oliguria is improving K, Ca, na, stbale, no urgent indication for HD at this time, Nephrology input appreciated, following Intravenous fluids discontinued on December 17 due to pulmonary distress. (9) Hypothyroidism Current Visit: Yes Status: Chronic Assessment and plan: Continue home medication. Qualifiers: Hypothyroidism type: unspecified Qualified Code(s): E03.9 - Hypothyroidism , unspecified (10) CAD (coronary artery disease) Current Visit: Yes Status: Chronic Assessment and plan: Chronic, stable, continue home meds Qualifiers: Coronary Disease-Associated Artery/Lesion type: [place] artery [place] vs. transplanted heart: [place] heart Associated angina: without angina Qualified Code(s): I25.10 - Atherosclerotic heart disease of [place] coronary artery without angina pectoris (11) Atrial fibrillation Current Visit: Yes Status: Chronic Assessment and plan: HR controlled, continue on amiodarone. Not a candidate for long-term anticoagulation due to recent GI bleed. Qualifiers: Atrial fibrillation type: paroxysmal Qualified Code(s): I48.0 - Paroxysmal atrial fibrillation (12) Decubitus skin ulcer Current Visit: Yes Status: Chronic Assessment and plan: Initial encounter 12/12, noted decubitus 12/12, I cannot state if it was present on admission or not Continue regular turning, allevyn Qualifiers: Pressure ulcer location: sacral region Pressure ulcer stage: stage 2 Qualified Code(s): L89.152 - Pressure ulcer of sacral region, stage 2 - Subjective Interval history: Seen and evaluated at the bedside. No new complains - Constitutional Vitals: Temp Pulse Resp BP Pulse Ox 98.2 F 71 16 122/62 95 12/18/16 08:09 12/18/16 08:09 12/18/16 08:09 12/18/16 08:09 12/18/16 08:09 General appearance: Present: A&O X 3, morbidly obese, pleasant, no acute distress, answers questions appropriately - Head Head exam: Present: atraumatic, normocephalic - Eye Eye exam: Present: PERRL, conjuntiva pink, sclera anicteric Pupils: Present: PERRL - Neck Neck exam general surgery: Present: supple, trachea midline. Absent: lymphadenopathy - Respiratory Respiratory exam: Present: CTAB. Absent: accessory muscle use, rales, rhonchi, wheezes - Cardiovascular Cardiovascular exam: Present: RRR, +S1, +S2. Absent: diastolic murmur, gallop, rubs, systolic murmur - GI/Abdominal GI/Abdominal exam: Present: normal bowel sounds, soft, no peritoneal signs. Absent: distended, tenderness - Extremities Exam Extremities exam: Present: warm, radial pulses palpable and symmetrical. Absent : calf tenderness, cyanotic, pedal edema - Neurological Exam Neurological exam: Present: alert, CN II-XII intact, oriented X3, no focal deficits. Absent: pronater drift, facial droop, speech deficit - Skin Skin exam: Present: dry, intact Internal Medicine: Result - Labs CBC & Chem 7: 12/18/16 03:05 12/18/16 03:05 Labs: Short CBC 12/18/16 Range/Units 03:05 WBC 8.2 (4.3-11.1) K/mcL Hgb 8.5 L (11.5-15.4) g/dL Hct 27.7 L (35.3-44.9) % Plt Count 270 (140-400) K/mcL Neutrophils # 4.9 (1.6-8.9) K/mcL BMP 12/18/16 03:05 Sodium 137 Potassium 4.0 Chloride 104 Carbon Dioxide 27 BUN 24 H Creatinine 2.47 H Glucose 75 Calcium 7.9 L - ABG Interpretation ABG results: ABG ABG pH 7.41 pH Units (7.32-7.45) 12/10/16 11:19 ABG pCO2 60 mmHg (35-45) H 12/10/16 11:19 ABG pO2 91 mmHg (85-104) 12/10/16 11:19 ABG O2 Saturation 97 % (95-98) 12/10/16 11:19 - Impressions Impressions Chest X-Ray 12/17/16 16:06 IMPRESSION: Enlarged cardiac silhouette with vascular congestion and trace pleural effusions. No overt pulmonary edema. D/ / Blair Person MD / Blair Person MD Interpreting Provider: Blair Person MD Consult Discharge Plan - Plan Referrals: Dieter Winters MD [Primary Care Provider] - (PATIENT IS FROM [facility] NO PCP APPOINTMENT NEEDED)
[2016-12-18] MEDS: Budesonide/Formoterol 160/4.5 MDI IH SCH ×3 (10:56→22:22)
--- NOTE | 2016-12-18 11:56 | Nephrology Progress Note ---
Date of Encounter: 12/18/16 Time of Encounter: 14:44 - Assessment and Plan (1) JUAN (acute kidney injury) Current Visit: Yes Status: Acute nonoliguric JUAN, stable at this time, posisble ATN. retroperitoneal ultrasound was unremarkable. no indication for hemodialysis at this time. Plan: agree with discontinuation of IV fluids. no need for ellis catheter from nephrology standpoint. strict I/O, daily weights. Continue to follow a renal protective strategy: avoid nephrotoxins as much as possible, dose renally cleared Rx by GFR (2) Metabolic alkalosis Current Visit: Yes Status: Resolved resolved. (3) Atrial fibrillation Current Visit: Yes Status: Chronic on amiodarone. not a candidate for anticoagulation due to GI bleed. per primary. Qualifiers: Atrial fibrillation type: paroxysmal Qualified Code(s): I48.0 - Paroxysmal atrial fibrillation (4) CHF (congestive heart failure) Current Visit: Yes Status: Chronic per primary. does not appear to be in acute exacerbation at this time. Qualifiers: Congestive heart failure type: diastolic Congestive heart failure chronicity: chronic Qualified Code(s): I50.32 - Chronic diastolic (congestive ) heart failure Subjective Principal diagnosis: JUAN Interval history: 71F evaluated at bedside. patient denies nausea, vomiting, diarrhea, fever, chills chest pain, shortness of breath. Objective - Vital Signs Vital signs: Vital Signs Temp Pulse Resp BP Pulse Ox 12/18/16 11:32 70 12 95 12/18/16 08:09 98.2 F 71 16 122/62 95 12/18/16 05:18 13 113/50 98 12/18/16 03:29 97.8 F 61 18 113/50 96 12/17/16 23:01 97.8 F 67 16 114/60 98 12/17/16 22:27 16 92 12/17/16 20:24 97.6 F 62 18 125/62 98 12/17/16 16:01 16 100 12/17/16 15:05 97.0 F L 66 16 130/59 100 Intake and Output 12/17/16 12/18/16 12/18/16 23:59 07:59 15:59 Intake Total 300 / 300 240 / 240 Output Total 350 / 350 250 / 250 250 / 250 Balance -50 / -50 -250 / -250 -10 / -10 Intake: Oral 300 / 300 240 / 240 Output: Urine 350 / 350 250 / 250 Urethral (Ellis) 350 / 350 250 / 250 Catheter 250 / 250 Other: Meal Dinner Breakfast Percent of Meal Consumed 5% 20% Weight 133.2 kg Patient Weight 12/18/16 23:59 Weight 133.2 kg - General Appearance General appearance: Present: well-developed, obese, moderate distress, anxious Neck: Present: no JVD, supple Respiratory: Absent: rales, course breath sounds, rhonchi Cardiology: Present: regular rate, regular rhythm, normal S1, normal S2 Gastrointestinal: Present: no tenderness, no guarding, obese Additional Comments: wrinkles and discoloration present on bilateral lower extremities. - Lab 12/18/16 03:05 12/18/16 03:05 Most recent lab results ABG pH 7.41 pH Units (7.32-7.45) 12/10/16 11:19 ABG pCO2 60 mmHg (35-45) H 12/10/16 11:19 ABG pO2 91 mmHg (85-104) 12/10/16 11:19 ABG HCO3 38 mEq/L (21-27) H 12/10/16 11:19 ABG O2 Saturation 97 % (95-98) 12/10/16 11:19 Calcium 7.9 mg/dL (8.6-10.8) L 12/18/16 03:05 Magnesium 1.6 mg/dL (1.6-2.6) 12/14/16 03:50 Urine Creatinine 131 mg/dL 12/14/16 12:16 Urine Sodium 37.0 mEq/L 12/14/16 12:16 Urine Total Protein 28 mg/dL (1-14) H 12/14/16 12:16 Consult Discharge Plan - Plan Referrals: Dieter Winters MD [Primary Care Provider] - (PATIENT IS FROM [facility] NO PCP APPOINTMENT NEEDED)
[2016-12-18] MEDS ORDERED: Ipratropium/Albuterol Neb 3 ML IH ONE (13:24)
[2016-12-18] MEDS ORDERED: Budesonide/Formoterol 160/4.5 MDI IH ONE (13:25)
[2016-12-18] MEDS: *HR* LORazepam 0.5 MG TABLET PO SCH ×2 (22:27→22:28)
[2016-12-19] MEDS: *HR* Heparin 5,000 UNIT/ML VIAL SQ SCH ×3 (00:08→17:35)
[2016-12-19] MEDS: Ipratropium/Albuterol Neb 3 ML IH SCH ×4 (04:51→22:33)
[2016-12-19 06:53] LABS: Basophils # 0.1 K/mcL (0.0-0.2); Basophils % 0.5 %; Eosinophils # 0.2 K/mcL (0.0-0.6); Eosinophils % 1.8 %; Hematocrit 31.4 % (35.3-44.9); Hemoglobin 9.5 g/dL (11.5-15.4); Immature Granulocytes % 2.4 % (0-4); Lymphocytes # 1.7 K/mcL (0.6-4.6); Lymphocytes % 18.7 %; Mean Corpuscular HGB Conc 30.3 g/dL (31.6-35.5); Mean Corpuscular Hemoglobin 27.5 pg (28.0-33.3); Mean Corpuscular Volume 90.8 fL (83.0-100.0); Mean Platelet Volume 11.2 fL (9.4-12.4); Monocytes # 1.1 K/mcL (0.0-1.3); Monocytes % 12.3 %; Neutrophils # 5.9 K/mcL (1.6-8.9); Platelet Count 298 K/mcL (140-400); Red Blood Count 3.46 M/mcL (3.82-4.97); Red Cell Distribution Width 17.3 % (11.5-14.5); Segmented Neutrophils % 64.3 %
[2016-12-19 07:01] LABS: Calcium 8.3 mg/dL (8.6-10.8); Potassium 3.9 mEq/L (3.5-4.5)
[2016-12-19] MEDS: *HR* Amiodarone 200 MG TABLET PO SCH (09:19)
[2016-12-19] MEDS: Sennosides/Docusate Sodium TABLET PO SCH ×2 (09:20→21:28)
[2016-12-19] MEDS: Metoprolol XL (24 HR) Succ 25 MG TAB.ER.24H PO SCH (09:20)
[2016-12-19] MEDS: Aspirin Enteric Coated 81 MG Tablet PO SCH (09:20)
--- NOTE | 2016-12-19 10:34 | Nephrology Progress Note ---
Date of Encounter: 12/19/16 Time of Encounter: 10:34 - Assessment and Plan (1) JUAN (acute kidney injury) Current Visit: Yes Status: Acute nonoliguric JUAN, stable at this time, likely ATN. continues to have good urine output. retroperitoneal ultrasound was unremarkable. no indication for hemodialysis at this time. Kidney function relatively stable now. Plan: no need for ellis catheter from nephrology standpoint. strict I/O, daily weights. Continue to follow a renal protective strategy: avoid nephrotoxins as much as possible, dose renally cleared Rx by GFR At this time, we will continue to monitor her kidney function. Plan for follow up outpatient after hospital discharge. (2) Metabolic alkalosis Current Visit: Yes Status: Resolved resolved. (3) Atrial fibrillation Current Visit: Yes Status: Chronic on amiodarone. not a candidate for anticoagulation due to GI bleed. per primary. Qualifiers: Atrial fibrillation type: paroxysmal Qualified Code(s): I48.0 - Paroxysmal atrial fibrillation (4) CHF (congestive heart failure) Current Visit: Yes Status: Chronic per primary. does not appear to be in acute exacerbation at this time. Qualifiers: Congestive heart failure type: diastolic Congestive heart failure chronicity: chronic Qualified Code(s): I50.32 - Chronic diastolic (congestive ) heart failure Subjective Principal diagnosis: JUAN Interval history: 71F evaluated at bedside. patient denies nausea, vomiting, diarrhea, fever, chills chest pain, shortness of breath.she has no new complaints today. Objective - Vital Signs Vital signs: Vital Signs Temp Pulse Resp BP Pulse Ox 12/19/16 07:24 98.3 F 62 16 114/72 98 12/19/16 04:52 16 94 12/19/16 04:02 99.6 F 67 16 111/62 96 12/19/16 00:04 98.3 F 69 16 139/74 95 12/18/16 22:24 20 90 12/18/16 20:27 98.2 F 70 20 103/57 91 12/18/16 16:43 97.3 F L 68 17 126/68 98 12/18/16 15:45 16 98 12/18/16 12:19 97.5 F L 65 16 116/64 99 12/18/16 11:32 70 12 95 Intake and Output 12/18/16 12/19/16 12/19/16 23:59 07:59 15:59 Other: Weight 133.81 kg Patient Weight 12/19/16 23:59 Weight 133.81 kg - General Appearance General appearance: Present: well-developed, well-nourished, obese Neck: Present: no JVD Additional Comments: CTAB Cardiology: Present: no murmurs, no rub, no gallops, normal S1, normal S2 Additional Comments: soft, obese, non tender, hypoactive bowel sounds. Neurologic: Present: no focal deficit, alert and oriented x3 - Lab 12/19/16 05:49 12/19/16 05:49 Most recent lab results ABG pH 7.41 pH Units (7.32-7.45) 12/10/16 11:19 ABG pCO2 60 mmHg (35-45) H 12/10/16 11:19 ABG pO2 91 mmHg (85-104) 12/10/16 11:19 ABG HCO3 38 mEq/L (21-27) H 12/10/16 11:19 ABG O2 Saturation 97 % (95-98) 12/10/16 11:19 Calcium 8.3 mg/dL (8.6-10.8) L 12/19/16 05:49 Magnesium 1.6 mg/dL (1.6-2.6) 12/14/16 03:50 Urine Creatinine 131 mg/dL 12/14/16 12:16 Urine Sodium 37.0 mEq/L 12/14/16 12:16 Urine Total Protein 28 mg/dL (1-14) H 12/14/16 12:16 Consult Discharge Plan - Plan Referrals: Dieter Winters MD [Primary Care Provider] - (PATIENT IS FROM [facility] NO PCP APPOINTMENT NEEDED)
[2016-12-19] MEDS: Budesonide/Formoterol 160/4.5 MDI IH SCH ×2 (11:33→22:33)
--- NOTE | 2016-12-19 17:24 | Internal Med Progress Note ---
Date of Encounter: 12/19/16 Time of Encounter: 11:00 - Assessment and plan (1) Pneumonia Current Visit: No Status: Resolved Assessment and plan: -Patient afebrile and without leukocytosis. -Treatment for HAP has been completed. Qualifiers: Aspiration pneumonia type: due to vomit Laterality: unspecified laterality Qualified Code(s): J69.0 - Pneumonitis due to inhalation of food and vomit (2) Acute on chronic respiratory failure with hypoxia and hypercapnia Current Visit: Yes Status: Resolved Assessment and plan: Secondary to COPD exacerbation and suspected pneumonia BiPAP qualification noted (3) Acute exacerbation of chronic obstructive pulmonary disease (COPD) Current Visit: Yes Status: Resolved Assessment and plan: Continue current management Levaquin and prednisone course completed BiPAP at night (4) JUAN (acute kidney injury) Current Visit: Yes Status: Acute Assessment and plan: Pre-renal and intrinsic , oliguric JUAN with possible ATN from vancomycin toxicity Discontinued vancomycin and Zosyn 12/12 renal USS unremarkable Continue Strict I/O-oliguria is improving Nephrology following recommendations to continue to follow a renal protective strategy: avoid nephrotoxins as much as possible, dose renally cleared Rx by GFR Continue to monitor her kidney function. (5) DVT prophylaxis Current Visit: No Status: Acute Assessment and plan: Subcutaneous heparin - Subjective Interval history: Patient still requiring oxygen mask for oxygen supplementation. - Constitutional Vitals: Temp Pulse Resp BP Pulse Ox 98.2 F 70 16 116/62 90 12/19/16 16:29 12/19/16 16:29 12/19/16 16:34 12/19/16 16:29 12/19/16 16:34 General appearance: Present: A&O X 3, morbidly obese, pleasant, no acute distress, answers questions appropriately - Respiratory Respiratory exam: Present: CTAB. Absent: accessory muscle use, rales, rhonchi, wheezes - Cardiovascular Cardiovascular exam: Present: RRR, +S1, +S2. Absent: diastolic murmur, gallop, rubs, systolic murmur - GI/Abdominal GI/Abdominal exam: Present: normal bowel sounds, soft, no peritoneal signs. Absent: distended, tenderness Internal Medicine: Result - Labs CBC & Chem 7: 12/19/16 05:49 12/19/16 05:49 Labs: Short CBC 12/19/16 Range/Units 05:49 WBC 9.2 (4.3-11.1) K/mcL Hgb 9.5 L (11.5-15.4) g/dL Hct 31.4 L (35.3-44.9) % Plt Count 298 (140-400) K/mcL Neutrophils # 5.9 (1.6-8.9) K/mcL BMP 12/19/16 05:49 Sodium 139 Potassium 3.9 Chloride 104 Carbon Dioxide 26 BUN 25 H Creatinine 2.59 H Glucose 73 Calcium 8.3 L - ABG Interpretation ABG results: ABG ABG pH 7.41 pH Units (7.32-7.45) 12/10/16 11:19 ABG pCO2 60 mmHg (35-45) H 12/10/16 11:19 ABG pO2 91 mmHg (85-104) 12/10/16 11:19 ABG O2 Saturation 97 % (95-98) 12/10/16 11:19 Consult Discharge Plan - Plan Referrals: Dieter Winters MD [Primary Care Provider] - (PATIENT IS FROM [facility] NO PCP APPOINTMENT NEEDED)
[2016-12-19] MEDS: *HR* LORazepam 0.5 MG TABLET PO SCH (21:37)
[2016-12-20] MEDS: *HR* Heparin 5,000 UNIT/ML VIAL SQ SCH ×3 (00:08→16:10)
[2016-12-20 04:11] LABS: Basophils % 0.3 %; Eosinophils # 0.2 K/mcL (0.0-0.6); Eosinophils % 1.6 %; Hematocrit 28.7 % (35.3-44.9); Hemoglobin 8.8 g/dL (11.5-15.4); Lymphocytes # 1.3 K/mcL (0.6-4.6); Lymphocytes % 12.8 %; Mean Corpuscular HGB Conc 30.7 g/dL (31.6-35.5); Mean Corpuscular Hemoglobin 27.5 pg (28.0-33.3); Mean Corpuscular Volume 89.7 fL (83.0-100.0); Mean Platelet Volume 11.2 fL (9.4-12.4); Monocytes # 1.5 K/mcL (0.0-1.3); Monocytes % 14.1 %; Neutrophils # 7.1 K/mcL (1.6-8.9); Platelet Count 272 K/mcL (140-400); Red Cell Distribution Width 17.2 % (11.5-14.5); Segmented Neutrophils % 69.2 %
[2016-12-20 04:24] LABS: Calcium 8.2 mg/dL (8.6-10.8); Potassium 3.8 mEq/L (3.5-4.5)
[2016-12-20] MEDS: Ipratropium/Albuterol Neb 3 ML IH SCH ×4 (04:31→23:26)
[2016-12-20] MEDS: Aspirin Enteric Coated 81 MG Tablet PO SCH (09:16)
[2016-12-20] MEDS: Metoprolol XL (24 HR) Succ 25 MG TAB.ER.24H PO SCH (09:16)
[2016-12-20] MEDS: Sennosides/Docusate Sodium TABLET PO SCH ×2 (09:16→22:01)
[2016-12-20] MEDS: *HR* Amiodarone 200 MG TABLET PO SCH (09:16)
--- NOTE | 2016-12-20 10:59 | Nephrology Progress Note ---
Date of Encounter: 12/20/16 Time of Encounter: 10:20 - Assessment and Plan (1) JUAN (acute kidney injury) Status: Acute Stable JUAN and nonoliguric Suspect ATN Would recommend checking a BMP in about 1 week after discharge with nephro follow up in about 2-4 weeks. Pt was initially seen by my colleague Dr. Cardenas, so then would recommend follow up with her. Will sign-off at this time. Please feel free to call or page with any questions. Thank you. Continue to follow a renal protective strategy: avoid other nephrotoxins as able , dose renally cleared Rx by GFR Thank you. (2) Metabolic alkalosis Status: Resolved Likely secondary to a primary respiratory component; improved (3) Atrial fibrillation Status: Chronic As per primary Qualifiers: Atrial fibrillation type: paroxysmal Qualified Code(s): I48.0 - Paroxysmal atrial fibrillation (4) CHF (congestive heart failure) Status: Chronic As per primary. Does not appear to be active at this time. Qualifiers: Congestive heart failure type: diastolic Congestive heart failure chronicity: chronic Qualified Code(s): I50.32 - Chronic diastolic (congestive ) heart failure Subjective Principal diagnosis: JUAN Interval history: Pt was s/e and did not affirm N/V/D or uremic symptoms. She had no major complaints reported by the pt to me today, and essentially said no to all my questions about CP, abdominal pain, or develop of any swelling in her fingers or ankles. Objective - Vital Signs Vital signs: Vital Signs Temp Pulse Resp BP Pulse Ox 12/20/16 07:27 98.6 F 73 14 123/78 100 12/20/16 05:21 98.8 F 72 18 116/73 98 12/20/16 04:31 18 90 12/20/16 01:00 99.0 F 75 18 121/69 90 12/19/16 22:35 18 90 12/19/16 20:14 99.2 F 71 16 126/73 95 12/19/16 16:34 16 90 12/19/16 16:29 98.2 F 70 16 116/62 92 12/19/16 11:53 98.4 F 68 16 120/68 98 12/19/16 11:34 16 98 Intake and Output 12/19/16 12/20/16 12/20/16 23:59 07:59 15:59 Intake Total 60 / 60 120 / 120 Balance 60 / 60 120 / 120 Intake: Oral 60 / 60 120 / 120 Other: Weight 133.8 kg Patient Weight 12/20/16 23:59 Weight 133.8 kg - General Appearance Exam: General appearance: Present: well-developed, well-nourished, appears started age , obese, fatigue, frail EENT: Present: ATNC, PERRL, mucous membranes dry Neck: Present: supple Respiratory: Present: clear Cardiology: Present: no edema, irregular rhythm, normal S1, normal S2 Gastrointestinal: Present: normoactive bowel sounds, no tenderness, no guarding Integumentary: Present: no rash, warm and dry Neurologic: Present: no focal deficit, no asterixis Musculoskeletal: Present: no erythema, no cyanosis, no clubbing Psychiatric: Present: mood/affect appropriate, cooperative - Lab 12/20/16 03:26 12/20/16 03:26 Most recent lab results ABG pH 7.41 pH Units (7.32-7.45) 12/10/16 11:19 ABG pCO2 60 mmHg (35-45) H 12/10/16 11:19 ABG pO2 91 mmHg (85-104) 12/10/16 11:19 ABG HCO3 38 mEq/L (21-27) H 12/10/16 11:19 ABG O2 Saturation 97 % (95-98) 12/10/16 11:19 Calcium 8.2 mg/dL (8.6-10.8) L 12/20/16 03:26 Magnesium 1.6 mg/dL (1.6-2.6) 12/14/16 03:50 Urine Creatinine 131 mg/dL 12/14/16 12:16 Urine Sodium 37.0 mEq/L 12/14/16 12:16 Urine Total Protein 28 mg/dL (1-14) H 12/14/16 12:16 Consult Discharge Plan - Plan Instructions: Chronic Obstructive Pulmonary Disease (DC) Referrals: Dieter Winters MD [Primary Care Provider] - (PATIENT IS FROM [facility] NO PCP APPOINTMENT NEEDED) Prescriptions: LORazepam [Ativan] 0.5 mg PO HS #5 tablet Zolpidem [Ambien] 5 mg PO HS PRN #7 tablet PRN Reason: Sleep
[2016-12-20] MEDS: Budesonide/Formoterol 160/4.5 MDI IH SCH ×2 (11:22→23:26)
--- NOTE | 2016-12-20 15:36 | Discharge Summary ---
Date of Encounter: 12/20/16 Time of Encounter: 11:00 - Discharge Diagnosis (1) Pneumonia Priority: Primary Status: Resolved Qualifiers: Pneumonia type: aspiration pneumonia Aspiration pneumonia type: due to vomit Laterality: unspecified laterality Qualified Code(s): J69.0 - Pneumonitis due to inhalation of food and vomit (2) Acute on chronic respiratory failure with hypoxia and hypercapnia Priority: Primary Status: Resolved (3) Acute exacerbation of chronic obstructive pulmonary disease (COPD) Priority: Secondary Status: Resolved (4) JUAN (acute kidney injury) Priority: Secondary Status: Acute - Discharge Medications Prescriptions: LORazepam [Ativan] 0.5 mg PO HS #5 tablet Zolpidem [Ambien] 5 mg PO HS PRN #7 tablet PRN Reason: Sleep Home Medications: Amiodarone [Cordarone] 100 mg PO DAILY tablet 08/02/16 [Rx] Aspirin Enteric Coated [Aspirin EC] 81 mg PO DAILY tablet. 08/02/16 [Rx] Atorvastatin [Lipitor] 40 mg PO HS tablet 08/02/16 [Rx] Potassium Chloride [Klor-Con Sprinkle] 10 meq PO DAILY #20 capsule.er 08/02/16 [ Rx] Sennosides/Docusate Sodium [Senna Plus] 2 each PO BID tablet 08/02/16 [Rx] Acetaminophen [Tylenol] 650 mg PO Q6HR PRN 10/31/16 [History] DiphenhydraMINE [Benadryl] 25 mg PO Q6H PRN 10/31/16 [History] Ipratropium/Albuterol Neb [Duoneb] 3 ml IH QID PRN 10/31/16 [History] Lactose-Reduced Food [Ensure Liquid] 1 bottle PO TID 10/31/16 [History] Levothyroxine [Synthroid] 100 mcg PO 0630 10/31/16 [History] Metoprolol XL (24 HR) Succ [Toprol Xl] 25 mg PO DAILY 10/31/16 [History] Omeprazole 10 mg PO BID 11/15/16 [History] Oxycodone HCl [Oxaydo] 10 mg PO Q4H PRN 11/15/16 [History] LORazepam [Ativan] 0.5 mg PO HS #5 tablet 12/20/16 [Rx] Zolpidem [Ambien] 5 mg PO HS PRN #7 tablet 12/20/16 [Rx] Allergies/Adverse Reactions: 3 Allergy/AdvReac Type Severity Reaction Status Date / Time No Known Allergies Allergy Verified 01/03/15 19:02 Date of admission: 12/08/16 16:41 Primary care physician: Dieter Winters MD Consults: 12/14/16 07:39 Consult to Nephrology [CONS] Routine Consulting Provider: Kidney Mcpherson/JEROD/JAVAN/CHIRAG Reason for Consult: JUAN, possibly from Vancomycin toxicity, worsening despite IVF hydration, oliguria Call Completed: No 12/19/16 09:12 Consult to Nutrition [CONS] Routine Comment: Poor dietary intake over the last week. Consulting Provider: NUTRITION Reason for Dietary Consult: Other - Patient Status Disposition: Transfer LTC Condition: Good - Discharge Instructions Follow Up With: Dieter Winters MD [Primary Care Provider] - (PATIENT IS FROM [facility] NO PCP APPOINTMENT NEEDED) Hospital course: Patient is a 71 year old female with past medical history significant for COPD ( oxygen dependent), ischemic cardiomyopathy and hypothyroidism who presented on 12/08/16 from senior living facility for hypoxia and respiratory distress. Patient has had multiple recent hospitalizations with similar complaints and has been recommended palliative care in the past, which she has declined. Per senior living documents, patient was being treated for pneumonia with IV Levaquin and Zosyn. Nursing reported that patient became more tachypneic and hypoxic the morning of admission with oxygen saturation and 70s. EMS was called and patient received supplemental oxygen and breathing treatments en route and she was noted to be much more comfortable in the emergency room, where she received further breathing treatments and BiPAP support. Patient is essentially bedbound with poor functional status. During patients extensive hospital stay, she was treated for hospital-acquired pneumonia with IV vancomycin, Zosyn and Levaquin. Patient also was treated for subsequent COPD exacerbation with DuoNebs. Subsequently, patient also developed acute kidney injury and nephrology was consulted with recommendations of avoiding nephrotoxins and to monitor renal function. Other recommendations are to check a BMP in about 1 week and to follow up with nephrology in about 2-4 weeks. She is medically stable to be discharged back to senior living facility for ongoing chronic care. - Time Spent with Patient Total time spent providing and/or coordinating discharge services: Less than 30 minutes - Constitutional Vitals: Temp Pulse Resp BP Pulse Ox 98.1 F 74 15 127/68 98 12/20/16 11:41 12/20/16 11:41 12/20/16 11:41 12/20/16 11:41 12/20/16 11:41 General appearance: Present: A&O X 3, morbidly obese, pleasant, no acute distress, answers questions appropriately - Cardiovascular Cardiovascular exam: Present: RRR, +S1, +S2. Absent: diastolic murmur, gallop, rubs, systolic murmur
--- NOTE | 2016-12-20 15:37 | Physician Discharge Referral ---
- Diagnosis (1) Pneumonia Priority: Primary Status: Resolved (2) Acute on chronic respiratory failure with hypoxia and hypercapnia Priority: Primary Status: Resolved (3) Acute exacerbation of chronic obstructive pulmonary disease (COPD) Priority: Primary Status: Resolved (4) JUAN (acute kidney injury) Priority: Secondary Status: Acute - Transfer Medications Prescriptions: LORazepam [Ativan] 0.5 mg PO HS #5 tablet Zolpidem [Ambien] 5 mg PO HS PRN #7 tablet PRN Reason: Sleep Home Medications: Amiodarone [Cordarone] 100 mg PO DAILY tablet 08/02/16 [Rx] Aspirin Enteric Coated [Aspirin EC] 81 mg PO DAILY tablet.dr 08/02/16 [Rx] Atorvastatin [Lipitor] 40 mg PO HS tablet 08/02/16 [Rx] Potassium Chloride [Klor-Con Sprinkle] 10 meq PO DAILY #20 capsule.er 08/02/16 [ Rx] Sennosides/Docusate Sodium [Senna Plus] 2 each PO BID tablet 08/02/16 [Rx] Acetaminophen [Tylenol] 650 mg PO Q6HR PRN 10/31/16 [History] DiphenhydraMINE [Benadryl] 25 mg PO Q6H PRN 10/31/16 [History] Ipratropium/Albuterol Neb [Duoneb] 3 ml IH QID PRN 10/31/16 [History] Lactose-Reduced Food [Ensure Liquid] 1 bottle PO TID 10/31/16 [History] Levothyroxine [Synthroid] 100 mcg PO 0630 10/31/16 [History] Metoprolol XL (24 HR) Succ [Toprol Xl] 25 mg PO DAILY 10/31/16 [History] Omeprazole 10 mg PO BID 11/15/16 [History] Oxycodone HCl [Oxaydo] 10 mg PO Q4H PRN 11/15/16 [History] LORazepam [Ativan] 0.5 mg PO HS #5 tablet 12/20/16 [Rx] Zolpidem [Ambien] 5 mg PO HS PRN #7 tablet 12/20/16 [Rx] Allergies/Adverse Reactions: 3 Allergy/AdvReac Type Severity Reaction Status Date / Time No Known Allergies Allergy Verified 01/03/15 19:02 - Respiratory Orders Smoking Cessation: Smoking cessation has been advised. For more information, call the [place] Tobacco Quit Line at 0-551-LSEW-NOW. CERTIFICATION: I certify that the transfer of the above named patient to an Extended Care Facility is necessary for the continuing treatment of the diagnosis listed. The above information is true and accurate reflection of patient's current condition. Confidential - Redisclosure prohibited without a patient's written consent.
[2016-12-20] MEDS: *HR* LORazepam 0.5 MG TABLET PO SCH (22:01)
[2016-12-21] MEDS: *HR* Heparin 5,000 UNIT/ML VIAL SQ SCH ×2 (00:14→08:54)
[2016-12-21] MEDS: Ipratropium/Albuterol Neb 3 ML IH SCH ×2 (04:20→10:50)
[2016-12-21] MEDS: Sennosides/Docusate Sodium TABLET PO SCH (08:54)
[2016-12-21] MEDS: Metoprolol XL (24 HR) Succ 25 MG TAB.ER.24H PO SCH (08:54)
[2016-12-21] MEDS: *HR* Amiodarone 200 MG TABLET PO SCH (08:54)
[2016-12-21] MEDS: Aspirin Enteric Coated 81 MG Tablet PO SCH (08:54)
[2016-12-21] MEDS: Budesonide/Formoterol 160/4.5 MDI IH SCH (10:49)
[2016-12-21 10:50] VITALS: BP 132/73
== END 2016-12-21 13:00 | DRG 177 ==
LOC: 2NNU 10:56 → EMEROO 10:56 → 2NNU 15:19 → SUATTDRO 16:41 → 2ANU 12-18 12:15
PROVIDERS: ADMIT Internal Medicine; ATTEND Hospitalist

== ENCOUNTER 2017-02-12 13:39 | Inpatient (IN) ==
--- NOTE | 2017-02-12 13:41 | Emergency Department Note ---
Disposition Clinical Impression: Obesity, Gallbladder disease, Hiatal hernia, IUD (intrauterine device) in place , Pneumonia, Hernia of anterior abdominal wall, CAD (coronary artery disease), COPD (chronic obstructive pulmonary disease), Peripheral arterial disease, CHF ( congestive heart failure), Anemia, Morbid obesity with BMI of 60.0-69.9, adult, UTI (urinary tract infection) Disposition: Admitted As Inpatient Referrals: Dieter Winters MD [Primary Care Provider] - Forms: ED Satisfaction Letter General Adult HPI - General Chief complaint: ED Shortness of Breath/Dyspnea Stated complaint: brigitte Time Seen by Provider: 02/12/17 13:41 - History of Present Illness HPI Narrative: 71-year-old female who comes in from a nursing facility via EMS for concerns regarding shortness of breath. Per report the patient has been treated with Levaquin for 10 days for pneumonia. There is no history of coughing of blood or leg swelling. No chest pain. The patient describes lower abdominal pain without vomiting or diarrhea but she has had some nausea. Is no history of anticoagulant therapy currently. No falls or injuries or acute back pain. No acute confusion or difficulty moving the arms or legs independently. Per nursing report the patient is requested come to the ED for the last few days and came in today for concerns regarding shortness of breath. There is no history of urinary symptomatology. No difficulty moving the arms or legs independently or acute weakness or numbness of the arms or legs. There is no history of headache neck stiffness rash convulsion or slurred speech. - Related Data Home Medications Medication Instructions Recorded Confirmed Acetaminophen [Tylenol] 650 mg PO Q6HR PRN 10/31/16 12/08/16 DiphenhydraMINE [Benadryl] 25 mg PO Q6H PRN 10/31/16 12/08/16 Ipratropium/Albuterol Neb [Duoneb] 3 ml IH QID PRN 10/31/16 12/08/16 Lactose-Reduced Food [Ensure 1 bottle PO TID 10/31/16 12/08/16 Liquid] Levothyroxine [Synthroid] 100 mcg PO 0630 10/31/16 12/08/16 Metoprolol XL (24 HR) Succ [Toprol 25 mg PO DAILY 10/31/16 12/08/16 Xl] Omeprazole 10 mg PO BID 11/15/16 12/08/16 Oxycodone HCl [Oxaydo] 10 mg PO Q4H PRN 11/15/16 12/08/16 Previous Rx's Medication Instructions Recorded Amiodarone [Cordarone] 100 mg PO DAILY tablet 08/02/16 Aspirin Enteric Coated [Aspirin EC] 81 mg PO DAILY tablet. 08/02/16 Atorvastatin [Lipitor] 40 mg PO HS tablet 08/02/16 Potassium Chloride [Klor-Con 10 meq PO DAILY #20 capsule.er 08/02/16 Sprinkle] Sennosides/Docusate Sodium [Senna 2 each PO BID tablet 08/02/16 Plus] LORazepam [Ativan] 0.5 mg PO HS #5 tablet 12/20/16 Zolpidem [Ambien] 5 mg PO HS PRN #7 tablet 12/20/16 Allergies Allergy/AdvReac Type Severity Reaction Status Date / Time No Known Allergies Allergy Verified 01/19/17 07:36 All systems ED: reviewed and negative except as stated. Past Medical History - Past Medical History Medical history: Reports: atrial fibrillation, CHF, COPD, coronary artery disease, GI bleed, thyroid disease, other Surgical history: Reports: appendectomy, Psychiatric history: Reports: anxiety SL[employer]ER TENDER HELPER history: Reports: no SL[employer]ER TENDER HELPER history - Social History Smoking Status: Former smoker Smokeless Tobacco Status: No Alcohol use: Reports: none Drug use: Reports: none Physical Exam - General Limitations: no limitations General appearance: alert, in no apparent distress - Head Head exam: atraumatic, normocephalic, normal inspection - Eye Eye exam: Present: normal appearance, PERRL, EOMI. Absent: scleral icterus, conjunctival injection, mydriasis, periorbital swelling - ENT ENT exam: normal exam, normal oropharynx, mucous membranes moist, TM's normal bilaterally, normal external ear exam - Neck Neck exam: Present: normal inspection, full ROM, trachea midline - Chest Chest inspection: Present: symmetric chest wall rise. Absent: tenderness - Respiratory Respiratory exam: Present: prolonged expiratory phase. Absent: respiratory distress, wheezes, stridor, accessory muscle use - Cardiovascular Cardiovascular exam: Present: regular rate, normal rhythm, normal heart sounds - Abdominal Exam Abdominal exam: Present: soft, tenderness, normal bowel sounds, hernia (What appears to be an abdominal wall defect with some firmness noted in the lower mid abdomen near and at the umbilicus. No inés trauma.). Absent: distention, guarding, rebound, rigidity, trauma, Epps's sign, Rovsing's sign, tenderness at McBurney's Point Abdominal tenderness: Present: RLQ, LLQ, suprapubic, moderate - Extremities Exam Extremities exam: Present: full ROM, normal capillary refill. Absent: normal inspection (Chronic venous stasis changes noted.), tenderness, pedal edema, joint swelling, calf tenderness - Expanded Lower Extremity Exam Hip/Pelvis exam: Absent: tenderness Upper leg exam: Absent: tenderness Knee exam: Absent: tenderness Lower leg exam: Absent: tenderness Ankle exam: Absent: tenderness Foot/toe exam: Absent: tenderness Neurovascular/Tendon exam: Present: normal capillary refill, other (Chronic lower extremity stasis changes noted.). Absent: pulse deficit, motor deficit, sensory deficit, tendon deficit, extremity cold to touch, pallor - Back Exam Back exam: Present: normal inspection, full ROM. Absent: tenderness, CVA tenderness (R), CVA tenderness (L), paraspinal tenderness, vertebral tenderness - Neurological Exam Neurological exam: Present: alert, oriented X3, CN II-XII intact. Absent: motor sensory deficit - Psychiatric Psychiatric exam: Present: normal affect, normal mood - Skin Skin exam: Present: warm, dry, intact, normal color. Absent: rash, cyanosis, diaphoresis, erythema, pallor, mottled Course Vital Signs Temperature 97.5 F L 02/12/17 13:44 Pulse Rate 72 02/12/17 13:44 Respiratory Rate 18 02/12/17 13:44 Blood Pressure 142/73 02/12/17 13:44 O2 Sat by Pulse Oximetry 96 02/12/17 13:44 Temperature 97.5 F L 02/12/17 13:44 Pulse Rate 72 02/12/17 18:57 Respiratory Rate 16 02/12/17 18:57 Blood Pressure 120/50 02/12/17 18:57 O2 Sat by Pulse Oximetry 96 02/12/17 18:57 Oxygen Delivery Oxygen Delivery Nasal Cannula Medical Decision Making - [facility] Narrative Medical decision making narrative: The patient is elderly, she has been recently treated for pneumonia, there appears to be persistent pneumonia on the right side. She complained of shortness of breath. EKG and cardiac enzyme showed no emergent abnormality. The patient appears to have urinary changes suggestive of UTI. She complained of abdominal pain and demonstrates what appears to be anterior abdominal wall hernia, CT scan shows herniated bowel with suspicion for potential incarceration. I reviewed the case with the surgeon Dr. Zarco, the patient appears to have some right-sided abdominal erythema which may represent an abdominal wall cellulitis, but no erythema directly over the hernia sites,. Dr. Zarco reviewed the CT scan and we both felt the patient would be best served being admitted the hospitalist service for further evaluation with a secondary surgical consultation. The patient does have apparent gallbladder disease but her liver function tests and lipase are negative. Based on the patient's age, multiple comorbidities, and plaints of dyspnea and abdominal pain , multiple abnormal findings on CT scan including hernia with possible incarceration and abnormal gallbladder findings, as well as abnormalities on chest x-ray demonstrating persistent pneumonia findings, and an abnormal urinalysis, I thought it would be appropriate to admit the patient to the hospital. Incidental findings include an IUD in situ. The patient had been previously seen in the ED for vaginal bleeding but does not describe vaginal bleeding at this time. The patient is currently stable. I reviewed the case with the hospitalist on-call who has accepted the patient to their care. Levaquin was given IV. - Lab Data Lab results reviewed: Yes I reviewed the patient's lab results. Result diagrams: 02/12/17 14:04 02/12/17 14:04 Lab Results 02/12/17 02/12/17 02/12/17 Range/Units 14:04 14:04 14:04 WBC 7.5 (4.3-11.1) K/mcL RBC 3.92 (3.82-4.97) M/mcL Hgb 11.4 L (11.5-15.4) g/dL Hct 37.3 (35.3-44.9) % MCV 95.2 (83.0-100.0) fL MCH 29.1 (28.0-33.3) pg MCHC 30.6 L (31.6-35.5) g/dL RDW 18.8 H (11.5-14.5) % Plt Count 328 (140-400) K/mcL MPV 10.0 (9.4-12.4) fL Immature Gran % 3.4 (0-4) % Seg Neutrophils % 56.2 % Lymphocytes % 22.9 % Monocytes % 13.3 % Eosinophils % 3.3 % Basophils % 0.9 % Neutrophils # 4.2 (1.6-8.9) K/mcL Lymphocytes # 1.7 (0.6-4.6) K/mcL Monocytes # 1.0 (0.0-1.3) K/mcL Eosinophils # 0.3 (0.0-0.6) K/mcL Basophils # 0.1 (0.0-0.2) K/mcL PT 12.0 (9.4-12.1) Seconds INR 1.1 APTT 23.2 L (26.0-36.0) Seconds Sodium 140 (136-145) mEq/L Potassium 4.4 (3.5-4.5) mEq/L Chloride 107 (98-109) mEq/L Carbon Dioxide 27 (19-29) mEq/L BUN 8 (7-20) mg/dL Creatinine 0.88 (0.57-1.11) mg/dL Est GFR ( Amer) > 60 (> 60) Est GFR (Non-Af Amer) > 60 (> 60) BUN/Creatinine Ratio 9 (6-26) Glucose 104 H (70-99) mg/dL Calculated Osmolality 289 (280-300) Lactic Acid (0.5-2.2) mmol/L Calcium 9.0 (8.6-10.8) mg/dL Total Bilirubin 0.4 (0.2-1.2) mg/dL Direct Bilirubin 0.3 (0.0-0.5) mg/dL Indirect Bilirubin 0.1 (0.0-1.2) mg/dL AST 23 (5-34) Units/L ALT 11 (0-55) Units/L Alkaline Phosphatase 118 (38-126) Units/L Troponin I (0-0.03) ng/mL C-Reactive Protein 28 H (Less than 5) mg/L B-Natriuretic Peptide (0-100) pg/mL Serum Total Protein 5.8 L (6.0-8.3) g/dL Albumin 2.3 L (3.5-5.0) g/dL Globulin 3.5 (2.4-3.5) g/dL Albumin/Globulin Ratio 0.7 L (1.1-2.2) Lipase < 10 (8-78) Units/L Urine Color (Yellow) Urine Clarity (Clear) Urine pH (5.0-8.0) pH Units Ur Specific Wagner (1.010-1.025) Urine Protein (Neg-Trace) mg/dL Urine Glucose (UA) (Normal) mg/dL Urine Ketones (Negative) mg/dL Urine Blood (Negative) Urine Nitrite (Negative) Urine Bilirubin (Negative) Urine Urobilinogen (Normal) mg/dL Ur Leukocyte Esterase (Negative) Urine Microscopic RBC (0-3) per hpf Urine Microscopic WBC (0-3) per hpf Ur Squamous Epith Cells (None-Few) per lpf Urine Bacteria (None-Few) per hpf Hyaline Casts (None-Few) per lpf Ur Culture Indicated? (NO) 02/12/17 02/12/17 02/12/17 Range/Units 14:04 14:04 14:04 WBC (4.3-11.1) K/mcL RBC (3.82-4.97) M/mcL Hgb (11.5-15.4) g/dL Hct (35.3-44.9) % MCV (83.0-100.0) fL MCH (28.0-33.3) pg MCHC (31.6-35.5) g/dL RDW (11.5-14.5) % Plt Count (140-400) K/mcL MPV (9.4-12.4) fL Immature Gran % (0-4) % Seg Neutrophils % % Lymphocytes % % Monocytes % % Eosinophils % % Basophils % % Neutrophils # (1.6-8.9) K/mcL Lymphocytes # (0.6-4.6) K/mcL Monocytes # (0.0-1.3) K/mcL Eosinophils # (0.0-0.6) K/mcL Basophils # (0.0-0.2) K/mcL PT (9.4-12.1) Seconds INR APTT (26.0-36.0) Seconds Sodium (136-145) mEq/L Potassium (3.5-4.5) mEq/L Chloride (98-109) mEq/L Carbon Dioxide (19-29) mEq/L BUN (7-20) mg/dL Creatinine (0.57-1.11) mg/dL Est GFR ( Amer) (> 60) Est GFR (Non-Af Amer) (> 60) BUN/Creatinine Ratio (6-26) Glucose (70-99) mg/dL Calculated Osmolality (280-300) Lactic Acid 0.9 (0.5-2.2) mmol/L Calcium (8.6-10.8) mg/dL Total Bilirubin (0.2-1.2) mg/dL Direct Bilirubin (0.0-0.5) mg/dL Indirect Bilirubin (0.0-1.2) mg/dL AST (5-34) Units/L ALT (0-55) Units/L Alkaline Phosphatase (38-126) Units/L Troponin I 0.03 (0-0.03) ng/mL C-Reactive Protein (Less than 5) mg/L B-Natriuretic Peptide 201 H (0-100) pg/mL Serum Total Protein (6.0-8.3) g/dL Albumin (3.5-5.0) g/dL Globulin (2.4-3.5) g/dL Albumin/Globulin Ratio (1.1-2.2) Lipase (8-78) Units/L Urine Color (Yellow) Urine Clarity (Clear) Urine pH (5.0-8.0) pH Units Ur Specific Wagner (1.010-1.025) Urine Protein (Neg-Trace) mg/dL Urine Glucose (UA) (Normal) mg/dL Urine Ketones (Negative) mg/dL Urine Blood (Negative) Urine Nitrite (Negative) Urine Bilirubin (Negative) Urine Urobilinogen (Normal) mg/dL Ur Leukocyte Esterase (Negative) Urine Microscopic RBC (0-3) per hpf Urine Microscopic WBC (0-3) per hpf Ur Squamous Epith Cells (None-Few) per lpf Urine Bacteria (None-Few) per hpf Hyaline Casts (None-Few) per lpf Ur Culture Indicated? (NO) 02/12/17 Range/Units 19:14 WBC (4.3-11.1) K/mcL RBC (3.82-4.97) M/mcL Hgb (11.5-15.4) g/dL Hct (35.3-44.9) % MCV (83.0-100.0) fL MCH (28.0-33.3) pg MCHC (31.6-35.5) g/dL RDW (11.5-14.5) % Plt Count (140-400) K/mcL MPV (9.4-12.4) fL Immature Gran % (0-4) % Seg Neutrophils % % Lymphocytes % % Monocytes % % Eosinophils % % Basophils % % Neutrophils # (1.6-8.9) K/mcL Lymphocytes # (0.6-4.6) K/mcL Monocytes # (0.0-1.3) K/mcL Eosinophils # (0.0-0.6) K/mcL Basophils # (0.0-0.2) K/mcL PT (9.4-12.1) Seconds INR APTT (26.0-36.0) Seconds Sodium (136-145) mEq/L Potassium (3.5-4.5) mEq/L Chloride (98-109) mEq/L Carbon Dioxide (19-29) mEq/L BUN (7-20) mg/dL Creatinine (0.57-1.11) mg/dL Est GFR ( Amer) (> 60) Est GFR (Non-Af Amer) (> 60) BUN/Creatinine Ratio (6-26) Glucose (70-99) mg/dL Calculated Osmolality (280-300) Lactic Acid (0.5-2.2) mmol/L Calcium (8.6-10.8) mg/dL Total Bilirubin (0.2-1.2) mg/dL Direct Bilirubin (0.0-0.5) mg/dL Indirect Bilirubin (0.0-1.2) mg/dL AST (5-34) Units/L ALT (0-55) Units/L Alkaline Phosphatase (38-126) Units/L Troponin I (0-0.03) ng/mL C-Reactive Protein (Less than 5) mg/L B-Natriuretic Peptide (0-100) pg/mL Serum Total Protein (6.0-8.3) g/dL Albumin (3.5-5.0) g/dL Globulin (2.4-3.5) g/dL Albumin/Globulin Ratio (1.1-2.2) Lipase (8-78) Units/L Urine Color Yellow (Yellow) Urine Clarity Clear (Clear) Urine pH 6.0 (5.0-8.0) pH Units Ur Specific Wagner > 1.030 H (1.010-1.025) Urine Protein Negative (Neg-Trace) mg/dL Urine Glucose (UA) Normal (Normal) mg/dL Urine Ketones Negative (Negative) mg/dL Urine Blood Negative (Negative) Urine Nitrite Negative (Negative) Urine Bilirubin Negative (Negative) Urine Urobilinogen Normal (Normal) mg/dL Ur Leukocyte Esterase Small H (Negative) Urine Microscopic RBC 0-3 (0-3) per hpf Urine Microscopic WBC 15-30 H (0-3) per hpf Ur Squamous Epith Cells Few (None-Few) per lpf Urine Bacteria None Seen (None-Few) per hpf Hyaline Casts None Seen (None-Few) per lpf Ur Culture Indicated? YES A (NO) - Radiology Data Radiology results reviewed: Yes I reviewed the patient's radiology results.
[2017-02-12 14:33] LABS: INR 1.1
[2017-02-12 14:36] LABS: Activated Partial Thrombo Time 23.2 Seconds (26.0-36.0); Basophils # 0.1 K/mcL (0.0-0.2); Basophils % 0.9 %; Eosinophils # 0.3 K/mcL (0.0-0.6); Eosinophils % 3.3 %; Hematocrit 37.3 % (35.3-44.9); Hemoglobin 11.4 g/dL (11.5-15.4); Immature Granulocytes % 3.4 % (0-4); Lymphocytes # 1.7 K/mcL (0.6-4.6); Lymphocytes % 22.9 %; Mean Corpuscular HGB Conc 30.6 g/dL (31.6-35.5); Mean Corpuscular Hemoglobin 29.1 pg (28.0-33.3); Mean Corpuscular Volume 95.2 fL (83.0-100.0); Monocytes % 13.3 %; Neutrophils # 4.2 K/mcL (1.6-8.9); Platelet Count 328 K/mcL (140-400); Red Blood Count 3.92 M/mcL (3.82-4.97); Red Cell Distribution Width 18.8 % (11.5-14.5); Segmented Neutrophils % 56.2 %
[2017-02-12 14:48] LABS: Alanine Aminotransferase 11 Units/L (0-55); Albumin 2.3 g/dL (3.5-5.0); Albumin/Globulin Ratio 0.7 (1.1-2.2); Alkaline Phosphatase 118 Units/L (38-126); Aspartate Amino Transferase 23 Units/L (5-34); BUN/Creatinine Ratio 9 (6-26); Bilirubin,Direct 0.3 mg/dL (0.0-0.5); Bilirubin,Indirect 0.1 mg/dL (0.0-1.2); Bilirubin,Total 0.4 mg/dL (0.2-1.2); Blood Urea Nitrogen 8 mg/dL (7-20); Carbon Dioxide 27 mEq/L (19-29); Chloride 107 mEq/L (98-109); Globulin 3.5 g/dL (2.4-3.5); Glucose 104 mg/dL (70-99); Osmolality,Calculated 289 (280-300); Potassium 4.4 mEq/L (3.5-4.5); Sodium 140 mEq/L (136-145); Total Protein 5.8 g/dL (6.0-8.3); eGFR For African Americans > 60 (> 60); eGFR For Non-African Americans > 60 (> 60)
[2017-02-12 14:49] LABS: Lipase < 10 Units/L (8-78)
[2017-02-12 15:00] LABS: C-Reactive Protein 28 mg/L (Less than 5)
--- NOTE | 2017-02-12 17:26 | Electrocardiograph Report ---
[address] [place], [place] [address] Test Date: 2017-02-12 Pat Name: Rosemarie Plata Department: 104 Room: Gender: F Histology Specialist: : [id number] Requested By: Julian Craig Order Number: [id number] Reading MD: Sherry Reno Measurements Intervals [place] Rate: 68 P: 21 [place]: 189 QRS: -35 QRSD: 117 T: 34 QT: 395 QTc: 412 Interpretive Statements SINUS RHYTHM LEFT AXIS DEVIATION LOW QRS VOLTAGE IN PRECORDIAL LEADS ANTERIOR ST CHANGES MAY REPRESENT ISCHEMIA Electronically Signed On 02-12-2017 17:25:00 EST by Sherry Reno
[2017-02-12 19:30] LABS: Bilirubin,Urine Negative (Negative); Blood,Urine Negative (Negative); Clarity,Urine Clear (Clear); Color,Urine Yellow (Yellow); Glucose,Urine (UA) Normal (Normal); Ketones,Urine Negative (Negative); Leukocyte Esterase,Urine Small (Negative); Nitrite,Urine Negative (Negative); Protein,Urine Negative (Neg-Trace); Specific Gravity,Urine > 1.030 (1.010-1.025); Urobilinogen,Urine Normal (Normal)
[2017-02-12] MEDS ORDERED: Levofloxacin 750 MG/150 ML 750 MG/150 ML BAG IVPB ONE (19:31)
[2017-02-12 19:33] LABS: Bacteria,Urine None Seen per hpf (None-Few); Hyaline Casts,Urine None Seen per lpf (None-Few); RBC,Urine 0-3 per hpf (0-3); Squamous Epithelial Cell,Urine Few per lpf (None-Few); WBC,Urine 15-30 per hpf (0-3)
[2017-02-12] MEDS ORDERED: *HR* HYDROcodone/Acet 5/325 mg TABLET PO PRN (20:32)
[2017-02-12] MEDS ORDERED: Acetaminophen 325 MG TABLET PO PRN (20:32)
[2017-02-12] MEDS ORDERED: *HR* Promethazine 25 MG/ML VIAL IVP PRN (20:32)
[2017-02-12] MEDS ORDERED: Ondansetron 4 MG/2 ML VIAL IVP PRN (20:32)
[2017-02-12] MEDS ORDERED: Naloxone 0.4 MG/ML INJ IVP PRN (20:32)
[2017-02-12] MEDS ORDERED: *HR* Morphine 2 MG/ML SYRINGE IVP PRN (20:32)
[2017-02-12] MEDS ORDERED: Ipratropium/Albuterol Neb 3 ML IH PRN (20:35)
--- NOTE | 2017-02-12 21:59 | Internal Med History&Physical ---
Date of Encounter: 02/12/17 Time of Encounter: 20:00 Assessment and Plan (1) Incarcerated ventral hernia Current visit: Yes Status: Acute will admit the pt into [facility]- 0..Normal WBC, No fever Very less likely incarcerated hernia however with her intractable abd pain.. consulted surgery for further eval Cont IV abx Invanz IV analgesics NPO tonight (2) Pneumonia Current visit: No Status: Acute Reviewed CXR by myself sowing RLL PNA Mostly bacterial + possible aspirational started on empirical abx Invanz Qualifiers: Pneumonia type: due to unspecified organism Laterality: right Lung location: lower lobe of lung Qualified Code(s): J18.1 - Lobar pneumonia, unspecified organism (3) IUD (intrauterine device) in place Current visit: Yes Status: Acute Accidental finding of retained IUD Pt does have this for almost 30 yrs Need to remove IUD consulted Boiler Technician (4) Diastolic congestive heart failure, NYHA class 3 Current visit: No Status: Chronic non in decompensation resumed home meds held Diuretics since pt is high risk for sepsis and NPO now Qualifiers: Congestive heart failure chronicity: chronic Qualified Code(s): I50.32 - Chronic diastolic (congestive) heart failure (5) Morbid obesity with BMI of 45.0-49.9, adult Current visit: No Status: Chronic (6) DVT prophylaxis Current visit: No Status: Acute on SQ Heparin (7) Hypothyroidism Current visit: No Status: Chronic resumed home med Qualifiers: Hypothyroidism type: unspecified Qualified Code(s): E03.9 - Hypothyroidism , unspecified (8) Atrial fibrillation Current visit: No Status: Chronic stable HR cont BB and Amiodarone Qualifiers: Atrial fibrillation type: paroxysmal Qualified Code(s): I48.0 - Paroxysmal atrial fibrillation (9) Functional paraparesis Current visit: Yes Status: Chronic chronic need to go back to [facility] for PT / OT Internal Medicine - H&P: HPI Chief complaint: Abdominal pain Admitted From: Emergency Dept Plans for Post Hospital Care: Transfer [facility] Facility History of present illness: Ms. 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 She had CT of abd done which showed Ventral hernia containing omental fat and a short segment of colon. Stranding of fat with the hernia sac suggests the possibility of incarceration. Also noticed retained IUD. Her CXR showed RLL Infiltrate. Pt is alert, awake and O x 3. She does have functional paraplegia, mostly bed bound at ECF. Past Med Surg Social Fam HX - Past Medical History Medical history: atrial fibrillation, CHF, COPD, coronary artery disease, GI bleed, thyroid disease, other Psychiatric history: anxiety - Past Surgical History Surgical History: appendectomy, - Social History Smoking Status: Former smoker Smokeless Tobacco Status: No Alcohol use: none Drug use: none - Family History Father Adopted: (PATIENT WAS UNABLE TO RECALL FAMILY HISTORY.) Living Status: Hx Family Cardiac Disorders: Yes Mother Living Status: Hx Family Cancer: Yes Internal Medicine - H&P: Meds Amiodarone [Cordarone] 100 mg PO DAILY tablet 08/02/16 [Rx] Aspirin Enteric Coated [Aspirin EC] 81 mg PO DAILY tablet. 08/02/16 [Rx] Atorvastatin [Lipitor] 40 mg PO HS tablet 08/02/16 [Rx] Potassium Chloride [Klor-Con Sprinkle] 10 meq PO DAILY #20 capsule.er 08/02/16 [ Rx] Sennosides/Docusate Sodium [Senna Plus] 2 each PO BID tablet 08/02/16 [Rx] Acetaminophen [Tylenol] 650 mg PO Q6HR PRN 10/31/16 [History] DiphenhydraMINE [Benadryl] 25 mg PO Q6H PRN 10/31/16 [History] Ipratropium/Albuterol Neb [Duoneb] 3 ml IH QID PRN 10/31/16 [History] Levothyroxine [Synthroid] 100 mcg PO 0630 10/31/16 [History] Metoprolol XL (24 HR) Succ [Toprol Xl] 25 mg PO DAILY 10/31/16 [History] LORazepam [Ativan] 0.5 mg PO HS #5 tablet 12/20/16 [Rx] Zolpidem [Ambien] 5 mg PO HS PRN #7 tablet 12/20/16 [Rx] Nystatin POWDER [Nystop] 1 appl TP BID 12/18/17 [History] Omeprazole 10 mg PO BID 02/12/17 [History] Oxycodone HCl 10 mg PO Q4H PRN 02/12/17 [History] Oxygen 3 l NS CONT 02/12/17 [History] 3 Allergy/AdvReac Type Severity Reaction Status Date / Time No Known Allergies Allergy Verified 01/19/17 07:36 All Systems PM: A 10-system review of systems was performed and is negative for pertinent findings except as documented above in the HPI. - Constitutional Vitals: Temp Pulse Resp BP Pulse Ox 97.5 F L 72 16 120/50 96 02/12/17 13:44 02/12/17 18:57 02/12/17 18:57 02/12/17 18:57 02/12/17 18:57 General appearance: Present: mild distress (with abdominal pain), A&O X 3, answers questions appropriately - Head Head exam: Present: atraumatic, normal inspection - Neck Neck exam general surgery: Present: supple - Respiratory Respiratory exam: Present: decreased breath sounds, wheezes (mild). Absent: rales, respiratory distress, rhonchi - Cardiovascular Cardiovascular exam: Present: RRR, +S1, +S2. Absent: tachycardia - GI/Abdominal GI/Abdominal exam: Present: distended, normal bowel sounds, soft. Absent: rebound, rigid Additional comments: large ventral hernia with induration and tenderness to palpate over RLQ.. No erythema / No open wound, no signs of cellulites noticed - Extremities Exam Extremities exam: Absent: calf tenderness, pedal edema, tenderness - Back Exam Back exam: Absent: rash noted - Neurological Exam Neurological exam: Present: alert, oriented X3 Additional comments: functional paraplegia in both LE - Psychiatric Psychiatric exam: Present: depressed - Skin Skin exam: Absent: rash Internal Med - H&P Results - Labs CBC & Chem 7: 02/12/17 14:04 02/12/17 14:04
--- NOTE | 2017-02-12 22:24 | OB/GYN Consult Note ---
Date of Encounter: 02/12/17 Time of Encounter: 22:20 Assessment and Plan (1) IUD (intrauterine device) in place Current Visit: Yes Status: Acute No known complications from IUD. Would consider removal if it causes any problems. At this point removal will likely be difficult and there is a possibility that it would require surgical removal and may cause trauma to the uterus, cervix, and or vaginal mucosa on removal. Pt can follow -up in office for removal if needed. POC per Dr. Vasquez History of Present Illness Consult date: 02/12/17 Reason for consult: other (IUD in place) Chief complaint: shortness of breath History of present illness: 71 year-old female admitted for shortness of breath and abdominal pain. She is being treated for pneumonia and incarcerated hernia. There was an incidental finding of IUD in place on CT. Ms. Plata reports that she has had this IUD for at least 30 years. She denies problems from her IUD. Past Med Surg Social Fam HX - Past Medical History Medical history: atrial fibrillation, CHF, COPD, coronary artery disease, GI bleed, thyroid disease, other Psychiatric history: anxiety - Past Surgical History Surgical History: appendectomy, - Social History Smoking Status: Former smoker Smokeless Tobacco Status: No Alcohol use: none Drug use: none - Family History Father Adopted: (PATIENT WAS UNABLE TO RECALL FAMILY HISTORY.) Living Status: Hx Family Cardiac Disorders: Yes Mother Living Status: Hx Family Cancer: Yes Medications and Allergies Amiodarone [Cordarone] 100 mg PO DAILY tablet 08/02/16 [Rx] Aspirin Enteric Coated [Aspirin EC] 81 mg PO DAILY tablet. 08/02/16 [Rx] Atorvastatin [Lipitor] 40 mg PO HS tablet 08/02/16 [Rx] Potassium Chloride [Klor-Con Sprinkle] 10 meq PO DAILY #20 capsule.er 08/02/16 [ Rx] Sennosides/Docusate Sodium [Senna Plus] 2 each PO BID tablet 08/02/16 [Rx] Acetaminophen [Tylenol] 650 mg PO Q6HR PRN 10/31/16 [History] DiphenhydraMINE [Benadryl] 25 mg PO Q6H PRN 10/31/16 [History] Ipratropium/Albuterol Neb [Duoneb] 3 ml IH QID PRN 10/31/16 [History] Levothyroxine [Synthroid] 100 mcg PO 0630 10/31/16 [History] Metoprolol XL (24 HR) Succ [Toprol Xl] 25 mg PO DAILY 10/31/16 [History] LORazepam [Ativan] 0.5 mg PO HS #5 tablet 12/20/16 [Rx] Zolpidem [Ambien] 5 mg PO HS PRN #7 tablet 12/20/16 [Rx] Nystatin POWDER [Nystop] 1 appl TP BID 02/12/17 [History] Omeprazole 10 mg PO BID 02/12/17 [History] Oxycodone HCl 10 mg PO Q4H PRN 02/12/17 [History] Oxygen 3 l NS CONT 02/12/17 [History] 3 Allergy/AdvReac Type Severity Reaction Status Date / Time No Known Allergies Allergy Verified 01/19/17 07:36 Review of Systems Genitourinary Female: abnormal vaginal bleeding, vaginal discharge Exam - Vital Signs Vital signs: Initial Vital Signs Temp Pulse Resp BP Pulse Ox 97.5 F L 72 18 142/73 96 02/12/17 13:44 02/12/17 13:44 02/12/17 13:44 02/12/17 13:44 02/12/17 13:44 - Constitutional Constitutional: well developed, well nourished, no acute distress Results Result Diagrams: 02/12/17 14:04 02/12/17 14:04 Abnormal lab results Hgb 11.4 g/dL (11.5-15.4) L 02/12/17 14:04 MCHC 30.6 g/dL (31.6-35.5) L 02/12/17 14:04 RDW 18.8 % (11.5-14.5) H 02/12/17 14:04 APTT 23.2 Seconds (26.0-36.0) L 02/12/17 14:04 Glucose 104 mg/dL (70-99) H 02/12/17 14:04 C-Reactive Protein 28 mg/L (Less than 5) H 02/12/17 14:04 B-Natriuretic Peptide 201 pg/mL (0-100) H 02/12/17 14:04 Serum Total Protein 5.8 g/dL (6.0-8.3) L 02/12/17 14:04 Albumin 2.3 g/dL (3.5-5.0) L 02/12/17 14:04 Albumin/Globulin Ratio 0.7 (1.1-2.2) L 02/12/17 14:04 Ur Specific [place] > 1.030 (1.010-1.025) H 02/12/17 19:14 Ur Leukocyte Esterase Small (Negative) H 02/12/17 19:14 Urine Microscopic WBC 15-30 per hpf (0-3) H 02/12/17 19:14 Ur Culture Indicated? YES (NO) A 02/12/17 19:14 All other labs normal. Consult Discharge Plan - Plan Referrals: Dieter Winters MD [Primary Care Provider] -
[2017-02-12] MEDS: *HR* LORazepam 0.5 MG TABLET PO SCH (22:34)
[2017-02-13] MEDS: *HR* Heparin 5,000 UNIT/ML VIAL SQ SCH ×2 (06:19→16:59)
[2017-02-13 06:43] LABS: Alanine Aminotransferase 9 Units/L (0-55); Albumin 2.2 g/dL (3.5-5.0); Albumin/Globulin Ratio 0.8 (1.1-2.2); Alkaline Phosphatase 105 Units/L (38-126); Aspartate Amino Transferase 17 Units/L (5-34); BUN/Creatinine Ratio 10 (6-26); Basophils # 0.1 K/mcL (0.0-0.2); Basophils % 0.8 %; Bilirubin,Total 0.6 mg/dL (0.2-1.2); Blood Urea Nitrogen 9 mg/dL (7-20); Calcium 8.7 mg/dL (8.6-10.8); Carbon Dioxide 25 mEq/L (19-29); Chloride 107 mEq/L (98-109); Eosinophils # 0.3 K/mcL (0.0-0.6); Eosinophils % 3.4 %; Globulin 2.8 g/dL (2.4-3.5); Glucose 84 mg/dL (70-99); Hematocrit 33.8 % (35.3-44.9); Hemoglobin 10.4 g/dL (11.5-15.4); Immature Granulocytes % 3.6 % (0-4); Lymphocytes # 1.8 K/mcL (0.6-4.6); Lymphocytes % 24.6 %; Mean Corpuscular HGB Conc 30.8 g/dL (31.6-35.5); Mean Corpuscular Volume 94.2 fL (83.0-100.0); Mean Platelet Volume 10.2 fL (9.4-12.4); Monocytes # 1.1 K/mcL (0.0-1.3); Monocytes % 14.4 %; Nucleated Red Blood Cells 0.3 /100 WBC (0); Osmolality,Calculated 288 (280-300); Platelet Count 331 K/mcL (140-400); Potassium 3.8 mEq/L (3.5-4.5); Red Blood Count 3.59 M/mcL (3.82-4.97); Red Cell Distribution Width 18.6 % (11.5-14.5); Segmented Neutrophils % 53.2 %; Sodium 140 mEq/L (136-145); eGFR For African Americans > 60 (> 60); eGFR For Non-African Americans > 60 (> 60)
[2017-02-13] MEDS ORDERED: Ertapenem 1,000 MG in Water for inj. (sterile) 10 ML IVP SCH (09:00)
[2017-02-13] MEDS: Metoprolol XL (24 HR) Succ 25 MG TAB.ER.24H PO SCH (09:15)
[2017-02-13] MEDS: Aspirin Enteric Coated 81 MG Tablet PO SCH (09:15)
[2017-02-13] MEDS: *HR* Amiodarone 200 MG TABLET PO SCH (09:16)
--- NOTE | 2017-02-13 10:52 | General Surgery Consult Note ---
Date of Encounter: 02/13/17 Time of Encounter: 10:30 Assessment and Plan (1) Ventral hernia without obstruction or gangrene Current Visit: No Status: Acute CT scan shows ventral hernia with no evidence of obstruction or strangulation of the patient's ventral hernia No urgent surgical intervention indicated at this time- recommend outpatient follow-up after resolution of the patient's pneumonia Surgery will sign off at this time. Thank you for allowing us to evaluate and participate in the care of this patient. Please call with any further questions/ concerns. (2) Pneumonia Current Visit: No Status: Resolved IV antibiotics- Ertapenem Management per hospitalist Qualifiers: Pneumonia type: aspiration pneumonia Aspiration pneumonia type: due to vomit Laterality: unspecified laterality Qualified Code(s): J69.0 - Pneumonitis due to inhalation of food and vomit (3) COPD (chronic obstructive pulmonary disease) Current Visit: Yes Status: Chronic Management per hospitalist Qualifiers: COPD type: unspecified COPD Qualified Code(s): J44.9 - Chronic obstructive pulmonary disease, unspecified (4) Morbid obesity Current Visit: Yes Status: Chronic (5) Atrial fibrillation Current Visit: No Status: Chronic Rate controlled Management per hospitalist Qualifiers: Atrial fibrillation type: paroxysmal Qualified Code(s): I48.0 - Paroxysmal atrial fibrillation (6) CHF (congestive heart failure) Current Visit: No Status: Chronic Qualifiers: Congestive heart failure type: diastolic Congestive heart failure chronicity: chronic Qualified Code(s): I50.32 - Chronic diastolic (congestive ) heart failure (7) Hypothyroidism Current Visit: No Status: Chronic Qualifiers: Hypothyroidism type: unspecified Qualified Code(s): E03.9 - Hypothyroidism , unspecified History of Present Illness Consult date: 02/13/17 Requesting physician: Julian Craig History of present illness: Mrs. Plata is a 71 year old female with multiple comorbidities who presented to the ED from an [facility] where she resides with complaints of shortness of breath. She was found to have a pneumonia on her radiologic imaging and has been admitted for treatment of her pneumonia. She also had complaints of lower abdominal discomfort on presentation. A CT scan of the abdomen and pelvis shows evidence of a ventral hernia which contains a portion of the transverse colon. The patient denies any abdominal discomfort today. She does have intermittent nausea/vomiting and this has been a chronic issue for her. She states that she has been passing flatus and moving her bowels without difficulty. Denies any diarrhea or constipation. No reported fevers or chills. Her shortness of breath is consistent with her baseline. Denies any chest pains. We have been asked to see and evaluate the patient for her ventral hernia. Past Med Surg Social Fam HX - Past Medical History Source: old records reviewed Medical history: atrial fibrillation, CHF, COPD, coronary artery disease, GI bleed, myocardial infarction, thyroid disease (hypothyroidism), other (physical deconditioning, duodenal ulcer with GI bleed, neuralagia, morbid obesity, bacteremia) Psychiatric history: anxiety - Past Surgical History Surgical History: appendectomy, - Social History Smoking Status: Former smoker Smokeless Tobacco Status: No Alcohol use: none Drug use: none Current living situation: ECF - Family History Father Adopted: (PATIENT WAS UNABLE TO RECALL FAMILY HISTORY.) Living Status: Hx Family Cardiac Disorders: Yes Mother Living Status: Hx Family Cancer: Yes Medications and Allergies Amiodarone [Cordarone] 100 mg PO DAILY tablet 08/02/16 [Rx] Aspirin Enteric Coated [Aspirin EC] 81 mg PO DAILY tablet. 08/02/16 [Rx] Atorvastatin [Lipitor] 40 mg PO HS tablet 08/02/16 [Rx] Potassium Chloride [Klor-Con Sprinkle] 10 meq PO DAILY #20 capsule.er 08/02/16 [ Rx] Sennosides/Docusate Sodium [Senna Plus] 2 each PO BID tablet 08/02/16 [Rx] Acetaminophen [Tylenol] 650 mg PO Q6HR PRN 10/31/16 [History] DiphenhydraMINE [Benadryl] 25 mg PO Q6H PRN 10/31/16 [History] Ipratropium/Albuterol Neb [Duoneb] 3 ml IH QID PRN 10/31/16 [History] Levothyroxine [Synthroid] 100 mcg PO 0630 10/31/16 [History] Metoprolol XL (24 HR) Succ [Toprol Xl] 25 mg PO DAILY 10/31/16 [History] LORazepam [Ativan] 0.5 mg PO HS #5 tablet 12/20/16 [Rx] Zolpidem [Ambien] 5 mg PO HS PRN #7 tablet 12/20/16 [Rx] Nystatin POWDER [Nystop] 1 appl TP BID 02/12/17 [History] Omeprazole 10 mg PO BID 02/12/17 [History] Oxycodone HCl 10 mg PO Q4H PRN 02/12/17 [History] Oxygen 3 l NS CONT 02/12/17 [History] 3 Allergy/AdvReac Type Severity Reaction Status Date / Time No Known Allergies Allergy Verified 01/19/17 07:36 Review of Systems All systems PM: reviewed and no additional remarkable complaints except as stated (in the HPI) All systems PM: A 10-system review of systems was performed and is negative for pertinent findings except as documented above in the HPI. General Surgery Exam Initial Vital Signs Temp Pulse Resp BP Pulse Ox 97.5 F L 72 18 142/73 96 02/12/17 13:44 02/12/17 13:44 02/12/17 13:44 02/12/17 13:44 02/12/17 13:44 - General physical appearance no distress, no pain, chronically ill, obese - Eyes PERRL, normal ocular movement - ENT normal mucosa, atraumatic, normocephalic - Neck trachea midline - Respiratory clear to auscultation, other (diminished bibasilar bases, poor respiratory effort) - Cardiovascular Cardiovascular exam: Present: irregular rhythm - Abdomen Abdomen general surgery: Present: bowel sounds present, soft, non tender Hernia: Present: incarcerated, umbilical - Integumentary Integumentary general surgery: Present: warm and dry - Neurologic Present: CN 2-12 grossly intact - Musculoskeletal Present: other (severe physical deconditioning) - Psychiatric Psychiatric general surgery: Present: oriented to person, oriented to place, speech is normal Exam Initial Vital Signs Temp Pulse Resp BP Pulse Ox 97.5 F L 72 18 142/73 96 02/12/17 13:44 02/12/17 13:44 02/12/17 13:44 02/12/17 13:44 02/12/17 13:44 Results - Labs 02/13/17 05:55 02/13/17 05:55 Abnormal lab results RBC 3.59 M/mcL (3.82-4.97) L 02/13/17 05:55 Hgb 10.4 g/dL (11.5-15.4) L 02/13/17 05:55 Hct 33.8 % (35.3-44.9) L 02/13/17 05:55 MCHC 30.8 g/dL (31.6-35.5) L 02/13/17 05:55 RDW 18.6 % (11.5-14.5) H 02/13/17 05:55 Nucleated RBCs/100 WBC 0.3 /100 WBC (0) H 02/13/17 05:55 APTT 23.2 Seconds (26.0-36.0) L 02/12/17 14:04 C-Reactive Protein 28 mg/L (Less than 5) H 02/12/17 14:04 B-Natriuretic Peptide 201 pg/mL (0-100) H 02/12/17 14:04 Serum Total Protein 5.0 g/dL (6.0-8.3) L 02/13/17 05:55 Albumin 2.2 g/dL (3.5-5.0) L 02/13/17 05:55 Albumin/Globulin Ratio 0.8 (1.1-2.2) L 02/13/17 05:55 Ur Specific [place] > 1.030 (1.010-1.025) H 02/12/17 19:14 Ur Leukocyte Esterase Small (Negative) H 02/12/17 19:14 Urine Microscopic WBC 15-30 per hpf (0-3) H 02/12/17 19:14 Ur Culture Indicated? YES (NO) A 02/12/17 19:14 Diabetes panel 02/13/17 Range/Units 05:55 Sodium 140 (136-145) mEq/L Potassium 3.8 (3.5-4.5) mEq/L Chloride 107 (98-109) mEq/L Carbon Dioxide 25 (19-29) mEq/L BUN 9 (7-20) mg/dL Creatinine 0.89 (0.57-1.11) mg/dL Glucose 84 (70-99) mg/dL Calcium 8.7 (8.6-10.8) mg/dL AST 17 (5-34) Units/L ALT 9 (0-55) Units/L Alkaline Phosphatase 105 (38-126) Units/L Albumin 2.2 L (3.5-5.0) g/dL Calcium panel 02/13/17 Range/Units 05:55 Calcium 8.7 (8.6-10.8) mg/dL Albumin 2.2 L (3.5-5.0) g/dL Pituitary panel 02/13/17 Range/Units 05:55 Sodium 140 (136-145) mEq/L Potassium 3.8 (3.5-4.5) mEq/L Chloride 107 (98-109) mEq/L Carbon Dioxide 25 (19-29) mEq/L BUN 9 (7-20) mg/dL Creatinine 0.89 (0.57-1.11) mg/dL Glucose 84 (70-99) mg/dL Calcium 8.7 (8.6-10.8) mg/dL Adrenal panel 02/13/17 Range/Units 05:55 Sodium 140 (136-145) mEq/L Potassium 3.8 (3.5-4.5) mEq/L Chloride 107 (98-109) mEq/L Carbon Dioxide 25 (19-29) mEq/L BUN 9 (7-20) mg/dL Creatinine 0.89 (0.57-1.11) mg/dL Glucose 84 (70-99) mg/dL Calcium 8.7 (8.6-10.8) mg/dL Total Bilirubin 0.6 (0.2-1.2) mg/dL AST 17 (5-34) Units/L ALT 9 (0-55) Units/L Alkaline Phosphatase 105 (38-126) Units/L Albumin 2.2 L (3.5-5.0) g/dL All other labs normal. - Imaging Additional studies: Chest X-Ray 02/12/17 13:42 IMPRESSION: Right lower lobe infiltrate with associated small effusion suspicious for small pneumonia. Dextrocardia. D/ / 02/12/2017 15:24:31 Rolf Carlin MD / fei Interpreting Provider: Rolf Carlin MD Abdomen/Pelvis CT 02/12/17 13:51 IMPRESSION: Ventral hernia containing omental fat and a short segment of the colon. Stranding of fat within the hernia sac suggests the possibility of incarceration. Retained IUD within the uterus. Recommend removing given patient's age. Subsegmental atelectasis of the right lower lobe with trace right pleural effusion. Moderate hiatal hernia. Filling defect within the gallbladder neck consistent with sludge ball or stone. D/ / Jamal Bailey MD / Jamal Bailey MD Interpreting Provider: Jamal Bailey MD Consult Discharge Plan - Plan Referrals: Dieter Winters MD [Primary Care Provider] - Nurys Zarco MD [Partnered Physician] - 03/14/17 1:50 pm (hospital follow- up for ventral hernia) - Attending Attestation For this encounter, I have reviewed the DIRECTOR OF RETAIL MARKETING or PA documentation, treatment plan, and medical decision making; and I have had face to face time with this patient.
--- NOTE | 2017-02-13 12:10 | Internal Med Progress Note ---
Date of Encounter: 02/13/17 Time of Encounter: 12:00 - Assessment and plan (1) Ventral hernia without obstruction or gangrene Current Visit: No Status: Acute Assessment and plan: No surgical interventions per surgery. For now restart the patient on a diet. We will continue with pain control if she tolerates diet okay today she may be discharged tomorrow. Continue with antiemetics. (2) Pneumonia Current Visit: No Status: Acute Assessment and plan: She is currently on ertapenem. I will change that to Levaquin. She has no white count she has been afebrile. It is hard to obtain significant history from the patient regarding cough or fever at home or in the custodial. Qualifiers: Pneumonia type: due to unspecified organism Laterality: right Lung location: lower lobe of lung Qualified Code(s): J18.1 - Lobar pneumonia, unspecified organism (3) IUD (intrauterine device) in place Current Visit: Yes Status: Acute Assessment and plan: Was seen by APPLICATIONS DEVELOPER and no plans to remove the IUD as it is not urgent and would cause more damage if removed as it would need surgical removal. (4) Diastolic congestive heart failure, NYHA class 3 Current Visit: No Status: Chronic Assessment and plan: Not in exacerbation. She is on her chronic low 20s. Continue with Toprol-XL. Qualifiers: Congestive heart failure chronicity: chronic Qualified Code(s): I50.32 - Chronic diastolic (congestive) heart failure (5) Morbid obesity with BMI of 50.0-59.9, adult Current Visit: No Status: Chronic Assessment and plan: The patient would benefit from a dietary consult. This is chronic. (6) Hypothyroidism Current Visit: No Status: Chronic Assessment and plan: Continue with Synthroid. Qualifiers: Hypothyroidism type: unspecified Qualified Code(s): E03.9 - Hypothyroidism , unspecified (7) CAD (coronary artery disease) Current Visit: Yes Status: Chronic Assessment and plan: Continue with aspirin and statin and a beta raphael. Qualifiers: Coronary Disease-Associated Artery/Lesion type: [place] artery Circle vs. transplanted heart: [place] heart Associated angina: without angina Qualified Code(s): I25.10 - Atherosclerotic heart disease of [place] coronary artery without angina pectoris (8) Atrial fibrillation Current Visit: No Status: Chronic Assessment and plan: Rate controlled on beta raphael. Also on amiodarone. She is only on aspirin. Not exactly sure why she is not on anticoagulation Qualifiers: Atrial fibrillation type: paroxysmal Qualified Code(s): I48.0 - Paroxysmal atrial fibrillation (9) DVT prophylaxis Current Visit: No Status: Acute Assessment and plan: Heparin subcutaneous. - Subjective Interval history: Patient was seen and examined. She was admitted last night with abdominal pain. She does not seem to be in any discomfort this morning. Has not used any of the pain medications that we have ordered for her. She is still nothing by mouth. She has been afebrile. He was seen by STAIN SPRAYER for possible needs for an IUD removal which has not been removed as they did not feel like this is necessary. - Constitutional Vitals: Temp Pulse Resp BP Pulse Ox 97.7 F 70 16 110/63 93 02/13/17 10:52 02/13/17 10:52 02/13/17 10:52 02/13/17 10:52 02/13/17 10:52 General appearance: Present: mild distress (with abdominal pain), A&O X 3, answers questions appropriately Exam: GEN: NAD CVS: RRR. S1, S2, No m/r/g RESP: CTAB ABD: Soft, arge ventral hernia with induration and tenderness to palpate over RLQ, ND, +BS EXT: No edema. 2+ DP, No rashes NEURO: Nonfocal Internal Medicine: Result - Labs CBC & Chem 7: 02/13/17 05:55 02/13/17 05:55 Labs: Short CBC 02/13/17 Range/Units 05:55 WBC 7.4 (4.3-11.1) K/mcL Hgb 10.4 L (11.5-15.4) g/dL Hct 33.8 L (35.3-44.9) % Plt Count 331 (140-400) K/mcL Neutrophils # 4.0 (1.6-8.9) K/mcL BMP 02/13/17 05:55 Sodium 140 Potassium 3.8 Chloride 107 Carbon Dioxide 25 BUN 9 Creatinine 0.89 Glucose 84 Calcium 8.7 Liver Function 02/13/17 Range/Units 05:55 Total Bilirubin 0.6 (0.2-1.2) mg/dL AST 17 (5-34) Units/L ALT 9 (0-55) Units/L Alkaline Phosphatase 105 (38-126) Units/L Albumin 2.2 L (3.5-5.0) g/dL - ABG Interpretation ABG results: PT/INR, D-dimer PT 12.0 Seconds (9.4-12.1) 02/12/17 14:04 Consult Discharge Plan - Plan Referrals: Nurys Zarco MD [Partnered Physician] - 03/14/17 1:50 pm (hospital follow- up for ventral hernia) Dieter Winters MD [Primary Care Provider] -
[2017-02-13] MEDS ORDERED: Levofloxacin 500 MG/100 ML 500 MG/100 ML BAG IVPB SCH (13:00)
[2017-02-13] MEDS: *HR* LORazepam 0.5 MG TABLET PO SCH (22:08)
[2017-02-14] MEDS: *HR* Heparin 5,000 UNIT/ML VIAL SQ SCH (06:31)
[2017-02-14] MEDS: Aspirin Enteric Coated 81 MG Tablet PO SCH (08:06)
[2017-02-14] MEDS: *HR* Amiodarone 200 MG TABLET PO SCH (08:06)
[2017-02-14] MEDS: Metoprolol XL (24 HR) Succ 25 MG TAB.ER.24H PO SCH (08:07)
--- NOTE | 2017-02-14 11:03 | Discharge Summary ---
Date of Encounter: 02/14/17 Time of Encounter: 11:00 - Discharge Diagnosis (1) Ventral hernia without obstruction or gangrene Priority: Primary Status: Acute (2) Pneumonia Priority: Primary Status: Acute Qualifiers: Pneumonia type: due to unspecified organism Laterality: right Lung location: lower lobe of lung Qualified Code(s): J18.1 - Lobar pneumonia, unspecified organism (3) IUD (intrauterine device) in place Priority: Primary Status: Acute (4) Diastolic congestive heart failure, NYHA class 3 Priority: Secondary Status: Chronic Qualifiers: Congestive heart failure chronicity: chronic Qualified Code(s): I50.32 - Chronic diastolic (congestive) heart failure (5) Hypothyroidism Priority: Secondary Status: Chronic Qualifiers: Hypothyroidism type: unspecified Qualified Code(s): E03.9 - Hypothyroidism , unspecified (6) CAD (coronary artery disease) Priority: Secondary Status: Chronic Qualifiers: Coronary Disease-Associated Artery/Lesion type: [place] artery [place] vs. transplanted heart: [place] heart Associated angina: without angina Qualified Code(s): I25.10 - Atherosclerotic heart disease of [place] coronary artery without angina pectoris (7) Atrial fibrillation Priority: Secondary Status: Chronic Qualifiers: Atrial fibrillation type: paroxysmal Qualified Code(s): I48.0 - Paroxysmal atrial fibrillation (8) Obesity (BMI 30-39.9) Priority: Secondary Status: Acute - Discharge Medications Prescriptions: levoFLOXacin [Levaquin] 500 mg PO DAILY #5 tablet Home Medications: Amiodarone [Cordarone] 100 mg PO DAILY tablet 08/02/16 [Rx] Aspirin Enteric Coated [Aspirin EC] 81 mg PO DAILY tablet.dr 08/02/16 [Rx] Atorvastatin [Lipitor] 40 mg PO HS tablet 08/02/16 [Rx] Potassium Chloride [Klor-Con Sprinkle] 10 meq PO DAILY #20 capsule.er 08/02/16 [ Rx] Sennosides/Docusate Sodium [Senna Plus] 2 each PO BID tablet 08/02/16 [Rx] Acetaminophen [Tylenol] 650 mg PO Q6HR PRN 10/31/16 [History] DiphenhydraMINE [Benadryl] 25 mg PO Q6H PRN 10/31/16 [History] Ipratropium/Albuterol Neb [Duoneb] 3 ml IH QID PRN 10/31/16 [History] Levothyroxine [Synthroid] 100 mcg PO 0630 10/31/16 [History] Metoprolol XL (24 HR) Succ [Toprol Xl] 25 mg PO DAILY 10/31/16 [History] LORazepam [Ativan] 0.5 mg PO HS #5 tablet 12/20/16 [Rx] Zolpidem [Ambien] 5 mg PO HS PRN #7 tablet 12/20/16 [Rx] Nystatin POWDER [Nystop] 1 appl TP BID 02/12/17 [History] Omeprazole 10 mg PO BID 02/12/17 [History] Oxycodone HCl 10 mg PO Q4H PRN 02/12/17 [History] Oxygen 3 l NS CONT 02/12/17 [History] levoFLOXacin [Levaquin] 500 mg PO DAILY #5 tablet 02/14/17 [Rx] Allergies/Adverse Reactions: 3 Allergy/AdvReac Type Severity Reaction Status Date / Time No Known Allergies Allergy Verified 01/19/17 07:36 Date of admission: 02/12/17 21:13 Primary care physician: Dieter Winters MD - Patient Status Disposition: Transfer SNF Condition: Fair Overall status at discharge: patient is back to baseline - Discharge Instructions Follow Up With: Nurys Zarco MD [Partnered Physician] - 03/14/17 1:50 pm (hospital follow- up for ventral hernia) Dieter Winters MD [Primary Care Provider] - - Diet and Activity Activity: resume usual activities as tolerated Diet: low salt diet Hospital course: Ms. Plata is a 71 year old female with PMH of paroxysmal atrial fibrillation, Diastolic CHF, COPD and chronic home O2 dependent at 2 lit, coronary artery disease, GI bleed, and hypothyroidism who is a senior care resident at local SNF who was brought into ERwith intractable abdominal pain in RLQ, where she had chronic ventral hernia. She had CT of abd done which showed Ventral hernia containing omental fat and a short segment of colon. Stranding of fat with the hernia sac suggesting the possibility of incarceration. Also noticed was retained IUD. Her CXR showed RLL Infiltrate. Patient was admitted to the hospitalist service. We had consultation with surgery as well as DIRECTOR WEIGHTS AND MEASURES. Surgery felt that the patient does not need any urgent surgical intervention for the hernia. They did want a follow-up with the patient as an outpatient. They wanted her to be treated properly for the pneumonia before evaluating for any surgeries. We did discharge the patient on Levaquin to finish treatment for her pneumonia. She was also seen by DIRECTOR WEIGHTS AND MEASURES regarding the mention of an IUD on the CT scan. FUNDS TRANSFER CLERK did not feel that the patient had any urgent need for IUD removal as they suspected that this will cause more risks than benefits. She was eventually stable for discharge on 02/14/2017 with follow-up with primary care as well as general surgery. She is also being discharged on Levaquin to finish her course of treatment for her pneumonia. - Time Spent with Patient Total time spent providing and/or coordinating discharge services: Greater than 30 minutes - Constitutional Vitals: Temp Pulse Resp BP Pulse Ox 98.6 F 69 16 118/67 97 02/14/17 08:49 02/14/17 08:49 02/14/17 08:49 02/14/17 08:49 02/14/17 08:49 General appearance: Present: mild distress (with abdominal pain), A&O X 3, answers questions appropriately Exam: GEN: NAD CVS: RRR. S1, S2, No m/r/g RESP: CTAB ABD: Soft, large ventral hernia with induration and tenderness to palpate over RLQ, ND, +BS EXT: No edema. 2+ DP, No rashes NEURO: Nonfocal
--- NOTE | 2017-02-14 11:07 | Physician Discharge Referral ---
ExtendedCare Referral Info Institutional Level of Care: Skilled - Diagnosis (1) Ventral hernia without obstruction or gangrene Priority: Primary Status: Acute (2) Pneumonia Priority: Primary Status: Acute (3) IUD (intrauterine device) in place Priority: Primary Status: Acute (4) Diastolic congestive heart failure, NYHA class 3 Priority: Secondary Status: Chronic (5) Morbid obesity with BMI of 50.0-59.9, adult Priority: Secondary Status: Chronic (6) Hypothyroidism Priority: Secondary Status: Chronic (7) CAD (coronary artery disease) Priority: Secondary Status: Chronic (8) Atrial fibrillation Priority: Secondary Status: Chronic - Transfer Medications Prescriptions: levoFLOXacin [Levaquin] 500 mg PO DAILY #5 tablet Home Medications: Amiodarone [Cordarone] 100 mg PO DAILY tablet 08/02/16 [Rx] Aspirin Enteric Coated [Aspirin EC] 81 mg PO DAILY tablet. 08/02/16 [Rx] Atorvastatin [Lipitor] 40 mg PO HS tablet 08/02/16 [Rx] Potassium Chloride [Klor-Con Sprinkle] 10 meq PO DAILY #20 capsule.er 08/02/16 [ Rx] Sennosides/Docusate Sodium [Senna Plus] 2 each PO BID tablet 08/02/16 [Rx] Acetaminophen [Tylenol] 650 mg PO Q6HR PRN 10/31/16 [History] DiphenhydraMINE [Benadryl] 25 mg PO Q6H PRN 10/31/16 [History] Ipratropium/Albuterol Neb [Duoneb] 3 ml IH QID PRN 10/31/16 [History] Levothyroxine [Synthroid] 100 mcg PO 0630 10/31/16 [History] Metoprolol XL (24 HR) Succ [Toprol Xl] 25 mg PO DAILY 10/31/16 [History] LORazepam [Ativan] 0.5 mg PO HS #5 tablet 12/20/16 [Rx] Zolpidem [Ambien] 5 mg PO HS PRN #7 tablet 12/20/16 [Rx] Nystatin POWDER [Nystop] 1 appl TP BID 02/12/17 [History] Omeprazole 10 mg PO BID 02/12/17 [History] Oxycodone HCl 10 mg PO Q4H PRN 02/12/17 [History] Oxygen 3 l NS CONT 02/12/17 [History] levoFLOXacin [Levaquin] 500 mg PO DAILY #5 tablet 02/14/17 [Rx] Allergies/Adverse Reactions: 3 Allergy/AdvReac Type Severity Reaction Status Date / Time No Known Allergies Allergy Verified 01/19/17 07:36 - Respiratory Orders Smoking Cessation: Smoking cessation has been advised. For more information, call the [place] Tobacco Quit Line at 1-177-GPUH-NOW. - Rehabiliation Orders Rehab Potential: Fair - Diet Orders Cardiac CERTIFICATION: I certify that the transfer of the above named patient to an Extended Care Facility is necessary for the continuing treatment of the diagnosis listed. The above information is true and accurate reflection of patient's current condition. Confidential - Redisclosure prohibited without a patient's written consent.
[2017-02-14 11:10] VITALS: BP 133/77
== END 2017-02-14 14:42 | DRG 393 ==
LOC: 3ANU 13:39 → EMEROO 13:39 → 3ANU 21:34
PROVIDERS: ADMIT Family Medicine; ATTEND Internal Medicine